=== PATIENT | female | born 1955 | race Caucasian/White ===

== ENCOUNTER 2020-09-16 15:43 | Emergency (ER) | payer BC, SELFPAY ==
--- NOTE | 2020-09-16 15:47 | ED.FEMALEGU ---
HPI - Female Genitourinary General Chief complaint: Urogenital-Female Stated complaint: UTI SYMPTOMS Time Seen by Provider: 09/16/20 15:47 Source: patient and RN notes reviewed History of Present Illness HPI Narrative: Patient is a 64-year-old female who presents the urgent care with complaints of a possible UTI. Patient states that on she started having symptoms of dysuria, urgency and frequency. Patient denies of any frequent history of UTIs. States that she has been increasing her cranberry juice over the last few days. Patient denies of any fever, chills, nausea, vomiting, abdominal pain or back pain. No other acute complaints. No acute distress noted. Patient aware of the plan of care. Some parts of this dictation were generated by voice recognition software and may contain typographical and/or grammatical inaccuracies. Related Data Home Medications Medication Instructions Recorded Confirmed levothyroxine 09/16/20 meloxicam 09/16/20 Allergies Allergy/AdvReac Type Severity Reaction Status Date / Time hydrocodone Allergy Hives Verified 09/16/20 15:52 Review of Systems Review of Systems: Narrative: CONSTITUTIONAL: Denies fever, chills, or sweats. EYES: Denies visual changes, redness, or discharge. ENT: Denies rhinorrhea, congestion, sore throat, or otalgia. CARDIOVASCULAR: Denies chest pain, palpitations, or edema. RESPIRATORY: Denies cough or dyspnea. GASTROINTESTINAL: Denies abdominal pain, nausea, vomiting, or diarrhea. GENITOURINARY: Reports of dysuria, frequency and urgency SKIN: Denies rash or itching. MUSCULOSKELETAL: Denies back pain, joint pain, or myalgia. NEUROLOGIC: Denies headache, numbness, or weakness. All other systems reviewed are negative, except as documented in HPI. PMFSH Comments At the time of my signature, I reviewed and agree with the nursing past medical, surgical, social, and family history. There is no relevant family history pertinent to the patient complaint. Exam Narrative: Exam Narrative: GENERAL: This is a well-nourished, well-developed patient, in no apparent distress. HEAD: normocephalic, atraumatic. EYES: PERRL. Sclera clear/white. Vision is grossly intact. EARS: External ears normal NOSE: External nose normal with no obvious nasal discharge, nares without redness, no rhinorrhea. THROAT: Mucous membranes moist NECK: Neck supple CARDIOVASCULAR: Regular rate and rhythm without murmurs, gallops, or rubs. RESPIRATORY: Clear to auscultation. Breath sounds equal bilaterally. No wheezes, rales, or rhonchi. GASTROINTESTINAL: Abdomen soft, non-tender, nondistended. Bowel sounds are active. SKIN: warm, intact with no suspicious lesions or rash, good texture and turgor. NEURO: awake, alert, and oriented to person, place and time. There were no obvious focal neurologic abnormalities. EXTREMITIES: No clubbing, cyanosis, or edema. BACK: Negative bilateral CVA tenderness Course Vital Signs Vital signs: Vital Signs Temperature 97.2 F L 09/16/20 15:48 Pulse Rate 70 09/16/20 15:48 Respiratory Rate 16 09/16/20 15:48 Blood Pressure 184/97 H 09/16/20 15:48 Pulse Oximetry 100 09/16/20 15:48 Temperature 97.2 F L 09/16/20 15:48 Pulse Rate 70 09/16/20 15:48 Respiratory Rate 16 09/16/20 15:48 Blood Pressure 184/97 H 09/16/20 15:48 Pulse Oximetry 100 09/16/20 15:48 Reviewed-patient is informed that they may have pre-hypertension or hypertension based on a blood pressure reading in the department. I recommend the patient call the primary care provider listed on their discharge instructions or a physician of their choice this week to arrange follow-up for further evaluation of possible pre-hypertension or hypertension. MDM - Female Genitourinary MDM Narrative Medical decision making narrative: Reviewed lab results with the patient. She is aware that urine analysis is indicative of urinary tract infection with blood and bacteria. Advised the mhosen
[2020-09-16 15:48] VITALS: BP 184/97; PULSE 70; RESP 16; TEMP 36.2; O2SAT 100
== END 2020-09-16 16:08 | disposition home or self-care (01) ==
PROVIDERS: Emergency Provider Nurse Practitioner Family
DX: N39.0 Urinary tract infection, site not specified (principal)
CPT/HCPCS: 81003; 87086; 87088; 99213; G0463

== ENCOUNTER 2021-04-20 11:08 | Emergency (ER) | payer BC, SELFPAY ==
[2021-04-20 11:28] VITALS: BP 152/83; PULSE 56; RESP 16; TEMP 36.1; O2SAT 98
--- NOTE | 2021-04-20 11:50 | ED.FEMALEGU ---
HPI - Female Genitourinary General Chief complaint: Urogenital-Female Stated complaint: Urinary pain Time Seen by Provider: 04/20/21 11:50 Source: patient, RN notes reviewed and old records reviewed Mode of arrival: ambulatory Limitations: no limitations History of Present Illness HPI Narrative: 65 year old female who presents to [facility] care with complaints of 2 day history of urgency and frequency with pressure sensation in urethra area. Patient reports that she has had past UTI's with similar symptoms. Patient reports also that she has had a bladder sling in the past for urinary incontinency. Patient states no vaginal discharge or itching or any concern for STD's. Patient denies any fevers, chills or sweats, no nausea or vomiting or any diarrhea. Patient denies any abdominal or suprapubic discomfort or any CVA tenderness. MD elicited complaint: dysuria and UTI Pertinent past history: overactive bladder and other (previous UTI) Onset (ago): day(s) (2) Related Data Home Medications Medication Instructions Recorded Confirmed levothyroxine 100 mcg PO DAILY 04/20/21 04/20/21 meloxicam 15 mg PO PRN PRN 04/20/21 04/20/21 Allergies Allergy/AdvReac Type Severity Reaction Status Date / Time hydrocodone Allergy Hives Verified 04/20/21 11:34 Review of Systems Review of Systems: CONSTITUTIONAL: Denies fever, chills, or sweats. EYES: Denies visual changes, redness, or discharge. ENT: Denies rhinorrhea, congestion, sore throat, or otalgia. CARDIOVASCULAR: Denies chest pain, palpitations, or edema. RESPIRATORY: Denies cough or dyspnea. GASTROINTESTINAL: Denies abdominal pain, nausea, vomiting, or diarrhea. GENITOURINARY: Positive dysuria or hematuria, urgency and frequency SKIN: Denies rash or itching. MUSCULOSKELETAL: Denies back pain, joint pain, or myalgia. NEUROLOGIC: Denies headache, numbness, or weakness. PSYCHIATRIC: Denies anxiety or depression. All systems reviewed & are unremarkable except as noted in HPI and below PMFSH Past Medical History Medical History (Updated 04/20/21 @ 12:19 by Gaye Conway NP) DDD (degenerative disc disease), lumbar Hypothyroid UTI (urinary tract infection) Surgical History Surgical History (Updated 04/20/21 @ 12:20 by Gaye Conway NP) History of bladder surgery sling History of total right knee replacement Social History Social History (Updated 04/20/21 @ 12:26 by Gaye Conway NP) Smoking status: Never smoker Alcohol intake: unknown Substance use: never Living arrangements: with family Gender identity (if verbalized by the patient): Female Comments At time of signature, agree with nursing past medical, surgical, social and family history. There is no relevant family history pertinent to the presenting complaint Exam Narrative: GENERAL: Well-appearing, well-nourished, and in no acute distress. HEAD: Normocephalic, atraumatic. EYES: PERRLA and EOMI. ENT: Nares clear, no rhinorrhea or epistaxis. Mucous membranes moist.TM's normal with good light reflex, throat pink with no lesions or exudates or tonsil enlargement. NECK: Supple.no lymphadenopathy CHEST: Clear to auscultation. No respiratory distress.SAO2 98% on room air HEART: Regular rate and rhythm. No murmur heard. Normal peripheral pulses. ABDOMEN: Soft, nontender on palpation, nondistended, normal active bowel sounds, No CVA tenderness on evaluation, urgency and frequency with urination and perineal urethra pressure. EXTREMITIES: Normal range of motion. No edema. SKIN: Warm, dry, no rash. NEURO: No focal deficits. Alert and oriented x3. Course Course Level of Care: Express Care Visit Vital Signs Vital signs: Vital Signs Temperature 36.1 C L 04/20/21 11:28 Pulse Rate 56 L 04/20/21 11:28 Respiratory Rate 16 04/20/21 11:28 Blood Pressure 152/83 H 04/20/21 11:28 Pulse Oximetry 98 04/20/21 11:28 Temperature 36.1 C L 04/20/21 11:28 Pulse Rate 56 L 04/20/21 11:28 Respirat
== END 2021-04-20 12:07 | disposition home or self-care (01) ==
PROVIDERS: Emergency Provider Registered Nurse
DX: N39.0 Urinary tract infection, site not specified (principal); M51.36 Other intervertebral disc degeneration, lumbar region; E03.9 Hypothyroidism, unspecified; Z96.651 Presence of right artificial knee joint
CPT/HCPCS: 81003; 87086; 87147; 87181; 87186; 99213; G0463

== ENCOUNTER 2021-10-26 00:54 | Day surgery (SDC) | payer BC, SELFPAY ==
[2021-10-15 15:57] VITALS: BMI 33.4
--- NOTE | 2021-10-25 13:15 | PM.HPGS ---
History of Present Illness History of Present Illness Consent: Risks, benefits, and alternatives have been discussed and questions answered. Patient agrees to proceed with procedure. Chief complaint: neoplasm screening Narrative: Monica Kearns is a 66 year old female referred for colon cancer screening. She has a family history of colon cancer. Review of Systems Review of Systems: All systems reviewed & are unremarkable except as noted in HPI and below PMFSH Past Medical History Medical History DDD (degenerative disc disease), lumbar Hx of acute renal failure Hypothyroid Idiopathic urticaria UTI (urinary tract infection) Surgical History Surgical History History of bladder surgery sling History of total right knee replacement Hx of colonoscopy 01.08.2017 repeat on 5 years due to fam hx Social History Social History Smoking status: Former smoker Tobacco type: cigarettes Alcohol intake: current Drinks per week: 1 Alcohol use details: twice a month Substance use: never Substance use type: does not use Living arrangements: alone Gender identity (if verbalized by the patient): Female Spiritual care concerns: No Meds Home Medications and Allergies Home Medications Medication Instructions Recorded Confirmed Type levothyroxine 100 mcg tablet 100 mcg PO DAILY 04/20/21 10/26/21 History calcium carbonate 600 mg calcium 600 mg PO DAILY 05/09/21 10/26/21 History (1,500 mg) tablet (Calcium) diclofenac sodium 1 % topical gel 2 g topical QID 05/09/21 10/26/21 History estradiol 0.01% (0.1 mg/gram) 1 g vaginal WEEKLY #42.5 grams 06/28/21 10/26/21 Rx vaginal cream cholecalciferol (vitamin D3) 1,250 1,250 mcg PO WEEKLY #14 caps 10/12/21 10/26/21 Rx mcg (50,000 unit) capsule solifenacin 10 mg tablet (Vesicare) 10 mg PO DAILY #90 tabs 10/12/21 10/26/21 Rx Allergies Allergy/AdvReac Type Severity Reaction Status Date / Time hydrocodone Allergy Hives Verified 10/26/21 07:57 Exam Resp: Auscultation: clear to auscultation bilaterally Cardio: Rate: regular rate Rhythm: regular rhythm GI: GI Palp: Yes Soft to palpation and No Tenderness to palpation present (GI) Assessment and Plan Assessment and plan (1) Colon cancer screening: Code(s): Z12.11 - Encounter for screening for malignant neoplasm of colon Status: Acute Assessment and Plan: Colonoscopy with possible biopsy or polypectomy or cautery or injection of substances.
[2021-10-26 07:58] VITALS: BP 169/87; PULSE 56; RESP 18; TEMP 36.2; O2SAT 100
[2021-10-26] MEDS: LACTATED RINGERS 1,000 ML 150 ML IV CONT (08:10)
--- NOTE | 2021-10-26 08:31 | WPDANESEPPF ---
Anes - Initial Pre Proc Eval Procedure: Operation Date: 10/26/21 09:00 Proposed Procedures p Screening Colonoscopy - Davin Brooks MD Date/Time: 10/26/21 08:31 Surgeon: Davin Brooks MD Pre Op Diagnosis: neoplasm screening Patient Data Age: 66 Gender: F Height: 1.68 m Weight: 93.3 kg Last Vital Signs Temp 97.1 F L 10/26/21 07:58 Pulse 56 L 10/26/21 07:58 Resp 18 10/26/21 07:58 BP 169/87 H 10/26/21 07:58 Pulse Ox 100 10/26/21 07:58 O2 Del Method Room Air 10/26/21 07:58 Allergies Allergy/AdvReac Type Severity Reaction Status Date / Time hydrocodone Allergy Hives Verified 10/26/21 07:57 Home Medications Medication Instructions Recorded Confirmed Type levothyroxine 100 mcg tablet 100 mcg PO DAILY 04/20/21 10/26/21 History calcium carbonate 600 mg calcium 600 mg PO DAILY 05/09/21 10/26/21 History (1,500 mg) tablet (Calcium) diclofenac sodium 1 % topical gel 2 g topical QID 05/09/21 10/26/21 History estradiol 0.01% (0.1 mg/gram) 1 g vaginal WEEKLY #42.5 grams 06/28/21 10/26/21 Rx vaginal cream cholecalciferol (vitamin D3) 1,250 1,250 mcg PO WEEKLY #14 caps 10/12/21 10/26/21 Rx mcg (50,000 unit) capsule solifenacin 10 mg tablet (Vesicare) 10 mg PO DAILY #90 tabs 10/12/21 10/26/21 Rx Patient hx anesthesia problems: none Family hx anesthesia problems: none Results Review: All pre-operative results and documents have been reviewed as part of the pre-operative evaluation. [facility] Past Medical History Medical History DDD (degenerative disc disease), lumbar Hx of acute renal failure Hypothyroid Idiopathic urticaria UTI (urinary tract infection) Surgical History Surgical History History of bladder surgery sling History of total right knee replacement Hx of colonoscopy .1.2017 repeat on 5 years due to fam hx Social History Social History Smoking status: Former smoker Tobacco type: cigarettes Alcohol intake: current Drinks per week: 1 Alcohol use details: twice a month Substance use: never Substance use type: does not use Living arrangements: alone Gender identity (if verbalized by the patient): Female Spiritual care concerns: No Anes - Eval Final PreProcedure Day of Procedure 10/26/21 08:31 Patient weight: obese Heart: regular rate and rhythm Lungs: clear to auscultation Airway: Mallampati scale class III Neurological: alert and oriented Last oral intake: >/= 8 hours ASA classification: III Emergent: no Anesthetic plan: proceed Anesthesia type and monitoring: general GIVS and standard monitoring Results Review: All pre-operative results and documents have been reviewed as part of the pre-operative evaluation. Informed Consent: The patient's anesthetic plan and its attendant risks and benefits were discussed with the patient/family/POA. Questions were solicited and answers provided to the satisfaction of the patient/family/POA.
[2021-10-26 09:11] VITALS: BP 123/76; PULSE 61; RESP 16; O2SAT 99
[2021-10-26 09:21] VITALS: BP 151/83; PULSE 55; RESP 18; O2SAT 100
[2021-10-26 09:31] VITALS: BP 147/79; PULSE 52; RESP 14; O2SAT 98
== END 2021-10-26 09:38 | disposition home or self-care (01) ==
PROVIDERS: PCP Family Medicine; Visit Provider Internal Medicine Gastroenterology
PROC: 0DJD8ZZ Inspection of Lower Intestinal Tract, Via Natural or Artificial Opening Endoscopic (ICD-10-PCS; CPT 45378; principal; 2021-10-26 09:00)
DX: Z12.11 Encounter for screening for malignant neoplasm of colon (principal); K57.30 Diverticulosis of large intestine without perforation or abscess without bleeding; K64.8 Other hemorrhoids; Z80.0 Family history of malignant neoplasm of digestive organs; E03.9 Hypothyroidism, unspecified; Z87.891 Personal history of nicotine dependence; E66.9 Obesity, unspecified; Z68.33 Body mass index [BMI] 33.0-33.9, adult
CPT/HCPCS: 45378; J2704; J7120

== ENCOUNTER 2021-11-17 08:19 | Emergency (ER) | payer BC, SELFPAY ==
--- NOTE | 2021-11-17 08:23 | ED.EYEPROB ---
HPI - Eye Problem General Chief complaint: Eye Problems Stated complaint: SWOLLEN/RED EYE Time Seen by Provider: 11/17/21 08:38 Source: patient and RN notes reviewed Mode of arrival: ambulatory Limitations: no limitations History of Present Illness HPI Narrative: 66-year-old female presents with concern for right eyelid swelling and redness for several days. She denies visual changes, pain, purulent drainage. Reports some slight watery drainage. Reports the lid is slightly tender when she touches it. She denies any injury or trauma. She denies any swelling around the eye or pressure behind the eye. chief complaint: other (Eyelid swelling) Related Data Home Medications Medication Instructions Recorded Confirmed calcium carbonate 600 mg calcium 600 mg PO DAILY 05/09/21 11/17/21 (1,500 mg) tablet (Calcium) diclofenac sodium 1 % topical gel 2 g topical QID 05/09/21 11/17/21 Allergies Allergy/AdvReac Type Severity Reaction Status Date / Time hydrocodone Allergy Hives Verified 11/17/21 08:29 Review of Systems Review of Systems: CONSTITUTIONAL: Denies malaise, chills, sweats, or fever. EYES: Denies visual changes. Reports redness, and swelling to the right upper eyelid. Denies irritation, purulent discharge. ENT: Denies rhinorrhea, congestion, sinus pain, otalgia or sore throat. SKIN: Denies rash or itching. NEUROLOGIC: Denies numbness, weakness, or headache. PSYCHIATRIC: Denies anxiety or depression. All systems reviewed & are unremarkable except as noted in HPI and below PMFSH Past Medical History Medical History DDD (degenerative disc disease), lumbar Hx of acute renal failure Hypothyroid Idiopathic urticaria UTI (urinary tract infection) Surgical History Surgical History History of bladder surgery sling History of total right knee replacement Hx of colonoscopy 01.08.2017 repeat on 5 years due to fam hx Social History Social History Smoking status: Former smoker Tobacco type: cigarettes Alcohol intake: current Drinks per week: 1 Alcohol use details: twice a month Substance use: never Substance use type: does not use Gender identity (if verbalized by the patient): Female Spiritual care concerns: No Comments At time of signature, agree with nursing past medical, surgical, social and family history. There is no relevant family history pertinent to the presenting complaint Exam Narrative: GENERAL: Well-appearing, well-nourished, and in no acute distress. HEAD: Normocephalic, atraumatic. EYES: PERRLA, sclera clear, and EOMI. No nystagmus. Bilateral conjunctivae clear. Left upper and lower eyelid unremarkable, no periorbital edema noted. Right upper eyelid erythematous with mild edema to the lower margin of the lid with hordeolum noted. ENT: Nares clear, turbinates pink, no rhinorrhea or epistaxis. Mucous membranes moist. NECK: Supple. CHEST: No respiratory distress. Speaks in full sentences. HEART: Regular rate and rhythm. SKIN: Warm, dry, no visible rash. NEURO: Alert and oriented x3. PSYCH: Normal mood and affect Course Course Emergency Course: Patient is aware of diagnosis, understands and agrees to treatment plan. Anticipatory guidance given. Patient agrees to follow-up as directed and is aware of reasons to seek care at the emergency department. Portions of this record may have been created with voice recognition software Level of Care: Express Care Visit Vital Signs Vital signs: Reviewed. MDM - Eye Problem MDM Narrative Medical decision making narrative: Consideration of the following conditions may be warranted for the presenting problem, they are not final diagnoses: Bacterial conjunctivitis, allergic conjunctivitis, viral conjunctivitis, foreign body, blepharitis, chalazion, hordeolum, corneal
[2021-11-17 08:29] VITALS: BP 154/95; PULSE 51; RESP 16; TEMP 36.6; O2SAT 100
== END 2021-11-17 08:50 | disposition home or self-care (01) ==
PROVIDERS: Emergency Provider Nurse Practitioner; PCP Family Medicine
DX: H00.021 Hordeolum internum right upper eyelid (principal); Z87.891 Personal history of nicotine dependence; M51.36 Other intervertebral disc degeneration, lumbar region; E03.9 Hypothyroidism, unspecified; Z96.651 Presence of right artificial knee joint
CPT/HCPCS: 99213; G0463

== ENCOUNTER 2021-11-23 12:34 | Emergency (ER) | payer BC, SELFPAY ==
[2021-11-23 12:38] VITALS: BP 153/76; PULSE 57; RESP 16; TEMP 36.1; O2SAT 100
--- NOTE | 2021-11-23 12:54 | ECG_ITS ---
Measurements Intervals [place] Rate: 54 P: 43 GA: 175 QRS: 9 QRSD: 92 T: 65 QT: 433 QTc: 411 Interpretive Statements SINUS BRADYCARDIA BORDERLINE ST ABNORMALITY- HIGH LATERAL LEADS BASELINE ARTIFACT- I, II, III, AVR, AVL, AVF BORDERLINE ECG NO PREVIOUS ECG AVAILABLE FOR COMPARISON Electronically Signed On 11-23-2021 21:22:13 CDT by Campos White D.O.
--- NOTE | 2021-11-23 13:15 | ED.DIZZY ---
HPI - Dizziness General Chief Complaint: Dizziness Stated Complaint: LIGHT HEADED History of Present Illness HPI Narrative: Patient is a 66-year-old female who presents to the the medical center via POV for evaluation of dizziness and near syncopal episode that occurred at approximately 10 AM this morning. 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 Denies taking OTC meds for symptoms. Resting improved symptoms. Nothing worsens symptoms. Denies a heart history. Patient is scheduled to have a total knee replacement in approximately 2 weeks and is scheduled for a Lexiscan on Friday, November 28, 2021. Of note, she recently started solifenacin for bladder problems Related Data Home Medications Medication Instructions Recorded Confirmed calcium carbonate 600 mg calcium 600 mg PO DAILY 05/09/21 11/17/21 (1,500 mg) tablet (Calcium) diclofenac sodium 1 % topical gel 2 g topical QID 05/09/21 11/17/21 Allergies Allergy/AdvReac Type Severity Reaction Status Date / Time hydrocodone Allergy Hives Verified 11/17/21 08:29 Review of Systems Review of Systems: Pertinent negatives: fever, chills, sweats, change in appetite, poor p.o. intake, headache, lymphadenopathy, vision changes, swelling, erythema, weakness, syncope, vertigo, LOC, seizure activity, memory loss, difficulty with coordination/gait/equilibrium, paresthesias, abdominal pain, nausea, vomiting, diarrhea, constipation, shortness of breath, cough, chest pain, and heart palpitations/murmurs. [facility] Past Medical History Medical History DDD (degenerative disc disease), lumbar Hx of acute renal failure Hypothyroid Idiopathic urticaria UTI (urinary tract infection) Surgical History Surgical History History of bladder surgery sling History of total right knee replacement Hx of colonoscopy 01.08.2017 repeat on 5 years due to fam hx Social History Social History Smoking status: Former smoker Tobacco type: cigarettes Alcohol intake: current Drinks per week: 1 Alcohol use details: twice a month Substance use: never Substance use type: does not use Gender identity (if verbalized by the patient): Female Spiritual care concerns: No Comments I have reviewed and agree with the patient's past medical, surgical, social, and family hx as documented by the RN. There is no relevant family history pertinent to the presenting complaint. Exam Narrative: GENERAL: Well-appearing, well-nourished, and in no acute distress. HEAD: Normocephalic, atraumatic. No sinus tenderness or facial swelling appreciated. EYES: PERRLA and EOMI. No evidence of erythema, swelling, or drainage. ENT: Bilateral external ears and ear canals normal. Bilateral TMs are normal.No TM perforation. Nares clear, no rhinorrhea or epistaxis. Bilateral turbinates without erythema/ swelling. Mucous membranes moist and pink. Uvula is midline without erythema and swelling. No evidence of petechial rash, cobblestoning, lesions, ulcers, erythema, swelling, exudates, peritonsillar abscess, tenting, or drooling. Breath odor and voice normal. NECK: Supple. No Lymphadenopathy or nuchal rigidity appreciated. CHEST: Bilateral lung lechuga are clear to auscultation. No respiratory distress. No evidence of cough or pleuritic cp upon examination. HEART: Sinus bradycardia with a rate of 55. Rate was measured by palpating radial artery. Regular rhythm. No murmur, gallop, or rub heard. EXTREMITIES: Normal range of motion. No edema. SKIN: Warm, dry, no rash. NEURO: No focal deficits. Alert and oriented x3. Course Course Emergency Course: The patient/guardian displays adequate decision making capability and despite a detailed discussion of alternatives, benefits,
--- NOTE | 2021-11-23 13:31 | PC.NURSE ---
States she does not feel bad at this time. No chest pain, dizziness or headache. Refuses to go to the ED for a work up.
== END 2021-11-23 13:35 | disposition home or self-care (01) ==
PROVIDERS: Emergency Provider Nurse Practitioner Family; PCP Family Medicine
DX: R00.1 Bradycardia, unspecified (principal); E03.9 Hypothyroidism, unspecified; Z87.891 Personal history of nicotine dependence
CPT/HCPCS: 93005; 99213; G0463

== ENCOUNTER 2021-11-28 09:06 | Outpatient (CLI) | payer BC, SELFPAY ==
--- NOTE | ~2021-11-28 | NM_ITS ---
EXAMINATION: NM ji stress w perfusion DATE: 11/28/2021 12:08 INDICATION: Abnormal electrocardiogram. TECHNIQUE: Rest images were obtained following intravenous administration of 10 mCi Tc99m tetrofosmin (Myoview). The patient was infused intravenously with Lexiscan (regadenoson). Then, 30.6 mCi Tc99m t etrofosmin (Myoview) was administered intravenously, and prone and supine stress images were obtained . Data was reconstructed into short axis and horizontal and vertical long axis SPECT images. Gated SP ECT images were also obtained. COMPARISON: None. FINDINGS: There is no definite reversible or fixed perfusion abnormality to suggest ischemia or infar ction. There is no segmental wall motion abnormality. Left ventricular ejection fraction measures 6 6%. IMPRESSION: 1. No definite ischemia or infarct. 2. Normal left ventricular ejection fraction measuring 66%. Reviewed, dictated and finalized at location A.
--- NOTE | 2021-11-28 10:48 | EST_ITS ---
Patient Info Name: Monica Kearns Age: 66 years : 1955 Gender: Female Ht: 66 in Wt: 205 lbs BSA: 2.12 m2 HR: 59 bpm BP: 156 / 101 mmHg Exam Date: 11/28/2021 10:56 AM Exam Location: [facility] Stress Patient Status: Outpatient Admit Date: 11/28/2021 Staff Ordering Physician: Donald Dahl PA-C Attending Provider: Sandra Santana MD Exercise Technologist: Broderick Velarde RDCS, RT Exercise Physician: Campos White DO Exam Type: CA stress ji w NM Study Info A regadenoson stress test was performed. Summary 1. 1. Abnormal lexiscan stress test for ischemic ST changes by ECG criteria. 2. 2. Baseline hypertension. 3. 3. Nuclear scan to follow and will be reported separately. Please correlate with it. 4. 4. Patient informed of the above results. Protocol: Lexiscan Stress ECG Details Stage: REST Duration (min): 2 min : 55 sec HR (bpm): 59 SBP (mmHg): 156 DBP (mmHg): 101 Stage: REST Duration (min): 8 min : 48 sec HR (bpm): 74 SBP (mmHg): 156 DBP (mmHg): 101 Stage: STAGE 1 Duration (min): 1 min : 0 sec HR (bpm): 116 SBP (mmHg): 195 DBP (mmHg): 109 Stage: RECOVERY Duration (min): 1 min : 0 sec HR (bpm): 106 SBP (mmHg): 195 DBP (mmHg): 109 Stage: RECOVERY Duration (min): 2 min : 0 sec HR (bpm): 92 SBP (mmHg): 195 DBP (mmHg): 109 Stage: RECOVERY Duration (min): 3 min : 0 sec HR (bpm): 89 SBP (mmHg): 175 DBP (mmHg): 95 Stage: RECOVERY Duration (min): 4 min : 0 sec HR (bpm): 84 SBP (mmHg): 175 DBP (mmHg): 95 Stage: RECOVERY Duration (min): 5 min : 0 sec HR (bpm): 80 SBP (mmHg): 175 DBP (mmHg): 95 Stage: RECOVERY Duration (min): 5 min : 5 sec HR (bpm): 79 SBP (mmHg): 175 DBP (mmHg): 95 Rest HR: 74 bpm Peak HR: 116 bpm Rest Sys BP: 156 mmHg Peak Sys BP: 195 mmHg Max Pred HR: 154 bpm % Max Pred HR: 75 % Target HR: 131 bpm Max RPP: 22,620 bpm*mmHg Termination Reason: Completed protocol Cardiac Symptoms: Shortness of breath Total Time: 1 min : 0 sec Rest Welch BP: 101 mmHg Peak Welch BP: 109 mmHg Total Dose: 0.4 mg Resting ECG Sinus rhythm. Stress ECG [address] depression in inferior leads and V3-V6. Arrhythmias None. Report Signatures
== END 2021-11-28 09:07 | disposition home or self-care (01) ==
PROVIDERS: PCP Family Medicine; Visit Provider Family Medicine
DX: R00.1 Bradycardia, unspecified (principal); Z01.810 Encounter for preprocedural cardiovascular examination
CPT/HCPCS: 78452; 93017; A9502; J2785

== ENCOUNTER 2021-12-12 11:32 | Emergency (ER) | payer BC, SELFPAY ==
--- NOTE | ~2021-12-12 | CT_ITS ---
EXAMINATION: CTA brain carotid DATE: 12/12/2021 13:43 INDICATION: Transient visual loss. TECHNIQUE: Computed tomographic angiography (CTA) of the head was performed without and with 100 mL O mnipaque-350 intravenous contrast. CTA of the neck was performed with intravenous contrast. Automated exposure control and iterative reconstruction technique were employed. The dose-length product was 1 635.38 mGy-cm. Maximum intensity projection and volume rendered 3D-reconstructions were created by e technologist on a separate workstation. COMPARISON: None. FINDINGS: HEAD CTA: There is no intracranial hemorrhage, acute infarction, or abnormal intracranial mass lesion . The ventricles are normal in size. The orbits are normal. There is minimal mucosal thickening in e paranasal sinuses. The mastoid air cells are normal. Left vertebral artery is dominant. There is no significant stenosis of basilar artery or the posterior cerebral arteries. The posterior communicati ng arteries are normal. There is no significant stenosis of the intracranial internal carotid arterie s or anterior or middle cerebral arteries. Anterior communicating artery is normal. There is no aneur ysm. NECK CTA: There is mild scarring at the lung apices. There are no pathologically enlarged lymph nodes . There is plaque in the proximal internal carotid arteries. There is 0% stenosis of the proximal rig ht internal carotid artery relative to normal distal artery lumen diameter (NASCET criteria). There i s 0% stenosis of the proximal left internal carotid artery relative to normal distal artery lumen gissel meter. There is severe cervical spondylosis. IMPRESSION: 1. Normal brain. 2. No aneurysm or significant intracranial internal stenosis. 3. 0% stenosis of the proximal internal carotid arteries relative to normal distal artery lumen diame ters (NASCET criteria). Reviewed, dictated and finalized at location A. IMPRESSION: 1. Normal brain. 2. No aneurysm or significant intracranial internal stenosis. 3. 0% stenosis of the proximal internal carotid arteries relative to normal dis chelsy artery lumen diameters (NASCET criteria).
[2021-12-12 11:48] VITALS: BP 184/78; PULSE 60; RESP 20; TEMP 36.6; O2SAT 100
--- NOTE | 2021-12-12 12:00 | PC.NURSE ---
Pt. has a bifocal lens for L eye and an distance lens for R eye. visual acuity is unable to be preformed.
--- NOTE | 2021-12-12 12:21 | ED.EYEPROB ---
HPI - Eye Problem General Chief complaint: Eye Problems Stated complaint: INT VISION CHANGES Time Seen by Provider: 12/12/21 12:11 Source: RN notes reviewed History of Present Illness HPI Narrative: Patient presents emergency department from home for vision changes. Patient states she had a cardiac cath done at [facility] yesterday she states at that time they found no blockage of the required stents states a Soni cath she had a brief 5-minute episode where she had a shiny near light sensation in her right eye and then had moved across to her left eye states that this lasted for approximately 5 minutes and resolved. She states she had no new numbness or tingling and no other symptoms states that she was fine until this morning when she again had that shiny mirror sensation in her right eye and then she states briefly lost the medial aspect of her vision in the right eye states this again lasted 5 minutes and resolved and she is had no issues since that time she denies any numbness or tingling she denies any headaches or any other symptoms patient denies any chest pain shortness of breath or any other deficits Related Data Home Medications Medication Instructions Recorded Confirmed calcium carbonate 600 mg calcium 600 mg PO DAILY 05/09/21 11/17/21 (1,500 mg) tablet (Calcium) diclofenac sodium 1 % topical gel 2 g topical QID 05/09/21 11/17/21 Allergies Allergy/AdvReac Type Severity Reaction Status Date / Time hydrocodone Allergy Hives Verified 12/04/21 15:21 Review of Systems Review of Systems: Gen.: Denies fevers or chills Eyes: See HPI ENT: Denies congestion Respiratory: Denies shortness of breath or cough CV: Denies chest pain or palpitations GI: Denies abdominal pain nausea, emesis or diarrhea Musculoskeletal: Denies back pain or muscle pain Neuro: Denies numbness, tingling, weakness or focal weakness Skin: Denies rash Except as documented, all other systems reviewed and negative [facility] Past Medical History Medical History DDD (degenerative disc disease), lumbar Hx of acute renal failure Hypothyroid Idiopathic urticaria UTI (urinary tract infection) Surgical History Surgical History History of bladder surgery sling History of total right knee replacement Hx of colonoscopy 01.08.2017 repeat on 5 years due to fam hx Social History Social History Smoking status: Former smoker Tobacco type: cigarettes Alcohol intake: current Drinks per week: 1 Alcohol use details: twice a month Substance use: never Substance use type: does not use Gender identity (if verbalized by the patient): Female Spiritual care concerns: No Exam Narrative: APPEARANCE: No acute distress, nontoxic, resting in bed HEENT: Normocephalic, atraumatic, OMM, EYES: PERRL, EOMI NECK: Supple, nontender, full range of motion without pain, no meningismus RESPIRATORY: No respiratory distress, clear to auscultation bilaterally with no rhonchi wheezing or rales CARDIOVASCULAR: RRR s murmur ABDOMINAL: Soft, nontender, nondistended MUSCULOSKELETAL: Moves all extremities. No clubbing, cyanosis or edema. NEURO: A and O ?3, following commands, speech normal, no facial droop,muscle strength 5 out of 5 bilateral upper and lower extremities SKIN:: Warm, dry. Normal Color PSYCHIATRIC: Normal affect/mood Course Course Emergency Course: Patient has had no vision symptoms in the ED All discussed with ophthalmology Dr. England at [facility] this time recommends patient follow-up in the office at 2 PM tomorrow Discussed with patient results of workup and diagnosis. Discussed need for follow-up with primary care, proper use of medication, and reasons to return to the emergency department. Patient understands and agrees to current treatment plan Vital Sign
[2021-12-12 13:03] LABS: Basophils Percent Auto 0.4 % (0.2-1.2); Eosinophils Absolute Auto 0.1 K/mm3 (0-0.3); Eosinophils Percent Auto 1.2 % (0-4.4); Hematocrit 41.8 % (37.0-47.0); Hemoglobin 13.8 g/dL (12.0-15.0); Immature Granulocyte Absolute 0.01 K/mm3 (0.00-0.031); Immature Granulocyte Percent A 0.2 % (0-0.5); Lymphocytes Absolute Auto 1.63 K/mm3 (0.9-3.2); Lymphocytes Percent Auto 33.1 % (18.3-44.2); Mean Corpuscular Hemoglobin 27.9 pg (26-34); Mean Corpuscular Volume 84.6 fl (80-100); Monocytes Absolute Auto 0.6 K/mm3 (0.1-0.6); Monocytes Percent Auto 11.4 % (2.6-8.5); Neutrophils Absolute Auto 2.6 K/mm3 (1.3-6.7); Neutrophils Percent Auto 53.7 % (45.5-73.1); Platelet Count Result 194 k/mm3 (150-375); Red Blood Count 4.94 M/mm3 (4.2-5.4); Red Cell Distribution Width 13.9 % (11.5-14.5); White Blood Count 4.9 K/mm3 (4.5-10.0)
[2021-12-12 13:12] LABS: Alanine Aminotransferase 16 U/L (6-35); Albumin Level 4.8 g/dL (3.5-5.1); Alkaline Phosphatase 58 U/L (38-126); Anion Gap 9 mmol/L (8-16); Aspartate Amino Transferase 23 U/L (14-36); Bilirubin,Total 0.6 mg/dL (0.2-1.3); Blood Urea Nitrogen 19 mg/dL (7-17); Calcium 9.3 mg/dL (8.4-10.2); Carbon Dioxide 28 mmol/L (22-30); Chloride 102 mmol/L (98-107); Estimated Glomerular Filt Rate > 60; Glucose 103 mg/dL (65-110); Potassium 4.2 mmol/L (3.4-5.0); Sodium 139 mmol/L (137-145)
[2021-12-12 13:13] LABS: INR 1.1; Prothrombin Time 13.3 Seconds (11.1-14.7)
[2021-12-12 13:14] LABS: Partial Thromboplastin Time 34.7 SECONDS (22.3-36.8)
[2021-12-12 13:18] VITALS: BP 179/77; PULSE 54; RESP 12; O2SAT 99
== END 2021-12-12 15:02 | disposition home or self-care (01) ==
PROVIDERS: Emergency Provider Emergency Medicine; PCP Family Medicine
DX: H53.9 Unspecified visual disturbance (principal); E03.9 Hypothyroidism, unspecified; Z87.440 Personal history of urinary (tract) infections; Z96.651 Presence of right artificial knee joint; Z87.891 Personal history of nicotine dependence
CPT/HCPCS: 36415; 70496; 70498; 80053; 85025; 85610; 85730; 99284; Q9967

== ENCOUNTER 2022-01-24 10:36 | Outpatient (CLI) | payer BC, SELFPAY ==
[2022-01-24 19:22] LABS: Kit Draw Collected
== END 2022-01-24 10:37 | disposition home or self-care (01) ==
LOC: ANHGOSHLAB 10:39
PROVIDERS: PCP Family Medicine; Visit Provider Physician Assistant
DX: E55.9 Vitamin D deficiency, unspecified (principal); E78.2 Mixed hyperlipidemia; G47.33 Obstructive sleep apnea (adult) (pediatric); N32.81 Overactive bladder; Z99.89 Dependence on other enabling machines and devices
CPT/HCPCS: 36415

== ENCOUNTER 2022-07-15 09:41 | Outpatient (CLI) | payer MEDICARE, SELFPAY ==
[2022-07-15 12:11] LABS: Kit Draw Collected
== END 2022-07-15 09:42 | disposition home or self-care (01) ==
LOC: ANHGOSHLAB 09:43
PROVIDERS: PCP Family Medicine; Visit Provider Physician Assistant
DX: Z79.899 Other long term (current) drug therapy (principal)
CPT/HCPCS: 36415

== ENCOUNTER → 2022-07-15 09:59 | Outpatient (CLI) | payer MEDICARE, SELFPAY ==
--- NOTE | ~2022-07-15 | XR_ITS ---
EXAMINATION: XR hip RT 2V w AP pelvis DATE: 07/15/2022 10:12 INDICATION: 6 months of nontraumatic right hip pain TECHNIQUE: Anteroposterior view of the pelvis and anteroposterior and frog-leg lateral views of the r ight hip were obtained. COMPARISON: None. FINDINGS: Bone alignment is normal. No fracture or suspected avascular necrosis. Mild bilateral sacral iliac os teoarthritis. Bilateral hip joint spaces appear relatively preserved. Mild osteitis pubis. IMPRESSION: 1. Unremarkable right hip. 2. Mild osteitis pubis and mild bilateral sacroiliac osteoarthritis. Reviewed, dictated and finalized at location A.
== END ==
PROVIDERS: PCP Family Medicine; Visit Provider Physician Assistant
DX: M25.559 Pain in unspecified hip (principal); M53.3 Sacrococcygeal disorders, not elsewhere classified
CPT/HCPCS: 73502

== ENCOUNTER 2022-07-30 13:35 | Outpatient (CLI) | payer MEDICARE, SELFPAY ==
--- NOTE | 2022-08-06 15:23 | WPDHOLTEREM ---
Holter/Event Monitor Holter/Event Monitor Date of procedure: 07/30/22 Holter/Event Procedure: 48 Hr Holter Monitor Indications: Palpitations Conclusion: 1. 48 hour holter monitor on 07/30/22. 2. Predominant rhythm is sinus rhythm. HR range 40-105 bpm; average HR 64 bpm. HR at 40 bpm was at 05:06. 3. There are 97 premature supraventricular complexes and 13 supraventricular couplets. There are 3 episodes of atrial tachycardia, fastest at 150 bpm and longest lasted 5 beats. 4. There are 237 premature ventricular complexes. No ventricular tachycardia. 5. No sinoatrial or atrioventricular blocks. No significant pauses greater than 2 seconds. 6. No symptoms available for correlation.
== END 2022-07-30 13:36 | disposition home or self-care (01) ==
PROVIDERS: PCP Family Medicine; Visit Provider Physician Assistant
DX: R00.2 Palpitations (principal)
CPT/HCPCS: 93225; 93226

== ENCOUNTER 2023-05-20 08:51 | Outpatient (CLI) | payer MEDICARE, SELFPAY ==
--- NOTE | ~2023-05-20 | XR_ITS ---
Left elbow Technique: AP, oblique, and lateral views were obtained. Clinical History: Pain Findings: No acute fracture or dislocation is seen. Osseous alignment is anatomic. Joint spaces are p reserved. There is no displacement of the fat pads, and soft tissues are unremarkable. Impression: Unremarkable radiographs. Reviewed, dictated and finalized at location . Impression: Unremarkable radiographs.
== END 2023-05-20 08:52 ==
PROVIDERS: PCP Family Medicine; Visit Provider Nurse Practitioner Family
DX: M25.522 Pain in left elbow (principal)
CPT/HCPCS: 73080

== ENCOUNTER 2023-10-27 09:50 | Outpatient (CLI) | payer MEDICARE, SELFPAY ==
[2023-10-27 14:29] LABS: Basophils Percent Auto 0.8 % (0.2-1.2); Eosinophils Absolute Auto 0.1 K/mm3 (0-0.3); Eosinophils Percent Auto 1.6 % (0-4.4); Hematocrit 41.9 % (37.0-47.0); Hemoglobin 13.7 g/dL (12.0-15.0); Immature Granulocyte Absolute 0.01 K/mm3 (0.00-0.031); Immature Granulocyte Percent A 0.2 % (0-0.5); Lymphocytes Absolute Auto 1.75 K/mm3 (0.9-3.2); Lymphocytes Percent Auto 35.6 % (18.3-44.2); Mean Corpuscular HGB Conc 32.7 g/dl (32-36); Mean Corpuscular Hemoglobin 28.6 pg (26-34); Mean Corpuscular Volume 87.5 fl (80-100); Mean Platelet Volume 9.7 fl (7.4-10.4); Monocytes Absolute Auto 0.7 K/mm3 (0.1-0.6); Monocytes Percent Auto 13.2 % (2.6-8.5); Neutrophils Absolute Auto 2.4 K/mm3 (1.3-6.7); Neutrophils Percent Auto 48.6 % (45.5-73.1); Platelet Count Result 225 k/mm3 (150-375); Red Blood Count 4.79 M/mm3 (4.2-5.4); Red Cell Distribution Width 13.4 % (11.5-14.5); White Blood Count 4.9 K/mm3 (4.5-10.0)
[2023-10-27 15:11] LABS: Alanine Aminotransferase 18 U/L (6-35); Albumin Level 4.4 g/dL (3.5-5.1); Alkaline Phosphatase 62 U/L (38-126); Anion Gap 7 mmol/L (4-12); Aspartate Amino Transferase 38 U/L (14-36); Bilirubin,Total 0.6 mg/dL (0.2-1.3); Blood Urea Nitrogen 17 mg/dL (7-17); Calcium 9.1 mg/dL (8.4-10.2); Carbon Dioxide 29 mmol/L (22-30); Chloride 102 mmol/L (98-107); Cholesterol 215 mg/dL (0-200); Estimated Glomerular Filt Rate > 60; Glucose 100 mg/dL (65-110); HDL Direct 51 mg/dL; Potassium 4.4 mmol/L (3.4-5.0); Sodium 138 mmol/L (137-145); Triglycerides 182 mg/dL (<150)
[2023-10-27 15:25] LABS: LDL Cholesterol Direct 110 mg/dL
== END 2023-10-27 09:51 | disposition home or self-care (01) ==
PROVIDERS: PCP Family Medicine; Visit Provider Student in an Organized Health Care Education/Training Program
DX: R00.2 Palpitations (principal); E78.2 Mixed hyperlipidemia; I10 Essential (primary) hypertension; E03.9 Hypothyroidism, unspecified
CPT/HCPCS: 36415; 80053; 80061; 84443; 85025

== ENCOUNTER 2023-11-04 08:16 | Outpatient (CLI) | payer MEDICARE, SELFPAY ==
--- NOTE | ~2023-11-04 | MR_ITS ---
MRI of the lumbar spine Clinical History: Degenerative disc disease Technique: Axial T2-weighted images, and sagittal T1-weighted, T2-weighted, and T2 fat-sat images wer e acquired. Findings: There is no fracture or subluxation of the lumbar spine. Vertebral bodies maintain normal h eight and alignment. No suspicious bone marrow signal abnormality seen. At L1-L2, there is no disc bulge or herniation. There is mild to moderate facet arthropathy. No centr al canal stenosis or neural foraminal narrowing. At L2-L3, there is moderate degenerative disc narrowing. There is minimal disc bulge, especially the left foraminal region, with mild facet arthropathy. No central canal stenosis. There is mild left maricruz ral foraminal narrowing. Right neural foramen preserved. At L3-L4, there is minimal disc bulge with moderate to advanced facet arthropathy, left worse than ri ght. No spinal canal stenosis or neural foraminal narrowing. At L4-L5, there is diffuse disc bulge with severe facet arthropathy. No central canal stenosis or maricruz ral foraminal narrowing. At L5-S1, there is minimal disc bulge with severe facet arthropathy. No central canal stenosis or maricruz ral foraminal narrowing. Paravertebral soft tissues are unremarkable. Impression: Mild degenerative spondylosis overall, as detailed above. Reviewed, dictated and finalized at location . Impression: Mild degenerative spondylosis overall, as detailed above.
== END 2023-11-04 08:17 ==
LOC: GOSHIMG 08:17
PROVIDERS: PCP Family Medicine; Visit Provider Student in an Organized Health Care Education/Training Program
DX: M51.36 Other intervertebral disc degeneration, lumbar region (principal)
CPT/HCPCS: 72148

== ENCOUNTER 2024-02-02 08:52 | Outpatient (CLI) | payer MEDICARE, SELFPAY ==
--- NOTE | ~2024-02-02 | MR_ITS ---
EXAMINATION: MR hip LT wo con, MR hip RT wo con DATE: 02/02/2024 10:25 INDICATION: Bilateral hip pain TECHNIQUE: 1. Magnetic resonance imaging (MRI) of the left hip was performed without intravenous contrast. Seque nces included full-field axial PD-weighted FS FSE and T1-weighted FSE, coronal of the pelvis with PD- weighted FS FSE, T2-weighted FSE and T1-weighted FSE, small field of view of the left hip with axial PD-weighted FS FSE, sagittal PD-weighted FS FSE, coronal PD-weighted FS FSE and coronal T2 weighted FSE. Additional radial T1-weighted FGR oriented orthogonal to the acetabular rim were obtained for e valuation of the labrum. 2. MRI of the right hip was performed without intravenous contrast. Sequences included small field of view of the right hip with axial PD-weighted FS FSE, sagittal PD-weighted FS FSE, coronal PD-weighte d FS FSE and coronal T2 weighted FSE. Additional radial T1-weighted FGR oriented orthogonal to the a cetabular rim were obtained for evaluation of the labrum. COMPARISON: None FINDINGS: Bones/labrum/cartilage: Mild lower lumbar levocurvature with mild spondylosis. Alignment is otherwise normal. No fracture, a vascular necrosis or pathologic marrow replacing process. Mild osteoarthritis at the bilateral hips. On the right there is mild partial-thickness cartilage loss with smooth chondral surface on the right extending from the anterosuperior to the posterior superomedial aspect of the joint space and degene rative tearing at the anterosuperior right acetabular labrum. On the left there is additional mild pa rtial-thickness cartilage loss with smooth chondral surface at the superior to posterior superomedial aspect of the joint space and small region of deep chondral ulceration without degenerative subchond ral changes along the 12:00 position of the lateral rim of the left acetabulum. There is additional d egenerative tearing of the superolateral anterosuperior to posterior superior left acetabular labrum. Fluid: Symmetric physiologic amount of fluid within both hip joints. Minimal amount fluid overlying the righ t greater trochanter consistent with mild trochanteric bursitis. Soft tissues: There is mild feathery muscular edema along the anterior margin of the distal right gluteus bang m uscle belly consistent with low-grade strain. Otherwise normal and symmetric muscle bulk and signal i n the pelvis and visualized proximal thighs. The bilateral gluteal and iliopsoas tendons are normal. There is mild tendinopathy at the ischial tuberosity origins of the bilateral hamstring tendons with no tear on the right and very small tear at the origin of the conjoined tendon of the semitendinosus and biceps femoris. Limited evaluation of visceral organs of the pelvis is unremarkable including a n ormal appendix. No pathologically enlarged pelvic/inguinal lymphadenopathy. IMPRESSION: 1. Bilateral mild hip osteoarthritis with degenerative tearing of both the left and right acetabular labrum. 2. Mild right greater trochanteric bursitis with low-grade strain of the distal myotendinous junction of the right gluteus bang. 3. Mild tendinopathy of the initial tuberosity origins of the bilateral hamstring tendons with very s mall partial-thickness tear of the conjoined tendon on the left. Reviewed, dictated and finalized at location A. ING RELOCATION IMPRESSION: 1. Bilateral mild hip osteoarthritis with degenerative tearing of both the left and right acetabular labrum. 2. Mild right greater trochanteric bursitis with low-grade strain of the distal myotendinous junction of the right gluteus bang. 3. Mild tendinopathy of the initial tuberosity origins of the bilateral hamstri ng tendons with very small partial-thickness tear of the conjoined tendon on th e left.
== END 2024-02-02 08:53 | disposition home or self-care (01) ==
LOC: GOSHIMG 08:52
PROVIDERS: PCP Family Medicine; Visit Provider Anesthesiology Pain Medicine
DX: M25.551 Pain in right hip (principal); M25.552 Pain in left hip
CPT/HCPCS: 73721

== ENCOUNTER 2024-03-23 12:39 | Outpatient (CLI) | payer MEDICARE, SELFPAY ==
--- NOTE | 2024-03-23 14:15 | NEURO_ITS ---
Impression: # Complains of numbness of left lower extremity. ? # Normal Nerve Conduction Study including motor and sensory nerves and also including saphenous nerves. ? # Normal needle/EMG exam including Quadriceps. ? # Clinical correlation recommended. Nerve Conduction Studies Anti Sensory Summary Table ?Stim Site NR Peak (ms) P-T Amp (?V) Site1 Site2 Delta-P (ms) Dist (cm) Bobby (m/s) Left Saphenous Anti Sensory (Ant Med Mall) 14cm ? 3.8 43.1 14cm Ant Med Mall 3.8 0.0 Right Saphenous Anti Sensory (Ant Med Mall) 14cm ? 3.1 14.6 14cm Ant Med Mall 3.1 0.0 Left Sup Fibular Anti Sensory (Ant Lat Mall) 14 cm ? 3.4 22.0 14 cm Ant Lat Mall 3.4 16.0 47 Right Sup Fibular Anti Sensory (Ant Lat Mall) 14 cm ? 3.4 8.3 14 cm Ant Lat Mall 3.4 16.0 47 Left Sural Anti Sensory (Lat Mall) Calf ? 4.1 6.0 Calf Lat Mall 4.1 16.0 39 Right Sural Anti Sensory (Lat Mall) Calf ? 3.6 15.3 Calf Lat Mall 3.6 16.0 44 Motor Summary Table ?Stim Site NR Onset (ms) O-P Amp (mV) Site1 Site2 Delta-0 (ms) Dist (cm) Bobby (m/s) Left Peroneal Motor (Vastus Med) Ankle ? 4.0 3.5 Popit Ankle 9.4 45.0 48 Popit ? 13.4 2.8 Right Peroneal Motor (Vastus Med) Ankle ? 5.0 2.0 Popit Ankle 9.1 41.0 45 Popit ? 14.1 1.8 Left Tibial Motor (Abd Wrad Brev) Ankle ? 4.8 2.1 Knee Ankle 9.3 45.0 48 Knee ? 14.1 1.5 Right Tibial Motor (Abd Ward Brev) Ankle ? 4.5 2.8 Knee Ankle 9.5 41.0 43 Knee ? 14.0 2.9 F Wave Studies ?NR F-Lat (ms) L-R F-Lat (ms) Left Peroneal (Mrkrs) (EDB) ? 58.89 1.60 Right Peroneal (Mrkrs) (EDB) ? 60.49 1.60 Left Tibial (Mrkrs) (Abd Hallucis) ? 58.68 0.18 Right Tibial (Mrkrs) (Abd Hallucis) ? 58.86 0.18 EMG ?Side Muscle Nerve Root Ins Act Fibs Amp Dur Recrt Comment Right AntTibialis Dp Br Fibular L4-5 Nml Nml Nml Nml Nml Right Gastroc Tibial S1-2 Nml Nml Nml Nml Nml Right Fibularis Long Sup Br Fibular L5-S1 Nml Nml Nml Nml Nml Right Flex Dig Long Tibial L5-S2 Nml Nml Nml Nml Nml Right Ext Dig Brev Dp Br Fibular L5, S1 Nml Nml Nml Nml Nml Right QuadratusFem QuadFemoris L4-5, S1 Nml Nml Nml Nml Nml Left AntTibialis Dp Br Fibular L4-5 Nml Nml Nml Nml Nml Left Gastroc Tibial S1-2 Nml Nml Nml Nml Nml Left Fibularis Long Sup Br Fibular L5-S1 Nml Nml Nml Nml Nml Left Flex Dig Long Tibial L5-S2 Nml Nml Nml Nml Nml Left Ext Dig Brev Dp Br Fibular L5, S1 Nml Nml Nml Nml Nml Left QuadratusFem QuadFemoris L4-5, S1 Nml Nml Nml Nml Nml MTDD
== END 2024-03-23 12:40 | disposition home or self-care (01) ==
PROVIDERS: PCP Family Medicine; Visit Provider Anesthesiology Pain Medicine
DX: M79.609 Pain in unspecified limb (principal); R20.2 Paresthesia of skin; M54.17 Radiculopathy, lumbosacral region
CPT/HCPCS: 95886; 95911

== ENCOUNTER 2024-04-15 12:53 | Outpatient (CLI) | payer MEDICARE, SELFPAY ==
[2024-04-15 14:56] LABS: CRP < 0.5 mg/dL (<1.0)
[2024-04-15 15:27] LABS: Erythrocyte Sedimentation Rate 14 mm/hr (0-20)
== END 2024-04-15 12:54 | disposition home or self-care (01) ==
LOC: ANHGOSHLAB 12:55
PROVIDERS: PCP Family Medicine; Visit Provider Orthopaedic Surgery
DX: Z96.652 Presence of left artificial knee joint (principal); Z47.1 Aftercare following joint replacement surgery
CPT/HCPCS: 36415; 85652; 86140

== ENCOUNTER 2024-04-27 10:41 | Outpatient (CLI) | payer MEDICARE, SELFPAY ==
--- OUTSIDE RECORDS SUMMARY | 2024-04-27 10:55 | XMS_ITS | Encounter Summary ---
Author Organization [facility] Address [address] [place] [address] Care Team Providers Care Ammonia Box Operator Name Role Phone Sandra Santana MD Primary Care Provider Encounter Details Date Type Department Care Team (Late st Contact Info) Description 01/29/2006 Outpatient Historical [facility] Internal Medicine - [place] [address] [place] [phone] Tee Locke MD [address] [facility] [address] [place] [address] Social History Tobacco Use Types Packs/Day Years Used Date Smoking Tobacco: Never Assessed Comments Unknown Sex and Gender Information Value Date Recorded Sex Assigned at Not on file Legal Sex Female 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 Gender Identity Not on file Sexual Orientation Not on file documented as of this encounter Plan of Treatment Upcoming Encounters Date Type Department Care Team (Late st Contact Info) Description 12/02/2024 10:15 AM CDT Office Visit [facility] Sleep Medicine [facility] [address] [address] Robyn Tracey, INTERNET MARKETING MANAGER- [address] [address] documented as of this encounter Visit Diagnoses Not on filedocumented in this encounter Care Teams Ammonia Box Operator Relationship Specialty Start Date End Date Sandra Santana MD PCP - General Family Practice 05/17/21 documented as of this encounter
--- OUTSIDE RECORDS SUMMARY | 2024-04-27 10:55 | XMS_ITS | Encounter Summary ---
Author Organization [facility] Address [address] [place] [address] Care Team Providers Care Log Pond Worker Name Role Phone Sandra Santana MD Primary Care Provider Encounter Details Date Type Department Care Team (Late Contact Info) Description 06/10/2007 Orders Only [facility] Internal Medicine [facility] [address] 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 Gender Identity Not on file Sexual Orientation Not on file documented as of this encounter Plan of Treatment Upcoming Encounters Date Type Department Care Team (Late Contact Info) Description 12/02/2024 10:15 AM CDT Office Visit [facility] Sleep Medicine [facility] [address] [address] Robyn Tracey, [facility] [address] [facility] [address] [place] [address] documented as of this encounter Visit Diagnoses Not on filedocumented in this encounter Care Teams Log Pond Worker Relationship Specialty Start Date End Date Sandra Santana MD PCP - General Family Practice 05/17/21 documented as of this encounter
--- OUTSIDE RECORDS SUMMARY | 2024-04-27 10:55 | XMS_ITS | Referral Summary ---
Author Organization [facility] Address [address] [facility] [place] [address] Care Team Providers Care Sitecore Developer Name Role Phone Daivn Chase MD Unavailable Monica Thacker MD Primary Care Provider [phone] Source Comments [facility],non-owned Affiliates and Associated Physician Practices is amultiple site organization consisting of ambulatory clinics and hospital sitesin [place], [place], [place] and [place]. This disclosure is being madepursuant to the Care Everywhere program and may not contain all information available regarding this patient. Last updated 17.[facility] Encounters Date Type Department Care Team Description 04/21/2024 Travel 04/13/2024 12:55 PM FLAT FINISHER Ancillary Procedure [facility] Orthopedics - Radiology [address] [place] [phone] Davin Chase MD Aftercare following left knee joint replacement surgery 04/13/2024 12:50 PM FLAT FINISHER Office Visit [facility] Orthopedics [address] [place] [address], [address] [place] [phone] Davin Chase MD Aftercare following left knee joint replacement surgery (Primary Dx) from Last 3 Months Allergies Active Allergy Reactions Criticality Noted Date Comments Hydrocodone-Acetaminophen Urticaria High 04/02/2018 Swelling in lips and hives Medications * Be aware that medications may not be up to date on this document. Alwaysverify current medications with the patient. Medication Sig Dispensed Refills Start Date End Date Status estradiol (ESTRACE) 0.1 MG/GM vaginal cream as needed 05/27/2019 Active levothyroxine (SYNTHROID) 100 MCG tablet Take 100 mcg by mouth once daily 03/15/2020 Active Cholecalciferol 1.25 MG (35124 UT) Take 50,000 Units by mouth every 7 days 10/12/2021 Active solifenacin (Vesicare) 10 MG tablet Take 10 mg by mouth every evening 10/12/2021 Active calcium carbonate - vitamin D (Calcium+D3) 600-800 MG-UNIT tablet Take 1 tablet by mouth daily with breakfast Active diclofenac sodium (Voltaren) 1 % gel Apply to affected area 4 times daily Active nabumetone (Relafen) 750 MG tablet Take 1 (one) tablet by mouth 2 times daily 60 tablet 3 05/06/2022 Active diphenhydrAMINE-APAP , sleep, (Acetaminophen PM) 25-500 MG tablet Take 1 (one) tablet by mouth nightly as needed for Insomnia Active vitamin D (Cholecaciferol) 125 MCG (5000 UT) capsule Take 1 (one) capsule by mouth every 7 days 05/07/2022 Active Active Problems Problem Noted Date Diagnosed Date Postoperative stiffness of total knee replacemen t 01/11/2022 Primary osteoarthritis of left knee 09/17/2021 THAO on CPAP 12/04/2018 History of total right knee replacement 03/16/19 19 Idiopathic urticaria 03/16/2018 Social History Tobacco Use Types Packs/Day Years Used Date Smoking Tobacco: Former Cigarettes Smokeless Tobacco: Never Alcohol Use Standard Drinks/Week Comments Yes 0 (1 standard drink = 0.6 oz pur e alcohol) social Hunger Vital Sign Answer Date Recorded Within the past 12 months, y ou worried that your food would run out before you got the money to buy more. Never true 12/21/19 22 Within the past 12 months, t he food you bought just didn't last and you didn't have money to get more. Never true 12/20/2021 Sex and Gender Information Value Date Recorded Sex Assigned at Not on file Gender Identity Not on file Sexual Orientation Not on file Last Filed Vital Signs Vital Sign Reading Time Taken Comments Blood Pressure 129/69 12/20/2021 11:10 AM CDT Pulse 57 12/20/2021 11:10 AM CDT Temperature 36.8 C (98.2 F) 12/20/2021 11:10 AM CDT Respiratory Rate 16 12/20/2021 11:10 AM CDT Oxygen Saturation 99% 12/20/2021 11:10 AM CDT Inhaled Oxygen Concentration - - Weight 93.9 kg (207 lb) 12/19/2021 8:35 AM CDT Height 167.6 cm (5' 6 ) 12/19/2021 8:35 AM CDT Body Mass Index 33.41 12/19/2021 8:35 AM CDT Plan of Treatment Upcoming Encounters Date Type Department Care Team (Late st Contact Info) Description 06/07/2024 1:00 PM CDT Appointment [facility] Imaging Services - [address] [address] Medical Devices Implanted Type Area Physical Medicine Specialist Device Identifier Shelf Expiration Date Model / Serial / Lot Cmnt Bone Djo Srg Cblt 40gm Hvisc Strl Implanted:Qty: 1 on 12/19/2021 by Davin Chase MD at [facility] Left: Knee [employer] 09/20/2022 600-15-000 / / [id number] Cmpnt Ptlr Std 28mm 3 Pg Kn Ser A Implanted:Qty: 1 on 12/19/2021 by Davin Chase MD at [facility] Left: Knee [employer] 01/09/2026 [id number] / / [id number] Tray Tib 75mm Kn Cocr I Beam Implanted:Qty: 1 on 12/19/2021 by Davin Chase MD at [facility] Left: Knee [employer] 08/15/2030 [id number] / / [id number] Cmpnt Fem Kn Lt Cr Cmnt Prm Vngrd Intlk Implanted:Qty: 1 on 12/19/2021 by Davin Chase MD at [facility] Left: Knee [employer] 11/13/2031 [id number] / / [id number] Brng [id number] Vngrd Arcm Kn Ant Stab Implanted:Qty: 1 on 12/19/2021 by Davin Chase MD at [facility] Left: Knee [employer] 10/04/2026 [id number] / / [id number] Procedures Procedure Name Priority Date/Time Associated Diagnosis Comments XR KNEE LEFT 3VW Routine 04/13/2024 12:5 7 PM FLAT FINISHER Aftercare following left knee joint replacement surgery from Last 3 Months Results * XR Knee Left 3Vw (04/13/2024 12:57 PM FLAT FINISHER) Narrative [facility] [address] - 04/13/2024 12:58 PM FLAT FINISHER Please see progress note in Epic for results. Davin Chase MD DIAGNOSTIC IMAGING O RDERABLES [facility] [address] from Last 3 Months Advance Directives Documents on File Type Date Recorded Patient Temperature Logging Operator Expl anation Adv Directive/Living Will/POA 12/19/2021 * Full Code (Latest Code Status on File) Date Activated Date Inactivated Comments 12/19/2021 2:30 PM 12/20/2021 4:05 PM Care Teams Sitecore Developer Relationship Specialty Start Date End Date Monica Thacker MD [address] [place] [address] PCP - General 02/10/22 [place] [address] [address] [place] [address] Surgeon Orthopedic Surgery 06/01/20
--- OUTSIDE RECORDS SUMMARY | 2024-04-27 10:55 | XMS_ITS | Clinical Summary ---
Author Organization [facility] Address [address] [place] [address] Care Team Providers Care Boat Canvas Maker Installer Name Role Phone Monica Thacker MD Primary Care Provider [phone] Allergies Active Allergy Reactions Criticality Noted Date Comments Hydrocodone-Acetaminophen Urticaria High 04/02/2018 Swelling in lips and hives Medications estradioL (ESTRACE) 0.01 % (0.1 mg/gram) vaginal cream Apply to external vagina twice a week. 05/27/2019 Active fexofenadine (BOB) 180 mg tablet Take 180 mg by mouth daily as needed Active levothyroxine (SYNTHROID) 100 mcg tablet Take 100 mcg by mouth daily 03/15/2020 Active naproxen (NAPROSYN) 500 mg tablet Take 500 mg by mouth 01/18/2020 Active Active Problems No known active problems Surgical History Surgery Date Site/Laterality Comments KNEE SURGERY JOINT REPLACEMENT KNEE ARTHROSCOPY Medical History Medical History Date Comments Arthritis Gastric reflux Obesity Osteoporosis Sleep apnea, obstructive Urinary tract infection Thyroid disease Family History Medical History Relation Name Comments Arthritis Father Cancer Father Gout Father Heart disease Father Hypertension Father Arthritis Mother Cancer Mother Diabetes Mother Heart disease Mother Hypertension Mother Relation Name Status Comments Father Mother Social History Tobacco Use Types Packs/Day Years Used Date Smoking Tobacco: Never Assessed Comments Unknown Sex and Gender Information Value Date Recorded Sex Assigned at Not on file Legal Sex Female 10:12 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 Gender Identity Not on file Sexual Orientation Not on file Obstetrics History Last Filed Vital Signs Vital Sign Reading Time Taken Comments Blood Pressure - - Pulse - - Temperature - - Respiratory Rate - - Oxygen Saturation - - Inhaled Oxygen Concentration - - Weight 101.2 kg (223 lb) 12/05/2020 8:58 AM CDT Height 167 cm (5' 5.75 ) 12/05/2020 8:58 AM CDT Body Mass Index 36.27 12/05/2020 8:58 AM CDT Plan of Treatment Not on file Insurance ANTHEM ACCESS ANTHEM ACCESS ANTHEM ACCESS Care Teams Boat Canvas Maker Installer Relationship Specialty Start Date End Date Monica Thacker MD [address] [place] [phone] PCP - General Family Medicine 10/27/20
--- OUTSIDE RECORDS SUMMARY | 2024-04-27 10:55 | XMS_ITS | Encounter Summary ---
Author Organization [facility] Address [address] [place] [address] Care Team Providers Care Trauma Director Name Role Phone Sandra Santana MD Primary Care Provider [phone] Encounter Details Date Type Department Care Team (Late st Contact Info) Description 04/28/2006 Orders Only [facility] Internal Medicine - [place] [address] [place] [address] Tee Locke MD [address] [facility] [address] [facility] [place] [address] Social History Tobacco Use Types Packs/Day Years Used Date Smoking Tobacco: Never Assessed Comments Unknown Sex and Gender Information Value Date Recorded Sex Assigned at Not on file 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 LAST VISIT: 01/29/06 PCP: tan WHO CALLED: Patient called. ALTERNATIVE PHONE NUMBER: CURRENT ALLERGY LIST: [facility] NUMBER: [phone] OTHER INFORMATION: SECTION 1: REQUESTED ACTION hermes 04/28/06 at 01:35 pm: MEDICATION REQUEST: MEDICATION REQUEST: Patient requests a refill. Pt said that she is having some problems with her lower back MEDICATIONS: ULTRACET ORAL TABLET 37.5-325 MG, 2 Three Times A Day, As Needed, 60 Dispensed, status: CONTINUED, 07/10/2005, Comment: vishnu magdi 10.34 [phone]. DOCTOR`S RESPONSE: jessica 04/28/06 at 01:50 pm Refill this time only. FINAL ACTION: hayden 04/28/06 at 02:13 pm Called pharmacy at 04/28/06 at 02:13 pm. Electronically Signed by: Lore Cui on Friday, April 28, 2006 documented in this encounter Plan of Treatment Upcoming Encounters Date Type Department Care Team (Late st Contact Info) Description 12/02/2024 10:15 AM CDT Office Visit [facility] Sleep Medicine [facility] [address] [place] [phone] Robyn Tracey, [facility] [address] [address] documented as of this encounter Visit Diagnoses Not on filedocumented in this encounter Care Teams Trauma Director Relationship Specialty Start Date End Date Sandra Santana MD PCP - General Family Practice 05/17/21 documented as of this encounter
--- OUTSIDE RECORDS SUMMARY | 2024-04-27 10:55 | XMS_ITS | Encounter Summary ---
Author Organization [facility] Address [address] [place] [address] Care Team Providers Care Stitcher Set Up Operator Automatic Name Role Phone Sandra Santana MD Primary Care Provider Encounter Details Date Type Department Care Team (Late st Contact Info) Description 03/25/2006 Orders Only [facility] Internal Medicine - [place] [address] [place] [address] Tee Locke MD [address] [facility] [address] [facility] [place] [address] Social History Tobacco Use Types Packs/Day Years Used Date Smoking Tobacco: Never Assessed Comments Unknown Sex and Gender Information Value Date Recorded Sex Assigned at Not on file 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 LAST VISIT: 01/29/06 PCP: atn. ALTERNATIVE PHONE NUMBER: [phone] WHO CALLED: Patient called. CURRENT ALLERGY LIST: [facility] NUMBER: [phone] SECTION 1: pt. had an endoscopy at end of and was given samples of protonix. she was told by pharm. that she could get a 7 day trial of nexium as long as writes a script for 7 days. she says that they said she could do 20 mg or 40 mg. she is on 40 mg of protonix and would like to get equivalent in the nexium. pt. adv. that out of office until 03/26/06- she says wed. ok for answer/sk DOCTOR`S RESPONSE: jessica 03/25/06 at 02:12 pm MEDICATIONS: Call in to Pharmacy NEXIUM ORAL CAPSULE DELAYED RELEASE 40 MG, 1 Every Morning, 30 Dispensed, 11 Fills, status: NEW PRESCRIPTION, 03/25/2006. FINAL ACTION: starek 03/25/06 at 03:04 pm Called pharmacy at 03/25/06 at 03:04 pm. de Electronically Signed by: Onelia Locke on Saturday, March 25, 2006 documented in this encounter Plan of Treatment Upcoming Encounters Date Type Department Care Team (Late st Contact Info) Description 12/02/2024 10:15 AM CDT Office Visit [facility] Sleep Medicine [facility] [address] [place] [phone] Robyn Tracey, [facility] [address] [phone] documented as of this encounter Visit Diagnoses Not on filedocumented in this encounter Care Teams Stitcher Set Up Operator Automatic Relationship Specialty Start Date End Date Sandra Santana MD PCP - General Family Practice 05/17/21 documented as of this encounter
--- OUTSIDE RECORDS SUMMARY | 2024-04-27 10:55 | XMS_ITS | Clinical Summary ---
Author Organization [facility] Address [address] [place] [address] Care Team Providers Care Chef Under Name Role Phone Davin Chase MD Unavailable [phone] Monica Thacker MD Primary Care Provider [phone] Source Comments [facility],non-owned Affiliates and Associated Physician Practices is amultiple site organization consisting of ambulatory clinics and hospital sitesin [place], [place], [place] and [place]. This disclosure is being madepursuant to the Care Everywhere program and may not contain all information available regarding this patient. Last updated 17.[facility] Allergies Active Allergy Reactions Criticality Noted Date [...] once daily 03/15/2020 Active Cholecalciferol 1.25 MG (04284 UT) Take 50,000 Units by mouth every [...] knee replacement 03/16/19 19 Idiopathic urticaria 03/16/2018 Encounters Date Type Department Care Team Description 04/21/2024 Travel 04/13/2024 12:55 PM JIG BUILDER HELPER Ancillary Procedure [facility] Orthopedics - Radiology [address] [place] [phone] Davin Chase MD Aftercare following left knee joint replacement surgery 04/13/2024 12:50 PM JIG BUILDER HELPER Office Visit [facility] [address] [place] [address], [address] [place] [address] Davin Chase MD Aftercare following left knee joint replacement surgery (Primary Dx) from Last 3 Months Social History Tobacco Use Types Packs/Day Years [...] Info) Description 06/07/2024 1:00 PM CDT Appointment [facility] - [address] [address] Health Maintenance Due Date Last Done Comments COLOGUARD (AGES 45-75) - COLON CA SCREENING [address] COLONOGRAPHY - COLON CA SCREENING 1955 FIT - COLON CA SCREENING 1955 FLEX SIG - COLON CA SCREENING 1955 LIPID TESTING 1955 HEPATITIS C SCREENING 10/08/1973 DTAP/TDAP/TD VACCINES (1 - Tdap) 10/12/1974 PNEUMOCOCCAL VACCINE 50+ (1 of 1 - PCV) 10/12/2005 ZOSTER VACCINE (1 of 2) 10/12/2005 COVID-19 VACCINE (4 - season) 2023 12/05/2020, 04/14/2020, 03/24/2020 INFLUENZA VACCINE (#1) 2023 , 12/05/2020, 12/10/2019, Additional history exists DEPRESSION SCREENING 03/10/2024 MEDICARE AWV CALENDAR YEAR 2024 MAMMOGRAM 12/29/2025 12/30/2023, 12/09, 12/27/2022, Additional history exists COLONOSCOPY - COLON CA SCREENING 01/08/2027 01/08/2017 Colorectal Cancer Screening 01/08/2027 Respiratory Syncytial Virus (RSV) Vaccine Pt: or over 60 yrs (1 - 1-dose 75+ series) 10/12/2030 BONE DENSITY TESTING Completed 2020 HEPATITIS B VACCINE Aged Out No longe r eligible based on patient's age to complete this topic HIB VACCINE Aged Out No longer eligi ble based on patient's age to complete this topic HPV VACCINE Aged Out No longer eligi ble based on patient's age to complete this topic MENINGOCOCCAL (Group B) VACCINE Aged Out No longer eligible based on patient's age to complete this topic MENINGOCOCCAL VACCINE Aged Out No tara leona eligible based on patient's age to complete this topic Medical Devices Implanted Type Area Sugar Refiner Device Identifier Shelf Expiration Date Model / Serial / Lot Cmnt Bone Djo Srg Cblt 40gm Hvisc Strl Implanted:Qty: 1 on 12/19/2021 by Davin Chase MD at [facility] Left: Knee [employer] 09/20/2022 600-15-000 / / [id number] Cmpnt Ptlr Std 28mm 3 Pg Kn Ser A Implanted:Qty: 1 on 12/19/2021 by Davin Chase MD at [facility] Left: Knee [employer] 01/09/2026 [id number] / / [id number] Tray Tib 75mm Kn Cocr I Beam Implanted:Qty: 1 on 12/19/2021 by Davin Chase MD at [facility] Left: Knee [employer] 08/15/2030 [id number] / / [id number] Cmpnt Fem Kn Lt Cr Cmnt Prm Vngrd Intlk Implanted:Qty: 1 on 12/19/2021 by Davin Chase MD at [facility] Left: Knee [employer] 11/13/2031 [id number] / / [id number] Brng 09wol85hr Vngrd Arcm Kn Ant Stab Implanted:Qty: 1 on 12/19/2021 by Davin Chase MD at [facility] Left: Knee [employer] 10/04/2026 [id number] / / [id number] Procedures Procedure Name Priority Date/Time Associated Diagnosis Comments XR KNEE LEFT 3VW Routine 04/13/2024 12:5 7 PM JIG BUILDER HELPER Aftercare following left knee joint replacement surgery from Last 3 Months Results * XR Knee Left 3Vw (04/13/2024 12:57 PM JIG BUILDER HELPER) Narrative [facility] [address] - 04/13/2024 12:58 PM JIG BUILDER HELPER Please see progress note in Epic for results. Davin Chase MD DIAGNOSTIC IMAGING O RDERABLES [facility] [address] from Last 3 Months Advance Directives Documents on File Type Date Recorded Patient Rn Lactation Expl anation Adv Directive/Living Will/POA 12/19/2021 * Full Code (Latest Code Status on File) Date Activated Date Inactivated Comments 12/19/2021 2:30 PM 12/20/2021 4:05 PM Care Teams Chef Under Relationship Specialty Start Date End Date Monica Thacker MD [address] [place] [phone] PCP - General 02/10/22 [place] [address] [address] [place] [address] Surgeon Orthopedic Surgery 06/01/20
--- OUTSIDE RECORDS SUMMARY | 2024-04-27 10:55 | XMS_ITS | Encounter Summary ---
Author Organization [facility] Address [address] [place] [address] Care Team Providers Care Death Surveys Coder Name Role Phone Sandra Santana MD Primary Care Provider Encounter Details Date Type Department Care Team (Late st Contact Info) Description 01/29/2006 Orders Only [facility] Internal Medicine - [place] [address] [place] [address] Tee Locke MD [address] [place] [address] Social History Tobacco Use Types Packs/Day Years Used Date Smoking Tobacco: Never Assessed Comments Unknown Sex and Gender Information Value Date Recorded Sex Assigned at Not on file 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 MEDICATIONS: Medication list current. CHIEF COMPLAINT Here for follow up evaluation. check up. Wants colonoscopy and egd and update on DT. cb HISTORY: HISTORY: 530.81-GASTROESOPHAGEAL REFLUX (GERD) The patient's dyspeptic symptoms have worsened. The patient denies any significant abdominal pain, denies any significant bloating, has indigestion, has water brash. No complications noted from the medication presently being used. 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 V70.0-ROUTINE GENERAL MEDICAL EXAMINATION The patient is here for a routine examination. No significant complaints noted. 625.4-PREMENSTRUAL SYNDROME (PMS) She had significant hot flashes CURRENT MEDICATION LIST: ULTRACET ORAL TABLET 37.5-325 MG, 2 Three Times A Day, As Needed METROCREAM EXTERNAL CREAME 0.75 %, Use Every Day At Bedtime DITROPAN XL ORAL TABLET 24 HR 5 MG, 1 Every Day At Bedtime ZANTAC 150 MAXIMUM STRENGTH ORAL TABLET 150 MG, 1 Every Day CURRENT ALLERGY LIST: NKA ROS: GENERAL: Normal activity and energy level, no change in appetite. No major weight gain or loss. No malaise, chills, fever, diaphoresis.. ENT: No hearing loss, epistaxis, hoarseness or dysphagia. No sinus congestion.. ENDOCRINE: No heat or cold intolerance, no excessive thirst.. CARDIAC: No chest pain, palpitations, orthopnea, dyspnea on exertion, or paroxysmal nocturnal dyspnea.. RESPIRATORY: No dyspnea, cough, hemoptysis or wheezing.. : No frequency, urgency, hematuria or dysuria.. GI: No abdominal pain, nausea, vomiting, diarrhea, constipation, melena, or hematochezia.. PHYSICAL EXAMINATION: CONSTITUTIONAL: GENERAL APPEARANCE: Healthy appearing patient in no distress. NECK/THYROID: Trachea midline. No thyroid enlargement, tenderness, or mass. No supraclavicular or cervical adenopathy. RESPIRATORY: Clear to auscultation and percussion. Normal respiratory effort. CARDIOVASCULAR: CARDIAC: Regular rhythm. No murmurs, rubs, or gallops. ARTERIAL: Aortic pulses of normal amplitude with no bruits. EDEMA/VARICOSITIES OF EXTREMITIES: No edema or varicosities. GASTROINTESTINAL: ABDOMEN: Soft, non-tender, without masses. Bowel sounds active. EXT: left 1st digit mild swelling and tenderness at base, no warmth, no erythema LIVER/SPLEEN/KIDNEY: No hepatosplenomegaly, tenderness or nodularity. Kidneys not palpable. MUSCULOSKELETAL EXAM: HEAD AND NECK: TRAPEZIUS TENDERNESS PRESENT, MODERATELY REDUCED EXTENSION, MILDLY REDUCED LEFTWARD ROTATION, normal rightward rotation, normal stability, normal strength and tone. SPINE/RIBS/PELVIS: BILATERAL LOWER PARASPINAL MUSCLE TENDERNESS, full range of motion, normal rotation, normal stability, normal strength and tone. OFFICE PROCEDURES: INJECTIONS & IMMUNIZATIONS: . TETANUS AND DIPTHERIA TOXOID, 0.5, MILLILITERS, INTRAMUSCULAR INJECTION, Upper Left Arm, given by jose manuel on 01/29/2006; consent form signed, literature given; ASSESSMENT/PLAN: 272.4-HYPERLIPIDEMIA 530.81-GASTROESOPHAGEAL REFLUX (GERD) LAB ORDERS: Order number: [id number] Test Ordered: ENDOSCOPY Order number: [id number] Test Ordered: COLONOSCOPY 724.5-BACK PAIN V70.0-ROUTINE GENERAL MEDICAL EXAMINATION LAB ORDERS: Order number: [id number] Test Ordered: COMPREHENSIVE METABOLIC PANEL W/ GLOMERULAR FILTRATION RATE, ESTIMATED (EGFR) 16424 Order number: [id number] Test Ordered: TSH 899 Order number: [id number] Test Ordered: CBC (INCLUDES DIFF/PLT) 6399 Order number: [id number] Test Ordered: INJ-TETANUS & DIPTHERIA TOXOID [id number] 625.4-PREMENSTRUAL SYNDROME (PMS) MEDICATIONS: NEURONTIN ORAL CAPSULE CONVENTIONAL 300 MG, 1-2 Every Day At Bedtime, 60 Dispensed, 11 Fills, status: NEW PRESCRIPTION, 01/29/2006. HEALTH MAINTENANCE: LAST BREAST EXAM DATE: 12/13. LAST PAP DATE: 12/13. PAP SMEAR PROVIDER: Brandi. LAST DATE PELVIC EXAM: 12/13. LAST MAMMOGRAM DATE: 10/12. DISCUSSED SMOKIN/06 (-). LAST TD: unknown SUBSTANCE ABUSE DISCUSSED: 01/13 (soc). INJURY PREVENTION DISCUSSED: 01/13 (+). DIET AND EXERCISE DISCUSSED: 01/13 (occ). ADVANCED DIRECTIVES DISCUSSED: 01/13 (-). LAST DATE COLONOSCOPY: none. LAST BONE DENSITY DATE: none. DIABETIC EYE EXAM: 12/13. LAST FLU VACCINE:12/13 LAST PNEUMOCOCCAL:none Electronically Signed by: Tee Locke MD on Sunday, January 29, 2006 documented in this encounter Plan of Treatment Upcoming Encounters Date Type Department Care Team (Late st Contact Info) Description 12/02/2024 10:15 AM CDT Office Visit [facility] Sleep Medicine [facility] [address] [address] Robyn Tracey, [facility] [address] [facility] [address] [place] [address] documented as of this encounter Visit Diagnoses Not on filedocumented in this encounter Care Teams Death Surveys Coder Relationship Specialty Start Date End Date Sandra Santana MD PCP - General Family Practice 05/17/21 documented as of this encounter
--- OUTSIDE RECORDS SUMMARY | 2024-04-27 10:55 | XMS_ITS | Encounter Summary ---
Author Organization [facility] Address [address] [place] [address] Care Team Providers Care [employer] Industrial Arts Teacher Name Role Phone Sandra Santana MD Primary Care Provider Encounter Details Date Type Department Care Team (Late Contact Info) Description 05/15/2007 Outpatient Historical [facility] Internal Medicine Medical [facility] 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 Gender Identity Not on file Sexual Orientation Not on file documented as of this encounter Plan of Treatment Upcoming Encounters Date Type Department Care Team (Late Contact Info) Description 12/02/2024 10:15 AM CDT Office Visit [facility] Sleep Medicine [facility] [address] [address] Robyn Tracey, [facility] [address] [facility] [address] [place] [address] documented as of this encounter Visit Diagnoses Not on filedocumented in this encounter Care Teams [employer] Industrial Arts Teacher Relationship Specialty Start Date End Date Sandra Santana MD PCP - General Family Practice 05/17/21 documented as of this encounter
--- OUTSIDE RECORDS SUMMARY | 2024-04-27 10:55 | XMS_ITS | Patient Health Summary ---
Author Organization [facility] Address [address] [place] [address] Care Team Providers Care Blender Laborer Name Role Phone Davin Chase MD Unavailable [phone] Monica Thacker MD Primary Care Provider [phone] Note from [facility],non-owned Affiliates and Associated Physician Practices is amultiple site organization consisting of ambulatory clinics and hospital sitesin [place], [place], [place] and [place]. This disclosure is being madepursuant to the Care Everywhere program and may not contain all information available regarding this patient. Last updated 17.[facility] Allergies * Hydrocodone-Acetaminophen(Urticaria) -High Criticality Medications * Be aware that medications may not be up to date on this document. Alwaysverify current medications with the patient. * estradiol (ESTRACE) 0.1 MG/GM vaginal cream(Started 05/27/2019) as needed * levothyroxine (SYNTHROID) 100 MCG tablet(Started 03/15/2020) Take 100 mcg by mouth once daily * Cholecalciferol 1.25 MG (74077 UT)(Started 10/12/2021) Take 50,000 Units by mouth every 7 days * solifenacin (Vesicare) 10 MG tablet(Started 10/12/2021) Take 10 mg by mouth every evening * calcium carbonate - vitamin D (Calcium+D3) 600-800 MG-UNIT tablet Take 1 tablet by mouth daily with breakfast * diclofenac sodium (Voltaren) 1 % gel Apply to affected area 4 times daily * nabumetone (Relafen) 750 MG tablet(Started 05/06/2022) Take 1 (one) tablet by mouth 2 times daily 3 refills by 05/06/2023 * diphenhydrAMINE-APAP, sleep, (Acetaminophen PM) 25-500 MG tablet Take 1 (one) tablet by mouth nightly as needed for Insomnia * vitamin D (Cholecaciferol) 125 MCG (5000 UT) capsule(Started 05/07/2022) Take 1 (one) capsule by mouth every 7 days Active Problems Problem Noted Date Diagnosed Date [...] Mass Index 33.41 12/19/2021 8:35 AM CDT Medical Devices Implanted Type Area Paddock Judge Device Identifier Shelf Expiration Date Model / Serial / Lot Cmnt Bone Djo Srg Cblt 40gm Hvisc Strl Implanted:Qty: 1 on 12/19/2021 by Davin Chase MD at [facility] Left: Knee [employer] 09/20/2022 600-15-000 / / [id number] Cmpnt Ptlr Std 28mm 3 Pg Kn Ser A Implanted:Qty: 1 on 12/19/2021 by Davin Chase MD at [facility] Left: Knee [employer] 01/09/2026 [id number] / / [id number] Tray Tib 75mm Kn Cocr I Beam Implanted:Qty: 1 on 12/19/2021 by Davin Chase MD at [facility] Left: Knee [employer] 08/15/2030 [id number] / / [id number] Cmpnt Fem Kn Lt Cr Cmnt Prm Vngrd Intlk Implanted:Qty: 1 on 12/19/2021 by Davin Chase MD at [facility] Left: Knee [employer] 11/13/2031 [id number] / / [id number] Brng [id number] Vngrd Arcm Kn Ant Stab Implanted:Qty: 1 on 12/19/2021 by Davin Chase MD at [facility] Left: Knee [employer] 10/04/2026 [id number] / / [id number] Procedures * XR KNEE LEFT 3VW(Performed 04/13/2024) Performed for Aftercare following left knee joint replacement surgery * ERYTHROCYTE SEDIMENTATION RATE(Performed 08/15/2022) Performed for Postoperative stiffness of total knee replacement, initial encounter ([facility]) * C-REACTIVE PROTEIN(Performed 08/15/2022) Performed for Postoperative stiffness of total knee replacement, initial encounter ([facility]) * XR KNEE LEFT 3VW(Performed 06/25/2022) Performed for Postoperative stiffness of total knee replacement, initial encounter ([facility]) * XR KNEE LEFT 3VW(Performed 01/29/2022) Performed for Aftercare following left knee joint replacement surgery * CARDIAC EKG ORDER(Performed 12/21/2021) * CREATININE BLOOD(Performed 12/20/2021) * NEURAXIAL BLOCK(Performed 12/19/2021) * MI TOTAL KNEE REPLACEMENT(Performed 12/19/2021) * EKG 12-LEAD(Performed 11/16/2021) Performed for Preoperative examination * XR KNEE BILAT 3VW(Performed 09/14/2021) Performed for History of total right knee replacement Results * XR Knee Left 3Vw (04/13/2024 12:57 PM ICT CUSTOMER SUPPORT OFFICER) Only the most recent of3 resultswithin the time period is included. Narrative [facility] [address] - 04/13/2024 12:58 PM ICT CUSTOMER SUPPORT OFFICER Please see progress note in Epic for results. Davin Chase MD DIAGNOSTIC IMAGING O RDERATEREZA Performing Organization Address City/[facility]/ZIP Co de Phone Number [facility] [place] [address] * C-REACTIVE PROTEIN (08/15/2022 10:54 AM CDT) C-Reactive Protein 1.8 <8.0 mg/L [facility] Comment: REPORT COMMENT: FASTING:YES Test Performed at: [employer] [facility] [address] [place] [address] TERRELL ORDOÑEZ MD Blood BLOOD SPECIMEN / Unknown 08/15/2022 10:54 AM CDT 08/15/2022 10:58 AM CDT Davin Chase MD LAB - CHEMISTRY JAME WALKER Performing Organization Address City/[facility]/ZIP Co de Phone Number [facility] [address] [place] [address] * ERYTHROCYTE SEDIMENTATION RATE (08/15/2022 10:54 AM CDT) Erythrocyte Sedimentation Rate Westergren 11 < OR = 30 mm/h [facility] Comment: Test Performed at: [employer] [address] TERRELL ORDOÑEZ MD Blood BLOOD SPECIMEN / Unknown 08/15/2022 10:54 AM CDT 08/15/2022 10:58 AM CDT Davin Chase MD LAB - HEMATOLOGY ORD ERATEREZA [facility] [address] [place] [address] * CARDIAC EKG ORDER (12/21/2021 10:18 PM CDT) Narrative 12/21/2021 10:18 PM CDT Ordered by an unspecified provider. Scanned Document CARDIAC SERVICES ORD ERABLES * (ABNORMAL) CREATININE BLOOD (12/20/2021 6:57 AM CDT) Creatinine 0.81 0.57 - 1.11 mg/dL 12/20/2021 7:30 AM CDT [facility] eGFR by CKD-EPI 80(L) >=90 mL/min/1.7 3 m2 12/20/2021 7:30 AM CDT [facility] Blood BLOOD SPECIMEN / Unknown Venipuncture / Unknown 12/20/2021 6:57 AM CDT 12/20/2021 7:12 AM CDT Davin Chase MD LAB - CHEMISTRY JAME WALKER Performing Organization Address [facility] de Phone Number [facility] [address] [place] [address] * Neuraxial Block (12/19/2021 10:58 AM CDT) Narrative Alirio Cisse, SHRUTI-SEISMIC PROSPECTING SUPERVISOR - 12/19/2021 10:58 AM CDT Alirio Cisse, SHRUTI-SEISMIC PROSPECTING SUPERVISOR 12/19/2021 11:12 AM Neuraxial Block Note Pre-Procedure: Procedure Name: Neuraxial Block Patient Location: OR Indications: surgical anesthesia Pre-Anesthetic Checklist: Patient identified, IV Checked, Risks and benefits discussed, Surgical consent verified, Monitors and equipment, Site examined, Pre-op evaluation done, Informed consent obtained, Questions answered/anesthesia questions answered and Allergies reviewed Anticoagulation/ Anti-thrombosis status confirmed? Yes Supplemental O2: room air Monitors: continuous pluse ox and BP Patient Condition: sedated, meaningful contact maintained throughout procedure Patient Sedated? Nursing sedation administration Sedation Agents (manual): versed 2 mL Procedure: Block Type: Spinal Prep: Betadine Sterile Field: mask, cap/hat, sterile established and sterile gloves Approach: midline Skin was localized? Nursing documentation on MAR Skin localized with: Lidocaine 1% and 1 mL Spinal Block: Needle Type: spinal needle Needle Gauge: 22 Needle Length: 90 mm Placement Site: L3-4 Number of Attempts: 2 CSF: free flow, aspiration before injection Local anesthetics used? Nursing documentation on the MAR Spinal Local Anesthetic: Bupivacaine: 0.75% in dextrose 2 mL Degree of difficulty: none Procedure Tolerance: tolerated well performed while the patient was sedated Sensory Level: lower level Motor Blockade: Yes Position post procedure: head of bed elevated 30 degrees, supine Vital Signs: Vital signs monitored and stable throughout. See anesthesia record for details. Start Time: 12/19/2021 10:17 AM End Time: 12/19/2021 10:30 AM Total Time: 13 Staff: Anesthesia Provider: Alirio Cisse APRN-SEISMIC PROSPECTING SUPERVISOR - performed the procedure Provider #1: Jason Mcnamara RN Andreina Matthews DO GENERAL ANESTHESIA O RDERABLES * EKG 12-LEAD (11/16/2021 8:35 AM CDT) Ventricular Rate 58 BPM [facility] Atrial Rate 58 BPM [facility] P-R Interval 110 ms [facility] QRS Duration ms 82 ms [facility] Q-T Interval ms 464 ms [facility] QTC Calculation (Bezet) 455 ms [facility] Calculated P Deville 14 degrees [facility] Calculated R [place] 4 degrees [facility] Calculated T [place] 78 degrees [facility] Interpretation EKG Sinus bradycardia with short MI with Premature atrial complexes Low voltage QRS Nonspecific ST and T wave abnormality Abnormal ECG No previous ECGs available Confirmed by DAILY LE, MARGE SHIN ([id number]) on 11/16/2021 11:25:01 AM [facility] 11/16/2021 8:35 AM CDT 11/16/2021 11:25 AM CDT Andreina Matthews DO ECG ORDERABLES [facility] * XR KNEE BILAT 3VW (09/14/2021 8:18 AM CDT) Anatomical Region Laterality Modality Lower Extremity Computed Radiogr aphy Narrative 09/14/2021 8:19 AM CDT Sheila Rosa, RT(R) 10/01/2021 12:45 PM See progress notes for results Davin Chase MD [facility]ST[facility] Care Teams Blender Laborer Relationship Specialty Start Date End Date Monica Thacker MD [address] [place] [address] PCP - General 02/10/22 [place] [address] [address] [place] [address] Surgeon Orthopedic Surgery 06/01/20
--- OUTSIDE RECORDS SUMMARY | 2024-04-27 10:55 | XMS_ITS | Encounter Summary ---
Author Organization [facility] Address [address] [place] [address] Care Team Providers Care Log Data Technician Name Role Phone Sandra Santana MD Primary Care Provider Encounter Details Date Type Department Care Team (Late st Contact Info) Description 07/11/1999 Outpatient Historical [facility] Internal Medicine - [facility] [address] [place] [address] Tee Locke MD [address] [place] [address] Social History Tobacco Use Types Packs/Day Years Used Date Smoking Tobacco: Never Assessed Comments Unknown Sex and Gender Information Value Date Recorded Sex Assigned at Not on file 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 Gender Identity Not on file Sexual Orientation Not on file documented as of this encounter Plan of Treatment Upcoming Encounters Date Type Department Care Team (Late st Contact Info) Description 12/02/2024 10:15 AM CDT Office Visit [facility] Sleep Medicine [facility] [address] [address] Robyn Tracey, [facility] [address] [address] documented as of this encounter Visit Diagnoses Not on filedocumented in this encounter Care Teams Log Data Technician Relationship Specialty Start Date End Date Sandra Santana MD PCP - General Family Practice 05/17/21 documented as of this encounter
--- OUTSIDE RECORDS SUMMARY | 2024-04-27 10:55 | XMS_ITS | Referral Summary ---
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
--- OUTSIDE RECORDS SUMMARY | 2024-04-27 10:55 | XMS_ITS | Encounter Summary ---
Author Organization [facility] Address [address] [place] [address] Care Team Providers Care Applied Exercise Physiologist Name Role Phone Sandra Santana MD Primary Care Provider Encounter Details Date Type Department Care Team (Late Contact Info) Description 05/15/2007 Outpatient Historical [facility] Internal Medicine Medical [facility] [address] [place] [address]. 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 Gender Identity Not on file Sexual Orientation Not on file documented as of this encounter Plan of Treatment Upcoming Encounters Date Type Department Care Team (Late Contact Info) Description 12/02/2024 10:15 AM CDT Office Visit [facility] Sleep Medicine [facility] [address] [address] Robyn Tracey, [facility] [address] [address] documented as of this encounter Visit Diagnoses Not on filedocumented in this encounter Care Teams Applied Exercise Physiologist Relationship Specialty Start Date End Date Sandra Santana MD PCP - General Family Practice 05/17/21 documented as of this encounter
--- OUTSIDE RECORDS SUMMARY | 2024-04-27 10:55 | XMS_ITS | Encounter Summary ---
Author Organization [facility] Address [address] [place] [address] Care Team Providers Care Pharmacy Stock Clerk Name Role Phone Sandra Santana MD Primary Care Provider Encounter Details Date Type Department Care Team (Late st Contact Info) Description 01/29/2006 Outpatient Historical [facility] Internal Medicine - [place] [address] [place] [id number] Tee Locke MD [address] [facility] [address] [place] [address] Social History Tobacco Use Types Packs/Day Years Used Date Smoking Tobacco: Never Assessed Comments Unknown Sex and Gender Information Value Date Recorded Sex Assigned at Not on file 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 [address] [address] Robyn Tracey, [employer] USE MEDICAL COORDINATOR- [address] [address] documented as of this encounter Visit Diagnoses Not on filedocumented in this encounter Care Teams Pharmacy Stock Clerk Relationship Specialty Start Date End Date Sandra Santana MD PCP - General Family Practice 05/17/21 documented as of this encounter
--- OUTSIDE RECORDS SUMMARY | 2024-04-27 10:55 | XMS_ITS | Encounter Summary ---
Author Organization [facility] Address [address] [place] [address] Care Team Providers Care Circular Distributor Name Role Phone Sandra Santana MD Primary Care Provider [phone]- [phone] Encounter Details Date Type Department Care Team (Late st Contact Info) Description 05/15/2007 Orders Only [facility] Internal Medicine Medical [place] [facility] 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 MEDICATIONS: Medication list current. CHIEF COMPLAINT general exam, refill meds HISTORY: Monica presents today for a comprehensive PE. She is up to date with dental, visual and colonoscopy and mammography exams. She will make an appt to see her PAUNCH TRIMMER this spring and have a mammogramordered at that time. She has never had a base line bone density. She has been having some intermittent CP, but has always considered it part my her GERD. She recently had a friend of a AL and would like some cardiac testing. Her mother has a pace maker. She denies any SOB, diaphoresis or pedal edema. HISTORY: 272.4-HYPERLIPIDEMIA The patient has gained weight. The patient is not compliant with the low saturated fat diet. The patient does not exercise. Currently the patient is off all medication. Labs willbe obtained for this patient. 530.81-GASTROESOPHAGEAL REFLUX (GERD) The patient's dyspeptic symptoms remain stable. The patient has indigestion. Mostly well controlled on the nexium. 596.59-OTHER DISORDERS OF BLADDER Some over active issues. She will F/U with her PAUNCH TRIMMER. Needs medication refilled. No incontinence. 695.3-ACNE ROSACEA The lesion is stable. The patient denies any pain or new lesions. Currently the patient is off all medication. ROS: GENERAL: See HISTORY OF PRESENT ILLNESS. ALLERGIC/IMMUNOLOGIC: No hay fever or history of environmental allergies. No chronic problems with immunity. EYES: No vision changes or diplopia. ENT: No hearing loss, epistaxis, hoarseness or dysphagia. No sinus congestion. ENDOCRINE: No heat or cold intolerance, no excessive thirst. CARDIAC: See HISTORY OF PRESENT ILLNESS. RESPIRATORY: No dyspnea, cough, hemoptysis or wheezing. SKIN/BREAST/CHEST: No rashes or non-healing lesions. No breast symptoms noted. HEMATOLOGIC/LYMPHATIC: No anemia, easy bruising, bleeding or swollen nodes. : See HISTORY OF PRESENT ILLNESS. GI: See HISTORY OF PRESENT ILLNESS. NEUROLOGIC: No weakness, dizziness, loss of consciousness, transient ischemic symptoms, or seizures. MUSCULOSKELETAL: . Chronic low back pain. PSYCHIATRIC: No increased nervousness, mood changes or depression. Coping well. PHYSICAL EXAMINATION: CONSTITUTIONAL: GENERAL APPEARANCE: In no acute distress. EYES: CONJUNCTIVAE/LIDS: Conjunctivae and lids appear normal. PUPILS: Pupils equal and normally reactive to light and accommodation. EARS, NOSE, MOUTH AND THROAT: EARS: Tympanic membranes shiny without retraction. Canals unremarkable. Hearing grossly normal. ORAL: Inspection of gums, lips, palate, and teeth normal. No scars, lesions, or masses. Oral mucosaunremarkable with non-inflamed posterior pharynx. NECK/THYROID: Trachea midline. No thyroid enlargement, tenderness, or mass. No supraclavicular or cervical adenopathy. RESPIRATORY: Clear to auscultation and percussion. Normal respiratory effort. CARDIOVASCULAR: CARDIAC: Regular rhythm. No murmurs, rubs, or gallops. ARTERIAL: No aortic bruits. EDEMA/VARICOSITIES OF EXTREMITIES: No edema or varicosities. GASTROINTESTINAL: ABDOMEN: Soft, non-tender, without masses. Bowel sounds active. LIVER/SPLEEN/KIDNEY: No hepatosplenomegaly, tenderness or nodularity. Kidneys not palpable. NEUROLOGIC: DEEP TENDON REFLEXES: Deep tendon reflexes 2+/4 and symmetrical. PSYCHIATRIC: Judgment appropriate. Oriented. Normal memory. Mood and affect appropriate. ASSESSMENT/PLAN: 272.4-HYPERLIPIDEMIA ASSESSMENT: No medication is currently being used. Will continue to follow for the need to intervene therapeutically. The patient is not attempting to follow a low cholesterol diet, a low cholesteroldiet was encouraged. Weight loss was encouraged. Regular aerobic exercise was encouraged. The patient's thyroid status is being followed. LAB ORDERS: Order number: [id number] Test Ordered: CBC (INCLUDES DIFF/PLT) 6399 Order number: [id number] Test Ordered: COMPREHENSIVE METABOLIC PANEL 37713 Order number: [id number] Test Ordered: LIPID PANEL 7600 Order number: [id number] Test Ordered: TSH 899 530.81-GASTROESOPHAGEAL REFLUX (GERD) ASSESSMENT: The patient's reflux esophagitis continues to remain stable. Will not change medication, continue to monitor for complications. MEDICATIONS: NEXIUM ORAL CAPSULE DELAYED RELEASE 40 MG, 1 Every Morning, 90 Dispensed, 3 Fills, status: CONTINUED, 05/15/2007. 596.59-OTHER DISORDERS OF BLADDER MEDICATIONS: DITROPAN XL ORAL TABLET 24 HR 5 MG, 1 Every Day At Bedtime, 90 Dispensed, 3 Fills, 90 Duration/DaysSupply, status: CONTINUED, 05/15/2007. 724.5-BACK PAIN MEDICATIONS: ULTRACET ORAL TABLET 37.5-325 MG, 2 Three Times A Day, As Needed, 90 Dispensed, 3 Fills, status: CONTINUED, 05/15/2007. V70.0-ROUTINE GENERAL MEDICAL EXAMINATION LAB ORDERS: Order number: [id number] Test Ordered: BONE DENSITY (HIP & SPINE) 786.50-SYMPTOM, PAIN, CHEST NOS LAB ORDERS: Order number: [id number] Test Ordered: STRESS ECHO HEALTH MAINTENANCE: LAST MAMMOGRAM DATE: 07-14 neg. DISCUSSED SMOKING: neg. LAST TD: unk SEXUAL ACTIVITY DISCUSSED: pos. SUBSTANCE ABUSE DISCUSSED: social. INJURY PREVENTION DISCUSSED: pos. DIET AND EXERCISE DISCUSSED: try to. LAST DATE COLONOSCOPY: 07-14neg. DIABETIC EYE EXAM: 07-14. LAST FLU VACCINE:2006 PREVENTIVE COUNSELING The patient was counseled regarding the appropriate use of alcohol, regular self-examination of the breasts on a monthly basis, colorectal cancer screening, prevention of dentaland periodontal disease, diet, regular sustained exercise for at least 30 minutes 3-4 times per week, adult immunizations, routine screening interval for mammogram as recommended by the [place] [employer] and ACOG, diagnosis, treatment, and prevention of osteoporosis, importance of regular PAPsmears, screening procedures and recommended schedules for mammography, GI hemoccult testing, colono scopy,cholesterol, thyroid and diabetes screening. RETURN VISIT : Patient instructed to return in 1 year. Electronically Signed by: Matilda Wilkes NP on Tuesday, May 15, 2007 Electronically Signed by: Tee Locke MD on May documented in this encounter Plan of Treatment Upcoming Encounters Date Type Department Care Team (Late st Contact Info) Description 12/02/2024 10:15 AM CDT Office Visit [facility] Sleep Medicine [facility] [address] [phone] Robyn Tracey, [facility] [address] [phone] documented as of this encounter Visit Diagnoses Not on filedocumented in this encounter Care Teams Circular Distributor Relationship Specialty Start Date End Date Sandra Santana MD PCP - General Family Practice 05/17/21 documented as of this encounter
--- OUTSIDE RECORDS SUMMARY | 2024-04-27 10:56 | XMS_ITS | Clinical Summary ---
Author Organization [facility] Address [address] [place] [address] Phone Care Team Providers Care Director Dietetics Department Name Role Phone Sandra Santana MD Primary Care Provider [phone] Allergies Active Allergy Reactions Criticality Noted Date Comments Hydrocodone-Acetaminophen Hives High 04/02/2018 Swelling in lips and hives Medications fexofenadine (BOB) 180 mg tabletIndicatio ns:hives Take 180 mg by mouth 1 time daily as needed for Other (See Comment) (for hives) . Active CPAP / BIPAP suppliesIndicat ions:THAO on CPAP CPAP Mask fit to comfort, Refit if needed, Pt given Dreamwear Full face small sample All associated CPAP Supplies as needed Length of need: 99 months DME Provider Plus 1 Each 0 Active diclofenac sodium (VOLTAREN) 1 % gel Apply to affected area 4 times daily. Active cholecalciferol 1,250 mcg (50,000 unit) Capsule Take 1 Capsule (50,000 Units) by mouth every 7 days. 14 Capsule 1 01/23/2022 11:40 AM DELIMER 2 Active solifenacin (VESICARE) 10 mg Tablet Take 1 Tablet (10 mg) by mouth daily. 90 Tablet 1 01/23/2022 11:40 AM DELIMER 2 Active acetaminophen (TYLENOL) 500 mg Capsule Take 500 mg by mouth every 4 hours as needed. 2 Active calcium carbonate-vitam in D3 (CALTRATE 600 + D) 600 mg-20 mcg (800 unit) Tablet Take 1 Tablet by mouth daily with breakfast. Active celecoxib (CeleBREX) 200 mg capsule Take 1 (one) capsule by mouth 2 times daily 60 Capsule 5 01/24/2022 2:16 PM DELIMER 2 Active nitrofurantoin (MACROBID) 100 mg capsule Take 1 Capsule (100 mg) by mouth every 12 hours for 5 days. Take with a meal or food. 10 Capsule 01/24/2022 2:16 PM DELIMER 2 Active traMADoL (ULTRAM) 50 mg tablet Take 1-2 tablets by mouth every 6 hours as needed for pain. 42 Tablet 02/15/2022 11:27 AM DELIMER 2 Active levothyroxine 100 mcg tablet Take 1 Tablet (100 mcg) by mouth daily. 90 Tablet 2 02/25/2022 12:18 PM DELIMER 2 Active nabumetone (RELAFEN) 750 mg tablet Take 1 Tablet (750 mg) by mouth 2 times daily. 60 Tablet 5 03/08/2022 12:38 PM DELIMER 2 Active CPAP / BIPAP suppliesIndicat ions:THAO on CPAP CPAP Mask fit to comfort, Refit if needed, All associated CPAP Supplies as needed Length of need: 99 months DME [employer] 1 Each 4 Active Active Problems Patient Care Coordination No te Formatting of this note migh t be different from the original. DME: Provider [facility] [place] [address] [facility] [address] [place] [address] / Problem Noted Date Diagnosed Date Abnormal cardiovascular stress test 12/10/2021 Overview (12/10/2021): Added automatically from request for surgery [id number] Pre-op evaluation 12/10/2021 Overview (12/10/2021): Added automatically from request for surgery [id number] Severe obesity (BMI 35.0-39.9) with comorbidity 10/18/2019 Obesity (BMI 35.0-39.9 without comorbidity) 09/08 THAO on CPAP 12/04/2018 Obesity (BMI 30.0-34.9) 12/04/2018 Idiopathic urticaria 03/16/2018 History of total right knee replacement 03/16/19 19 Primary osteoarthritis of both knees 02/08/2018 Acquired hypothyroidism 09/16/2007 Mixed hyperlipidemia 05/15/2007 Overactive bladder 10/05/2004 Slow transit constipation SALVADOR (acute kidney injury) Resolved Problems Problem Noted Date Diagnosed Date Resolved Date Acid indigestion 02/08/2018 02/20/2018 Routine general medical exam ination at a health care facility 05/15/2007 02/20/2018 Chest pain, unspecified 05/15/200702/07 Premenstrual tension syndromes 01/29/2006 03/16/2018 Need for prophylactic vaccin ation with tetanus-diphtheria (Td) 01/29/2006 02/20/2018 Cervicalgia 04/30/2005 03/16/2018 Pain in limb 02/19/2005 02/20/2018 Backache, unspecified 11/03/20032017 Rosacea 11/03/2003 03/16/2018 Esophageal reflux 11/03/2003 03/16/2018 Encounters Date Type Department Care Team Description 03/30/2024 External Device Data STL ABSTRACTION Provider, Abstract 03/23/2024 External Device Data STL ABSTRACTION Provider, Abstract 03/16/2024 External Device Data STL ABSTRACTION Provider, Abstract from Last 3 Months Immunizations Immunization Administration Dates Next Due (ADACEL/BOOSTRIX)(10 YR UP) TDAP VACCINE, 0.5ML, IM 10/04/2019,12/06/2008 (PFIZER)(12 YR UP) COVID-19 VACCINE - EMERGENCY USE AUTHORIZATION, MRNA, [id number](PF) 30 MCG/0.3 ML IM SUSP 12/05/2020,04/14/2020,03/24/2020 (SHINGRIX)(50 YRS UP) ZOSTER VACCINE RECOMBINANT, 0.5 ML, IM 05/04/2020,10/04/2019 (TDVAX)(7 YRS UP) TETANUS AN D DIPHTHERIA TOXOIDS, ADSORBED (2 LF OF TETANUS TOXOID AND 2 LF OF DIPHTHERIA TOXOID), 0.5ML (PF), IM 01/29/2006 (TWINRIX)(18 YRS UP) HEPATIT IS A AND HEPATITIS B VACCINE ADULT, 1 ML, IM 03/16/2012,10/01/2011,08/02/2011 Hepatitis A Vaccine 07/31/2011 Hepatitis B Vaccine 07/31/2011 Influenza Seasonal Unspecifi ed Formulation IM 12/07/2021,12/05/2020,12/10/2019,2018,12/09/2017,11/08/2017,12/21/2009 Influenza Vaccine Tri Split 4+ Im 12/20/2015,09/2013,12/08/2010 Zoster Vaccine Live SQ 07/05/2016 Family History Medical History Relation Name Comments Healthy Brother 1 Healthy Brother 2 Healthy Brother 3 Healthy Brother 4 Healthy Brother 5 Heart Disease Father CAD Other Father CABG Pacemaker Father Prostate Cancer Father with mets Unknown Maternal Grandfather Unknown Maternal Grandmother Cancer Mother liver-neuroendo crine tumor Heart Disease Mother CAD, CHF, A-fi b Hypertension Mother Colon Cancer Paternal Aunt Unknown Paternal Grandfather Unknown Paternal Grandmother Healthy Sister 1 Healthy Sister 2 Breast Cancer Neg Hx Relation Name Status Comments Brother 1 Alive Brother 2 Alive Brother 3 Alive Brother 4 Alive Brother 5 Alive Father (Age 91) Maternal Grandfather Maternal Grandmother Mother (Age 87) 09/2013 Paternal Aunt Paternal Grandfather Paternal Grandmother Sister 1 Alive Sister 2 Alive Social History Tobacco Use Types Packs/Day Years Used Date Smoking Tobacco: Former Cigarettes 0.3 10 1 5 - 1994 Smokeless Tobacco: Never Tobacco Cessation:Counseling Given: Not Answered Comments:social smoker only Alcohol Use Standard Drinks/Week Comments Yes 0 (1 standard drink = 0.6 oz pur e alcohol) Comments No Sex and Gender Information Value Date Recorded Sex Assigned at Not on file Legal Sex Female 2:43 AM DELIMER Gender Identity Not on file Sexual Orientation Not on file 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 on file Not on file Not on file Last Filed Vital Signs Vital Sign Reading Time Taken Comments Blood Pressure 120/78 12/04/2023 10:05 AM CDT Pulse 53 12/04/2023 10:05 AM CDT Temperature 36.4 C (97.5 F) 12/04/2023 10:05 AM CDT Respiratory Rate 18 12/11/2021 9:24 AM CDT Oxygen Saturation 97% 12/04/2023 10: 05 AM CDT Inhaled Oxygen Concentration - - Weight 104.2 kg (229 lb 12.8 oz) 2023 10:05 AM CDT Height 167.6 cm (5' 6 ) 12/04/2023 10:0 5 AM CDT Body Mass Index 37.09 12/04/2023 10:05 AM CDT Plan of Treatment Upcoming Encounters Date Type Department Care Team (Late st Contact Info) Description 12/02/2024 10:15 AM CDT Office Visit [facility] Sleep Medicine [facility] [address] [address] Robyn Tracey, OPTOMETRIST ASSISTANT- [address] [address] Health Maintenance Due Date Last Done Comments FIT-DNA Q 3 years 10/12/2000 FIT/FOBT Q 1 year 10/12/2000 Flex Sig/CT Colonography Q 5 years 10/12/2000 PNEUMOCOCCAL VACCINE 65+ YEA RS (1 of 1 - PCV) 10/12/2005 RSV VACCINE (60+ or ) (1 - Risk 60-74 years 1-dose series) 2015 INFLUENZA VACCINE (#1) 2023 , 12/05/2020, 12/10/2019, Additional history exists Pre-Diabetes and Diabetes Screening 10/21/2023 10/20/2020, 09/04/2018, 09/04/2018 COVID-19 Vaccine (2023-2 5 season) 2023 12/05/2020, 04/14/2020, 03/24/2020 Medicare Advantage ([place]) Preventative Visit/Annual Wellness Visit 03/10/2024 10/09/2020, 10/04/2019, 07/10/2018, Additional history exists BREAST CANCER SCREENING 12/29/2024 12/30/19, 12/27/2022, 12/07/2021, Additional history exists COLORECTAL SCREENING 01/08/2027 01/08/2017 Colorectal Cancer Screening 01/08/2027 DTAP/TDAP/TD VACCINES (3 - T d or Tdap) 10/03/2029 10/04/2019, 12/06/2008, 01/29/2006 ZOSTER VACCINE Completed 05/04/2020, 09/08, 07/05/2016 OSTEOPOROSIS SCREENING Completed 2020, 2007 Medical Devices Implanted Type Area Cigarette And Filter Chief Inspector Device Identifier Shelf Expiration Date Model / Serial / Lot Cement Depuy1 40grams 3312-040 - [id number] Implanted:Qty : 1 on 03/16/2018 by Chantel Ceja MD at [facility] Right: Knee [employer] 04/09/2020 [id number] / / [id number] Description:[id number] Comp Tib Attn Fb Cmnt Sz5 1506-70-005 - [id number] Implanted:Qty : 1 on 03/16/2018 by Chantel Ceja MD at [facility] Knee Right: Knee [employer] 12/08/2027 [id number] / / [id number] Patella Attune Dome 35mm 1518-20-035 - [id number] Implanted:Qty : 1 on 03/16/2018 by Chantel Ceja MD at [facility] Knee Right: Knee [employer] 11/07/2022 [id number] / / [id number] Comp Fem Attn Ps Cmnt Sz6 1504-00-226 - [id number] Implanted:Qty : 1 on 03/16/2018 by Chantel Ceja MD at [facility] Knee Right: Knee [employer] 10/08/2027 [id number] / / [id number] Ins Attn Fb Cr Sz6 5mm 1516-20-605 - [id number] Implanted:Qty : 1 on 03/16/2018 by Chantel Ceja MD at [facility] Knee Right: Knee [employer] 11/07/2022 [id number] / / [id number] Procedures Procedure Name Priority Date/Time Associated Diagnosis Comments MAMMO 3D CATRACHITO SCREEN BILAT W OR WO CAD Routine 12/30/2023 10:53 AM CDT Visit for screening mammogram HEMOGLOBIN A1C Routine 10/20/2020 9:40 AM CDT Routine medical exam XR DEXA BONE DENSITY AXIAL 1 OR MORE SITES Routine 2020 2:42 PM CDT Menopause Routine medical exam ENDOSCOPY, COLON, SCREENING Routine 01/08/2017 from Last 3 Months or Most Recently Relevant to Health Maintenance Results * MAMMO 3D CATRACHITO SCREEN BILAT W OR WO CAD (12/30/2023 10:53 AM CDT) Anatomical Region Laterality Modality Breast Bilateral Mammography 12/30/2023 10:5 3 AM CDT Impressions 12/30/2023 11:59 AM CDT IMPRESSION: No mammographic evidence of malignancy. OVERALL FINAL ASSESSMENT: BI-RADS CATEGORY 1 : Negative RECOMMENDATIONS: Annual screening. DICTATION LOCATION: [facility] Narrative 12/30/2023 11:59 AM CDT MAMMOGRAMS SCREENING DIGITAL BILATERAL WITH CAD AND 3D TOMOSYNTHESIS DATE: 12/30/2023 10:53 AM PRIOR: December 27, 2022 HISTORY: Screening. TECHNIQUE: Bilateral digital craniocaudad (CC) and mediolateral oblique (MLO) views. 3D Tomosynthesis. CAD. BREAST COMPOSITION: There are scattered areas of fibroglandular density. FINDINGS: No suspicious finding of either breast. Procedure Note Cornado Paez MD - 12/30/2023 MAMMOGRAMS SCREENING DIGITAL BILATERAL WITH CAD AND 3D TOMOSYNTHESIS DATE: 12/30/2023 10:53 AM PRIOR: December 27, 2022 HISTORY: Screening. TECHNIQUE: Bilateral digital craniocaudad (CC) and mediolateral oblique (MLO) views. 3D Tomosynthesis. CAD. BREAST COMPOSITION: There are scattered areas of fibroglandular density. FINDINGS: No suspicious finding of either breast. IMPRESSION: No mammographic evidence of malignancy. OVERALL FINAL ASSESSMENT: BI-RADS CATEGORY 1 : Negative RECOMMENDATIONS: Annual screening. DICTATION LOCATION: [facility] Result [facility] Sandra Santana MD MAMMO ORDERABLES Final Resu lt * HEMOGLOBIN A1C (10/20/2020 9:40 AM CDT) HEMOGLOBIN A1C 5.4 <5.7 % of total Hgb [facility] Comment: FASTING:YES FASTING: YES Test Performed at: [employer] [facility] [address] [place] [address] RadhaDon Mijares Vo Blood 10/20/2020 9:40 AM CDT 10/20/2020 9:41 AM CDT Monica Thacker MD CHEMISTRY ORDERABLES Final Result [facility] [address] [place] [address] * XR DEXA BONE DENSITY AXIAL 1 OR MORE SITES (2020 2:42 PM CDT) Anatomical Region Laterality Modality Computed Radiogr aphy 2020 2:42 PM CDT Narrative 2020 3:42 PM CDT SUMMARY DEXA REPORT DATE: 2020 2:42 PM INDICATION: Arthritis, postmenopausal, thyroid medication. FINDINGS: The patient is considered osteopenic with a lowest T score of -1.1. Fracture risk is moderate. Please refer to the full report available in [facility] under the PACS Images tab. If a faxed copy is needed, please call [phone]. DICTATION LOCATION: [facility] Procedure Note Javier Antonio MD - 2020 SUMMARY DEXA REPORT DATE: 2020 2:42 PM INDICATION: Arthritis, postmenopausal, thyroid medication. FINDINGS: The patient is considered osteopenic with a lowest T score of -1.1. Fracture risk is moderate. Please refer to the full report available in [facility] under the PACS Images tab. If a faxed copy is needed, please call [phone]. DICTATION LOCATION: [facility] Monica Thacker MD DIAGNOSTIC IMAGING ORDERAB LES Final Result * ENDOSCOPY, COLON, SCREENING (01/08/2017) Abstract Provider GI PROCEDURE ORDERABLES Final Result from Last 3 Months or Most Recently Relevant to Health Maintenance Insurance RX MEDIMPACT Member Subscriber Plan / Payer (Ef fective for All Dates) Name:Monica Falk Relation to Subscriber:Self Name:Monica Falk Payer ID:Not on file Group ID:[id number] Type:RX Commercial Address: [place] [employer] PL[employer] (INTERNAL) [facility] [id number] Advance Directives For more information, please contact: [phone] Documents on File Type Date Recorded 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
--- OUTSIDE RECORDS SUMMARY | 2024-04-27 10:56 | XMS_ITS | Encounter Summary ---
Author Organization [facility] Address [address] [place] [address] Care Team Providers Care Master Dyer Name Role Phone Sandra Santana MD Primary Care Provider Encounter Details Date Type Department Care Team (Late st Contact Info) Description 04/30/2005 Outpatient Historical [facility] Internal Medicine - [place] [address] [place] [address] Tee Locke MD [address] [facility] [address] [place] [address] Social History Tobacco Use Types Packs/Day Years Used Date Smoking Tobacco: Never Assessed Comments Unknown Sex and Gender Information Value Date Recorded Sex Assigned at Not on file Legal Sex Female 2:43 AM ACTUARIAL ASSISTANT Gender Identity Not on file Sexual Orientation Not on file documented as of this encounter Last Filed Vital Signs Vital Sign Reading Time Taken Comments Blood Pressure 120/60 04/30/2005 1:15 PM ACTUARIAL ASSISTANT Pulse 80 04/30/2005 1:15 PM ACTUARIAL ASSISTANT Temperature - - Respiratory Rate - - Oxygen Saturation - - Inhaled Oxygen Concentration - - Weight 89.8 kg (198 lb) 04/30/2005 1:15 PM ACTUARIAL ASSISTANT Height - - Body Mass Index - - documented in this encounter Plan of Treatment Upcoming Encounters Date Type Department Care Team (Late st Contact Info) Description 12/02/2024 10:15 AM CDT Office Visit [facility] Sleep Medicine [facility] [address] [address] Robyn Tracey, [facility] [address] [facility] [address] [place] [address] documented as of this encounter Visit Diagnoses Not on filedocumented in this encounter Care Teams Master Dyer Relationship Specialty Start Date End Date Sandra Santana MD PCP - General Family Practice 05/17/21 documented as of this encounter
--- OUTSIDE RECORDS SUMMARY | 2024-04-27 10:56 | XMS_ITS | Encounter Summary ---
Author Organization [facility] Address 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 LAST VISIT: 04-30-05 PCP: tan WHO CALLED: Patient called. CURRENT ALLERGY LIST: [facility] PHARMACY NUMBER: [phone] SECTION 1: REQUESTED ACTION [email or web address] 07/10/05 at 10:01 am: MEDICATION REQUEST: MEDICATION REQUEST: Patient requests a refill. MEDICATIONS: ULTRACET ORAL TABLET 37.5-325 MG, 2 Three Times A Day, As Needed, 60 Dispensed, status: CONTINUED, 04/25/2005, Comment: mat hr [phone]. ok to refill? TRIAGE/RN/HEALTH BENEFITS SPECIALIST RESPONSE: benjamin 07/10/05 at 10:24 am Refill this time only. FINAL ACTION: gene 07/10/05 at 10:34 am Called pharmacy at 07/10/05 at 10:34 am. Electronically Signed by: Sheila Montgomery on Sunday, July 10, 2005 documented in this encounter Plan of Treatment Upcoming Encounters Date Type Department Care Team (Late st Contact Info) Description 12/02/2024 10:15 AM CDT Office Visit [facility] Sleep Medicine [facility] [address] [address] Robyn Tracey, [facility] [address] [address] documented as of this encounter Visit Diagnoses Not on filedocumented in this encounter Care Teams Survey Analyst Relationship Specialty Start Date End Date Sandra Santana MD PCP - General Family Practice 05/17/21 documented as of this encounter
--- OUTSIDE RECORDS SUMMARY | 2024-04-27 10:56 | XMS_ITS | Encounter Summary ---
Author Organization [facility] Address [address] [place] [address] Care Team Providers Care Turn Down Man Name Role Phone Sandra Santana MD Primary Care Provider Encounter Details Date Type Department Care Team (Late st Contact Info) Description 04/25/2005 Orders Only [facility] Internal Medicine - [place] [address] [place] [address] Tee Locke MD [address] 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 LAST VISIT: 02/19/05 PCP: tan WHO CALLED: Pharmacy called. CURRENT ALLERGY LIST: PHARMACY NUMBER: [phone] SECTION 1: REQUESTED ACTION [email or web address] 04/25/05 at 12:29 pm: MEDICATION REQUEST: MEDICATION REQUEST: Patient requests a refill. MEDICATIONS: ULTRACET ORAL TABLET 37.5-325 MG, 2 Three Times A Day, As Needed, 60 Dispensed, status: CONTINUED, 02/19/2005. Ok to fill. Brandy Friend 1:37 FINAL ACTION: [email or web address] 04/25/05 at 01:52 pm Called pharmacy at 04/25/05 at 01:52 pm. hr Electronically Signed by: Jamila Stephens on April documented in this encounter Plan of Treatment Upcoming Encounters Date Type Department Care Team (Late st Contact Info) Description 12/02/2024 10:15 AM CDT Office Visit [facility] Sleep Medicine [facility] [address] [place] [phone] Robyn Tracey, [facility] [address] [place] [address] documented as of this encounter Visit Diagnoses Not on filedocumented in this encounter Care Teams Turn Down Man Relationship Specialty Start Date End Date Sandra Santana MD PCP - General Family Practice 05/17/21 documented as of this encounter
--- OUTSIDE RECORDS SUMMARY | 2024-04-27 10:56 | XMS_ITS | Encounter Summary ---
Author Organization [facility] Address [address] [place] [address] Care Team Providers Care Field Consultant Name Role Phone Sandra Santana MD Primary Care Provider Encounter Details Date Type Department Care Team (Late st Contact Info) Description 01/07/2006 Orders Only [facility] Internal Medicine - [place] [address] [place] [address] Tee Locke MD [address] [facility] [address] [place] [address] Social History Tobacco Use Types Packs/Day Years Used Date Smoking Tobacco: Never Assessed Comments Unknown Sex and Gender Information Value Date Recorded Sex Assigned at Not on file 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 Gender Identity Not on file Sexual Orientation Not on file documented as of this encounter Plan of Treatment Upcoming Encounters Date Type Department Care Team (Late st Contact Info) Description 12/02/2024 10:15 AM CDT Office Visit [facility] Sleep Medicine [facility] [address] [address] Robyn Tracey, TRIMMER HAND- [address] [address] documented as of this encounter Visit Diagnoses Not on filedocumented in this encounter Care Teams Field Consultant Relationship Specialty Start Date End Date Sandra Santana MD PCP - General Family Practice 05/17/21 documented as of this encounter
--- OUTSIDE RECORDS SUMMARY | 2024-04-27 10:56 | XMS_ITS | Encounter Summary ---
Author Organization [facility] Address [address] [place] [address] Care Team Providers Care Director Of Litigation Name Role Phone Sandra Santana MD Primary Care Provider Encounter Details Date Type Department Care Team (Late st Contact Info) Description 12/17/2001 Outpatient Historical [facility] Internal Medicine - [place] [address] [place] [address] Tee Locke MD [address] [facility] [address] [place] [address] Social History Tobacco Use Types Packs/Day Years Used Date Smoking Tobacco: Never Assessed Comments Unknown Sex and Gender Information Value Date Recorded Sex Assigned at Not on file 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 Gender Identity Not on file Sexual Orientation Not on file documented as of this encounter Plan of Treatment Upcoming Encounters Date Type Department Care Team (Late st Contact Info) Description 12/02/2024 10:15 AM CDT Office Visit [facility] Sleep Medicine [facility] [address] [address] Robyn Tracey, TALENT AGENT- [address] [address] documented as of this encounter Visit Diagnoses Not on filedocumented in this encounter Care Teams Director Of Litigation Relationship Specialty Start Date End Date Sandra Santana MD PCP - General Family Practice 05/17/21 documented as of this encounter
--- OUTSIDE RECORDS SUMMARY | 2024-04-27 10:56 | XMS_ITS | Encounter Summary ---
Author Organization [facility] Address [address] [place] [address] Care Team Providers Care Motors And Generators Inspector Name Role Phone Sandra Santana MD Primary Care Provider [phone] Encounter Details Date Type Department Care Team (Late st Contact Info) Description 09/02/2005 Orders Only [facility] Internal Medicine - [place] [address] [place] [address] Tee Locke MD [address] [facility] [address] [place] [address] Social History Tobacco Use Types Packs/Day Years Used Date Smoking Tobacco: Never Assessed Comments Unknown Sex and Gender Information Value Date Recorded Sex Assigned at Not on file 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 LAST VISIT: 04/30/05 PCP: tan. ALTERNATIVE PHONE NUMBER: [phone] WHO CALLED: Patient called. CURRENT ALLERGY LIST: [facility] NUMBER: [phone] PROBLEMS: SECTION 1: REQUESTED ACTION bettyarabella 09/02/05 at 02:04 pm: MEDICATION REQUEST: Patient wants medications and can not come in. pt says she is wanting to get a rx for her rosasia (not sure how to spell it ) the redness on the cheeks and face.. pt said it's some kind of metro cream ? please advise SECTION 2: DOCTOR`S RESPONSE: jessica 09/02/05 at 02:16 pm MEDICATIONS: METROCREAM EXTERNAL CREAME 0.75 % GRAMS, Use Every Day At Bedtime, 20 Dispensed, 1 Fills, status: NEW PRESCRIPTION, 09/02/2005. FINAL ACTION: shabana 09/02/05 at 02:56 pm Called pharmacy at 09/02/05 at 02:56 pm. df/vm Electronically Signed by: Binta Garcia on Friday, September 02, 2005 documented in this encounter Plan of Treatment Upcoming Encounters Date Type Department Care Team (Late st Contact Info) Description 12/02/2024 10:15 AM CDT Office Visit [facility] Sleep Medicine [facility] [address] [address] Robyn Traecy, [facility] [address] [address] documented as of this encounter Visit Diagnoses Not on filedocumented in this encounter Care Teams Motors And Generators Inspector Relationship Specialty Start Date End Date Sandra Santana MD PCP - General Family Practice 05/17/21 documented as of this encounter
--- OUTSIDE RECORDS SUMMARY | 2024-04-27 10:56 | XMS_ITS | Encounter Summary ---
Author Organization [facility] Address [address] [place] [address] Care Team Providers Care Wound Nurse Name Role Phone Sandra Santana MD Primary Care Provider Encounter Details Date Type Department Care Team (Late st Contact Info) Description 02/19/2005 Outpatient Historical [facility] Internal Medicine - [place] [address] [place] [address] Esteban Auguste MD [address] [facility] [place] [address] Social History Tobacco Use Types Packs/Day Years Used Date Smoking Tobacco: Never Assessed Comments Unknown Sex and Gender Information Value Date Recorded Sex Assigned at Not on file 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 Gender Identity Not on file Sexual Orientation Not on file documented as of this encounter Last Filed Vital Signs Vital Sign Reading Time Taken Comments Blood Pressure 118/74 02/19/2005 10:15 AM INSPECTOR TOYS Pulse - - Temperature - - Respiratory Rate - - Oxygen Saturation - - Inhaled Oxygen Concentration - - Weight 92.1 kg (203 lb) 02/19/2005 10:15 AM INSPECTOR TOYS Height - - Body Mass Index - - documented in this encounter Plan of Treatment Upcoming Encounters Date Type Department Care Team (Late st Contact Info) Description 12/02/2024 10:15 AM CDT Office Visit [facility] Sleep Medicine [place] [address] [address] Alexy Robyn Neeru, [facility] [address] [facility] [address] [place] [address] documented as of this encounter Visit Diagnoses Not on filedocumented in this encounter Care Teams Wound Nurse Relationship Specialty Start Date End Date Sandra Santana MD PCP - General Family Practice 05/17/21 documented as of this encounter
--- OUTSIDE RECORDS SUMMARY | 2024-04-27 10:56 | XMS_ITS | Encounter Summary ---
Author Organization [facility] Address [address] [place] [address] Care Team Providers Care Cottage Master Name Role Phone Sandra Santana MD Primary Care Provider [phone] Encounter Details Date Type Department Care Team (Late st Contact Info) Description 11/03/2003 Outpatient Historical [facility] Internal Medicine - [place] [address] [place] [address] Tee Locke MD [address] [facility] [address] [place] [address] Social History Tobacco Use Types Packs/Day Years Used Date Smoking Tobacco: Never Assessed Comments Unknown Sex and Gender Information Value Date Recorded Sex Assigned at Not on file 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 Gender Identity Not on file Sexual Orientation Not on file documented as of this encounter Last Filed Vital Signs Vital Sign Reading Time Taken Comments Blood Pressure 120/80 11/03/2003 1:15 PM CDT Pulse 80 11/03/2003 1:15 PM CDT Temperature - - Respiratory Rate - - Oxygen Saturation - - Inhaled Oxygen Concentration - - Weight 85.3 kg (188 lb) 11/03/2003 1:15 PM CDT Height - - Body Mass Index - - documented in this encounter Plan of Treatment Upcoming Encounters Date Type Department Care Team (Late st Contact Info) Description 12/02/2024 10:15 AM CDT Office Visit [facility] Sleep Medicine [facility] [address] [address] Robyn Tracey, [facility] [address] [facility] [address] [place] [address] documented as of this encounter Visit Diagnoses Not on filedocumented in this encounter Care Teams Cottage Master Relationship Specialty Start Date End Date Sandra Santana MD PCP - General Family Practice 05/17/21 documented as of this encounter
[2024-04-27 16:41] LABS: Cholesterol 228 mg/dL (0-200); HDL Direct 55 mg/dL; Triglycerides 157 mg/dL (<150)
[2024-04-27 16:52] LABS: LDL Cholesterol Direct 125 mg/dL
[2024-04-27 17:08] LABS: Vitamin D 25 Hydroxy 23.6 ng/mL
== END 2024-04-27 10:42 | disposition home or self-care (01) ==
LOC: ANHGOSHLAB 10:43
PROVIDERS: PCP Family Medicine; Visit Provider Family Medicine
DX: I25.10 Atherosclerotic heart disease of native coronary artery without angina pectoris (principal); E55.9 Vitamin D deficiency, unspecified
CPT/HCPCS: 36415; 80061; 82306

== ENCOUNTER 2024-07-23 11:52 | Outpatient (CLI) | payer MEDICARE, SELFPAY ==
--- OUTSIDE RECORDS SUMMARY | 2024-07-23 11:56 | XMS_ITS | Encounter Summary ---
Author Organization [facility] Address [address] [place] [address] Care Team Providers Care Evaluation Specialist Name Role Phone Sandra Santana MD Primary Care Provider Encounter Details Date Type Department Care Team (Late st Contact Info) Description 03/25/2006 Orders Only [facility] Internal Medicine - [place] [address] [place] [address] Tee Locke MD [address] [facility] [address] 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 LAST VISIT: 01/29/06 PCP: tan. ALTERNATIVE PHONE NUMBER: [phone] WHO CALLED: Patient called. CUR[facility] L[facility] NUMBER: [phone] SECTION 1: pt. had [...] Description 12/02/2024 10:15 AM CDT Office Visit [facility] Sleep Medicine [facility] [address] [place] [address] Robyn Tracey, [facility] [address] [phone] documented as of this encounter Visit Diagnoses Not on filedocumented in this encounter Care Teams Evaluation Specialist Relationship Specialty Start Date End Date Sandra Santana MD PCP - General Family Practice 05/17/21 documented as of this encounter
--- OUTSIDE RECORDS SUMMARY | 2024-07-23 11:56 | XMS_ITS | Encounter Summary ---
Author Organization [facility] Address [address] [place] [address] Care Team Providers Care Senior Regulatory Affairs Specialist Name Role Phone Sandra Santana MD Primary Care Provider Encounter Details Date Type Department Care Team (Late st Contact Info) Description 05/15/2007 Orders Only [facility] Internal Medicine Medical [place] [facility] [address] [address] Matilda Wilkes ANP NO ADDRESS ON FILE Social History Tobacco Use Types Packs/Day Years Used Date Smoking Tobacco: Never Assessed Comments Unknown Sex and Gender Information Value Date Recorded Sex Assigned at Not on file Legal Sex Female 2:43 AM TIE IN HAND Gender Identity Not on file Sexual Orientation [...] will make an appt to see her FINANCIAL ADMINISTRATIVE ASSISTANT this spring and have a mammogramordered at that time. She has never had a base line bone density. She has been having some intermittent CP, but has always considered it part my her GERD. She recently had a friend of a GA and would like some cardiac testing. Her [...] active issues. She will F/U with her FINANCIAL ADMINISTRATIVE ASSISTANT. Needs medication refilled. No incontinence. 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 LAB ORDERS: Order number: [id number] Test Ordered: CBC (INCLUDES DIFF/PLT) 6399 Order number: [id number] Test Ordered: COMPREHENSIVE METABOLIC PANEL 12050 Order number: [id number] Test Ordered: LIPID PANEL 7600 Order number: [id number] Test Ordered: TSH 899 530.81-GASTROESOPHAGEAL REFLUX (GERD) [...] GENERAL MEDICAL EXAMINATION LAB ORDERS: Order number: [id number] Test Ordered: BONE DENSITY (HIP & SPINE) 786.50-SYMPTOM, PAIN, CHEST NOS LAB ORDERS: Order number: [id number] Test Ordered: STRESS ECHO HEALTH MAINTENANCE: LAST [...] interval for mammogram as recommended by the [place] [employer] and ACOG, diagnosis, treatment, and [...] Description 12/02/2024 10:15 AM CDT Office Visit [facility] Sleep Medicine [facility] [address] [phone] Robyn rTacey, [facility]PERATION [facility] [address] [phone] documented as of this encounter Visit Diagnoses Not on filedocumented in this encounter Care Teams Senior Regulatory Affairs Specialist Relationship Specialty Start Date End Date Sandra Santana MD PCP - General Family Practice 05/17/21 documented as of this encounter
--- OUTSIDE RECORDS SUMMARY | 2024-07-23 11:56 | XMS_ITS ---
Author Organization [facility] [place] ([address]) Address [address] [place] [address] Care Team Providers Care Cylinder Dyer Name Role Phone Sandra Santana MD Primary Care Provider Unav ailable Matilda Coats Unavailable [phone] REASON FOR VISIT 07/19 SP Eunice GUY Approved Encounters Encounter Location Date Provider Diagnosis [facility] [place] [address] [place] [address] 07/13/2024 Matilda Coats Plan Of Treatment No Information Progress Notes * Monica FALKB:1955 ([age] yo F)Acc No.[id number]:07/13/2024 Patient: Monica PINEDA :1955 A ge:68 Y S ex:Female Address:[address] [place], [address] * * Date:
--- OUTSIDE RECORDS SUMMARY | 2024-07-23 11:56 | XMS_ITS | Encounter Summary ---
Author Organization [facility] Address [address] [place] [address] Care Team Providers Care Manager Study Name Role Phone Sandra Santana MD Primary Care Provider Encounter Details Date Type Department Care Team (Late Contact Info) Description 05/15/2007 Outpatient Historical [facility] Internal Medicine Medical [facility] [address] [place] [address]. 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 Gender Identity Not on file Sexual Orientation Not on file documented as of this encounter Plan of Treatment Upcoming Encounters Date Type Department Care Team (Late Contact Info) Description 12/02/2024 10:15 AM CDT Office Visit [facility] Sleep Medicine [facility] [address] [address] Robyn Tracey, [facility] [address] [facility] [address] [place] [address] documented as of this encounter Visit Diagnoses Not on filedocumented in this encounter Care Teams Manager Study Relationship Specialty Start Date End Date Sandra Santana MD PCP - General Family Practice 05/17/21 documented as of this encounter
--- OUTSIDE RECORDS SUMMARY | 2024-07-23 11:56 | XMS_ITS | Encounter Summary ---
Author Organization [facility] Address [address] [place] [address] Care Team Providers Care Figure Model Name Role Phone Sandra Santana MD Primary Care Provider Encounter Details Date Type Department Care Team (Late Contact Info) Description 06/10/2007 Orders Only [facility] Internal Medicine Medical [facility] [address] [facility] 2[facility]. 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 Gender Identity Not on file Sexual Orientation Not on file documented as of this encounter Plan of Treatment Upcoming Encounters Date Type Department Care Team (Late Contact Info) Description 12/02/2024 10:15 AM CDT Office Visit [facility] Sleep Medicine [facility] [address] [address] Robyn Tracey, HEAD OF DIGITAL ADVERTISING & [facility] [address] [facility] [address] [place] [address] documented as of this encounter Visit Diagnoses Not on filedocumented in this encounter Care Teams Figure Model Relationship Specialty Start Date End Date Sandra Santana MD PCP - General Family Practice 05/17/21 documented as of this encounter
--- OUTSIDE RECORDS SUMMARY | 2024-07-23 11:56 | XMS_ITS | Encounter Summary ---
Author Organization [facility] Address [address] [place] [address] Care Team Providers Care Society Editor Name Role Phone Sandra Santana MD Primary Care Provider Encounter Details Date Type Department Care Team (Late st Contact Info) Description 01/29/2006 Outpatient Historical [facility] Internal Medicine - [place] [address] [place] [address] Tee Locke MD [address] [facility] [address] [place] [address] Social History Tobacco Use Types Packs/Day Years Used Date Smoking Tobacco: Never Assessed Comments Unknown Sex and Gender Information Value Date Recorded Sex Assigned at Not on file 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 Gender Identity Not on file Sexual Orientation Not on file documented as of this encounter Plan of Treatment Upcoming Encounters Date Type Department Care Team (Late st Contact Info) Description 12/02/2024 10:15 AM CDT Office Visit [facility] Sleep Medicine [facility] [address] [address] Robyn Tracey, FOOD SAFETY SPECIALIST- [address] [address] documented as of this encounter Visit Diagnoses Not on filedocumented in this encounter Care Teams Society Editor Relationship Specialty Start Date End Date Sandra Santana MD PCP - General Family Practice 05/17/21 documented as of this encounter
--- OUTSIDE RECORDS SUMMARY | 2024-07-23 11:56 | XMS_ITS | Encounter Summary ---
Author Organization [facility] Address 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 Gender Identity Not on file Sexual Orientation [...] 530.81-GASTROESOPHAGEAL REFLUX (GERD) LAB ORDERS: Order number: [id number] Test Ordered: ENDOSCOPY Order number: [id number] Test Ordered: COLONOSCOPY 724.5-BACK PAIN V70.0-ROUTINE GENERAL MEDICAL EXAMINATION LAB ORDERS: Order number: [id number] Test Ordered: COMPREHENSIVE METABOLIC PANEL W/ GLOMERULAR FILTRATION RATE, ESTIMATED (EGFR) 00484 Order number: [id number] Test Ordered: TSH 899 Order number: [id number] Test Ordered: CBC (INCLUDES DIFF/PLT) 6399 Order number: [id number] Test Ordered: INJ-TETANUS & DIPTHERIA TOXOID 22918 625.4-PREMENSTRUAL SYNDROME (PMS) MEDICATIONS: NEURONTIN ORAL CAPSULE [...] Description 12/02/2024 10:15 AM CDT Office Visit [facility] [place] [facility] [address] [address] Robyn Tracey, [facility] [address] [facility] [address] [place] [address] documented as of this encounter Visit Diagnoses Not on filedocumented in this encounter Care Teams Archivist Relationship Specialty Start Date End Date Sandra Santana MD PCP - General Family Practice 05/17/21 documented as of this encounter
--- OUTSIDE RECORDS SUMMARY | 2024-07-23 11:56 | XMS_ITS | Encounter Summary ---
Author Organization [facility] Address [address] [place] [address] Care Team Providers Care Appointment Setter Name Role Phone Davin Chase MD Unavailable [phone] Monica Thacker MD Primary Care Provider [phone] Encounter Details Date Type Department Care Team (Late Contact Info) Description 07/09/2024 Results Follow-Up [facility] [address] [place] [address] [place] [address] [address] Social History Tobacco Use Types Packs/Day Years [...] money to get more. Never true 12/20/2021 Comments Unknown Sex and Gender Information Value Date Recorded Sex Assigned at Not on file Legal Sex Female 7:58 AM COSMETICS PRESSER Gender Identity Not on file Sexual Orientation Not on file documented as of this encounter Plan of Treatment Upcoming Encounters Date Type Department Care Team (Late Contact Info) Description 08/17/2024 2:00 PM CDT Office [facility] [address] [address] [place] [address] [address] documented as of this encounter Visit Diagnoses Not on filedocumented in this encounter Care Teams Appointment Setter Relationship Specialty Start Date End Date Monica Thacker MD [address] [address] PCP - General 02/10/22 [place] [address] [address] [address] Surgeon Orthopedic Surgery 06/01/20 documented as of this encounter
--- OUTSIDE RECORDS SUMMARY | 2024-07-23 11:56 | XMS_ITS | Encounter Summary ---
Author Organization [facility] Address [address] [place] [address] Care Team Providers Care Cop Winder Name Role Phone Sandra Santana MD Primary Care Provider Encounter Details Date Type Department Care Team (Late st Contact Info) Description 04/28/2006 Orders Only [facility] Internal Medicine - [place] [address] [place] [address] Tee Locke MD [address] [facility] [address] 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 DOCTOR`S RESPONSE: jessica 04/28/06 at 01:50 pm Refill this time only. FINAL ACTION: hayden 04/28/06 at 02:13 pm Called pharmacy at 04/28/06 at 02:13 pm. Electronically Signed by: Lore Cui on Friday, April 28, 2006 documented in this encounter Plan of Treatment Upcoming Encounters Date Type Department Care Team (Late st Contact Info) Description 12/02/2024 10:15 AM CDT Office Visit [facility] Sleep Medicine [facility] [address] [place] [phone] Robyn Tracey, [facility] [address] [address] documented as of this encounter Visit Diagnoses Not on filedocumented in this encounter Care Teams Cop Winder Relationship Specialty Start Date End Date Sandra Santana MD PCP - General Family Practice 05/17/21 documented as of this encounter
--- OUTSIDE RECORDS SUMMARY | 2024-07-23 11:56 | XMS_ITS | Clinical Summary ---
Author Organization [facility] Address [address] [place] [address] Care Team Providers Care Telegraph Printer Mechanic Name Role Phone Monica Thacker MD Primary Care Provider [phone] Allergies Active Allergy Reactions Criticality Noted Date [...] on file Legal Sex Female 10:12 AM BLOOD BANK ATTENDANT Gender Identity Not on file Sexual Orientation [...] ACCESS ANTHEM ACCESS ANTHEM ACCESS Care Teams Telegraph Printer Mechanic Relationship Specialty Start Date End Date Monica Thacker MD [address] [place] [phone] PCP - General Family Medicine 10/27/20
--- OUTSIDE RECORDS SUMMARY | 2024-07-23 11:56 | XMS_ITS | Encounter Summary ---
Author Organization [facility] Address [address] [place] [address] Care Team Providers Care Platform Inspector Name Role Phone Sandra Santana MD Primary Care Provider [phone] Encounter Details Date Type Department Care Team (Late Contact Info) Description 05/15/2007 Outpatient Historical [facility] Internal Medicine Medical [facility] [address] [facility] [address] Matilda Wilkes ANP NO ADDRESS ON FILE Social History Tobacco Use Types Packs/Day Years Used Date Smoking Tobacco: Never Assessed Comments Unknown Sex and Gender Information Value Date Recorded Sex Assigned at Not on file Legal Sex Female 2:43 AM POND SCALER Gender Identity Not on file Sexual Orientation Not on file documented as of this encounter Plan of Treatment Upcoming Encounters Date Type Department Care Team (Late Contact Info) Description 12/02/2024 10:15 AM CDT Office Visit [facility] Sleep Medicine [facility] [address] [address] Robyn Tracey, VENDING ENTERPRISES [facility] [address] [facility] [address] [place] [address] documented as of this encounter Visit Diagnoses Not on filedocumented in this encounter Care Teams Platform Inspector Relationship Specialty Start Date End Date Sandra Santana MD PCP - General Family Practice 05/17/21 documented as of this encounter
--- OUTSIDE RECORDS SUMMARY | 2024-07-23 11:56 | XMS_ITS ---
Author Organization [facility] [place] ([address]) Address [address] [place] [address] Care Team Providers Care Practice Billing Associate Name Role Phone Sandra Santana MD Primary Care Provider Unav ailable Matilda Coats Unavailable [phone] REASON FOR VISIT 3 Xolair SP new start - approved Encounters Encounter Location Date Provider Diagnosis [facility] - [address] [address] 04/27/2024 Matilda Coats Plan Of Treatment No Information Progress Notes * Monica FALKB:1955 ([age] yo F)Acc No.[id number]:04/27/2024 Patient: Monica PINEDA :1955 A ge:68 Y S ex:Female Address:[address] , [place], [address] * true * Date: Generated for Printi ng/Faxing/eTransmitting on: 0 07/23/2024 11:56 AM CDT
--- OUTSIDE RECORDS SUMMARY | 2024-07-23 11:56 | XMS_ITS | Encounter Summary ---
Author Organization [facility] Address 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 Gender Identity Not on file Sexual Orientation Not on file documented as of this encounter Plan of Treatment Upcoming Encounters Date Type Department Care Team (Late st Contact Info) Description 12/02/2024 10:15 AM CDT Office Visit [facility] Sleep Medicine [facility] [address] [address] Robyn Tracey, STORAGE MANAGEMENT ARCHITECT- [address] [address] documented as of this encounter Visit Diagnoses Not on filedocumented in this encounter Care Teams Editor Farm Journal Relationship Specialty Start Date End Date Sandra Santana MD PCP - General Family Practice 05/17/21 documented as of this encounter
--- OUTSIDE RECORDS SUMMARY | 2024-07-23 11:57 | XMS_ITS ---
Author Organization [facility] [place] ([address]) Address [address] [place] [address] Care Team Providers Care Ship Fastener Name Role Phone Etsher LE, Sandra Primary Care Provider Unav ailable Matilda Coats Unavailable [phone] REASON FOR VISIT XOLAIR SP Follow-up Encounters Encounter Location Date Provider Diagnosis [facility] - [place] [address] [place] [address] 05/26/2024 Matilda Coats Plan Of Treatment No Information Progress Notes * Swapna FALKB:1955 ([age] yo F)Acc No.[id number]:05/26/2024 XOLAIR 1-3 Patient: Monica PINEDA Provider: Bubba Coats MD :1955 A ge:68 Y S ex:Female Date:05/26/2024 Address:[facility] Pcp:Sandra Santana MD Subjective: * Chief Complaints: * 1 . XOLAIR SP Follow-up. * Medical History: Objective: * Vitals: Assessment: Plan: * Treatment: * Billing Information: * Visit Code: * Procedure Codes: * Electronic signature of Olivia Coats MD on 07/23/2024 at 11:56 AM CDT Sign off status: Pending * Provider: Bubba Coats MD Date: 0 05/26/2024 Generated for Maddy anderson/Martín/Vivek on: 0 07/23/2024 11:56 AM CDT
--- OUTSIDE RECORDS SUMMARY | 2024-07-23 11:57 | XMS_ITS | Encounter Summary ---
Author Organization [facility] Address [address] [place] [address] Care Team Providers Care Front Office Medical Assistant Name Role Phone Sandra Santana MD Primary Care Provider Encounter Details Date Type Department Care Team (Late st Contact Info) Description 01/07/2006 Orders Only [facility] [place] Internal Medicine - [place] [address] [place] [phone] Tee Locke MD [address] [facility] [address] [place] [address] Social History Tobacco Use Types Packs/Day Years Used Date Smoking Tobacco: Never Assessed Comments Unknown Sex and Gender Information Value Date Recorded Sex Assigned at Not on file 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 Gender Identity Not on file Sexual Orientation Not on file documented as of this encounter Plan of Treatment Upcoming Encounters Date Type Department Care Team (Late st Contact Info) Description 12/02/2024 10:15 AM CDT Office Visit [facility] [place] Sleep Medicine [facility] [address] [address] Robyn Tracey, FOAM DISPENSER- [address] [address] documented as of this encounter Visit Diagnoses Not on filedocumented in this encounter Care Teams Front Office Medical Assistant Relationship Specialty Start Date End Date Sandra Sanatna MD PCP - General Family Practice 05/17/21 documented as of this encounter
--- OUTSIDE RECORDS SUMMARY | 2024-07-23 11:57 | XMS_ITS | Encounter Summary ---
Author Organization [facility] Address [address] [place] [address] Care Team Providers Care Paint Grinder Name Role Phone Sandra Santana MD Primary Care Provider Encounter Details Date Type Department Care Team (Late st Contact Info) Description 11/03/2003 Outpatient Historical [facility] Internal Medicine - [place] [address] [place] [address] Tee Locke MD [address] [facility] [address] [place] [address] Social History Tobacco Use Types Packs/Day Years Used Date Smoking Tobacco: Never Assessed Comments Unknown Sex and Gender Information Value Date Recorded Sex Assigned at Not on file Legal Sex Female 2:43 AM 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 [address] [address] Robyn Tracey, SEAL DELIVERY VEHICLE TEAM TECHNIC[facility] [address] [facility] [address] [place] [address] documented as of this encounter Visit Diagnoses Not on filedocumented in this encounter Care Teams Paint Grinder Relationship Specialty Start Date End Date Sandra Santana MD PCP - General Family Practice 05/17/21 documented as of this encounter
--- OUTSIDE RECORDS SUMMARY | 2024-07-23 11:57 | XMS_ITS | Encounter Summary ---
Author Organization [facility] Address [address] [place] [address] Care Team Providers Care Back Tender Cylinder Name Role Phone Sandra Santana MD Primary Care Provider Encounter Details Date Type Department Care Team (Late st Contact Info) Description 12/17/2001 Outpatient Historical [facility] Internal Medicine - [place] [address] [place] [address] Tee Locke MD [address] [facility] [address] [place] [address] Social History Tobacco Use Types Packs/Day Years Used Date Smoking Tobacco: Never Assessed Comments Unknown Sex and Gender Information Value Date Recorded Sex Assigned at Not on file 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 [address] [address] Robyn Tracey, IP COUNSEL- [address] [address] documented as of this encounter Visit Diagnoses Not on filedocumented in this encounter Care Teams Back Tender Cylinder Relationship Specialty Start Date End Date Sandra Santana MD PCP - General Family Practice 05/17/21 documented as of this encounter
--- OUTSIDE RECORDS SUMMARY | 2024-07-23 11:57 | XMS_ITS | Encounter Summary ---
Author Organization [facility] Address [address] [place] [address] Care Team Providers Care Batch Room Technician Name Role Phone Sandra Santana MD Primary Care Provider Encounter Details Date Type Department Care Team (Late st Contact Info) Description 01/01/2000 Outpatient Historical [facility] Internal Medicine - [place] [address] [place] [address] Tee Locke MD [address] [facility] [address] [place] [address] Social History Tobacco Use Types Packs/Day Years Used Date Smoking Tobacco: Never Assessed Comments Unknown Sex and Gender Information Value Date Recorded Sex Assigned at Not on file Legal Sex Female 2:43 AM 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 INVESTMENT ADVISER Gender Identity Not on file Sexual Orientation Not on file documented as of this encounter Plan of Treatment Upcoming Encounters Date Type Department Care Team (Late st Contact Info) Description 12/02/2024 10:15 AM CDT Office Visit [facility] Sleep Medicine [facility] [address] [address] Robyn Tracey, HEAD WRESTLING COACH- [address] [address] documented as of this encounter Visit Diagnoses Not on filedocumented in this encounter Care Teams Batch Room Technician Relationship Specialty Start Date End Date Sandra Santana MD PCP - General Family Practice 05/17/21 documented as of this encounter
--- OUTSIDE RECORDS SUMMARY | 2024-07-23 11:57 | XMS_ITS | Encounter Summary ---
Author Organization [facility] Address [address] [place] [address] Care Team Providers Care Outboard Motorboat Operator Name Role Phone Sandra Santana MD Primary Care Provider Encounter Details Date Type Department Care Team (Late st Contact Info) Description 07/10/2005 Orders Only [facility] Internal Medicine - [place] [address] [place] [address] Tee Locke MD [address] [facility] [address] [place] [address] Social History Tobacco Use Types Packs/Day Years Used Date Smoking Tobacco: Never Assessed Comments Unknown Sex and Gender Information Value Date Recorded Sex Assigned at Not on file Legal Sex Female 2:43 AM DIRECTOR SELECTION AND ADMINISTRATION Gender Identity Not on file Sexual Orientation Not on file documented as of this encounter Progress Notes * Tee oLcke MD - 12/18/2007 3:34 AM CDT TIME:10:00 am PATIENT`S HOME PHONE: PATIENT`S WORK PHONE: PATIENT`S INSURANCE: [employer] PPO WHO TOOK THE CALL: Jamila Stephens A GENERAL INFORMATION PATIENT STATUS: Established Patient. LAST VISIT: 04-30-05 PCP: tan WHO CALLED: Patient called. CURRENT ALLERGY LIST: [facility] NUMBER: [phone] SECTION 1: REQUESTED ACTION ronny 07/10/05 at 10:01 am: MEDICATION REQUEST: MEDICATION REQUEST: Patient requests a refill. MEDICATIONS: ULTRACET ORAL TABLET 37.5-325 MG, 2 Three Times A Day, As Needed, 60 Dispensed, status: CONTINUED, 04/25/2005, Comment: mat hr [phone]. ok to refill? TRIAGE/RN/STEAM SETTER RESPONSE: benjamin 07/10/05 at 10:24 am Refill this time only. FINAL ACTION: gene 07/10/05 at 10:34 am Called pharmacy at 07/10/05 at 10:34 am. Electronically Signed by: Sheila Montgomery on Sunday, July 10, 2005 documented in this encounter Plan of Treatment Upcoming Encounters Date Type Department Care Team (Late st Contact Info) Description 12/02/2024 10:15 AM CDT Office Visit [facility] Sleep Medicine [facility] [address] [address] Robyn Tracey, [facility] [address] [address] documented as of this encounter Visit Diagnoses Not on filedocumented in this encounter Care Teams Outboard Motorboat Operator Relationship Specialty Start Date End Date Sandra Santana MD PCP - General Family Practice 05/17/21 documented as of this encounter
--- OUTSIDE RECORDS SUMMARY | 2024-07-23 11:57 | XMS_ITS | Clinical Summary ---
Author Organization [facility] Address [address] [place] [address] Care Team Providers Care Bell Cleaner Name Role Phone Davin Chase MD Unavailable [phone] Alee Thacker MD Primary Care Provider [phone] Source Comments [facility],non-owned Affiliates and Associated Physician Practices is amultiple site organization consisting of ambulatory clinics and hospital sitesin [place], [place], [place] and [place]. This disclosure is being madepursuant to the Care Everywhere program and may not contain all information available regarding this patient. Last updated 17.[facility] Allergies Active Allergy Reactions Criticality Noted Date Comments Hydrocodone-Acetaminophen Urticaria High 04/02/2018 Swelling in lips and hives Medications * Be aware that medications may not be up to date on this document. Alwaysverify current medications with the patient. estradiol (ESTRACE) 0.1 MG/GM vaginal cream as needed 0 Active levothyroxine (SYNTHROID) 100 MCG tablet Take 100 mcg by mouth once daily 1 Active Cholecalciferol 1.25 MG (81280 UT) Take 50,000 Units by mouth every 7 days 2 Active solifenacin (Vesicare) 10 MG tablet Take 10 mg by mouth every evening 2 Active calcium carbonate - vitamin D (Calcium+D3) 600-800 MG-UNIT tablet Take 1 tablet by mouth daily with breakfast Active diclofenac sodium (Voltaren) 1 % gel Apply to affected area 4 times daily Active nabumetone (Relafen) 750 MG tablet Take 1 (one) tablet by mouth 2 times daily 60 tablet 3 3 Active diphenhydrAMINE -APAP, sleep, (Acetaminophen PM) 25-500 MG tablet Take 1 (one) tablet by mouth nightly as needed for Insomnia Active vitamin D (Cholecaciferol ) 125 MCG (5000 UT) capsule Take 1 (one) capsule by mouth every 7 days 3 Active Active Problems Problem Noted Date Diagnosed Date Presence of left artificial knee joint 5 Postoperative stiffness of total knee replacemen t 01/11/2022 Primary osteoarthritis of left knee 09/17/2021 THAO on CPAP 12/04/2018 History of total right knee replacement 03/16/19 19 Idiopathic urticaria 03/16/2018 Encounters Date Type Department Care Team Description 07/09/2024 Results Follow-Up [facility] [address] [address] Davin Chase MD 06/22/2024 2:30 PM CDT Office Visit [facility] [address] [phone] Davin Chase MD Pes anserinus bursitis of left knee (Primary Dx); Presence of left artificial knee joint 06/22/2024 Travel 06/21/2024 1:40 PM CDT - 06/21/2024 11:59 PM CDT Hospital Encounter [facility] - MRI [address] [place] [address] Davin Chase MD Discharge Disposition: Home or Self Care 06/03/2024 Telephone [facility] [address] 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[employer] Gender Identity Not on file Sexual Orientation [...] Care Team (Late st Contact Info) Description 08/17/2024 2:00 PM CDT Office Visit [facility] [id number] [place] [phone] [place] [id number] [address] Health Maintenance Due Date Last Done [...] (4 - season) 2023 12/05/2020, 04/14/2020, 03/24/2020 DEPRESSION SCREENING 03/10/2024 MEDICARE AWV CALENDAR YEAR 2024 INFLUENZA VACCINE (Season Ended) 2024 12/07/2021, 12/05/2020, 12/10/2019, Additional history exists MAMMOGRAM 12/29/2025 12/30/2023, 12/09, 12/27/2022, Additional history [...] complete this topic MENINGOCOCCAL (Group B) VACCINE SHARED DECISION-MAKING Aged Out No longer eligible based on patient's age to complete this topic MENINGOCOCCAL GROUPS A/C/Y/W VACCINE Aged Out No longer eligible based on patient's age to complete this topic Medical Devices Implanted Type Area Manager Pacu Device Identifier Shelf Expiration Date Model / Serial / Lot Cmnt Bone Djo Srg Cblt 40gm Hvisc Strl Implanted:Qty: 1 on 12/19/2021 by Davin Chase MD at [facility] Left: Knee [employer] 09/20/2022 600-15-000 / / [id number] Cmpnt Ptlr Std 28mm 3 Pg Kn Ser A Implanted:Qty: 1 on 12/19/2021 by Davin Chase MD at [facility] Left: Knee [employer] 01/09/2026 [id number] / / [id number] Tray Tib 75mm Kn Cocr I Beam Implanted:Qty: 1 on 12/19/2021 by Davin Chase MD at [facility] Left: Knee [employer] 08/15/2030 [id number] / / [id number] Cmpnt Fem Kn Lt Cr Cmnt Prm Vngrd Intlk Implanted:Qty: 1 on 12/19/2021 by Davin Chase MD at [facility] Left: Knee [employer] 11/13/2031 [id number] / / [id number] Brng 72pec41ve Vngrd Arcm Kn Ant Stab Implanted:Qty: 1 on 12/19/2021 by Davin Chase MD at [facility] Left: Knee [employer] 10/04/2026 [id number] / / [id number] Procedures Procedure Name Priority Date/Time Associated Diagnosis Comments MRI KNEE LEFT WO CONTRAST Routine 06/21/2024 2:33 PM CDT Chronic pain of left knee Presence of left artificial knee joint from Last 3 Months Results * MRI Knee Left Wo Contrast (06/21/2024 2:33 PM CDT) Anatomical Region Laterality Modality Lower Extremity Magnetic Resonan ce 06/21/2024 3:38 PM CDT Impressions 06/21/2024 4:09 PM CDT IMPRESSION: NO EVIDENCE OF HARDWARE COMPLICATION OR AN ACTIVE INFLAMMATORY PROCESS. Edited by Alee Del Toro on 06/21/2024 3:51 PM > Interpreting Provider: Malcolm Campos MD on 06/21/2024 4:09 PM Narrative 06/21/2024 4:09 PM CDT PROCEDURE: MRI KNEE LEFT WO CONTRAST DATE/TIME OF EXAM: 06/21/2024 2:33 PM CLINICAL INFORMATION: None relevant/not provided if blank. Indication: M25.562: Pain in left knee. G89.29: Other chronic pain. Z96.652: Presence of left artificial knee joint. Previous left knee arthroplasty complaining of progressive worsening left knee pain with decreased range of motion. COMPARISON: Left knee x-ray series 04/13/2024. TECHNIQUE: MRI of the left knee was performed without contrast. Metal artifact reduction sequences were employed. FINDINGS: Anatomic alignment. No bone marrow edema. No osteolysis. No acute or subacute fracture. Small joint effusion. Normal thickness of the synovium. Normal signal and morphology of the patellar tendon and distal quadriceps tendon. Note that only the distal 1.5 cm of the quadriceps tendon was included in the cymfn-ic-ebuw. Normal signal and morphology of the tendons of the pes anserine and posterior compartment tendons. No sites of tenosynovitis or bursitis. Medial collateral ligamentous complex and lateral collateral ligamentous complex intact. Signal of the musculature and fascial planes are within normal limits. Signal of the neurovascular structures are within normal limits. Procedure Note Malcolm Campos MD - 06/21/2024 PROCEDURE: MRI KNEE LEFT WO CONTRAST DATE/TIME OF EXAM: 06/21/2024 2:33 PM CLINICAL INFORMATION: None relevant/not provided if blank. Indication: M25.562: Pain in left knee. G89.29: Other chronic pain. Z96.652: Presence of left artificial knee joint. Previous left knee arthroplasty complaining of progressive worseningleft knee pain with decreased range of motion. COMPARISON: Left knee x-ray series 04/13/2024. TECHNIQUE: MRI of the left knee was performed without contrast. Metal artifact reduction sequences were employed. FINDINGS: Anatomic alignment. No bone marrow edema. No osteolysis. No acute or subacute fracture. Small joint effusion. Normal thickness of the synovium. Normal signal and morphology of the patellar tendon and distalquadriceps tendon. Note that only the distal 1.5 cm of the quadriceps tendon was included in the igvct-id-qexx. Normal signal and morphology of the tendons of the pes anserine and posterior compartment tendons. No sites of tenosynovitis or bursitis. Medial collateral ligamentous complex and lateral collateral ligamentous complex intact. Signal of the musculature and fascial planes are within normal limits. Signal of the neurovascular structures are within normal limits. IMPRESSION: NO EVIDENCE OF HARDWARE COMPLICATION OR AN ACTIVE INFLAMMATORY PROCESS. 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
--- OUTSIDE RECORDS SUMMARY | 2024-07-23 11:57 | XMS_ITS | Clinical Summary ---
Author Organization [facility] Address [address] [place] [address] Phone Care Team Providers Care Folder And Notcher Name Role Phone Sandra Santana MD Primary Care Provider Allergies Active Allergy Reactions Criticality Noted Date [...] days. 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 90 Tablet 1 01/23/2022 11:40 AM LAUNDRY MARKER SUPERVISOR 2 Active acetaminophen (TYLENOL) 500 mg Capsule Take 500 mg by mouth every 4 hours as needed. 2 Active calcium carbonate-vitam in D3 (CALTRATE 600 + D) 600 mg-20 mcg (800 unit) Tablet Take 1 Tablet by mouth daily with breakfast. Active celecoxib (CeleBREX) 200 mg capsule Take 1 (one) capsule by mouth 2 times daily 60 Capsule 5 01/24/2022 2:16 PM LAUNDRY MARKER SUPERVISOR 2 Active nitrofurantoin (MACROBID) 100 mg capsule Take 1 Capsule (100 mg) by mouth every 12 hours for 5 days. Take with a meal or food. 10 Capsule 01/24/2022 2:16 PM LAUNDRY MARKER SUPERVISOR 2 Active traMADoL (ULTRAM) 50 mg tablet Take 1-2 tablets by mouth every 6 hours as needed for pain. 42 Tablet 02/15/2022 11:27 AM LAUNDRY MARKER SUPERVISOR 2 Active levothyroxine 100 mcg tablet Take 1 Tablet (100 mcg) by mouth daily. 90 Tablet 2 02/25/2022 12:18 PM LAUNDRY MARKER SUPERVISOR 2 Active nabumetone (RELAFEN) 750 mg tablet Take 1 Tablet (750 mg) by mouth 2 times daily. 60 Tablet 5 03/08/2022 12:38 PM LAUNDRY MARKER SUPERVISOR 2 Active CPAP / BIPAP suppliesIndicat ions:THAO on CPAP CPAP Mask fit to comfort, Refit if needed, All associated CPAP Supplies as needed Length of need: 99 months DME [employer] 1 Each 4 Active Active Problems Patient Care Coordination No te Formatting of this note migh t be different from the original. DME: [facility] [place] [address] [address] [place] [address] / Problem Noted Date Diagnosed Date Abnormal cardiovascular stress test 12/10/2021 Overview (12/10/2021): Added automatically from request for surgery [id number] Pre-op evaluation 12/10/2021 Overview (12/10/2021): Added automatically from request for surgery [id number] Severe obesity (BMI 35.0-39.9) with comorbidity 10/18/2019 Obesity (BMI 35.0-39.9 without comorbidity) 09/08 THAO on CPAP 12/04/2018 Obesity (BMI 30.0-34.9) 12/04/2018 Idiopathic urticaria 03/16/2018 History of total right knee replacement 03/16/19 Primary osteoarthritis of both knees 02/08/2018 Acquired [...] Encounters Date Type Department Care Team Description 05/26/2024 External Device Data STL ABSTRACTION Provider, Abstract 05/18/2024 External Device Data STL ABSTRACTION Provider, Abstract 05/18/2024 External Device Data STL ABSTRACTION Provider, Abstract 05/15/2024 External Device Data STL ABSTRACTION Provider, Abstract 05/14/2024 External Device Data STL ABSTRACTION Provider, Abstract 05/12/2024 External Device Data STL ABSTRACTION Provider, Abstract 05/11/2024 External Device Data STL ABSTRACTION Provider, Abstract 04/27/2024 External Device Data STL ABSTRACTION Provider, Abstract from Last 3 Months Immunizations Immunization Administration Dates Next Due (ADACEL/BOOSTRIX)(10 YR UP) TDAP VACCINE, 0.5ML, IM 10/04/2019,12/06/2008 (PFIZER)(12 YR UP) COVID-19 VACCINE - EMERGENCY USE AUTHORIZATION, MRNA, [id number]) 30 MCG/0.3 ML IM SUSP 12/05/2020,04/14/2020,03/24/2020 (SHINGRIX)(50 [...] on file 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 [address] [address] Health Maintenance Due Date Last Done Comments FIT-DNA Q 3 years 10/12/2000 FIT/FOBT Q 1 year 10/12/2000 Flex Sig/CT Colonography Q 5 years 10/12/2000 PNEUMOCOCCAL VACCINE 50+ YEA RS (1 of 1 - PCV) 10/12/2005 RSV VACCINE (60+ or ) (1 - Risk 60-74 years 1-dose series) 2015 INFLUENZA VACCINE (#1) 2023 2, 12/05/2020, 12/10/2019, Additional history exists Pre-Diabetes and Diabetes Screening 10/21/2023 10/20/2020, 09/04/2018, 09/04/2018 COVID-19 Vaccine ( - 2023-2 5 season) 2023 12/05/2020, 04/14/2020, 03/24/2020 BREAST CANCER SCREENING 12/29/2024 12/30/19 24, 12/27/2022, 12/07/2021, Additional history exists OSTEOPOROSIS SCREENING 2025 2020, 2007 COLORECTAL SCREENING 01/08/2027 01/08/2017 Colorectal Cancer Screening 01/08/2027 DTAP/TDAP/TD VACCINES (3 - T d or Tdap) 10/03/2029 10/04/2019, 12/06/2008, 01/29/2006 ZOSTER VACCINE Completed 05/04/2020, 09/08, 07/05/2016 Medical Devices Implanted Type Area Proofer Prepress Device Identifier Shelf Expiration Date Model / Serial / Lot Cement Depuy1 40grams 3312-040 - [id number] Implanted:Qty : 1 on 03/16/2018 by Chantel Ceja MD at [facility] Right: Knee [employer] 04/09/2020 [id number] / / [id number] Description:[id number] Comp Tib Attn Fb Cmnt Sz5 1506-70-005 - [id number] Implanted:Qty : 1 on 03/16/2018 by Chantel Ceja MD at [facility] Right: Knee [employer] 12/08/2027 [id number] / / [id number] Patella Attune Dome 35mm 1518-20-035 - [id number] Implanted:Qty : 1 on 03/16/2018 by Chantel Ceja MD at [facility] Right: Knee [employer] 11/07/2022 [id number] / / [id number] Comp Fem Attn Ps Cmnt Sz6 1504-00-226 - [id number] Implanted:Qty : 1 on 03/16/2018 by Chatnel Ceja MD at [facility] Right: Knee [employer] 10/08/2027 [id number] / / [id number] Ins Attn Fb Cr Sz6 5mm 1516-20-605 - [id number] Implanted:Qty : 1 on 03/16/2018 by Chantel Ceja MD at [facility] [place] Right: Knee [employer] 11/07/2022 [id number] / / [id number] Procedures Procedure Name Priority Date/Time Associated Diagnosis [...] : Negative RECOMMENDATIONS: Annual screening. DICTATION LOCATION: [facility] Narrative 12/30/2023 11:59 AM CDT MAMMOGRAMS SCREENING DIGITAL BILATERAL WITH CAD AND 3D TOMOSYNTHESIS DATE: 12/30/2023 10:53 AM PRIOR: December 27, 2022 HISTORY: Screening. TECHNIQUE: Bilateral digital craniocaudad (CC) and mediolateral oblique (MLO) views. 3D Tomosynthesis. CAD. BREAST COMPOSITION: There are scattered areas of fibroglandular density. FINDINGS: No suspicious finding of either breast. Procedure Note Conrado Paez MD - 12/30/2023 MAMMOGRAMS SCREENING DIGITAL [...] : Negative RECOMMENDATIONS: Annual screening. DICTATION LOCATION: [facility] us Sandra Santana MD MAMMO ORDERABLES Final Resu lt * HEMOGLOBIN A1C (10/20/2020 9:40 AM CDT) HEMOGLOBIN A1C 5.4 <5.7 % of total Hgb [facility] Comment: FASTING:YES FASTING: YES Test Performed at: [facility] [place] [address] [place] [address] Radha-Gualbertou Thi Vo Blood 10/20/2020 9:40 AM CDT 10/20/2020 9:41 AM CDT us Monica Thacker MD CHEMISTRY ORDERABLES Final Result [facility] [address] [place] [address] * XR DEXA BONE DENSITY AXIAL 1 [...] refer to the full report available in [facility] under the PACS Images tab. If a faxed copy is needed, please call [phone]. DICTATION LOCATION: [facility] Procedure Note Javier Antonio MD - 2020 SUMMARY DEXA REPORT DATE: 2020 2:42 PM INDICATION: Arthritis, postmenopausal, thyroid medication. FINDINGS: The patient is considered osteopenic with a lowest T score of -1.1. Fracture risk is moderate. Please refer to the full report available in [facility] under the PACS Images tab. If a faxed copy is needed, please call [phone]. DICTATION LOCATION: [facility] Monica Thacker MD DIAGNOSTIC IMAGING ORDERAB LES [...] (INTERNAL) [facility] [id number] Advance Directives For more information, please contact: [phone] Documents on File Type Date Recorded Patient Log Feeder Expl anation Advance Directive POA 12/07/2021 7:07 AM A dvance Directive POA Advance Directive Living Will 12/07/2021 7:07 AM Advance Directive Living Will * Full Code (Latest Code Status on File) Date Activated Date Inactivated Comments 03/16/2018 12:05 PM 03/18/2018 8:46 PM Care Teams Folder And Notcher Relationship Specialty Start Date End Date Sandra Santana MD PCP - General Family Practice 05/17/21
--- OUTSIDE RECORDS SUMMARY | 2024-07-23 11:57 | XMS_ITS | Patient Health Record ---
Author Organization [facility] ([address]) Address [address] [place] [address] Care Team Providers Care Library Assistant Name Role Phone Sandra Santana MD Primary Care Provider Unav ailable Syed Coatsn Unavailable [phone] [facility], Provider Unavailable Unavailab le Allergies Allergen (clinical drug ingredient) Drug/Non Drug Allergy documented on EMR Reaction Allergy Type Onset Date Status hydrocodone HYDROcodone Unknown Drug Allergy Act davon Results Component Value Reference Range Notes -CBC With Differential/Plate let Reviewed date:04/11/2024 04:18:30 PM Interpretation:Normal Performing Lab:[facility], [address] [place] [id number], Phone - [phone], Director - Rickervin Notes/Report: WBC 5.0 3.4-10.8 x10E3/uL RBC 4.74 3.77-5.28 x10E6/uL Hemoglobin 13.2 11.1-15.9 g/dL Hematocrit 41.1 34.0-46.6 % MCV 87 79-97 fL MCH 27.8 26.6-33.0 pg MCHC 32.1 31.5-35.7 g/dL RDW 13.4 11.7-15.4 % Platelets 222 150-450 x10E3/uL Neutrophils 64 Not Estab. % Lymphs 24 Not Estab. % Monocytes 10 Not Estab. % Eos 2 Not Estab. % Basos 0 Not Estab. % Neutrophils (Absolute) 3.2 1.4-7.0 x10E3/uL Lymphs (Absolute) 1.2 0.7-3.1 x10E3/uL Monocytes(Absolute) 0.5 0.1-0.9 x10E3/uL Eos (Absolute) 0.1 0.0-0.4 x10E3/uL Baso (Absolute) 0.0 0.0-0.2 x10E3/uL Immature Granulocytes 0 Not Estab. % Immature Grans (Abs) 0.0 0.0-0.1 x10E3/uL -Sedimentation Rate-Westergr en Reviewed date:04/11/2024 04:18:08 PM Interpretation:Normal Performing Lab:[address] [id number], Phone - [phone], Director - [facility] Notes/Report: Sedimentation Rate-Westergren 14 0-40 mm/hr -Thyroid Peroxidase (TPO) Ab Reviewed date:04/11/2024 04:17:44 PM Interpretation:Abnormal Performing Lab:[address] [id number], Phone - [phone], Director - [facility] Notes/Report: Thyroid Peroxidase (TPO) Ab 393 0-34 IU/mL -CMP (14) Reviewed date:04/11/2024 04:17:59 PM Interpretation:Normal Performing Lab:[address] [id number], Phone - [phone], Director - [facility] Notes/Report: Glucose 93 70-99 mg/dL BUN 15 8-27 mg/dL Creatinine 0.91 0.57-1.00 mg/dL eGFR 69 >59 mL/min/1.73 BUN/Creatinine Ratio 16 12-28 Sodium 141 134-144 mmol/L Potassium 4.5 3.5-5.2 mmol/L Chloride 103 96-106 mmol/L Carbon Dioxide, Total 25 20-29 mmol/L Calcium 9.2 8.7-10.3 mg/dL Protein, Total 7.0 6.0-8.5 g/dL Albumin 4.2 3.9-4.9 g/dL Globulin, Total 2.8 1.5-4.5 g/dL Bilirubin, Total 0.5 0.0-1.2 mg/dL Alkaline Phosphatase 68 44-121 IU/L AST (SGOT) 14 0-40 IU/L ALT (SGPT) 8 0-32 IU/L -TSH Rfx on Abnormal to Free T4 Reviewed date:04/11/2024 04:20:20 PM Interpretation:Normal Performing Lab:[facility], [address], [place] [id number], Phone - [phone], Director - Jaime Notes/Report: TSH 2.380 0.450-4.500 uIU/mL -Tryptase ([id number]) Reviewed date:04/11/2024 04:18:15 PM Interpretation:Normal Performing Lab:[facility] [address] [id number], Phone - [phone], Director - Nate Notes/Report: Tryptase 5.2 2.2-13.2 ug/L Reason For Referral No Information Medications Medication SIG (Take, Route, Frequency, Duration) Notes Start Date End Date Status Levothyroxine Sodium 88 MCG 1 tab(s) ora lly once a day for 30 day(s) Active Famotidine 20 MG 1 tablet Orally Twic e a day for 30 days Active Solifenacin Succinate 10 MG 1 tablet Ora lly Once a day Active Cetirizine HCl 10 MG 1 tablet Orally Twi ce a day for 30 days Active Famotidine 20 MG 1 tablet at bedtime as needed Orally Once a day Active Acetaminophen 500 MG 1 capsule as needed Orally every 6 hrs Active Montelukast Sodium 10 MG 1 tablet Orally Once a day for 30 days Active Immunizations Vaccine Route Administration Date Status Comme nts Hepatitis B (20 and more) Unknown 03/16/2012 Administer ed Portal Information Influenza Unknown 12/09/2017 Administered Portal Infor mation NOC Fluzone Quadrivalent Unknown 05/27/2018 Refused NOC Influenza-Fluzone Unknown 12/30/2018 Refused NOC Tdap Unknown 12/06/2008 Administered Portal Infor mation Hepatitis A Unknown 03/16/2012 Administered Portal Info rmation Social History Tobacco Use: Social History Observation Description Date Details (start date - stop date) Former Smoker NA - NA Tobacco Control (Standard) Question Answer Notes Tobacco use: Former smoker How long has it been since you last smoked? Grea ter than 10 years Problems Problem Type SNOMED Code ICD Code Onset Dates Problem Status W/U Status Risk Notes Problem Idiopathic urticaria (09548920) Idiopathic urticaria (L50.1) Active confirmed Problem Angioneurotic edema (64871247) Angioneurotic edema, initial encounter (T78.3XXA) Active confirmed Problem Chronic allergic conjunctivitis (28974545) Other chronic allergic conjunctivitis (H10.45) Active confirmed Problem Allergic rhinitis caused by pollen (disorder) (39461203) Allergic rhinitis due to pollen (J30.1) Active confirmed Problem Allergic rhinitis (84410477) Other allergic rhinitis (J30.89) Active confirmed Problem Chronic rhinitis (05457425) Chronic rhinitis (J31.0) Active confirmed Problem Uncomplicated mild persistent asthma (776860793) Mild persistent asthma, uncomplicated (J45.30) Active confirmed Problem Uncomplicated moderate persistent asthma (524923984) Moderate persistent asthma, uncomplicated (J45.40) Active confirmed Problem Uncomplicated severe persistent asthma (377433840) Severe persistent asthma, uncomplicated (J45.50) Active confirmed Problem Rosacea (306253985) Rosacea, unspecified (L71.9) Active confirmed Problem Localized edema (1752721) Localized edema (R60.0) Active confirmed Problem Angioneurotic edema (30969914) Angioneurotic edema, subsequent encounter (T78.3XXD) Active confirmed Problem Allergic rhinitis caused by animal hair and dander (104486396275636) Allergic rhinitis due to animal (cat) (dog) hair and dander (J30.81) Active confirmed Problem Allergy status t o narcotic agent (Z88.5) Active confirmed Vital Signs Oximetry 98 % 04/27/2024 Blood pressure diastolic 80 mm Hg 04/27/2024 Height 66 in 04/27/2024 Blood pressure systolic 150 mm Hg 04/27/2024 Weight 230.6 lbs 04/27/2024 BMI 37.22 kg/m2 04/27/2024 Encounters Encounter Location Date Provider Diagnosis [address] [address] 08/23/2023 Provider ZZ-Migration [facility] [address] [facility] [address] [place] [address] 04/06/2024 Matilda Coats Idiopathic urticaria L50.1 ; Rosacea, unspecified L71.9 and Allergy status to narcotic agent Z88.5 [facility] [address] [place], [place] [address] [address] [place] [address] 04/27/2024 Matildaphi Coats Idiopathic urticaria L50.1 ; Rosacea, unspecified L71.9 and Allergy status to narcotic agent Z88.5 [facility] [address] [place] [address] [address] [place] [address] 07/13/2024 Matilda Jorge L [facility] [address] [place] [address] 04/11/2024 Matilda Jorge L [facility] [address] [place] [address] 04/27/2024 Matilda Sturm Assessments Encounter Date Diagnosis (ICD Code) Assessment Notes Treatment Notes Treatment Clinical Notes Section Notes 04/06/2024 Idiopathic urticaria (ICD-10 - L50.1) Previous history of autoimmune urticaria and received Xolair until 2019. Labs ordered as above for further evaluation. In the past, elevated CU index, thyroid peroxidase, thyroid antibody and tTG-IgG 6. Start Zyrtec, Famotidine and Singulair. If no improvement, then start Xolair. Handout given 04/06/2024 Rosacea, unspecified (ICD-10 - L71.9) appears to have 2 separate skin conditions, current flare on her face 04/27/2024 Idiopathic urticaria (ICD-10 - L50.1) Previous history of autoimmune urticaria and received Xolair until 2019. Labs -2024 showed normal CBC with differential, CMP, and tryptase. Elevated thyroid peroxidase but known thyroid disease. We discussed starting Xolair because hives are currently uncontrolled with Zyrtec, Famotidine and Singulair. 04/27/2024 Rosacea, unspecified (ICD-10 - L71.9) appears to have 2 separate skin conditions, recommend dermatology evaluation if needed. 04/27/2024 Allergy status to narcotic agent (ICD-10 - Z88.5) Monica developed hives with oxycodone and lip swelling with hydrocodone. For now, continue avoidance. Hives occurred with hydrocodone on 2 separate occasions. 04/06/2024 Allergy status to narcotic agent (ICD-10 - Z88.5) Monica developed hives with oxycodone and lip swelling with hydrocodone. For now, continue avoidance. Hives occurred with hydrocodone on 2 separate occasions. 04/06/2024 Other 04/27/2024 Other Plan Of Treatment No Information Insurance Providers Payer Name Payer Address Payer Phone Subscriber Number Group Number Insured Name Patient Relationship to Insured Coverage Start Date Coverage End Date [employer] Medicare [address] [address] [place] [address] [id number] Monica Kearns Self - patient is the insured Medical (General) History Medical History History ICD Code Rash and other nonspecific skin eruption Idiopathic urticaria Angioneurotic edema, initial encounter Allergy status to narcotic agent status Angioneurotic edema, subsequent encounte r Surgical History Surgery Date(Month/Year) right knee surgery 03/15/2018 orthoscopy on both knees left knee surgery 2021 Hospitalization History Reason Date(Month/Year) right knee surgery 03/15/2018
--- OUTSIDE RECORDS SUMMARY | 2024-07-23 11:57 | XMS_ITS | Referral Summary ---
Author Organization [facility] Address [address] [place] [address] Care Team Providers Care Crystallography Teacher Name Role Phone Monica Thacker MD Primary Care Provider [phone] Allergies Active Allergy Reactions Criticality Noted Date [...] on file Legal Sex Female 10:12 AM CASEWORK SPECIALIST Gender Identity Not on file Sexual [...] ACCESS ANTHEM ACCESS ANTHEM ACCESS Care Teams Crystallography Teacher Relationship Specialty Start Date End Date Monica Thacker MD [address] [place] [address] PCP - General Family Medicine 10/27/20
--- OUTSIDE RECORDS SUMMARY | 2024-07-23 11:57 | XMS_ITS | Encounter Summary ---
Author Organization [facility] Address [address] [place] [address] Care Team Providers Care Horticulture Instructor Name Role Phone Sandra Santana MD Primary Care Provider Encounter Details Date Type Department Care Team (Late st Contact Info) Description 10/05/2004 Outpatient Historical [facility] Internal Medicine - [place] [address] [place] [address] Tee Locke MD [address] [facility] [address] [facility] [place] [address] Social History Tobacco Use Types Packs/Day Years Used Date Smoking Tobacco: Never Assessed Comments Unknown Sex and Gender Information Value Date Recorded Sex Assigned at Not on file 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 Gender Identity Not on file Sexual Orientation Not on file documented as of this encounter Last Filed Vital Signs Vital Sign Reading Time Taken Comments Blood Pressure 122/78 10/05/2004 9:15 AM CDT Pulse 80 10/05/2004 9:15 AM CDT Temperature - - Respiratory Rate - - Oxygen Saturation - - Inhaled Oxygen Concentration - - Weight 89.8 kg (198 lb) 10/05/2004 9:15 AM CDT Height - - Body Mass Index - - documented in this encounter Plan of Treatment Upcoming Encounters Date Type Department Care Team (Late st Contact Info) Description 12/02/2024 10:15 AM CDT Office Visit [facility] Sleep Medicine [facility] [address] [address] Robyn Tracey, [facility] [address] [facility] [address] [place] [address] documented as of this encounter Visit Diagnoses Not on filedocumented in this encounter Care Teams Horticulture Instructor Relationship Specialty Start Date End Date Sandra Santana MD PCP - General Family Practice 05/17/21 documented as of this encounter
--- OUTSIDE RECORDS SUMMARY | 2024-07-23 11:57 | XMS_ITS | Encounter Summary ---
Author Organization [facility] Address [address] [place] [address] Care Team Providers Care Paper Machine Supervisor Name Role Phone Sandra Santana MD Primary Care Provider Encounter Details Date Type Department Care Team (Late st Contact Info) Description 07/11/1999 Outpatient Historical [facility] Internal Medicine - [facility] [place] [facility] [address] [place] [address] Tee Locke MD [address] [place] [address] Social History Tobacco Use Types Packs/Day Years Used Date Smoking Tobacco: Never Assessed Comments Unknown Sex and Gender Information Value Date Recorded Sex Assigned at Not on file 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 Gender Identity Not on file Sexual Orientation Not on file documented as of this encounter Plan of Treatment Upcoming Encounters Date Type Department Care Team (Late st Contact Info) Description 12/02/2024 10:15 AM CDT Office Visit [facility] Sleep Medicine [facility] [address] [address] Robyn Tracey, [facility] [address] [address] documented as of this encounter Visit Diagnoses Not on filedocumented in this encounter Care Teams Paper Machine Supervisor Relationship Specialty Start Date End Date Sandra Santana MD PCP - General Family Practice 05/17/21 documented as of this encounter
--- OUTSIDE RECORDS SUMMARY | 2024-07-23 11:57 | XMS_ITS | Encounter Summary ---
Author Organization [facility] Address [address] [place] [address] Care Team Providers Care Asbestos Cloth Inspector Name Role Phone Sandra Santana MD Primary Care Provider Encounter Details Date Type Department Care Team (Late st Contact Info) Description 04/25/2005 Orders Only [facility] Internal Medicine - [place] [address] [place] [address] Tee Locke MD [address] [facility] [address] [facility] [place] [address] Social History Tobacco Use Types Packs/Day Years Used Date Smoking Tobacco: Never Assessed Comments Unknown Sex and Gender Information Value Date Recorded Sex Assigned at Not on file Legal Sex Female 2:43 AM KENNEL HAND Gender Identity Not on file Sexual [...] 12/02/2024 10:15 AM CDT Office Visit [facility] Sleep Medicine [facility] [address] [place] [phone] Robyn Tracey, [facility] [address] [place] [address] documented as of this encounter Visit Diagnoses Not on filedocumented in this encounter Care Teams Asbestos Cloth Inspector Relationship Specialty Start Date End Date Sandra Santana MD PCP - General Family Practice 05/17/21 documented as of this encounter
--- OUTSIDE RECORDS SUMMARY | 2024-07-23 11:57 | XMS_ITS | Encounter Summary ---
Author Organization [facility] Address [address] [place] [address] Care Team Providers Care Nursing Tech Name Role Phone Sandra Santana MD Primary Care Provider Encounter Details Date Type Department Care Team (Late st Contact Info) Description 04/30/[address] 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 SCIENTIST Gender Identity Not on file Sexual Orientation Not on file documented as of this encounter Last Filed Vital Signs Vital Sign Reading Time Taken Comments Blood Pressure 120/60 04/30/2005 1:15 PM ENVIRONMENTAL SCIENTIST Pulse 80 04/30/2005 1:15 PM ENVIRONMENTAL SCIENTIST Temperature - - Respiratory Rate - - Oxygen Saturation - - Inhaled Oxygen Concentration - - Weight 89.8 kg (198 lb) 04/30/2005 1:15 PM ENVIRONMENTAL SCIENTIST Height - - Body Mass Index - - documented in this encounter Plan of Treatment Upcoming Encounters Date Type Department Care Team (Late st Contact Info) Description 12/02/2024 10:15 AM CDT Office Visit [facility] Sleep Medicine [facility] [address] [address] Robyn Tracey, [facility] [address] [facility] [address] [place] [address] documented as of this encounter Visit Diagnoses Not on filedocumented in this encounter Care Teams Nursing Tech Relationship Specialty Start Date End Date Sandra Santana MD PCP - General Family Practice 05/17/21 documented as of this encounter
--- OUTSIDE RECORDS SUMMARY | 2024-07-23 11:57 | XMS_ITS | Encounter Summary ---
Author Organization [facility] Address [address] [place] [address] Care Team Providers Care Grades 1 Thru 6 Home Teacher Name Role Phone Sandra Santana MD Primary Care Provider Encounter Details Date Type Department Care Team (Late st Contact Info) Description 09/02/2005 Orders Only [facility] Internal Medicine - [place] [address] [place] [address] Tee Locke MD [address] [facility] [address] [place] [address] Social History Tobacco Use Types Packs/Day Years Used Date Smoking Tobacco: Never Assessed Comments Unknown Sex and Gender Information Value Date Recorded Sex Assigned at Not on file 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 LAST VISIT: 04/30/05 PCP: tan. ALTERNATIVE PHONE NUMBER: [phone] WHO CALLED: Patient called. CURRENT ALLERGY LIST: [facility] NUMBER: [phone] PROBLEMS: SECTION 1: REQUESTED [...] Description 12/02/2024 10:15 AM CDT Office Visit [facility] Sleep Medicine [facility] [address] [address] Robyn Tracey, [facility] [address] [address] documented as of this encounter Visit Diagnoses Not on filedocumented in this encounter Care Teams Grades 1 Thru 6 Home Teacher Relationship Specialty Start Date End Date Sandra Santana MD PCP - General Family Practice 05/17/21 documented as of this encounter
--- OUTSIDE RECORDS SUMMARY | 2024-07-23 11:57 | XMS_ITS | Encounter Summary ---
Author Organization [facility] Address [address] [place] [address] Care Team Providers Care Administrative Processor Name Role Phone Sandra Santana MD Primary Care Provider Encounter Details Date Type Department Care Team (Late st Contact Info) Description 02/19/2005 Outpatient Historical [facility] Internal Medicine - [place] [address] [place] [address] Esteban Auguste MD [address] [facility] [place] [address] Social History Tobacco Use Types Packs/Day Years Used Date Smoking Tobacco: Never Assessed Comments Unknown Sex and Gender Information Value Date Recorded Sex Assigned at Not on file Legal Sex Female 2:43 AM TRAVEL INFORMATION CENTER SUPERVISOR Gender Identity Not on file Sexual Orientation Not on file documented as of this encounter Last Filed Vital Signs Vital Sign Reading Time Taken Comments Blood Pressure 118/74 02/19/2005 10:15 AM TRAVEL INFORMATION CENTER SUPERVISOR Pulse - - Temperature - - Respiratory Rate - - Oxygen Saturation - - Inhaled Oxygen Concentration - - Weight 92.1 kg (203 lb) 02/19/2005 10:15 AM TRAVEL INFORMATION CENTER SUPERVISOR Height - - Body Mass Index - - documented in this encounter Plan of Treatment Upcoming Encounters Date Type Department Care Team (Late st Contact Info) Description 12/02/2024 10:15 AM CDT Office Visit [facility] Sleep Medicine [place] [address] [address] Alexy Robyn Neeru, CRIME INVESTIGATOR SPECIAL [facility] [address] [facility] [address] [place] [address] documented as of this encounter Visit Diagnoses Not on filedocumented in this encounter Care Teams Administrative Processor Relationship Specialty Start Date End Date Sandra Santana MD PCP - General Family Practice 05/17/21 documented as of this encounter
[2024-07-23 18:57] LABS: Hematocrit 40.5 % (37.0-47.0); Hemoglobin 12.8 g/dL (12.0-15.0); Mean Corpuscular HGB Conc 31.6 g/dl (32-36); Mean Corpuscular Hemoglobin 27.8 pg (26-34); Mean Corpuscular Volume 87.9 fl (80-100); Mean Platelet Volume 9.7 fl (7.4-10.4); Platelet Count Result 226 k/mm3 (150-375); Red Blood Count 4.61 M/mm3 (4.2-5.4)
[2024-07-23 19:10] LABS: Prothrombin Time 13.7 Seconds (11.1-14.7)
[2024-07-23 19:11] LABS: Partial Thromboplastin Time 31.1 Seconds (22.3-36.8)
[2024-07-23 19:20] LABS: Alanine Aminotransferase 19 U/L (6-35); Albumin Level 4.5 g/dL (3.5-5.1); Alkaline Phosphatase 56 U/L (38-126); Anion Gap 9 mmol/L (4-12); Aspartate Amino Transferase 33 U/L (14-36); Bilirubin,Total 0.8 mg/dL (0.2-1.3); Blood Urea Nitrogen 14 mg/dL (7-17); Carbon Dioxide 26 mmol/L (22-30); Chloride 104 mmol/L (98-107); Cholesterol 163 mg/dL (0-200); Estimated Glomerular Filt Rate > 60; Glucose 78 mg/dL (65-110); HDL Direct 56 mg/dL; Potassium 4.3 mmol/L (3.4-5.0); Sodium 139 mmol/L (137-145); Triglycerides 141 mg/dL (<150)
[2024-07-23 19:30] LABS: LDL Cholesterol Direct 64 mg/dL
== END 2024-07-23 11:53 | disposition home or self-care (01) ==
LOC: ANHGOSHLAB 11:53
PROVIDERS: Internal Medicine Cardiovascular Disease; Visit Provider Anesthesiology Pain Medicine
DX: M54.51 Vertebrogenic low back pain (principal); E78.2 Mixed hyperlipidemia
CPT/HCPCS: 36415; 80053; 80061; 85027; 85610; 85730

== ENCOUNTER 2024-07-23 12:03 | Outpatient (CLI) | payer MEDICARE, SELFPAY ==
--- NOTE | ~2024-07-23 | XR_ITS ---
EXAMINATION: XR chest 2V 07/23/2024 12:16 INDICATION: Vertebral genic back pain PROCEDURE: 2 view chest COMPARISON: No prior studies for comparison. FINDINGS: The lungs are clear. The cardiomediastinal silhouette is within normal limits. There are no pleural effusions. There is no pneumothorax suspected. IMPRESSION: 1: NO ACUTE CARDIOPULMONARY DISEASE. Reviewed, dictated and finalized at location A.
== END 2024-07-23 12:04 | disposition home or self-care (01) ==
LOC: GOSHIMG 12:04
PROVIDERS: PCP Anesthesiology Pain Medicine; Visit Provider Anesthesiology Pain Medicine
DX: M54.51 Vertebrogenic low back pain (principal)
CPT/HCPCS: 71046

== ENCOUNTER 2024-08-10 02:06 | Day surgery (SDC) | payer MEDICARE, SELFPAY ==
--- NOTE | 2024-07-23 10:43 | PC.NURSE ---
Report to the Outpatient Waiting Room, entrance under the green pavilion located off [facility], at time _6 AM on date __08/10/24 . Planned Procedure Time: __7:30 AM .? Time changes happen often and if your time is changed the preop area will call you the afternoon before. - You and your visitor will be asked to self-screen and do not enter if you have any COVID symptoms. Please call surgeon if you need to reschedule. - A mask is optional within the hospital at this time. NOTHING TO EAT OR DRINK AFTER MIDNIGHT PER DR RUEDA Take only the following medications with a SIP of water on the morning of surgery: ___LEVOTHYROXINE DO NOT STOP ANY OF YOUR OTHER PRESCRIPTION MEDICATIONS PRIOR TO SURGERY EXCEPT THE FOLLOWING Hold all vitamins and supplements for 3 days per anesthesiologist. LAST DOSE 08/06/24 Medications to discontinue per physician NONE Please no make-up, nail guinean, hairspray, perfume, deodorant, or body powder the day of surgery.? No jewelry (including any body piercings) or valuables the day of surgery, leave them at home.? Please take a shower or bath the night before, AND the morning of, surgery with an antibacterial soap.? Wear comfortable, loose fitting clothing.? Children are encouraged to wear pajamas. - Jewelry must be removed prior to entering the operating room.? Rings and piercings that are not removed may be cut off. - The hospital will not accept responsibility for valuables.? - Please leave all valuables, including medications, at home the day of surgery. If you are going home after surgery, a licensed sprinkling truck driver must drive you home.? - NO public transportation without another adult if you receive anesthesia. - We recommend that an adult stay with you for 24 hours following discharge. - We also recommend that you do not drive, make important decision, drink alcoholic beverages, or take any drugs that were not prescribed by your health care provider for at least 24 hours after your discharge time. For Pediatric surgeries, we recommend two adults accompany the child home. Follow any additional instructions given to you from your surgeon. Telephone instructions given to ___PATIENT and asked if any additional questions and then verbalized understanding. Patient advised to call surgeon office or pre surgery nurse liaison [phone] if any additional questions.
[2024-07-23 10:58] VITALS: BMI 35.9
[2024-08-10] VITALS (10 sets, daily range): BP systolic 157–197; BP diastolic 73–104; PULSE 63–86; RESP 14–18; TEMP 36.3–36.7; O2SAT 96–100
--- NOTE | ~2024-08-10 | XR_ITS ---
EXAMINATION: XR fluoroscopy no charge DATE: 08/10/2024 09:57 INDICATION: Intracept procedure at L2, L3, L4 and L5. TECHNIQUE: 60 fluoroscopic images of the lumbar spine were obtained during procedure performed by Dr. Cruz. Radiologist was not present for the imaging or procedure. The amount of fluoroscopy time used during this procedure was 6.8 minutes. Total DAP was 79.62 Gycm^2. COMPARISON: None. FINDINGS: Images demonstrate spinal needles advanced to the posterior margin of the the left L5 pedicle presuma kiana for local anesthesia. A larger gauge trochar needle was then advanced through the pedicle to slig htly beyond the midline near the epicenter of the vertebral body. The trochars subsequently removed a nd a likely ablation wire advanced to the same location slightly beyond the midline near the epicente r of the vertebral body. This procedure is subsequently repeated on alternating sides on the right at L4, left at L3 and on the right at L2. IMPRESSION: 1. Fluoroscopy utilized during pain management procedures at the L2-L5 vertebral bodies as detailed a ayana. See procedure note for further detail. Reviewed, dictated and finalized at location A. IMPRESSION: 1. Fluoroscopy utilized during pain management procedures at the L2-L5 vertebra l bodies as detailed above. See procedure note for further detail.
--- OUTSIDE RECORDS SUMMARY | 2024-08-10 02:09 | XMS_ITS | Encounter Summary ---
Author Organization [facility] Address [address] [place] [address] Care Team Providers Care Finance Broker Name Role Phone Sandra Santana MD Primary Care Provider [phone] Encounter Details Date Type Department Care Team (Late st Contact Info) Description 01/29/2006 Outpatient Historical [facility] Internal Medicine - [place] [address] [place] [address] Tee Locke MD [address] [facility] [address] [place] [address] Social History Tobacco Use Types Packs/Day Years Used Date Smoking Tobacco: Never Assessed Comments Unknown Sex and Gender Information Value Date Recorded Sex Assigned at Not on file 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 Gender Identity Not on file Sexual Orientation Not on file documented as of this encounter Plan of Treatment Upcoming Encounters Date Type Department Care Team (Late st Contact Info) Description 12/02/2024 10:15 AM CDT Office Visit [facility] Sleep Medicine [facility] [address] [address] Robyn Tracey, CLOTH WINDER- [address] [address] documented as of this encounter Visit Diagnoses Not on filedocumented in this encounter Care Teams Finance Broker Relationship Specialty Start Date End Date Sandra Santana MD PCP - General Family Practice 05/17/21 documented as of this encounter
--- OUTSIDE RECORDS SUMMARY | 2024-08-10 02:09 | XMS_ITS | Encounter Summary ---
Author Organization [facility] Address [address] [place] [address] Care Team Providers Care Chief Controller Name Role Phone Sandra Santana MD Primary Care Provider Encounter Details Date Type Department Care Team (Late st Contact Info) Description 05/15/2007 Orders Only [facility] Internal Medicine Medical [place] [facility] 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 She has never had a base line bone density. She has been having some intermittent CP, but has always considered it part my her GERD. She recently had a friend of a [place] and would like some cardiac testing. Her [...] active issues. She will F/U with her CORE FITTER. Needs medication refilled. No incontinence. 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 LAB ORDERS: Order number: [id number] Test Ordered: CBC (INCLUDES DIFF/PLT) 6399 Order number: [id number] Test Ordered: COMPREHENSIVE METABOLIC PANEL 32552 Order number: [id number] Test Ordered: LIPID PANEL 7600 Order number: [id number] Test Ordered: TSH 899 530.81-GASTROESOPHAGEAL REFLUX (GERD) [...] GENERAL MEDICAL EXAMINATION LAB ORDERS: Order number: [id number] Test Ordered: BONE DENSITY (HIP & SPINE) 786.50-SYMPTOM, PAIN, CHEST NOS LAB ORDERS: Order number: [id number] Test Ordered: STRESS ECHO HEALTH MAINTENANCE: LAST [...] interval for mammogram as recommended by the [place] [employer] and ACOG, diagnosis, treatment, and [...] Description 12/02/2024 10:15 AM CDT Office Visit [facility] Sleep Medicine [facility] [address] [phone] Robyn Tracey, [facility] [address] [phone] documented as of this encounter Visit Diagnoses Not on filedocumented in this encounter Care Teams Chief Controller Relationship Specialty Start Date End Date Sandra Santana MD PCP - General Family Practice 05/17/21 documented as of this encounter
--- OUTSIDE RECORDS SUMMARY | 2024-08-10 02:09 | XMS_ITS | Continuity of Care Document ---
Author Organization [facility] Address [address] [place] [address] Phone Care Team Providers Care Supervisor Shuttle Preparation Name Role Phone Oracio Savage MD Unavailable Unavailable Advance Directives Directive Yes / No Effective Date File Name No Information Encounters Encounter Description Practice Location Reason(s) For Visit Diagnoses Date Provider Providers Copied on Encounter [facility], [address], [place], [place], [address], tel:[phone] [facility] No Information Hussein Narayanan. [address] [facility], [address], [id number], [place]. tel:[phone] Referring Provider: Monica Thacker, [address] [facility] [address], [place], [address]. tel:[phone] Family History Family Member Type Diagnosis Age At Onset No Information Payers Payer name Insurance type Covered republican ID Authoriza tion(s) [facility] [id number] Social History Type Description Quantity Date Captured Comments Sex Female Smoking Status No Information Chief Complaint And Reason For Visit No Information Reason For Referral Reason For Referral No Information History Of Present Illness Encounter Date Complaint History Of Prese nt Illness No Information Functional Status Date Functional Assessmen t No Information Instructions Date Instruction Additional Infor mation No Information Assessments Type Assessment Date No Information Patient Care Teams Name Effective Dates (start - stop) Status Members No Information
--- OUTSIDE RECORDS SUMMARY | 2024-08-10 02:09 | XMS_ITS | Continuity of Care Document ---
Author Organization [employer] [facility] Address [address] [place] [address] [address] [place] [address] Phone Care Team Providers Care Process Control Manager Name Role Phone March PT,MPT,ATC, Raymond Unavailable Unavai lable Procedures Procedure Date Remote therapeutic monitor initial setup Remote therapeutic monitor MSK each 30d Therapeutic Activities Therapeutic Exercise Therapeutic Activities Neuromuscular Re-Ed Therapeutic Exercise Therapeutic Activities Neuromuscular Re-Ed Therapeutic Exercise Therapeutic Activities Therapeutic Exercise Neuromuscular Re-Ed Remote therapeutic monitor monthly mgmt 20m Remote therapeutic monitor monthly mgmt add 20m Therapeutic Activities Therapeutic Activities Therapeutic Activities Neuromuscular Re-Ed Therapeutic Activities Neuromuscular Re-Ed Therapeutic Activities Neuromuscular Re-Ed Therapeutic Activities Neuromuscular Re-Ed Therapeutic Activities Neuromuscular Re-Ed Doc neg elder mal no plan PRES/ABSN URINE INCON ASSESS PT Evaluation Moderate Complexity Therapeutic Activities Neuromuscular Re-Ed Therapeutic Activities Neuromuscular Re-Ed Therapeutic Exercise Therapeutic Activities Neuromuscular Re-Ed Therapeutic Exercise Neuromuscular Re-Ed Neuromuscular Re-Ed Neuromuscular Re-Ed Doc neg elder mal no plan PRES/ABSN URINE INCON ASSESS PT Evaluation Moderate Complexity Therapeutic Activities Neuromuscular Re-Ed Progress Note Therapeutic Activities Manual Therapy Therapeutic Activities Neuromuscular Re-Ed Therapeutic Exercise Manual Therapy Therapeutic Activities Neuromuscular Re-Ed Therapeutic Exercise Manual Therapy Therapeutic Activities Neuromuscular Re-Ed Therapeutic Exercise Manual Therapy Therapeutic Activities Neuromuscular Re-Ed Therapeutic Exercise Manual Therapy Therapeutic Activities Neuromuscular Re-Ed Therapeutic Exercise Manual Therapy Therapeutic Activities Neuromuscular Re-Ed Manual Therapy Therapeutic Exercise Therapeutic Activities Neuromuscular Re-Ed Therapeutic Exercise Manual Therapy Therapeutic Activities Neuromuscular Re-Ed Therapeutic Exercise Manual Therapy Therapeutic Activities Neuromuscular Re-Ed Therapeutic Exercise Manual Therapy Therapeutic Activities Neuromuscular Re-Ed Therapeutic Exercise Manual Therapy Therapeutic Activities Neuromuscular Re-Ed Therapeutic Exercise Manual Therapy Therapeutic Activities Neuromuscular Re-Ed Therapeutic Exercise Manual Therapy Doc neg elder mal no plan PT Evaluation Moderate Complexity Therapeutic Activities Neuromuscular Re-Ed Therapeutic Exercise PT Re-evaluation Therapeutic Activities Therapeutic Exercise Neuromuscular Re-Ed Therapeutic Activities Neuromuscular Re-Ed Therapeutic Exercise Therapeutic Activities Neuromuscular Re-Ed Therapeutic Exercise Therapeutic Activities Neuromuscular Re-Ed Therapeutic Exercise Therapeutic Activities Therapeutic Exercise Neuromuscular Re-Ed Therapeutic Activities Neuromuscular Re-Ed Therapeutic Exercise Therapeutic Activities Neuromuscular Re-Ed Therapeutic Exercise Therapeutic Activities Neuromuscular Re-Ed Therapeutic Exercise PT Evaluation High Complexity Therapeutic Activities Neuromuscular Re-Ed Therapeutic Exercise Advance Directives Directive Yes / No Effective Date File Name No Information Encounters Encounter Description Practice Location Reason(s) For Visit Diagnoses Date Provider Providers Copied on Encounter [facility], [place], [place], [address], [place] tel:[phone] [place] Pain in left hipLow back pain, unspecifiedMus samuel weakness (generalized) 4 [facility] [place], [place]. Referring Provider: Yaron Lui [address], [place], [address]. tel:[phone] [facility], [place], [place], [address], [place] tel:[phone] [place] No Information Oct-1 0-202 4 Joaquim Andrade. , [place], [place]. Referring Provider: Yaron Lui [facility] [address], [place], [address]. tel:[phone] [facility], [address], [place], [place], [address], [place] tel:[phone] [place] No Information Oct-0 8-202 4 [place]. . Referring Provider: Yaron Lui [facility] [address], [place], [address]. tel:[phone] [facility], [address], [place], [place], [address], [place] tel:[phone] [place] No Information Oct-0 2-202 4 [place]. . Referring Provider: Yaron Lui [facility] [address], [place], [address]. tel:[phone] [facility], [address], [place], [address], [place] tel:[phone] [place] No Information Sep-3 0-202 4 [place]. . Referring Provider: Yaron Lui [facility] [address], [place], [address]. tel:[phone] [facility] [address], [place], [place], [address], [place] tel:[phone] [place] Pain in left hipLow back pain, unspecifiedMus samuel weakness (generalized) Sep-3 0-202 4 Joaquim Andrade. , [place], [place]. Referring Provider: Yaron Lui [facility] [address], [place], [address]. tel:[phone] [facility], [address], [place], [place], [address], [place] tel:[phone] [place] No Information Sep-2 5-202 4 Joaquim Anderson , [place], [place]. Referring Provider: Luis Enrique Vega [address] [facility] [address], [place], [address]. tel:[phone] [facility], [address], [place], [place], [address], [place] tel:[phone] [place] No Information Sep-2 3-202 4 [place], [place], [place]. Referring Provider: Luis Enrique Vega [address], [place], [address]. tel:[phone] [facility], [address], [place], [place], [address], [place] tel:[phone] [place] No Information Sep-2 0-202 4 [place]. . Referring Provider: Luis Enrique Vega [address] [facility] [address], [place], [address]. tel:[phone] [facility], [address], [place], [place], [address], [place] tel:[phone] [place] No Information Sep-1 7- 4 [place]. . Referring Provider: Luis Enrique Vega [address] [facility] [address], [place], [address]. tel:[phone] [facility], [address], [place], [address], [place] tel:[phone] [place] No Information Sep-1 3202 4 [place]. . Referring Provider: Marry Lui[address], [place], [address]. tel:[phone] [facility], [address], [place], [address], [place] tel:[phone] [place] No Information Sep-1 - 4 [place]. . Referring Provider: Luis Enrique Vega [address], [place], [address]. tel:[phone] [facility], [address], [place], [address], [place] tel:[phone] [place] No Information Sep-0 6-202 4 [place]. . Referring Provider: Luis Enrique Vega [address], [place], [address]. tel:[phone] [facility], [address], [place], [place], [address], [place] tel:[phone] [place] No Information Sep-0 4-202 4 [place], [place], [place]. Referring Provider: Luis Enrique Vega [address], [place], [address]. tel:[phone] [facility], [address], [place], [place], [address], [place] tel:[phone] [place] No Information Eugenio-0 8 3 Klcynthian Ash. . Referring Provider: Donald Benítez, [address] [place], [address]. tel:[phone] [facility] [address], [place], [place], [address], [place] tel:[phone] [place] No Information Eugenio-0 3 [place]. . Referring Provider: Donald Benítez, [address] [place], [address]. tel:[phone] [facility] [address], [place], [place], [address], tel:[phone] [place] No Information Eugenio-0 3 Dejahn Ash. . Referring Provider: Donald Benítez, [address] [place], [address]. tel:[phone] [facility] [address], [place], [address], [place] tel:[phone] [place] No Information May-3 0- 3 Duc Aleman. . Referring Provider: Donald Benítez, [address] [place], [address]. tel:[phone] [facility], [place], [place], [address], [place] tel:[phone] [place] No Information 3 Klahn Ash. . Referring Provider: Donald Benítez, [address] [place], [address]. tel:[phone] [facility], [place], [place], [address], [place] tel:[phone] [place] No Information 3 Klahn Ash. . Referring Provider: Donald Benítez, [address] [place], [address]. tel:[phone] [facility], [place], [place], [address], [place] tel:[phone] [place] No Information Dec-2 2 Klahn Ash. . [facility], [place], [address], [place] tel:[phone] [place] No Information Dec-2 2 Klahn Ash. . [facility], [place], [address], [place] tel:[phone] [place] No Information Dec-1 2 Klahn Ash. . [facility], [place], [place], [address], [place] tel:[phone] [place] No Information Dec-1 2 Klahn Ash. . [facility], [place], [address], [place] tel:[phone] [place] No Information Dec-1 2 Klahn Ash. . [facility], [place], [place], [address], [place] tel:[phone] [place] No Information Dec-0 - 2 Klahn Ash. . [facility], [place], [place], [address], [place] tel:[phone] [place] No Information Dec-0 2 Dejahn Ash. . [facility], [address], [place], [address], [place] tel:[phone] [place] No Information Dec-0 2 Klcynthian Ash. . [facility], [place], [place], [address], [place] tel:[phone] [place] No Information Nov-2 2 Dejahn Ash. . [facility], [place], [place], [address], [place] tel:[phone] [place] No Information Jan-2 2 Dejahn Ash. . [facility], [place], [address], [place] tel:[phone] [place] No Information Nov-1 2 Dejahn Ash. . [facility], [place], [place], [address], [place] tel:[phone] [place] No Information Jan-1 2 Dejahn Ash. . [facility], [address], [place], [address], [place] tel:[phone] [place] No Information Jan-1 2 Dejahn Ash. . [facility], [place], [address], [place] tel:[phone] [place] No Information Nov-0 2 Dejahn Ash. . [facility], [place], [place], [address], [place] tel:[phone] [place] No Information Apr-0 2 Dejahn Ash. . Referring Provider: Sanrda Santana, [address] [place] [address] [address], [place], [address]. tel:[phone] [facility], [address], [place], [place], [address], [place] tel:[phone] [place] No Information Apr-0 2 Klahn Ash. . Referring Provider: Sandra Santana, [address] [place] [address] Drive [address], [place], [address]. tel:[phone] [facility], [address], [place], [place], [address], [place] tel:[phone] [place] No Information Apr-0 - 2 Klahn Ash. . Referring Provider: Sandra Santana, [address] [place] [address] [address], [place], [address]. tel:[phone] [place] [address], [address], [place], [address], [place] tel:[phone] [place] No Information Mar-3 0 2 Dejahn Ash. . Referring Provider: Sandra Santana, [address] [place] [address] [address], [place], [address]. tel:[phone] [place] [address], [address], [place], [address], [place] tel:[phone] [place] No Information Mar-2 2 Duc Aleman. . Referring Provider: Sandra Santana, [address] [place] [address] [address], [place], [address]. tel:[phone] [place] [address], [address], [place], [address], [place] tel:[phone] [place] No Information Mar-2 3 2 Dejahn Ash. . Referring Provider: Sandra Santana, [address] [place] [address] [address], [place], [address]. tel:[phone] [facility], [address], [place], [place], [address], [place] tel:[phone] [place] No Information Mar-1 8 2 Klahn Ash. . Referring Provider: Sandra Santana, [facility] [facility] [address], [place], [address]. tel:[phone] [facility], [address], [place], [place], [address], tel:[phone] [place] No Information 2 Duc Aleman. . Referring Provider: Sandra Santana, [facility] [facility] [address], [place], [address]. tel:[phone] [facility], [address], [place], [address], [place] tel:[phone] [place] No Information 2 Duc Aleman. . Referring Provider: Sandra Santana, [facility] [facility] [address], [place], [address]. tel:[phone] Family History Family Member Type Diagnosis Age At Onset No Information Payers Payer name Insurance type Covered alliance party ID Mahad joe(s) AARP Medicare Complete [id number] Social History Type Description Quantity Date Captured [...] mation Giving encouragement to exercise Related to Overweight Giving encouragement to exercise Related to Overweight Giving encouragement to exercise Related to Overweight Giving encouragement to exercise Related to Overweight Giving encouragement to exercise Related to Overweight Giving encouragement to exercise Related to Overweight Giving encouragement to exercise Related to Overweight Giving encouragement to exercise Related to Overweight Giving encouragement to exercise Related to Overweight Giving encouragement to exercise Related to Overweight Assessments Type Assessment Date No Information Patient Care Teams Name Effective Dates (start - stop) Status Members No Information
--- OUTSIDE RECORDS SUMMARY | 2024-08-10 02:09 | XMS_ITS | Encounter Summary ---
Author Organization [facility] Address [address] [place] [address] Care Team Providers Care Rewind Operator Name Role Phone Sandra Santana MD Primary Care Provider Encounter Details Date Type Department Care Team (Late Contact Info) Description 05/15/2007 Outpatient Historical [facility] Internal Medicine Medical [facility] [address] [place] [address]. 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 Gender Identity Not on file Sexual Orientation Not on file documented as of this encounter Plan of Treatment Upcoming Encounters Date Type Department Care Team (Late Contact Info) Description 12/02/2024 10:15 AM CDT Office Visit [facility] Sleep Medicine [facility] [address] [address] Robyn Tracey, [facility] [address] [address] documented as of this encounter Visit Diagnoses Not on filedocumented in this encounter Care Teams Rewind Operator Relationship Specialty Start Date End Date Sandra Santana MD PCP - General Family Practice 05/17/21 documented as of this encounter
--- OUTSIDE RECORDS SUMMARY | 2024-08-10 02:09 | XMS_ITS | Encounter Summary ---
Author Organization [facility] Address [address] [place] [address] Care Team Providers Care Auto Brake Mechanic Name Role Phone Sandra Santana MD Primary Care Provider Encounter Details Date Type Department Care Team (Late st Contact Info) Description 01/29/2006 Outpatient Historical [facility] Internal Medicine - [place] [address] [place] [address] Tee Locke MD [address] [facility] [address] [place] [address] Social History Tobacco Use Types Packs/Day Years Used Date Smoking Tobacco: Never Assessed Comments Unknown Sex and Gender Information Value Date Recorded Sex Assigned at Not on file 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 Gender Identity Not on file Sexual Orientation Not on file documented as of this encounter Plan of Treatment Upcoming Encounters Date Type Department Care Team (Late st Contact Info) Description 12/02/2024 10:15 AM CDT Office Visit [facility] Sleep Medicine [facility] [address] [address] Robyn Tracey, SENIOR STORAGE ADMINISTRATOR- [address] [address] documented as of this encounter Visit Diagnoses Not on filedocumented in this encounter Care Teams Auto Brake Mechanic Relationship Specialty Start Date End Date Sandra Santana MD PCP - General Family Practice 05/17/21 documented as of this encounter
--- OUTSIDE RECORDS SUMMARY | 2024-08-10 02:09 | XMS_ITS | Encounter Summary ---
Author Organization [facility] Address [address] [place] [address] Care Team Providers Care I&C Tech Name Role Phone Sandra Santana MD Primary Care Provider Encounter Details Date Type Department Care Team (Late Contact Info) Description 06/10/2007 Orders Only [facility] Internal Medicine Medical [facility] [address] [facility]. 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 Gender Identity Not on file Sexual Orientation Not on file documented as of this encounter Plan of Treatment Upcoming Encounters Date Type Department Care Team (Late Contact Info) Description 12/02/2024 10:15 AM CDT Office Visit [facility] Sleep Medicine [facility] [address] [address] Robyn Tracey, [facility] [address] [facility] [address] [place] [address] documented as of this encounter Visit Diagnoses Not on filedocumented in this encounter Care Teams I&C Tech Relationship Specialty Start Date End Date Sandra Santana MD PCP - General Family Practice 05/17/21 documented as of this encounter
--- OUTSIDE RECORDS SUMMARY | 2024-08-10 02:09 | XMS_ITS | Encounter Summary ---
Author Organization [facility] Address [address] [place] [address] Care Team Providers Care Tie In Hand Name Role Phone Sandra Santana MD Primary Care Provider [phone] Encounter Details Date Type Department Care Team (Late st Contact Info) Description 03/25/2006 Orders Only [facility] Internal Medicine - [place] [address] [place] [address] Tee Locke MD [address] [facility] [address] 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 LAST VISIT: 01/29/06 PCP: tan. ALTERNATIVE PHONE NUMBER: [phone] WHO CALLED: Patient called. CURRENT ALLERGY LIST: [facility] NUMBER: [phone] SECTION 1: pt. [...] Visit [facility] Sleep Medicine [facility] [address] [place] [phone] Robyn Tracey, [facility] [address] [phone] documented as of this encounter Visit Diagnoses Not on filedocumented in this encounter Care Teams Tie In Hand Relationship Specialty Start Date End Date Sandra Santana MD PCP - General Family Practice 05/17/21 documented as of this encounter
--- OUTSIDE RECORDS SUMMARY | 2024-08-10 02:09 | XMS_ITS | Encounter Summary ---
Author Organization [facility] Address [address] [place] [address] Care Team Providers Care Home Health Manager Name Role Phone Sandra Santana MD Primary Care Provider Encounter Details Date Type Department Care Team (Late st Contact Info) Description 01/29/2006 Orders Only [facility] Internal Medicine - [place] [address] [place] [address] Tee Locke MD [address] [facility] [address] [place] [address] Social History Tobacco Use Types Packs/Day Years Used Date Smoking Tobacco: Never Assessed Comments Unknown Sex and Gender Information Value Date Recorded Sex Assigned at Not on file Legal Sex Female 2:43 AM PACKAGE DYER Gender Identity Not on file Sexual Orientation [...] 530.81-GASTROESOPHAGEAL REFLUX (GERD) LAB ORDERS: Order number: [id number] Test Ordered: ENDOSCOPY Order number: [id number] Test Ordered: COLONOSCOPY 724.5-BACK PAIN V70.0-ROUTINE GENERAL MEDICAL EXAMINATION LAB ORDERS: Order number: [id number] Test Ordered: COMPREHENSIVE METABOLIC PANEL W/ GLOMERULAR FILTRATION RATE, ESTIMATED (EGFR) 99950 Order number: [id number] Test Ordered: TSH 899 Order number: [id number] Test Ordered: CBC (INCLUDES DIFF/PLT) 6399 Order number: [id number] Test Ordered: INJ-TETANUS & DIPTHERIA TOXOID [id number] 625.4-PREMENSTRUAL SYNDROME (PMS) MEDICATIONS: NEURONTIN ORAL CAPSULE [...] 12/02/2024 10:15 AM CDT Office Visit [facility] Sleep Medicine [facility] [address] [address] Robyn Tracey, [facility] [address] [facility] [address] [place] [address] documented as of this encounter Visit Diagnoses Not on filedocumented in this encounter Care Teams Home Health Manager Relationship Specialty Start Date End Date Sandra Santana MD PCP - General Family Practice 05/17/21 documented as of this encounter
--- OUTSIDE RECORDS SUMMARY | 2024-08-10 02:09 | XMS_ITS | Encounter Summary ---
Author Organization [facility] Address [address] [place] [address] Care Team Providers Care Soft Work Cigar Machine Operator Name Role Phone Sandra Santana MD Primary Care Provider Encounter Details Date Type Department Care Team (Late st Contact Info) Description 04/28/2006 Orders Only [facility] Internal Medicine - [place] [address] [place] [address] Tee Locke MD [address] [facility] [address] [facility] [place] [address] Social History Tobacco Use Types Packs/Day Years Used Date Smoking Tobacco: Never Assessed Comments Unknown Sex and Gender Information Value Date Recorded Sex Assigned at Not on file Legal Sex Female 2:43 AM METAL LEAF LAYER Gender Identity Not on file Sexual Orientation [...] status: CONTINUED, 07/10/2005, Comment: vishnu magdi 10.34 [phone]. DOCTOR`S RESPONSE: jessica 04/28/06 at 01:50 pm Refill this time only. FINAL ACTION: hayden 04/28/06 at 02:13 pm Called pharmacy at 04/28/06 at 02:13 pm. Electronically Signed by: Lore Cui on Friday, April 28, 2006 documented in this encounter Plan of Treatment Upcoming Encounters Date Type Department Care Team (Late st Contact Info) Description 12/02/2024 10:15 AM CDT Office Visit [facility] Sleep Medicine [facility] [address] [place] [phone] Robyn Tracey, [facility] [address] [address] documented as of this encounter Visit Diagnoses Not on filedocumented in this encounter Care Teams Soft Work Cigar Machine Operator Relationship Specialty Start Date End Date Sandra Santana MD PCP - General Family Practice 05/17/21 documented as of this encounter
--- OUTSIDE RECORDS SUMMARY | 2024-08-10 02:09 | XMS_ITS | Continuity of Care Document ---
Author Organization [facility] Address [address] [address] [place] [address] Phone Care Team Providers Care Advanced Manager Name Role Phone Chantel Hernandez MD [...] Providers Copied on Encounter [facility], [address], [place], [address], [place] tel:[phone] [facility] No Information [address], [place], [place], [address] . tel: [phone] OFFICE/OUTPA TIENT VISIT EST [facility], [address], [place], [address], [place] tel:[phone] [facility] Body mass index [BMI] 35.0-35.9, adultPain due to total right knee replacement, subsequent encounterPresenc e of right artificial knee joint [address], [place], [place], [id number] . tel: [phone] OFFICE/OUTPA TIENT VISIT EST [facility], [address], [place], [address], [place] tel:[phone] [facility] Status post total right knee replacementPain due to total right knee replacement, initial encounterBody mass index [BMI] 35.0-35.9, adult [address], [place], [address]. tel: [phone] [facility], [address], [place], [address], [place] tel:[phone] [facility] No Information [address], [place], [place], [address] . tel: [phone] OFFICE/OUTPA TIENT VISIT EST [facility], [address] [facility] [address], [place], [address], [place] tel:[phone] [facility] Status post total right knee replacementPrima ry osteoarthritis of right kneeBody mass index (BMI) 34.0-34.9, adult Mar- 0-202 [address], [place], [address]. tel: [phone] OFFICE/OUTPA TIENT VISIT EST [facility], [address] [facility] [address], [place], [address], [place] tel:[phone] [facility] Status post total right knee replacementBody mass index (BMI) 34.0-34.9, adult 8-201 [address] , [place], [place], [address] . tel: [phone] [facility], [address] [address], [place], [address], [place] tel:[phone] [facility] Arthrofibrosis of total knee replacement, subsequent encounterS/P surgical manipulation of knee jointStatus post total right knee replacementPrima ry osteoarthritis of right knee July-0 3-201 [address], [place], [address]. tel: [phone] [facility], [address] [address], [place], [address], [place] tel:[phone] [facility] S/P surgical manipulation of knee jointArthrofibro sis of total knee replacement, subsequent encounter Jun-0 1-201 [address] , [place], [place], [address] . tel: [phone] [facility], [address] [facility] [address] [address], [place], [address], [place] tel:[phone] [facility] Body mass index (BMI) 33.0-33.9, adultStatus post total right knee replacement May-2 6-201 9 [address] , [place], [place], [address] . tel: [phone] [facility], [address] [facility] [address] [address], [place], [address], [place] tel:[phone] [facility] Arthrofibrosis of total knee replacement, initial encounter [address] , [place], [place], [address] . tel: [phone] [facility], [address], [address], [place] tel:[phone] [facility] Status post total right knee replacementPrima ry osteoarthritis of right knee [address] [address] [facility] [address] , [place], [place], [address] . tel: [phone] [facility], [address], [address], [place] tel:[phone] [facility] Status post total right knee replacementPrima ry osteoarthritis of right knee 0 [address] [address] [facility] [address] , [place], [place], [address] . tel: [phone] [facility], [address] [facility] [address], [address], [place] tel:[phone] [facility] Status post total right knee replacementBody mass index (BMI) 33.0-33.9, adult Mar- 9 [address] [address] [facility] [address] , [place], [place], [address] . tel: [phone] [facility], [address], [address], [place] tel:[phone] [facility] Primary osteoarthritis of right kneeStatus post total right knee replacement Feb-0 3- 8 [address] [address] [facility] [address] [place], [place], [address] . tel: [phone] OFFICE/OUTPA TIENT VISIT EST [facility], [address] [address], [place], [address], [place] tel:[phone] [facility] Primary osteoarthritis of right knee [address] , [place], [place], [address] . tel: [phone] [facility], [address] [address], [place], [address], [place] tel:[phone] [facility] Pain in right kneePrimary osteoarthritis of right knee [address] , [place], [place], [address] . tel: [phone] OFFICE/OUTPA TIENT VISIT EST [facility], [address] [address], [place], [address], [place] tel:[phone] [facility] Primary osteoarthritis of left kneePrimary osteoarthritis of right kneeBody mass index (BMI) 33.0-33.9, adult [address] [facility] [address], [place], [address]. tel: [phone] OFFICE/OUTPA TIENT VISIT EST [facility], [address] [address] [facility] [address], [place], [address], [place] tel:[phone] [facility] Pain in left kneePain in right kneePrimary osteoarthritis of right kneePrimary osteoarthritis of left knee 8-201 6 [address] , [place], [place], [address] . tel: [phone] OFFICE/OUTPA TIENT VISIT NEW [facility], [address] [facility] [address], [place], [address], [place] tel:[phone] [facility] Right knee pain (chief complaint) Osteoarthrosis, unspecifiedLater al meniscal tear 0-201 [address] , [place], [place], [address] . tel: [phone] Referring Provider: Monica Reed, [address] [facility] [address], [place], [address]. tel:[phone] Family History Family Member Type Diagnosis Age At Onset Father Problem (finding) prostate cancer (Cause Of ) Mother Problem hypertension Mother Problem (finding) Neuroendocrine tumor (C ause Of ) Father Problem Cardiovascular disease Payers Payer name Insurance type Covered republican ID Authoriza keeshadorian(s) Blue Access Choice PPO [email or web address] Employee OT [id number] Social History Type Description Quantity Date Captured [...] Future Order: Lab Order CBC w/di ff ([id number]), Ordered on: Ordered Future Order: Lab Order Comprehe nsive Metabolic Panel ([id number]), Ordered on: Ordered Future Order: Lab Order PT AND P TT ([id number]), Ordered on: Ordered History Of Present Illness [...] to Body mass index (BMI) 34.0-34.9, adult Inform physician of any changes in symptoms [...] ed to Primary osteoarthritis of right knee Take medication/NSAID as directe d. Related to Primary osteoarthritis of right knee Giving encouragement to exercise Related to Body mass index (BMI) 33.0-33.9, adult Home exercise program. Related t o Primary osteoarthritis of left knee Assessments Type Assessment Date No Information Patient Care Teams Name Effective Dates (start - stop) Status Members No Information
--- OUTSIDE RECORDS SUMMARY | 2024-08-10 02:09 | XMS_ITS | Encounter Summary ---
Author Organization [facility] Address [address] [place] [address] Care Team Providers Care Bulk Pigment Reducer Name Role Phone Sandra Santana MD Primary Care Provider [phone] Encounter Details Date Type Department Care Team (Late Contact Info) Description 05/15/2007 Outpatient Historical [facility] Internal Medicine Medical [facility] [address] [facility] [address] Matilda Wilkes ANP NO ADDRESS ON FILE Social History Tobacco Use Types Packs/Day Years Used Date Smoking Tobacco: Never Assessed Comments Unknown Sex and Gender Information Value Date Recorded Sex Assigned at Not on file Legal Sex Female 2:43 AM NURSE PRACTITIONER PHYSICIAN ASSISTANT Gender Identity Not on file Sexual Orientation Not on file documented as of this encounter Plan of Treatment Upcoming Encounters Date Type Department Care Team (Late Contact Info) Description 12/02/2024 10:15 AM CDT Office Visit [facility] Sleep Medicine [facility] [address] [address] Robyn Tracey, SENIOR BIOINFORMATICS SCIENTISTDEKALB [facility] [address] [facility] [address] [place] [address] documented as of this encounter Visit Diagnoses Not on filedocumented in this encounter Care Teams Bulk Pigment Reducer Relationship Specialty Start Date End Date Sandra Santana MD PCP - General Family Practice 05/17/21 documented as of this encounter
--- OUTSIDE RECORDS SUMMARY | 2024-08-10 02:10 | XMS_ITS | Encounter Summary ---
Author Organization [facility] Address [address] [place] [address] Care Team Providers Care Corporate Director Of Pharmacy Name Role Phone Sandra Santana MD Primary Care Provider Encounter Details Date Type Department Care Team (Late st Contact Info) Description 04/30/2005 Outpatient Historical [facility] Internal Medicine - [place] [address] [place] [address] Tee Locke MD [address] [facility] [address] [place] [address] Social History Tobacco Use Types Packs/Day Years Used Date Smoking Tobacco: Never Assessed Comments Unknown Sex and Gender Information Value Date Recorded Sex Assigned at Not on file Legal Sex Female 2:43 AM MANAGER ENGAGEMENT Gender Identity Not on file Sexual Orientation Not on file documented as of this encounter Last Filed Vital Signs Vital Sign Reading Time Taken Comments Blood Pressure 120/60 04/30/2005 1:15 PM MANAGER ENGAGEMENT Pulse 80 04/30/2005 1:15 PM MANAGER ENGAGEMENT Temperature - - Respiratory Rate - - Oxygen Saturation - - Inhaled Oxygen Concentration - - Weight 89.8 kg (198 lb) 04/30/2005 1:15 PM MANAGER ENGAGEMENT Height - - Body Mass Index - - documented in this encounter Plan of Treatment Upcoming Encounters Date Type Department Care Team (Late st Contact Info) Description 12/02/2024 10:15 AM CDT Office Visit [facility] Sleep Medicine [facility] [address] [address] Robyn Tracey, [facility] [address] [facility] [address] [place] [address] documented as of this encounter Visit Diagnoses Not on filedocumented in this encounter Care Teams Corporate Director Of Pharmacy Relationship Specialty Start Date End Date Sandra Santana MD PCP - General Family Practice 05/17/21 documented as of this encounter
--- OUTSIDE RECORDS SUMMARY | 2024-08-10 02:10 | XMS_ITS | Clinical Summary ---
Author Organization [facility] Address [address] [place] [address] Phone Care Team Providers Care Clinical Advisor Name Role Phone Sandra Santana MD [...] days. 14 Capsule 1 01/23/2022 11:40 AM COSTING ANALYST 2 Active solifenacin (VESICARE) 10 mg Tablet Take 1 Tablet (10 mg) by mouth daily. 90 Tablet 1 01/23/2022 11:40 AM COSTING ANALYST 2 Active acetaminophen (TYLENOL) 500 mg Capsule Take 500 mg by mouth every 4 hours as needed. 2 Active calcium carbonate-vitam in D3 (CALTRATE 600 + D) 600 mg-20 mcg (800 unit) Tablet Take 1 Tablet by mouth daily with breakfast. Active celecoxib (CeleBREX) 200 mg capsule Take 1 (one) capsule by mouth 2 times daily 60 Capsule 5 01/24/2022 2:16 PM COSTING ANALYST 2 Active nitrofurantoin (MACROBID) 100 mg capsule Take 1 Capsule (100 mg) by mouth every 12 hours for 5 days. Take with a meal or food. 10 Capsule 01/24/2022 2:16 PM COSTING ANALYST 2 Active traMADoL (ULTRAM) 50 mg tablet Take 1-2 tablets by mouth every 6 hours as needed for pain. 42 Tablet 02/15/2022 11:27 AM COSTING ANALYST 2 Active levothyroxine 100 mcg tablet Take 1 Tablet (100 mcg) by mouth daily. 90 Tablet 2 02/25/2022 12:18 PM COSTING ANALYST 2 Active nabumetone (RELAFEN) 750 mg tablet Take 1 Tablet (750 mg) by mouth 2 times daily. 60 Tablet 5 03/08/2022 12:38 PM COSTING ANALYST 2 Active CPAP / BIPAP suppliesIndicat ions:THAO on CPAP CPAP Mask fit to comfort, Refit if needed, All associated CPAP Supplies as needed Length of need: 99 months DME [employer] 1 Each 4 Active Active Problems Patient Care Coordination No te Formatting of this note migh t be different from the original. DME: Provider Plus Composition Stone [place] [address] [facility] [address] [place] [address] / Problem Noted Date Diagnosed Date Abnormal cardiovascular stress test 12/10/2021 Overview (12/10/2021): Added automatically from request for surgery [id number] Pre-op evaluation 12/10/2021 Overview (12/10/2021): Added automatically from request for surgery [id number] Severe obesity (BMI 35.0-39.9) with comorbidity 10/18/2019 [...] Encounters Date Type Department Care Team Description 07/27/2024 External Device Data STL ABSTRACTION Provider, Abstract 05/26/2024 External Device Data STL ABSTRACTION Provider, [...] COVID-19 VACCINE - EMERGENCY USE AUTHORIZATION, MRNA, [id number](PF) 30 MCG/0.3 ML IM SUSP 12/05/2020,04/14/2020,03/24/2020 (SHINGRIX)(50 [...] on file Legal Sex Female 2:43 AM COSTING ANALYST Gender Identity Not on file Sexual [...] 10:05 AM CDT Height 167.6 cm (5' 6) 12/04/2023 10:0 5 AM CDT Body Mass Index 37.09 12/04/2023 10:05 AM CDT Plan of Treatment Upcoming Encounters Date Type Department Care Team (Late st Contact Info) Description 12/02/2024 10:15 AM CDT Office Visit [facility] Sleep Medicine [facility] [address] [place] [address] Robyn Tracey, SIDE SEAM MACHINE OPERATORDECATUR MORGAN [facility] [address] [address] Health Maintenance Due Date Last [...] 09/08, 07/05/2016 Medical Devices Implanted Type Area Oven Heater Helper Device Identifier Shelf Expiration Date Model / Serial / Lot Cement Depuy1 40grams 3312-040 - [id number] Implanted:Qty : 1 on 03/16/2018 by Chantel Ceja MD at [facility] Right: Knee [employer] 04/09/2020 3312-040 / / [id number] Description:[id number] Comp Tib Attn Fb Cmnt Sz5 1506-70-005 - [id number] Implanted:Qty : 1 on 03/16/2018 by Chantel Ceja MD at [facility] Right: Knee [employer] 12/08/2027 [id number] / / [id number] Patella Attune Dome 35mm 1518-20-035 - [id number] Implanted:Qty : 1 on 03/16/2018 by Chantel Ceja MD at [facility] Right: Knee [employer] 11/07/2022 [id number] / / [id number] Comp Fem Attn Ps Cmnt Sz6 1504-00-226 - [id number] Implanted:Qty : 1 on 03/16/2018 by Chantel Ceja MD at [facility] Right: Knee [employer] 10/08/2027 [id number] / / [id number] Ins Attn Fb Cr Sz6 5mm 1516-20-605 - [id number] Implanted:Qty : 1 on 03/16/2018 by Chantel Ceja MD at [facility] K[place] Right: Knee [employer] 11/07/2022 [id number] / / [id number] Procedures Procedure Name Priority Date/Time Associated Diagnosis [...] : Negative RECOMMENDATIONS: Annual screening. DICTATION LOCATION: [facility] Narrative 12/30/2023 11:59 AM CDT MAMMOGRAMS SCREENING [...] : Negative RECOMMENDATIONS: Annual screening. DICTATION LOCATION: [facility] us Sandra Santana MD MAMMO ORDERABLES Final Resu lt * HEMOGLOBIN A1C (10/20/2020 9:40 AM CDT) HEMOGLOBIN A1C 5.4 <5.7 % of total Hgb [facility] Comment: FASTING:YES FASTING: YES Test Performed at: [email or web address] [address] [place] [address] Radha-Gualbertou Thi Vo Blood 10/20/2020 9:40 AM CDT 10/20/2020 9:41 AM CDT us Monica Thacker MD CHEMISTRY ORDERABLES Final Result [facility] [address] [place] [address] * XR DEXA BONE DENSITY [...] refer to the full report available in [facility] under the PACS Images tab. If a faxed copy is needed, please call [phone]. DICTATION LOCATION: [facility] Procedure Note Javier Antonio MD - 2020 SUMMARY DEXA REPORT DATE: 2020 2:42 PM INDICATION: Arthritis, postmenopausal, thyroid medication. FINDINGS: The patient is considered osteopenic with a lowest T score of -1.1. Fracture risk is moderate. Please refer to the full report available in [facility] under the PACS Images tab. If a faxed copy is needed, please call [phone]. DICTATION LOCATION: [facility] Monica Thacker MD DIAGNOSTIC IMAGING ORDERAB LES [...] (INTERNAL) [facility] [address] Advance Directives For more information, please contact: [phone] Documents on File Type Date Recorded Patient Combined Rail Operator Expl anation Advance Directive POA 12/07/2021 7:07 AM A dvance Directive POA Advance Directive Living Will 12/07/2021 7:07 AM Advance Directive Living Will * Full Code (Latest Code Status on File) Date Activated Date Inactivated Comments 03/16/2018 12:05 PM 03/18/2018 8:46 PM Care Teams Clinical Advisor Relationship Specialty Start Date End Date Sandra Santana MD PCP - General Family Practice 05/17/21
--- OUTSIDE RECORDS SUMMARY | 2024-08-10 02:10 | XMS_ITS | Encounter Summary ---
Author Organization [facility] Address [address] [place] [address] Care Team Providers Care Flea Market Seller Name Role Phone Sandra Santana MD Primary Care Provider Encounter Details Date Type Department Care Team (Late st Contact Info) Description 07/10/2005 Orders Only [facility] Internal Medicine - [place] [address] [place] [address] Tee Locke MD [address] [facility] [address] [place] [address] Social History Tobacco Use Types Packs/Day Years Used Date Smoking Tobacco: Never Assessed Comments Unknown Sex and Gender Information Value Date Recorded Sex Assigned at Not on file Legal Sex Female 2:43 AM ASSOCIATE EDITOR Gender Identity Not on file Sexual Orientation Not on file documented as of this encounter Progress Notes * Tee Locke MD - 12/18/2007 3:34 AM CDT TIME:10:00 am PATIENT`S HOME PHONE: PATIENT`S WORK PHONE: PATIENT`S INSURANCE: [employer] PPO WHO TOOK THE CALL: Jamila Stephens A GENERAL INFORMATION PATIENT STATUS: Established Patient. LAST VISIT: 04-30-05 PCP: tan WHO CALLED: Patient called. CURRENT ALLERGY LIST: [facility] NUMBER: [phone] SECTION 1: REQUESTED ACTION ronny 07/10/05 at 10:01 am: MEDICATION REQUEST: MEDICATION REQUEST: Patient requests a refill. MEDICATIONS: ULTRACET ORAL TABLET 37.5-325 MG, 2 Three Times A Day, As Needed, 60 Dispensed, status: CONTINUED, 04/25/2005, Comment: mat hr [id number]. ok to refill? TRIAGE/RN/GUN BARREL FINISHER RESPONSE: benjamin 07/10/05 at 10:24 am Refill this time only. FINAL ACTION: gene 07/10/05 at 10:34 am Called pharmacy at 07/10/05 at 10:34 am. Electronically Signed by: Sheila Montgomery on Sunday, July 10, 2005 documented in this encounter Plan of Treatment Upcoming Encounters Date Type Department Care Team (Late st Contact Info) Description 12/02/2024 10:15 AM CDT Office Visit [facility] Sleep Medicine [facility] [address] [address] Robyn Tracey, [facility] [address] [address] documented as of this encounter Visit Diagnoses Not on filedocumented in this encounter Care Teams Flea Market Seller Relationship Specialty Start Date End Date Sandra Santana MD PCP - General Family Practice 05/17/21 documented as of this encounter
--- OUTSIDE RECORDS SUMMARY | 2024-08-10 02:10 | XMS_ITS | Encounter Summary ---
Author Organization [facility] Address [address] [facility] [place] [address] Care Team Providers Care Cuff Maker Name Role Phone Davin Chase MD Unavailable [phone] Monica Thacker MD Primary Care Provider [phone] Encounter Details Date Type Department Care Team (Late Contact Info) Description 07/09/2024 Results Follow-Up [facility] Orthopedics [address] [place] [address] [place] [address] [address] Social History Tobacco Use Types [...] on file Legal Sex Female 7:58 AM CITY DISPATCHER Gender Identity Not on file Sexual Orientation Not on file documented as of this encounter Plan of Treatment Upcoming Encounters Date Type Department Care Team (Late Contact Info) Description 08/17/2024 2:00 PM CDT Office Visit [facility] Health Orthopedics [address] [address] [place] [address] [address] [address] documented as of this encounter Visit Diagnoses Not on filedocumented in this encounter Care Teams Cuff Maker Relationship Specialty Start Date End Date Monica Thacker MD [address] [address] PCP - General 02/10/22 [place] [address] [address] [address] Surgeon Orthopedic Surgery 06/01/20 documented as of this encounter
--- OUTSIDE RECORDS SUMMARY | 2024-08-10 02:10 | XMS_ITS ---
Author Organization [facility] [place] ([address]) Address [address] [place] [address] Care Team Providers Care Nurse Anesthetist Name Role Phone Esther LE, Sandra Primary Care Provider Unav ailable Matilda Coats Unavailable [phone] REASON FOR VISIT XOLAIR SP Follow-up Encounters Encounter Location Date Provider Diagnosis [facility] [place] [address] [place] [address] 05/26/2024 Matilda Coats Plan Of Treatment No Information Progress Notes * Swapna FALKB:1955 ([age] yo F)Acc No.[id number]:05/26/2024 XOLAIR 1-3 Patient: Monica PINEDA Provider: Bubba Coats MD :1955 A ge:68 Y S ex:Female Date:05/26/2024 Address:[facility] Pcp:Sandra Santana MD Subjective: * Chief Complaints: * 1 . XOLAIR SP Follow-up. * Medical History: Objective: * Vitals: Assessment: Plan: * Treatment: * Billing Information: * Visit Code: * Procedure Codes: * Electronic signature of Olivia Coats MD on 08/10/2024 at 02:10 AM CDT Sign off status: Pending * Provider: Bubba Coats MD Date: 0 05/26/2024 Generated for Maddy anderson/Martín/Vivek on: 0 08/10/2024 02:10 AM CDT
--- OUTSIDE RECORDS SUMMARY | 2024-08-10 02:10 | XMS_ITS | Encounter Summary ---
Author Organization [facility] Address [address] [place] [address] Care Team Providers Care Simulation Engineer Name Role Phone Sandra Santana MD Primary Care Provider [phone] Encounter Details Date Type Department Care Team (Late st Contact Info) Description 09/02/2005 Orders Only [facility] Internal Medicine - [place] [address] [place] [address] Tee Locke MD [address] [facility] [address] [place] [address] Social History Tobacco Use Types Packs/Day Years Used Date Smoking Tobacco: Never Assessed Comments Unknown Sex and Gender Information Value Date Recorded Sex Assigned at Not on file Legal Sex Female 2:43 AM MATERNAL CHILD NURSE Gender Identity Not on file Sexual Orientation Not on file documented as of this encounter Progress Notes * Tee Locke MD - 12/18/2007 8:50 AM CDT TIME:02:04 pm PATIENT`S HOME PHONE: PATIENT`S WORK PHONE: PATIENT`S INSURANCE: [employer] PPO WHO TOOK THE CALL: Ari Enamorado A GENERAL INFORMATION PATIENT STATUS: Established Patient. LAST VISIT: 04/30/05 PCP: tan. ALTERNATIVE PHONE NUMBER: [phone] WHO CALLED: Patient called. CURRENT ALLERGY LIST: [facility] NUMBER: [phone] PROBLEMS: SECTION 1: [...] [facility] [address] [address] Robyn Tracey, [facility] [address] [address] documented as of this encounter Visit Diagnoses Not on filedocumented in this encounter Care Teams Simulation Engineer Relationship Specialty Start Date End Date Sandra Santana MD PCP - General Family Practice 05/17/21 documented as of this encounter
--- OUTSIDE RECORDS SUMMARY | 2024-08-10 02:10 | XMS_ITS | Encounter Summary ---
Author Organization [facility] Address [address] [place] [address] Care Team Providers Care Lead Massage Therapist Name Role Phone Sandra Santana MD Primary Care Provider [phone] Encounter Details Date Type Department Care Team (Late st Contact Info) Description 12/17/2001 Outpatient Historical [facility] Internal Medicine - [place] [address] [place] [address] Tee Locke MD [address] [facility] [address] [place] [address] Social History Tobacco Use Types Packs/Day Years Used Date Smoking Tobacco: Never Assessed Comments Unknown Sex and Gender Information Value Date Recorded Sex Assigned at Not on file Legal Sex Female 2:43 AM BUILDING WRECKER Gender Identity Not on file Sexual Orientation Not on file documented as of this encounter Plan of Treatment Upcoming Encounters Date Type Department Care Team (Late st Contact Info) Description 12/02/2024 10:15 AM CDT Office Visit [facility] Sleep Medicine [facility] [address] [address] Robyn Tracey, SCALING MACHINE OPERATOR- [address] [address] documented as of this encounter Visit Diagnoses Not on filedocumented in this encounter Care Teams Lead Massage Therapist Relationship Specialty Start Date End Date Sandra Santana MD PCP - General Family Practice 05/17/21 documented as of this encounter
--- OUTSIDE RECORDS SUMMARY | 2024-08-10 02:10 | XMS_ITS | Encounter Summary ---
Author Organization [facility] Address [address] [place] [address] Care Team Providers Care Facility Sales And Admin Name Role Phone Sandra Santana MD Primary Care Provider Encounter Details Date Type Department Care Team (Late st Contact Info) Description 07/11/1999 Outpatient Historical [facility] Internal Medicine - [facility] [address] [place] [address] Tee Locke MD [address] [place] [address] Social History Tobacco Use Types Packs/Day Years Used Date Smoking Tobacco: Never Assessed Comments Unknown Sex and Gender Information Value Date Recorded Sex Assigned at Not on file 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 Gender Identity Not on file Sexual Orientation Not on file documented as of this encounter Plan of Treatment Upcoming Encounters Date Type Department Care Team (Late st Contact Info) Description 12/02/2024 10:15 AM CDT Office Visit [facility] Sleep Medicine [facility] [address] [address] Robyn Tracey, [facility] [address] [address] documented as of this encounter Visit Diagnoses Not on filedocumented in this encounter Care Teams Facility Sales And Admin Relationship Specialty Start Date End Date Sandra Santana MD PCP - General Family Practice 05/17/21 documented as of this encounter
--- OUTSIDE RECORDS SUMMARY | 2024-08-10 02:10 | XMS_ITS | Referral Summary ---
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 Gender Identity Not on file Sexual Orientation Not on file Last Filed Vital Signs Vital Sign Reading Time Taken Comments Blood Pressure - - Pulse - - Temperature - - Respiratory Rate - - Oxygen Saturation - - Inhaled Oxygen Concentration - - Weight 101.2 kg (223 lb) 12/05/2020 8:58 AM CDT Height 167 cm (5' 5.75) 12/05/2020 8:58 AM CDT Body Mass Index 36.27 12/05/2020 8:58 AM CDT Plan of Treatment Not on file Insurance ANTHEM ACCESS ANTHEM ACCESS ANTHEM ACCESS Care Teams Evp General Counsel Relationship Specialty Start Date End Date Monica Thacker MD [address] [place] [address] PCP - General Family Medicine 10/27/20
--- OUTSIDE RECORDS SUMMARY | 2024-08-10 02:10 | XMS_ITS | Encounter Summary ---
Author Organization [facility] Address [address] [place] [address] Care Team Providers Care Card Feeder Name Role Phone Sandra Santana MD Primary Care Provider Encounter Details Date Type Department Care Team (Late st Contact Info) Description 02/19/2005 Outpatient Historical [facility] Internal Medicine - [place] [address] [place] [address] Esteban Auguste MD [address] [facility] [place] [address] Social History Tobacco Use Types Packs/Day Years Used Date Smoking Tobacco: Never Assessed Comments Unknown Sex and Gender Information Value Date Recorded Sex Assigned at Not on file 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 Sex Female 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 Gender Identity Not on file Sexual Orientation Not on file documented as of this encounter Last Filed Vital Signs Vital Sign Reading Time Taken Comments Blood Pressure 118/74 02/19/2005 10:15 AM SUPERINTENDENT TESTS Pulse - - Temperature - - Respiratory Rate - - Oxygen Saturation - - Inhaled Oxygen Concentration - - Weight 92.1 kg (203 lb) 02/19/2005 10:15 AM SUPERINTENDENT TESTS Height - - Body Mass Index - - documented in this encounter Plan of Treatment Upcoming Encounters Date Type Department Care Team (Late st Contact Info) Description 12/02/2024 10:15 AM CDT Office Visit [facility] Sleep Medicine [place] [address] [address] Alexy Robyn Neeru, [facility] [address] [facility] [address] [place] [address] documented as of this encounter Visit Diagnoses Not on filedocumented in this encounter Care Teams Card Feeder Relationship Specialty Start Date End Date Sandra Santana MD PCP - General Family Practice 05/17/21 documented as of this encounter
--- OUTSIDE RECORDS SUMMARY | 2024-08-10 02:10 | XMS_ITS | Encounter Summary ---
Author Organization [facility] Address 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 Gender Identity Not on file Sexual Orientation Not on file documented as of this encounter Plan of Treatment Upcoming Encounters Date Type Department Care Team (Late st Contact Info) Description 12/02/2024 10:15 AM CDT Office Visit [facility] Sleep Medicine [facility] [address] [address] Robyn Tracey, LICENSING OFFICER- [address] [address] documented as of this encounter Visit Diagnoses Not on filedocumented in this encounter Care Teams Butcher Helper Relationship Specialty Start Date End Date Sandra Santana MD PCP - General Family Practice 05/17/21 documented as of this encounter
--- OUTSIDE RECORDS SUMMARY | 2024-08-10 02:10 | XMS_ITS | Clinical Summary ---
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 Gender Identity Not on file Sexual [...] Treatment Not on file Insurance ANTHEM ACCESS Member Subscriber Plan / Payer (Ef fective 2019-Present) Name:Monica Kearns Relation to Subscriber:Self Name:Monica Kearns Payer ID:[id number] (NA) Type:[facility] [employer] Address: [place] [address] ANTHEM ACCESS Member Subscriber Plan / Payer (Ef fective 2020-Present) Name:Monica Kearns Relation to Subscriber:Self Name:Monica Kearns Payer ID:[id number] (NAIC) Type:[facility] Address: [address] [place] [address] ANTHEM ACCESS Care Teams Track Repairer Helper Relationship Specialty Start Date End Date Monica Thacker MD [address] [place] [phone] PCP - General Family Medicine 10/27/20
--- OUTSIDE RECORDS SUMMARY | 2024-08-10 02:10 | XMS_ITS | Clinical Summary ---
Author Organization [facility] Address [address] [place] [address] Care Team Providers Care Political Research Scientist Name Role Phone Davin Chase MD Unavailable [phone] Alee Thacker MD Primary Care Provider [phone] Source Comments [facility],non-owned Affiliates and Associated Physician Practices is amultiple site organization consisting of ambulatory clinics and hospital sitesin [place], [place], [place] and [place]. This disclosure is being madepursuant to the Care Everywhere program and may not contain all information available regarding this patient. Last updated 17.[facility] Allergies Active Allergy Reactions Criticality Noted Date [...] once daily 1 Active Cholecalciferol 1.25 MG (70016 UT) Take 50,000 Units by mouth every [...] Department Care Team Description 07/09/2024 Results Follow-Up [facility] [address] [address] Davin Chase MD 06/22/2024 2:30 PM CDT Office Visit [facility]oped[facility] [address] [address] Davin Chase MD Pes anserinus bursitis of left knee (Primary Dx); Presence of left artificial knee joint 06/22/2024 Travel 06/21/2024 1:40 PM CDT - 06/21/2024 11:59 PM CDT Hospital Encounter [facility] Imaging Services - MRI [address] [place] [address] Davin Chase MD Discharge Disposition: Home or Self Care 06/03/2024 Telephone [facility] Service Center [address] [facility], [address] [place] [address] Davin Chase MD Patient Requested [...] on file 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 Gender Identity Not on file Sexual [...] 8:35 AM CDT Height 167.6 cm (5' 6) 12/19/2021 8:35 AM CDT Body Mass Index 33.41 12/19/2021 8:35 AM CDT Plan of Treatment Upcoming Encounters Date Type Department Care Team (Late st Contact Info) Description 08/17/2024 2:00 PM CDT Office Visit [facility] Health Orthopedics [address] [place] [address] [place] [address] [address] Health Maintenance Due Date Last Done Comments COLOGUARD (AGES 45-75) - COLON CA SCREENING [address] CT COLONOGRAPHY - COLON CA SCREENING [...] 12/29/2025 12/30/2023, 12/09, 12/27/2022, Additional history exists COLON MONITORING 01/08/2027 01/08/2017 COLONOSCOPY - COLON CA SCREENING 01/08/2027 01/08/2017 [...] this topic Medical Devices Implanted Type Area Fire Department Battalion Chief Device Identifier Shelf Expiration Date Model / Serial / Lot Cmnt Bone Djo Srg Cblt 40gm Hvisc Strl Implanted:Qty: 1 on 12/19/2021 by Davin Chase MD at [facility] Left: Knee [employer] 09/20/2022 600-15-000 / / [id number] Cmpnt Ptlr Std 28mm 3 Pg Kn Ser A Implanted:Qty: 1 on 12/19/2021 by Davin Chase MD at [facility] Left: Knee [employer] 01/09/2026 [id number] / / [id number] Tray Tib 75mm Kn Cocr I Beam Implanted:Qty: 1 on 12/19/2021 by Davin Chase MD at [facility] Left: Knee [employer] 08/15/2030 [id number] / / [id number] Cmpnt Fem Kn Lt Cr Cmnt Prm Vngrd Intlk Implanted:Qty: 1 on 12/19/2021 by Davin Chase MD at [facility] Left: Knee [employer] 11/13/2031 [id number] / / [id number] Brng [id number] Vngrd Arcm Kn Ant Stab Implanted:Qty: 1 on 12/19/2021 by Davin Chase MD at [facility] Left: Knee [employer] 10/04/2026 [id number] / / [id number] Procedures Procedure Name Priority Date/Time Associated Diagnosis [...] the quadriceps tendon was included in the [id number]. Normal signal and morphology of the tendons [...] the quadriceps tendon was included in the [id number]. Normal signal and morphology of the tendons [...] Final Result from Last 3 Months Insurance ANTHEM MEDICARE [facility] MANAGED MEDICARE ADV Advance Directives Documents on File Type Date Recorded Patient Manager Truck Expl anation Adv Directive/Living Will/POA 12/19/2021 * Full Code (Latest Code Status on File) Date Activated Date Inactivated Comments 12/19/2021 2:30 PM 12/20/2021 4:05 PM Care Teams Political Research Scientist Relationship Specialty Start Date End Date Alee Thacker MD [address] [place] [address] PCP - General 02/10/22 [place] [address] [address] [address] Surgeon Orthopedic Surgery 06/01/20
--- OUTSIDE RECORDS SUMMARY | 2024-08-10 02:10 | XMS_ITS | Encounter Summary ---
Author Organization [facility] Address [address] [place] [address] Care Team Providers Care Senior Manufacturing Engineer Name Role Phone Sandra Santana MD Primary Care Provider Encounter Details Date Type Department Care Team (Late st Contact Info) Description 11/03/2003 Outpatient Historical [facility] Internal Medicine - [place] [address] [place] [address] Tee Locke MD [address] [facility] [address] [place] [address] Social History Tobacco Use Types Packs/Day Years Used Date Smoking Tobacco: Never Assessed Comments Unknown Sex and Gender Information Value Date Recorded Sex Assigned at Not on file 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 VINCENT'S ST. [facility] [address] [facility] [address] [place] [address] documented as of this encounter Visit Diagnoses Not on filedocumented in this encounter Care Teams Senior Manufacturing Engineer Relationship Specialty Start Date End Date Sandra Santana MD PCP - General Family Practice 05/17/21 documented as of this encounter
--- OUTSIDE RECORDS SUMMARY | 2024-08-10 02:10 | XMS_ITS | Encounter Summary ---
Author Organization [facility] Address [address] [place] [address] Care Team Providers Care Sap Bpc Developer Name Role Phone Sandra Santana MD Primary Care Provider Encounter Details Date Type Department Care Team (Late st Contact Info) Description 04/25/2005 Orders Only [facility] Internal Medicine - [place] [address] [place] [address] Tee Locke MD [address] [facility] [address] [facility] [place] [address] Social History Tobacco Use Types Packs/Day Years Used Date Smoking Tobacco: Never Assessed Comments Unknown Sex and Gender Information Value Date Recorded Sex Assigned at Not on file 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
--- OUTSIDE RECORDS SUMMARY | 2024-08-10 02:10 | XMS_ITS | Encounter Summary ---
Author Organization [facility] Address [address] [place] [address] Care Team Providers Care Retail Warehouse Associate Name Role Phone Sandra Santana MD Primary Care Provider Encounter Details Date Type Department Care Team (Late st Contact Info) Description 01/01/2000 Outpatient Historical [facility] Internal Medicine - [place] [address] [place] [phone] Tee Locke MD [address] [facility] [address] [place] [address] Social History Tobacco Use Types Packs/Day Years Used Date Smoking Tobacco: Never Assessed Comments Unknown Sex and Gender Information Value Date Recorded Sex Assigned at Not on file 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 Sex Female 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 Gender Identity Not on file Sexual Orientation Not on file documented as of this encounter Plan of Treatment Upcoming Encounters Date Type Department Care Team (Late st Contact Info) Description 12/02/2024 10:15 AM CDT Office Visit [facility] Sleep Medicine [facility] [address] [address] Robyn Tracey, INFORMATION RESOURCES DIRECTOR- [address] [address] documented as of this encounter Visit Diagnoses Not on filedocumented in this encounter Care Teams Retail Warehouse Associate Relationship Specialty Start Date End Date Sandra Santana MD PCP - General Family Practice 05/17/21 documented as of this encounter
--- OUTSIDE RECORDS SUMMARY | 2024-08-10 02:10 | XMS_ITS | Continuity of Care Document ---
Author Organization [facility] Address [address] [place] [address] Phone Care Team Providers Care Secy Name Role Phone Qamar Alegria MD Unavailable [...] [facility], [address], [place], [place], [id number], [place] tel:[phone] [facility] No Information 8 Raji Foote. [address] [place] [address], [address] [place] [address], [id number] , [place]. tel: [phone] Est (Level 3) OFFICE/OUTPATI ENT VISIT [facility], [address] [place] [address], [id number], tel:[phone] [facility] hives (chief complaint) Idiopathic urticaria 7 Gomez Denise. [address] [place] [address], [address] [place] [address], [id number] , [place]. tel: [phone] Referring Provider: Monica Thacker, [address], [place], [address]. tel:[phone] Est (Level 3) OFFICE/OUTPATI ENT VISIT [facility], [address] [place] [address], [id number], tel:[phone] [facility] hives (chief complaint) Idiopathic urticaria 7 Gomez Denise. [address] [place] [address], [address] [place] [address], [id number] , [place]. tel: [phone] Referring Provider: [address], [place], [address]. tel:[phone] Est (Level 3) OFFICE/OUTPATI ENT VISIT [facility], [address] [place] [address], [id number], tel:[phone] [facility] hives (chief complaint) Idiopathic urticaria 7 Gomez Denise. [address] [place] [address], [address] [place] [address], [id number] , [place]. tel: [phone] Referring Provider: [address], [place], [address]. tel:[phone] Consult (Level 4) OFFICE CONSULTATION [facility], [address] [place] [address], [id number], [place] tel:[phone] [facility] hives (chief complaint) Idiopathic urticaria 7 Gomez Walker. [address] [facility], [address], [place], [place], [id number] , [place]. tel: [phone] Referring Provider: Monica Thacker, [address], [place], [address]. tel:[phone] Family History Family Member Type Diagnosis Age At Onset Problem (finding) No family history of Hi ves Mother Problem (finding) Food allergy Problem (finding) No family hist ory of Systemic lupus erythematosus Payers Payer name Insurance type Covered constitution party ID Authoriza tidorian(s) R CI [id number] Social History Type Description Quantity Date Captured [...] RA or thyroid problems.Social: She works in [employer]. She has a bichon. She does smoke. 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
--- OUTSIDE RECORDS SUMMARY | 2024-08-10 02:10 | XMS_ITS | Encounter Summary ---
Author Organization [facility] Address [address] [place] [address] Care Team Providers Care Central Services Tech Name Role Phone Sandra Santana MD Primary Care Provider Encounter Details Date Type Department Care Team (Late st Contact Info) Description 10/05/[address] 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 Sleep Medicine [facility] [address] [address] Robyn Tracey, [facility] [address] [facility] [address] [place] [address] documented as of this encounter Visit Diagnoses Not on filedocumented in this encounter Care Teams Central Services Tech Relationship Specialty Start Date End Date Sandra Santana MD PCP - General Family Practice 05/17/21 documented as of this encounter
--- OUTSIDE RECORDS SUMMARY | 2024-08-10 02:10 | XMS_ITS | Patient Health Record ---
Author Organization [facility] [place] ([address]) Address [address] [place] [address] Care Team Providers Care Grooving Machine Operator Name Role Phone Sandra Santana MD Primary Care Provider Unav ailSyed Rizon Unavailable [phone] [facility], Provider Unavailable Unavailab le Allergies Allergen (clinical drug ingredient) Drug/Non Drug Allergy documented on EMR Reaction Allergy Type Onset Date Status hydrocodone HYDROcodone Unknown Drug Allergy Act davon Results Component Value Reference Range Notes -Tryptase (122356) Reviewed date:04/11/2024 04:18:15 PM Interpretation:Normal Performing Lab:[facility] [address] [id number], Phone - [phone], Director - Nate Notes/Report: Tryptase 5.2 2.2-13.2 ug/L -TSH Rfx on Abnormal to Free T4 Reviewed date:04/11/2024 04:20:20 PM Interpretation:Normal Performing Lab:[facility] [place], [address] [place], [place] [id number], Phone - [phone], Director - Jaime Notes/Report: TSH 2.380 0.450-4.500 uIU/mL -CMP (14) Reviewed date:04/11/2024 04:17:59 PM Interpretation:Normal Performing Lab:[facility] [place], [address] [place], [place] [id number], Phone - [phone], Director - Jaime Notes/Report: Glucose 93 70-99 mg/dL BUN 15 [...] 0-40 IU/L ALT (SGPT) 8 0-32 IU/L -Thyroid Peroxidase (TPO) Ab Reviewed date:04/11/2024 04:17:44 PM Interpretation:Abnormal Performing Lab:[facility] [id number], Phone - [phone], [facility] Notes/Report: Thyroid Peroxidase (TPO) Ab 393 0-34 IU/mL -Sedimentation Rate-Westergr en Reviewed date:04/11/2024 04:18:08 PM Interpretation:Normal Performing Lab:[facility] [id number], Phone - [phone], Director - [facility] Notes/Report: Sedimentation Rate-Westergren 14 0-40 mm/hr -CBC With Differential/Plate let Reviewed date:04/11/2024 04:18:30 PM Interpretation:Normal Performing Lab:[facility] [id number], Phone - [phone], [facility] Notes/Report: WBC 5.0 3.4-10.8 x10E3/uL RBC 4.74 [...] % Immature Grans (Abs) 0.0 0.0-0.1 x10E3/uL Reason For Referral No Information Medications Medication [...] Route Administration Date Status Comme nts Hepatitis A Unknown 03/16/2012 Administered Portal Info rmation NOC Tdap Unknown 12/06/2008 Administered Portal Infor mation NOC Influenza-Fluzone Unknown 12/30/2018 Refused NOC Fluzone Quadrivalent Unknown 05/27/2018 Refused Influenza Unknown 12/09/2017 Administered Portal Infor mation Hepatitis B (20 and more) Unknown 03/16/2012 Administer ed Portal Information Social History Tobacco Use: Social History Observation Description Date Details (start date - stop date) Former Smoker NA - NA Tobacco Control (Standard) Question Answer Notes Tobacco use: Former smoker How long has it been since you last smoked? Grea ter than 10 years Problems Problem Type SNOMED Code ICD Code Onset Dates Problem Status W/U Status Risk Notes Problem Idiopathic urticaria (25683466) Idiopathic urticaria (L50.1) Active confirmed Problem Angioneurotic edema (08222906) Angioneurotic edema, initial encounter (T78.3XXA) Active confirmed Problem Chronic allergic conjunctivitis (84073905) Other chronic allergic conjunctivitis (H10.45) Active confirmed Problem Allergic rhinitis caused by pollen (disorder) (32607017) Allergic rhinitis due to pollen (J30.1) Active confirmed Problem Allergic rhinitis (16964499) Other allergic rhinitis (J30.89) Active confirmed Problem Chronic rhinitis (54400990) Chronic rhinitis (J31.0) Active confirmed Problem Uncomplicated mild persistent asthma (513445574) Mild persistent asthma, uncomplicated (J45.30) Active confirmed Problem Uncomplicated moderate persistent asthma (483620275) Moderate persistent asthma, uncomplicated (J45.40) Active confirmed Problem Uncomplicated severe persistent asthma (481455963) Severe persistent asthma, uncomplicated (J45.50) Active confirmed Problem Rosacea (012041613) Rosacea, unspecified (L71.9) Active confirmed Problem Localized edema (4047140) Localized edema (R60.0) Active confirmed Problem Angioneurotic edema (50697666) Angioneurotic edema, subsequent encounter (T78.3XXD) Active confirmed Problem Allergic rhinitis caused by animal hair and dander (984958635455242) Allergic rhinitis due to animal (cat) (dog) hair and dander (J30.81) Active confirmed Problem Allergy status t o narcotic agent (Z88.5) Active confirmed Vital Signs Blood pressure diastolic 80 mm Hg 04/27/2024 Oximetry 98 % 04/27/2024 Height 66 in 04/27/2024 Blood pressure systolic 150 mm Hg 04/27/2024 Weight 230.6 lbs 04/27/2024 BMI 37.22 kg/m2 04/27/2024 Encounters Encounter Location Date Provider Diagnosis [address] [address] 08/23/2023 Provider [facility] [address] [facility] [address] [place] [address] 04/06/2024 Matilda Coats Idiopathic urticaria L50.1 ; Rosacea, unspecified L71.9 and Allergy status to narcotic agent Z88.5 [facility] [address] [facility] [address] [place] [address] 04/27/2024 Matildaphi Coats Idiopathic urticaria L50.1 ; Rosacea, unspecified L71.9 and Allergy status to narcotic agent Z88.5 [facility] [address] [place] [address] 04/11/2024 Matildaphi Coats [facility] [address] [place] [address] 04/27/2024 Matildaphi Coats [facility] [address] [place] [address] 07/13/2024 Matildaphi Coats Assessments Encounter Date Diagnosis (ICD Code) Assessment [...] Coverage End Date [employer] Medicare [address] [address] [place] [address] [id number] Monica Kearns Self - patient is the [...]
--- NOTE | 2024-08-10 06:34 | P.PNAN_ITS ---
Anes - Initial Pre Proc Eval Procedure: Operation Date: 08/10/24 07:30 Proposed Procedures p Intracept Procedure at L2, L3, L4, L5 Under Fluoroscopic Guidance - Davin Cruz MD Date/Time: 08/10/24 06:34 Surgeon: Davin Cruz MD Pre Op Diagnosis: vertebrogenic low back pain Patient Data Age: 68 Gender: F Height: 1.68 m Weight: 101.15 kg Allergies Allergy/AdvReac Type Severity Reaction Status Date / Time atorvastatin Allergy Mild Hives Verified 07/26/24 13:55 hydrocodone Allergy Hives Verified 07/23/24 10:37 Home Medications ?Medication ?Instructions ?Recorded ?Confirmed ?Type cholecalciferol (vitamin D3) 1,250 1,250 mcg PO WEEKLY #14 caps 05/07/2207/08 Rx mcg (50,000 unit) capsule solifenacin 10 mg tablet (Vesicare) 10 mg PO DAILY #90 tabs 05/20/23 07/23/24 Rx cetirizine 10 mg capsule (Zyrtec) 10 mg PO DAILY PRN allergy symptoms 04/20/24 07/23/24 History montelukast 10 mg tablet 10 mg PO DAILY PRN allergy symptoms 04/20/24 07/23/24 History levothyroxine 100 mcg tablet 100 mcg PO DAILY #90 tabs 06/02/24 07/23/24 Rx acetaminophen 500 mg tablet 1,000 mg PO TID 06/16/24 07/23/24 History (Acetaminophen Extra Strength) tramadol 50 mg tablet 50 mg PO Q6-8H PRN severe pain 06/16/24 07/23/24 History (scale score 7-10) atorvastatin 10 mg tablet (Lipitor) 10 mg PO DAILY #90 tabs 07/15/24 07/23/24 Rx diclofenac sodium 1 % topical gel 2 g topical QID 07/15/24 07/23/24 History (Arthritis Pain (diclofenac)) rosuvastatin 5 mg tablet 5 mg PO DAILY #30 tabs 07/27/24 Rx Patient hx anesthesia problems: none Family hx anesthesia problems: none Results Review: All pre-operative results and documents have been reviewed as part of the pre- operative evaluation. [facility] Past Medical History Medical History (Updated 08/09/24 @ 15:48 by Sai J. Luchtefeld, DO) Hypertension PAT (paroxysmal atrial tachycardia) CAD (coronary artery disease) THAO (obstructive sleep apnea) Urinary tract infection Dyslipidemia Scalp lesion Hearing loss in left ear Unilateral hearing loss Abnormal stress test Patellofemoral syndrome, left Tendinitis of right rotator cuff Idiopathic urticaria Former smoker quit 1994 Hx of acute renal failure DDD (degenerative disc disease), lumbar UTI (urinary tract infection) Hypothyroid Surgical History Surgical History History of left knee replacement 12/2021 [facility] History of right knee joint replacement Hx of colonoscopy . repeat on 5 years due to fam hx History of total right knee replacement History of bladder surgery sling Social History Social History Smoking packs per day: 0.5 Smoking cigarettes per day: 10.0 Years smoked: 15 Smoking pack-years: 7.50 Smoking status: Former smoker Tobacco type: cigarettes Second hand tobacco smoke exposure: Yes Smoking end date: 03/10/94 Alcohol intake: current Drinks per week: 1 Alcohol use details: 2 DRINKS PER MONTH Substance use: never Substance use type: does not use Lack of Transportation: No Lack of Food: Never True Current Housing: I Have Housing Concerned About Future Housing: No Difficulty Paying Gas/Electric Bills: No Difficulty Paying for Meds: No Currently Unemployed: No Education: Bachelor's Degree Difficulty w/ Childcare or Family Care: No Living arrangements: alone Occupation/Education: occupation Gender identity (if verbalized by the patient): Female Spiritual care concerns: No Anes - Eval Final PreProcedure Day of Procedure 08/10/24 06:34 Patient weight: obese Heart: regular rate and rhythm Lungs: clear to auscultation Airway: Mallampati scale class III Neurological: alert and oriented Last oral intake: >/= 8 hours ASA classification: III Emergent: no Anesthetic plan: proceed Anesthesia type and monitoring: general ETT and standard monitoring Results Review: All pre-operative results and documents have been reviewed as part of the pre- operative evaluation. Informed Consent: The patient's anesthetic plan and its attendant risks and benefits were discussed with the patient/family/POA. Questions were solicited and answers provided to the satisfaction of the patient/family/POA.
[2024-08-10] MEDS: LACTATED RINGERS 1,000 ML 30 ML IV CONT (06:35)
[2024-08-10] MEDS: diphenhydrAMINE HCl INJ 50 MG/ML VIAL 12.5 MG IV PUSH (07:00)
--- NOTE | 2024-08-10 07:30 | WPDHPUPDATE1 ---
History and Physical Update Update Date/Time: 08/10/24 07:30 History and Physical has been reviewed, including an updated exam of the patient. There are NO changes in the patient's condition. Risks, benefits, and alternatives have been discussed and questions answered. Patient agrees to proceed with procedure.
--- NOTE | 2024-08-10 07:43 | P.HP_ITS ---
History of Present Illness History of Present Illness Consent: Risks, benefits, and alternatives have been discussed and questions answered. Patient agrees to proceed with procedure. Chief complaint: vertebrogenic low back pain Narrative: Monica Kearns is a 68 year old female presents for Intracept procedure at L2, L3, L4, L5 for chronic low back pain related to Modic endplate change as confirmed on MRI. No new symptoms, concerns or neurologic change. Patient provides informed consent and is ready to proceed with the procedure. No contraindications noted. Review of Systems Review of Systems: All systems reviewed & are unremarkable except as noted in HPI and below PMFSH Past Medical History Medical History (Updated 08/10/24 @ 07:45 by Davin Cruz MD) Hypertension PAT (paroxysmal atrial tachycardia) CAD (coronary artery disease) THAO (obstructive sleep apnea) Urinary tract infection Dyslipidemia Scalp lesion Hearing loss in left ear Unilateral hearing loss Abnormal stress test Patellofemoral syndrome, left Tendinitis of right rotator cuff Idiopathic urticaria Former smoker quit 1994 Hx of acute renal failure DDD (degenerative disc disease), lumbar UTI (urinary tract infection) Hypothyroid Surgical History Surgical History History of left knee replacement 12/2021 [facility] History of right knee joint replacement Hx of colonoscopy . repeat on 5 years due to fam hx History of total right knee replacement History of bladder surgery sling Social History Social History Smoking packs per day: 0.5 Smoking cigarettes per day: 10.0 Years smoked: 15 Smoking pack-years: 7.50 Smoking status: Former smoker Tobacco type: cigarettes Second hand tobacco smoke exposure: Yes Smoking end date: 03/10/94 Alcohol intake: current Drinks per week: 1 Alcohol use details: 2 DRINKS PER MONTH Substance use: never Substance use type: does not use Lack of Transportation: No Lack of Food: Never True Current Housing: I Have Housing Concerned About Future Housing: No Difficulty Paying Gas/Electric Bills: No Difficulty Paying for Meds: No Currently Unemployed: No Education: Bachelor's Degree Difficulty w/ Childcare or Family Care: No Living arrangements: alone Occupation/Education: occupation Gender identity (if verbalized by the patient): Female Spiritual care concerns: No Meds Home Medications and Allergies Home Medications ?Medication ?Instructions ?Recorded ?Confirmed ?Type cholecalciferol (vitamin D3) 1,250 1,250 mcg PO WEEKLY #14 caps 05/07/22 07/23/24 Rx mcg (50,000 unit) capsule solifenacin 10 mg tablet (Vesicare) 10 mg PO DAILY #90 tabs 05/20/23 07/23/24 Rx cetirizine 10 mg capsule (Zyrtec) 10 mg PO DAILY PRN allergy symptoms 04/20/24 08/10/24 History montelukast 10 mg tablet 10 mg PO DAILY PRN allergy symptoms 04/20/24 07/23/24 History levothyroxine 100 mcg tablet 100 mcg PO DAILY #90 tabs 06/02/24 07/23/24 Rx acetaminophen 500 mg tablet 1,000 mg PO TID 06/16/24 07/23/24 History (Acetaminophen Extra Strength) tramadol 50 mg tablet 50 mg PO Q6-8H PRN severe pain 06/16/24 07/23/24 History (scale score 7-10) atorvastatin 10 mg tablet (Lipitor) 10 mg PO DAILY #90 tabs 07/15/24 07/23/24 Rx diclofenac sodium 1 % topical gel 2 g topical QID 07/15/24 07/23/24 History (Arthritis Pain (diclofenac)) rosuvastatin 5 mg tablet 5 mg PO DAILY #30 tabs 07/27/24 Rx Allergies Allergy/AdvReac Type Severity Reaction Status Date / Time atorvastatin Allergy Mild Hives Verified 08/10/24 07:42 hydrocodone Allergy Hives Verified 08/10/24 07:42 Exam Narrative: The patient's physical exam is essentially unchanged from prior examination on 05/11/2024. Specifically, patient demonstrates normal lung capacity, tidal volume and respiratory rate without wheezes, crackles, rales or rubs. Heart rate and rhythm are regular without murmurs, gallops or rubs. No JVD. Pulses 2+ globally without increasing peripheral edema. AAOx3 with no evidence of confusi on, intoxication or altered mental state, NC/AT without acute distress or altered consciousness. Speech, cognition, mood, insight and judgment at baseline and within normal limits. Assessment and Plan Assessment and plan (1) Vertebrogenic low back pain: Code(s): M54.51 - Vertebrogenic low back pain Status: Acute Assessment and Plan: Proceed as planned with Intracept procedure at L2, L3, L4, L5 under fluoroscopic guidance. (2) Dorsalgia of lumbar region: Code(s): M54.50 - Low back pain, unspecified Status: Acute (3) Chronic pain: Code(s): G89.29 - Other chronic pain Status: Acute
--- NOTE | 2024-08-10 07:45 | P.OP_ITS ---
Procedure Note - Detailed Date of Procedure 08/10/24 Pre-op Diagnosis vertebrogenic low back pain Post-op Diagnosis Same Procedure Performed Percutaneous transpedicular intraosseous basivertebral nerve thermal radiofrequency ablation (Intracept procedure) at L2, L3, L4, L5 under fluoroscopic guidance. Surgeon Davin Cruz MD [employer] None. Anesthesia General (GETA] in the [prone] position with infiltration of local anesthetic. ) Description of Procedure INDICATION FOR PROCEDURE: Patient has Modic-type I/II inflammatory degenerative changes of the endplates supplied by the basivertebral nerve at each level listed (as documented on recent MRI) resulting in [id number] chronic axial low back pain that is aggravated by activity. They are significantly limited in their daily and/or work-related activities as a result, including sitting, standing, lifting/carrying and sleeping, with failure to respond to and/or tolerate extensive efforts at more conservative management (i.e. oral and topical analgesics including NSAIDs, acetaminophen and opioids, Physical Therapy and modalities, time/rest, interventional procedures/corticosteroid injections) for greater than 6 months prior to today's procedure establishing medical necessity for this well-studied and FDA-approved pain-relieving procedure. INFORMED CONSENT: Procedure was discussed in detail with the patient at a previous visit and at the time of surgery. During this discussion, the risks, benefits, and alternatives to the procedure, including doing nothing, were thoroughly described to the patient, who expressed explicit understanding and consent to proceed. Specific risks discussed with the patient included, but were not limited to the risk of serious local or systemic infection, skin burn/scarring, major or minor bleeding/bruising, allergic reaction to medica tions or materials, inadvertent lung or other organ injury, new or worsening spinal fracture, inadvertent thermal or mechanical nerve or spinal cord injury resulting in increased pain, weakness, numbness or loss of bowel or bladder control, the need for repeat or additional surgery, inadvertent dural puncture resulting in acute or chronic CSF leak and post-dural puncture headache, failure to treat pain, and risks associated with general anesthesia in the prone position including eye, dental, joint, nerve, spine or soft tissue injury/pain related to positioning, heart attack, respiratory failure, aspiration, pneumonia, DVT/PE or thrombosis, hemorrhagic or ischemic stroke, hypoxia, hypo- or hypertension, seizure, coma and . Patient understands these risks and agrees that the opportunity for benefit outweighs the potential risk of harm. Procedure specific informed consent form was read, reviewed, signed by the patient and surgeon and witnessed in the pre-operative area. All pertinent questions were asked and answered to the patient's satisfaction. Surgical site was pre-treated with chlorhexidine wipes. All materials required for the procedure were available and site and side of procedure was marked prior to procedure start. Appropriate timeout was conducted by all participants in the OR (patient's ID, procedure to be performed, procedure site and side, allergies and appropriate medications including pre-operative antibiotics were verified) prior to incision. PROCEDURE IN DETAIL: After full informed consent and adequate IV access was obtained without difficulty; the patient was escorted to the procedural suite. ASA standard monitors were applied and utilized throughout the case. Prophylactic antibiotics were administered prior to procedure start. GETA was initiated without difficulty or event. Eyes were protected. Patient was converted to the prone position in optimal flexion using pillows under the abdomen, hips and ankles. Pressure points were padded, cervical spine and joints were placed in neutral position. Eyes, breasts and genitals were evaluated and protected as appropriate. The thoracolumbar spine to the sacrum was prepared in the usual manner using alcohol scrub followed by broad application of ChloraPrep, and allowed to dry completely for over 3 minutes. Surgical site and C-arm was sterilely draped in the typical fashion. Aseptic technique and strict fluoroscopic guidance was utilized throughout. Fluoroscope was moved into position to visualize the vertebral bodies of interest in the AP and lateral plane, obtaining true linear projections of the endplates at each level, and was rotated in the ipsilateral oblique view approximately 35 degrees from true AP to visualize the vertebrae with respective ipsilateral facet joints visualized bisecting the superior disk space at the midpoint of the vertebral body. The superolateral border of the pedicle of each level treated was identified. After adequate general anesthesia was confirmed, the skin entry point was located and infiltrated with an adequate amount of a 1:1 admixture of 0.5% preservative free bupivacaine and 2.0% preservative-free lidocaine using a 27 gauge 1.5-inch hypodermic needle after negative aspiration for blood or bodily fluid. Appropriate introducer cannula trajectory was identified in the AP, oblique and lateral views, and local anesthesia was extended to periosteum in a similar fashion at each level treated using a 3.5 inch, 22-gauge Quincke spinal needle. A stab skin decision was made with a #11 scalpel blade and an 8-gauge introducer cannula with beveled tip was then introduced through the skin, subcutaneous tissue and paraspinal muscle until contact was made with the bony surface of the pedicle at the target level. A ppropriate position was confirmed in both the AP and lateral views. Using a 24- ounce surgical mallet, the trocar was advanced through the left pedicle to the posterior aspect of the vertebral body using a combination of AP and lateral views to ensure appropriate travel through the pedicle without breach of its medial wall or entry into the epidural/neuroforaminal space. Once the trocar had entered the posterior aspect of the L5 vertebral body, the trocar was removed from the cannula and the curved cannula assembly was inserted followed by replacement of the original straight stylette with the Nitinol J ? stylette without difficulty. The wingnut on the device was rotated counterclockwise to its endpoint permitting excursion of the J ? stylette. The curved cannula assembly was then advanced under intermittent fluoroscopic guidance, using the surgical mallet, in 1 to 2 mm increments with observed travel anteriorly and medially through the vertebral body in both the AP and lateral views. When necessary, the J-stylette was intermittently removed and replaced with the straight stylette during advancement to reach the basivertebral nerve target near the center point of the vertebral body. Target was reached when the tip of the stylette was noted to be a minimum of 1 cm anterior to the posterior wall and approximately 30 to 50% of the posterior to anterior diameter of the targeted vertebral body and at the midpoint of the distance between the superior and inferior endplates, with tip of the stylette crossing midline as represented by the spinous process in the carefully aligned AP projection. J- stylette was then removed and the bipolar radiofrequency probe was connected to the generator and inserted into the introducer cannula until the proximal and distal electrodes straddled the midpoint of the vertebral body. The wingnut was then rotated clockwise to retract the PEEK sleeve and expose the proximal electrode on the radiofrequency probe. The basivertebral nerve was then ablated through activation of the probe and generator. At each level treated, ablation was performed at 85 degrees centigrade for 7 minutes using [facility]'s RFG standard intraosseous ablation algorithm while simultaneously monitoring for any sign of motor or sensory nerve stimulation. While ablative lesioning was progressing to completion at the initial level, the fluoroscope was adjusted to successively visualize the target of entry at the superolateral aspect of the pedicle at each additional level treated, (L2, L3, L4), with each vertebral body subsequently and sequentially accessed and target nerve ablated in a similar manner modified only to accommodate for specific level, location and anatomical variation, alternating the site and side of entry to facilitate cannula placement. This was achieved in all cases without difficulty. Location of each entry point, final cannula and probe position was documented by fluoroscopy in the AP and lateral views with respective images recorded in the patient's chart. In all cases, once intraosseous access was obtained, needle tip remained intraosseous without violation of the pedicular wall, vertebral wall, neuroforamen and/or spinal canal. Once all ablations were complete, instruments were removed from the vertebral bodies without difficulty under direct visualization and fluoroscopic guidance. Pressure was held at each entry site until hemostasis was confirmed. Skin was cleaned with alcohol -soaked gauze and dried with a sterile towel. Surgical wounds were then closed with mastisol and Steri-Strips placed in a crisscrossing fashion and covered with a sterile Telfa and Tegaderm dressing. The patient was returned to the supine position and anesthesia was reversed without difficulty or event. The patient tolerated the procedure well with no evidence of complication. Patient was transported to the recovery room where they were monitored for an appropriate period of time prior to discharge. During this time, the patient demonstrated no evidence of new neurologic symptom or injury, uncontrolled pain, postsurgical or post anesthetic complication. The patient was eventually discharged with both written and verbal instructions for appropriate wound care and activity restriction and with instructions to contact the office or report directly to the emergency department if no immediate response or if after hours with any signs of urgent or emergent complication including but not limited to excessive discharge or bleeding, new focal or diffuse neurologic weakness, numbness or other sensory change in the upper or lower extremities, severe headaches, intractable nausea/vomiting, fevers, chills, night sweats, increasing pain or loss of bowel or bladder control. Patient will otherwise follow-up in person at the clinic in 7 to 10 days for wound check and reevaluation. COMPLICATIONS: None. COMMENTS: None. IV FLUIDS: On Chart. EBL: 10 ml. DRAINS: None. PACKING: None. SPECIMEN: None. Pathology None sent Complications No immediate complications Condition Stable Disposition PACU [facility] Billing Surgery - Charge Forward: Surgery Billing
[2024-08-10] MEDS: ceFAZolin 2 GM/D5W 50 ML 2 GM/50 ML BAG IVPB (07:47)
--- NOTE | 2024-08-10 09:12 | SUR.OPER ---
During procedure pt was trailing down in oxygen saturation. Dressings were placed on the two incisions present at the time to protect wounds, Patient was then flipped back onto stretcher to allow anesthesia to manage endotracheal tube and vitals. Patient stabilized by AIRSET CASTER and proceeded w/ remainder of surgery. See anesthesia note.
[2024-08-10] MEDS: LIDOCAINE 1% LOCAL INJ 10 ML VIAL INFILTRATE (09:53)
[2024-08-10] MEDS: BUPIVACAINE/EPINEPHRINE 0.5% 50 ML VIAL 30 ML INFILTRATE (09:53)
[2024-08-10] MEDS: fentaNYL CITRATE INJ (*CRX) 100 MCG/2 ML VIAL 25 MCG IV PUSH ×4 (10:32→10:45)
[2024-08-10] MEDS: hydrALAZINE HCL 20 MG/ML VIAL 5 MG IV PUSH ×2 (11:05→11:15)
--- NOTE | 2024-08-10 12:48 | SUR.PHASEII ---
1230 PT MEETS ANESTHESIA DISCHARGE CRITERIA. DISCHARGE INSTRUCTIONS GIVEN TO PT- ALL QUESTIONS ANSWERED. DRESSED & WAITING ON RIDE HOME.
== END 2024-08-10 12:46 | disposition home or self-care (01) ==
PROVIDERS: PCP Family Medicine; Visit Provider Anesthesiology Pain Medicine
PROC: (CPT 64628; principal; 2024-08-10 07:30)
DX: M54.51 Vertebrogenic low back pain (principal); M54.50 Low back pain, unspecified; G89.29 Other chronic pain; I10 Essential (primary) hypertension; E78.5 Hyperlipidemia, unspecified; E03.9 Hypothyroidism, unspecified; G47.33 Obstructive sleep apnea (adult) (pediatric); N19 Unspecified kidney failure; I47.19 Other supraventricular tachycardia; I25.10 Atherosclerotic heart disease of native coronary artery without angina pectoris; M51.369 Other intervertebral disc degeneration, lumbar region without mention of lumbar back pain or lower extremity pain; E66.9 Obesity, unspecified; Z68.36 Body mass index [BMI] 36.0-36.9, adult; Z79.891 Long term (current) use of opiate analgesic; Z98.890 Other specified postprocedural states; Z87.891 Personal history of nicotine dependence
CPT/HCPCS: 64628; 64629 ×2; 99199; A9270; C1889; J0360; J0690; J1100; J1200; J1596; J2003; J2250; J2371; J2405; J2704; J3010; J7120

== ENCOUNTER 2024-08-25 08:12 | Emergency (ER) | payer MEDICARE, SELFPAY ==
--- NOTE | ~2024-08-25 | XR_ITS ---
XR hip RT min 2V Ordering provider: Radha Gómez APRN History: . right hip pain . Comparison: None. FINDINGS: BONES: No acute fracture or dislocation. HIP JOINT SPACES: Moderately narrowed right hip. SACROILIAC JOINT SPACES/LUMBAR SPINE: The sacroiliac joint spaces are normal. Mild degenerative rogers es of the visualized lower lumbar spine. PUBIC SYMPHYSIS: Pubic symphysitis. SOFT TISSUES: Normal. IMPRESSION: No acute osseous abnormality pelvis and right hip. Moderate osteoarthritic changes of the right hip. Reviewed, dictated and finalized at location A.
--- NOTE | 2024-08-25 08:15 | ED_ITS ---
HPI - Extremity Injury (Lower) General Chief Complaint: Extremity Problem,Nontraumatic Stated Complaint: R Hip Pain Source: patient and RN notes reviewed Mode of arrival: ambulatory Limitations: no limitations History of Present Illness HPI Narrative: Patient is a 68-year-old female who presents to the [facility] with complaints of right hip pain. Patient states that she experienced chronic right hip pain further several months. She states that she had an MRI last fall that showed arthritis. She states that over the past week, she has had increasing pain in the right hip. She denies low back pain at this time. States that the pain worsens with movement and ambulation. She denies known injury but reports increased movements of getting on and off step stools. She is neurovascularly intact distally. Sensation is intact. Related Data Home Medications ?Medication ?Instructions ?Recorded ?Confirmed ?Last Taken ?Type cetirizine 10 mg capsule (Zyrtec) 10 mg PO DAILY PRN allergy symptoms 04/20/24 08/10/24 08/10/24 History montelukast 10 mg tablet 10 mg PO DAILY PRN allergy symptoms 04/20/24 07/23/24 Unknown History acetaminophen 500 mg tablet 1,000 mg PO TID 06/16/24 07/23/24 Unknown History (Acetaminophen Extra Strength) diclofenac sodium 1 % topical gel 2 g topical QID 07/15/24 07/23/24 Unknown History (Arthritis Pain (diclofenac)) Allergies Allergy/AdvReac Type Severity Reaction Status Date / Time atorvastatin Allergy Mild Hives Verified 08/25/24 08:26 hydrocodone Allergy Hives Verified 08/25/24 08:26 Review of Systems Review of Systems: CONSTITUTIONAL: Denies fever, chills, or sweats. EYES: Denies visual changes, redness, or discharge. ENT: Denies otalgia and sore throat CARDIOVASCULAR: Denies chest pain, palpitations, or edema. RESPIRATORY: Denies cough or dyspnea. GASTROINTESTINAL: Denies abdominal pain, nausea, vomiting, or diarrhea. GENITOURINARY: Denies dysuria or hematuria. SKIN: Denies rash or itching. MUSCULOSKELETAL: Reports right hip pain. NEUROLOGIC: Denies headache, numbness, or weakness. Pertinent positives per HPI. FORMERLY [facility], 1928–1983 Past Medical History Medical History Hypertension PAT (paroxysmal atrial tachycardia) CAD (coronary artery disease) THAO (obstructive sleep apnea) Urinary tract infection Dyslipidemia Scalp lesion Hearing loss in left ear Unilateral hearing loss Abnormal stress test Patellofemoral syndrome, left Tendinitis of right rotator cuff Idiopathic urticaria Former smoker quit 1994 Hx of acute renal failure DDD (degenerative disc disease), lumbar UTI (urinary tract infection) Hypothyroid Surgical History Surgical History History of left knee replacement 12/2021 [facility] History of right knee joint replacement Hx of colonoscopy . repeat on 5 years due to fam hx History of total right knee replacement History of bladder surgery sling Social History Social History Smoking packs per day: 0.5 Smoking cigarettes per day: 10.0 Years smoked: 15 Smoking pack-years: 7.50 Smoking status: Former smoker Tobacco type: cigarettes Second hand tobacco smoke exposure: Yes Smoking end date: 03/10/94 Alcohol intake: current Drinks per week: 1 Alcohol use details: 2 DRINKS PER MONTH Substance use: never Substance use type: does not use Lack of Transportation: No Lack of Food: Never True Current Housing: I Have Housing Concerned About Future Housing: No Difficulty Paying Gas/Electric Bills: No Difficulty Paying for Meds: No Currently Unemployed: No Education: Bachelor's Degree Difficulty w/ Childcare or Family Care: No Living arrangements: alone Occupation/Education: occupation Gender identity (if verbalized by the patient): Female Spiritual care concerns: No Comments At the time of my signature, I reviewed and agree with the nursing past medical, surgical, social, and family history. There is no relevant family history pertinent to the patient complaint. Exam Narrative: GENERAL: This is a well-nourished, well-developed patient, in no apparent di stress. HEAD: normocephalic, atraumatic. EYES: PERRL. Sclera clear/white. Vision is grossly intact. EARS: External ears normal, auditory canals clear and without drainage, TMs normal without perforation. Hearing grossly intact. NOSE: External nose normal with no obvious nasal discharge, nares without redness, no rhinorrhea. THROAT: Mucous membranes moist, posterior pharynx clear. NECK: Neck supple, non-tender without lymphadenopathy, masses or thyromegaly. CARDIOVASCULAR: Regular rate and rhythm without murmurs, gallops, or rubs. RESPIRATORY: Clear to auscultation. Breath sounds equal bilaterally. No wheezes, rales, or rhonchi. GASTROINTESTINAL: Abdomen soft, non-tender, nondistended. Bowel sounds are active. No hepato-splenomegaly, or palpable masses. No guarding. SKIN: warm, intact with no suspicious lesions or rash, good texture and turgor. NEURO: awake, alert, and oriented to person, place and time. There were no obvious focal neurologic abnormalities. EXTREMITIES: pt is able to ambulate to treatment area with/without difficulty with mild discomfort. No surface trauma, ecchymosis. No erythema, warmth. No deformity, crepitus or obvious asymmetry of the affected leg compared to other. No tender over symphysis pubis, ischial bone, iliac crest, trochanter, ST notch. ROM unlimited.Distal motor and neurovascular status are intact. BACK: Nontender without deformity or crepitance. No flank tenderness. Course Course Level of Care: Express Care Visit Vital Signs Vital signs: Vital Signs Temperature 97.7 F 08/25/24 08:20 Pulse Rate 55 L 08/25/24 08:20 Respiratory Rate 20 08/25/24 08:20 Blood Pressure 176/83 H 08/25/24 08:20 Pulse Oximetry 99 08/25/24 08:20 Oxygen Delivery Room Air 08/25/24 08:20 Temperature 97.7 F 08/25/24 08:20 Pulse Rate 55 L 08/25/24 08:20 Respiratory Rate 20 08/25/24 08:20 Blood Pressure 176/83 H 08/25/24 08:20 Pulse Oximetry 99 08/25/24 08:20 Oxygen Delivery Room Air 08/25/24 08:20 Reviewed MDM - Extremity Injury (Lower) MDM Narrative Medical decision making narrative: Use the RICE method at home. Arthritis is inflammation of one or more of your joints. Pain, swelling, and stiffness are the primary symptoms of arthritis. Minimize activities that aggravate the condition, such as climbing stairs. Switching from high impact activities (like jogging or tennis) to lower impact activities (like swimming or cycling) will put less stress on your hip. Please schedule a follow up visit with your personal physician for further evaluation and treatment within 1-2week OR if your symptoms persist, change or worsen significantly before you can contact your personal physician then please, without delay, go to the emergency department for further evaluation. Differential Diagnosis Differential diagnosis: Likely fracture of hip and other (hip contusion, hip sprain) Imaging Data Attestation: I personally reviewed and interpreted this imaging study as follows: Radiologist's impression: Close Hip X-Ray (Signed) Matthew Morales - 08/25/24 Launch?[facility] [address] [place] [address] XRay Report Signed Patient: Monica Kearns : 1955 MR#: [id number] Age: 68 Acct:[id number] Loc: [id number] ADM Date: 08/25/24Attending Dr: Ordering Physician: Radha Gómez APRN Date of Service: 08/25/24 Procedure(s): XR hip RT min 2V Accession Number(s): [id number] cc: Radha Gómez APRN; Sandra Santana MD~ XR hip RT min 2V Ordering provider: Radha Gómez APRN History: . right hip pain . Comparison: None. FINDINGS: BONES: No acute fracture or dislocation. HIP JOINT SPACES: Moderately narrowed right hip. SACROILIAC JOINT SPACES/LUMBAR SPINE: The sacroiliac joint spaces are normal. Mild degenerative changes of the visualized lower lumbar spine. PUBIC SYMPHYSIS: Pubic symphysitis. SOFT TISSUES: Normal. IMPRESSION: No acute osseous abnormality pelvis and right hip. Moderate osteoarthritic changes of the right hip. Reviewed, dictated and finalized at location A. Please be advised this is a medical document. It is intended for ogbj-hu-ipud communication. It is written in medical language and may contain unfamiliar abbreviations or verbiage. Medical documents are intended to carry relevant information, facts as evident, and the clinical opinion of the practitioner at the time of the encounter. This report may have been done utilizing a voice recognition system. Attempts have been made to correct errors. However, there may be uncorrected grammatical, spelling, and recognition errors present. The file time of this note does not necessarily represent the time of service. Dictated By: Matthew Morales MD 08/25/24 0841 Signed By: <Electronically signed by Matthew Morales MD in OV> 08/25/24 0844 Critical Care Time Critical Care Time Critical Care Time: No Discharge Plan Discharge Clinical Impression: Osteoarthritis of right hip Qualifiers: Osteoarthritis type: unspecified Qualified Code(s): M16.11 - Unilateral primary osteoarthritis, right hip Patient Disposition: Home Condition: Stable Instructions: Osteoarthritis (ED), P.R.I.C.E. Treatment (ED) Additional Instructions: Use the RICE method at home. Arthritis is inflammation of one or more of your joints. Pain, swelling, and stiffness are the primary symptoms of arthritis. Minimize activities that aggravate the condition, such as climbing stairs. Switching from high impact activities (like jogging or tennis) to lower impact activities (like swimming or cycling) will put less stress on your hip. Please schedule a follow up visit with your personal physician for further evaluation and treatment within 1-2week OR if your symptoms persist, change or worsen significantly before you can contact your personal physician then please, without delay, go to the emergency department for further evaluation. Patient Language: Icelandic Prescriptions: No Action diclofenac sodium [Arthritis Pain (diclofenac)] 1 % gel 2 g topical QID Rx Instructions: apply to single elbow, wrist or hand; for hand includes palm/fingers/back of hand atorvastatin [Lipitor] 10 mg tablet 10 mg PO DAILY Qty: 90 2RF solifenacin [Vesicare] 10 mg tablet 10 mg PO DAILY Qty: 90 3RF montelukast 10 mg tablet 10 mg PO DAILY PRN (Reason: allergy symptoms) Zyrtec 10 mg capsule 10 mg PO DAILY PRN (Reason: allergy symptoms) cholecalciferol (vitamin D3) 1,250 mcg (50,000 unit) capsule 1,250 mcg PO WEEKLY Qty: 14 1RF Patient Comments: TAKES ON MONDAYS levothyroxine 100 mcg tablet 100 mcg PO DAILY Qty: 90 1RF rosuvastatin 5 mg tablet 5 mg PO DAILY Qty: 30 5RF tramadol 50 mg tablet 50 mg PO Q8H PRN (Reason: severe pain (scale score 7-10)) Qty: 21 0RF Rx Instructions: Last refill To refill on acetaminophen [Acetaminophen Extra Strength] 500 mg tablet 1,000 mg PO TID Follow-up/Referrals: Sandra Santana MD [Primary Care Provider] - Time of Disposition: 08:52
[2024-08-25 08:20] VITALS: BP 176/83; PULSE 55; RESP 20; TEMP 36.5; O2SAT 99
[2024-08-25] MEDS: dexAMETHasone SOD PHOS INJ 10 MG/ML 1 ML VIAL 8 MG IM (09:01)
[2024-08-25] MEDS: KETOROLAC 30 MG/ML VIAL (*BKC) IM (09:02)
--- NOTE | 2024-08-25 09:03 | PC.NURSE ---
0900- pt requested to have both injections in the right hip, even after explaining to pt that it may cause more pain and injury to the muscle, and it will not work any better or faster giving it in seperate muscle areas. - pt verbalized understanding, still requesting both in the same area together.
== END 2024-08-25 09:10 | disposition home or self-care (01) ==
PROVIDERS: Emergency Provider Nurse Practitioner; PCP Family Medicine
DX: M16.11 Unilateral primary osteoarthritis, right hip (principal); Z87.891 Personal history of nicotine dependence; I10 Essential (primary) hypertension; I48.0 Paroxysmal atrial fibrillation; I25.10 Atherosclerotic heart disease of native coronary artery without angina pectoris; E78.5 Hyperlipidemia, unspecified; E03.9 Hypothyroidism, unspecified; M51.369 Other intervertebral disc degeneration, lumbar region without mention of lumbar back pain or lower extremity pain; Z96.653 Presence of artificial knee joint, bilateral
CPT/HCPCS: 73502; 96372; 99214; G0463; J1100; J1885

== ENCOUNTER 2024-10-26 11:32 | Outpatient (CLI) | payer MEDICARE, SELFPAY ==
--- OUTSIDE RECORDS SUMMARY | 2024-10-26 12:02 | XMS_ITS | Encounter Summary ---
Author Organization [facility] Address [address] [place] [address] Care Team Providers Care Lump Room Supervisor Name Role Phone Sandra Santana MD Primary Care Provider Encounter Details Date Type Department Care Team (Late st Contact Info) Description 04/28/2006 Orders Only [facility] Internal Medicine - [place] [address] [place] [address] Tee Locke MD [address] [facility] [address] [facility] [place] [address] Social History Tobacco Use Types Packs/Day Years Used Date Smoking Tobacco: Never Assessed Comments Unknown Sex and Gender Information Value Date Recorded Sex Assigned at Not on file Legal Sex Female 2:43 AM COUNTER WAITRESS/WAITER Gender Identity Not on file Sexual Orientation [...] 60 Dispensed, status: CONTINUED, 07/10/2005, Comment: vishnu fairbanks 10.34 [phone]. DOCTOR`S RESPONSE: jessica 04/28/06 at 01:50 pm Refill this time only. FINAL ACTION: hayden 04/28/06 at 02:13 pm Called pharmacy at 04/28/06 at 02:13 pm. Electronically Signed by: Lore Cui on Friday, April 28, 2006 documented in this encounter Plan of Treatment Upcoming Encounters Date Type Department Care Team (Late st Contact Info) Description 12/02/2024 10:15 AM CDT Office Visit [facility] Sleep Medicine [facility] [address] [facility] [address] [place] [address] Robyn Tracey, [facility] [address] [facility] 280 [place] [address] 12/31/2024 10:00 AM CDT Appointment [facility] [address] [facility] 1400 [place] [address] Sandra Santana MD [facility] 200 [place] [address] documented as of this encounter Visit Diagnoses Not on filedocumented in this encounter Care Teams Lump Room Supervisor Relationship Specialty Start Date End Date Sandra Santana MD PCP - General Family Practice 05/17/21 documented as of this encounter
--- OUTSIDE RECORDS SUMMARY | 2024-10-26 12:02 | XMS_ITS | Encounter Summary ---
Author Organization [facility] Address [address] [place] [address] Care Team Providers Care Bss Solution Architect Name Role Phone Sandra Santana MD Primary Care Provider Encounter Details Date Type Department Care Team (Late st Contact Info) Description 01/29/2006 Outpatient Historical [facility] Internal Medicine - [place] [address] [place] [address] Tee Locke MD [address] [facility] [address] [place] [address] Social History Tobacco Use Types Packs/Day Years Used Date Smoking Tobacco: Never Assessed Comments Unknown Sex and Gender Information Value Date Recorded Sex Assigned at Not on file Legal Sex Female 2:43 AM PROCESS LABORATORY SPECIALIST Gender Identity Not on file Sexual Orientation Not on file documented as of this encounter Plan of Treatment Upcoming Encounters Date Type Department Care Team (Late st Contact Info) Description 12/02/2024 10:15 AM CDT Office Visit [facility] Sleep Medicine [facility] [address] [address] Robyn Tracey, STONE SPLITTER- [address] [address] 12/31/2024 10:00 AM CDT Appointment [facility] Center at [address] [place] [address] Sandra Santana MD [facility] [address] [place] [address] documented as of this encounter Visit Diagnoses Not on filedocumented in this encounter Care Teams Bss Solution Architect Relationship Specialty Start Date End Date Sandra Santana MD PCP - General Family Practice 05/17/21 documented as of this encounter
--- OUTSIDE RECORDS SUMMARY | 2024-10-26 12:02 | XMS_ITS | Encounter Summary ---
Author Organization [facility] Address [address] [place] [address] Care Team Providers Care Assisted Living Coordinator Name Role Phone Sandra Santana MD Primary Care Provider Encounter Details Date Type Department Care Team (Late st Contact Info) Description 01/29/2006 Orders Only [facility] Internal Medicine - [place] [address] [place] [address] Tee Locke MD [address] [facility] [address] [place] [address] Social History Tobacco Use Types Packs/Day Years Used Date Smoking Tobacco: Never Assessed Comments Unknown Sex and Gender Information Value Date Recorded Sex Assigned at Not on file Legal Sex Female 2:43 AM DIESEL LOCOMOTIVE ENGINEER Gender Identity Not on file Sexual [...] 530.81-GASTROESOPHAGEAL REFLUX (GERD) LAB ORDERS: Order number: [id number] Test Ordered: ENDOSCOPY Order number: [id number] Test Ordered: COLONOSCOPY 724.5-BACK PAIN V70.0-ROUTINE GENERAL MEDICAL EXAMINATION LAB ORDERS: Order number: [id number] Test Ordered: COMPREHENSIVE METABOLIC PANEL W/ GLOMERULAR FILTRATION RATE, ESTIMATED (EGFR) 27869 Order number: [id number] Test Ordered: TSH 899 Order number: [id number] Test Ordered: CBC (INCLUDES DIFF/PLT) 6399 Order number: [id number] Test Ordered: INJ-TETANUS & DIPTHERIA TOXOID [id number] 625.4-PREMENSTRUAL SYNDROME (PMS) MEDICATIONS: NEURONTIN ORAL CAPSULE [...] Electronically Signed by: Tee Locke MD on Friday, January 29, 2006 documented in this encounter Plan of Treatment Upcoming Encounters Date Type Department Care Team (Late st Contact Info) Description 12/02/2024 10:15 AM CDT Office Visit [facility] Sleep Medicine [facility] [address] [facility] [place] [address] [place] [address] Robyn Tracey, GARMENT PARTS CUTTER MACHINE- [address] [facility] 280 [place] [address] 12/31/2024 10:00 AM CDT Appointment [facility] at [facility] [address] [facility] [address] [place] [address] Sandra Santana MD [address] [place] [address] 200 [place] [address] documented as of this encounter Visit Diagnoses Not on filedocumented in this encounter Care Teams Assisted Living Coordinator Relationship Specialty Start Date End Date Sandra Santana MD PCP - General Family Practice 05/17/21 documented as of this encounter
--- OUTSIDE RECORDS SUMMARY | 2024-10-26 12:02 | XMS_ITS | Encounter Summary ---
Author Organization [facility] Address [address] [place] [address] Care Team Providers Care Steam Crane Operator Name Role Phone Sandra Santana MD Primary Care Provider Encounter Details Date Type Department Care Team (Late st Contact Info) Description 01/29/2006 Outpatient Historical [facility] Internal Medicine - [place] [address] [place] [address] Tee Locke MD [address] [facility] [address] [place] [address] Social History Tobacco Use Types Packs/Day Years Used Date Smoking Tobacco: Never Assessed Comments Unknown Sex and Gender Information Value Date Recorded Sex Assigned at Not on file Legal Sex Female 2:43 AM ART SPECIALIST Gender Identity Not on file Sexual Orientation Not on file documented as of this encounter Plan of Treatment Upcoming Encounters Date Type Department Care Team (Late st Contact Info) Description 12/02/2024 10:15 AM CDT Office Visit [facility] Sleep Medicine [facility] [address] [address] Robyn Tracey, CONSERVATION BIOLOGY PROFESSOR- [address] [address] 12/31/2024 10:00 AM CDT Appointment [facility] Cancer Center at [address] [place] [address] Sandra Santana MD [facility] [address] [place] [address] documented as of this encounter Visit Diagnoses Not on filedocumented in this encounter Care Teams Steam Crane Operator Relationship Specialty Start Date End Date Sandra Santana MD PCP - General Family Practice 05/17/21 documented as of this encounter
--- OUTSIDE RECORDS SUMMARY | 2024-10-26 12:02 | XMS_ITS | Encounter Summary ---
Author Organization [facility] Address [address] [place] [address] Care Team Providers Care Game Producer Name Role Phone Sandra Santana MD Primary Care Provider [phone] Encounter Details Date Type Department Care Team (Late st Contact Info) Description 03/25/2006 Orders Only [facility] Internal Medicine - [place] [address] [place] [address] Tee Locke MD [address] [facility] [address] [facility] [place] [address] Social History Tobacco Use Types Packs/Day Years Used Date Smoking Tobacco: Never Assessed Comments Unknown Sex and Gender Information Value Date Recorded Sex Assigned at Not on file Legal Sex Female 2:43 AM SPICE 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 LAST VISIT: 01/29/06 PCP: tan. ALTERNATIVE PHONE NUMBER: [phone] WHO CALLED: Patient called. CURRENT ALLERGY LIST: [facility] NUMBER: [phone] SECTION 1: pt. [...] Visit [facility] [address] [facility] 280 [place] [address] Robyn Tracey, [facility] [address] [facility] 280 [place] [address] 12/31/2024 10:00 AM CDT Appointment [facility] Cancer Center at [facility] [address] Josiane [email or web address] [address] [place] [address] Sandra Santana MD [address] [place] [address] Dr [address] [place] [address] documented as of this encounter Visit Diagnoses Not on filedocumented in this encounter Care Teams Game Producer Relationship Specialty Start Date End Date Sandra Santana MD PCP - General Family Practice 05/17/21 documented as of this encounter
--- OUTSIDE RECORDS SUMMARY | 2024-10-26 12:03 | XMS_ITS | Encounter Summary ---
Author Organization [facility] Address [address] [place] [address] Care Team Providers Care Ore Crusher Name Role Phone Sandra Santana MD Primary Care Provider Encounter Details Date Type Department Care Team (Late st Contact Info) Description 02/19/2005 Outpatient Historical [facility] Internal Medicine - [place] [address] [place] [address] Esteban Auguste MD [address] [facility] [place] [address] Social History Tobacco Use Types Packs/Day Years Used Date Smoking Tobacco: Never Assessed Comments Unknown Sex and Gender Information Value Date Recorded Sex Assigned at Not on file Legal Sex Female 2:43 AM RN PAIN MANAGEMENT Gender Identity Not on file Sexual Orientation Not on file documented as of this encounter Last Filed Vital Signs Vital Sign Reading Time Taken Comments Blood Pressure 118/74 02/19/2005 10:15 AM RN PAIN MANAGEMENT Pulse - - Temperature - - Respiratory Rate - - Oxygen Saturation - - Inhaled Oxygen Concentration - - Weight 92.1 kg (203 lb) 02/19/2005 10:15 AM RN PAIN MANAGEMENT Height - - Body Mass Index - - documented in this encounter Plan of Treatment Upcoming Encounters Date Type Department Care Team (Late st Contact Info) Description 12/02/2024 10:15 AM CDT Office Visit [facility] Sleep Medicine [address] [place] [address] [place] [address] Robyn Tracey, PLYCOR OPERATOR- [address] [facility] 280 [place] [address] 12/31/2024 10:00 AM CDT Appointment [facility] Cancer Center at [facility] [address] [facility] 1400 [place] [address] Sandra Santana MD [address] [place] [address] [facility] 200 [place] [address] documented as of this encounter Visit Diagnoses Not on filedocumented in this encounter Care Teams Ore Crusher Relationship Specialty Start Date End Date Sandra Santana MD PCP - General Family Practice 05/17/21 documented as of this encounter
--- OUTSIDE RECORDS SUMMARY | 2024-10-26 12:03 | XMS_ITS | Encounter Summary ---
Author Organization [facility] Address [address] [place] [address] Care Team Providers Care Photolettering Machine Operator Name Role Phone Sandra Santana MD Primary Care Provider Encounter Details Date Type Department Care Team (Late st Contact Info) Description 05/15/[address] [facility] Internal Medicine [facility] [address] [place] [address]. [address] [address] Chung Esteves MD NO ADDRESS ON FILE Social History Tobacco Use Types Packs/Day Years Used Date Smoking Tobacco: Never Assessed Comments Unknown Sex and Gender Information Value Date Recorded Sex Assigned at Not on file Legal Sex Female 2:43 AM BRIM SETTER Gender Identity Not on file Sexual Orientation Not on file documented as of this encounter Plan of Treatment Upcoming Encounters Date Type Department Care Team (Late Contact Info) Description 12/02/2024 10:15 AM CDT Office Visit [facility] Sleep Medicine [facility] [address] [address] Robyn Tracey, SEARCH ADVERTISING STRATEGISTNORTH [facility] [address] [address] 12/31/2024 10:00 AM CDT Appointment [facility] Cancer Center at [facility] [address] Josiane Kemp [address] [place] [address] Sandra Santana MD [address] [facility] [address] [place] [address] documented as of this encounter Visit Diagnoses Not on filedocumented in this encounter Care Teams Photolettering Machine Operator Relationship Specialty Start Date End Date Sandra Santana MD PCP - General Family Practice 05/17/21 documented as of this encounter
--- OUTSIDE RECORDS SUMMARY | 2024-10-26 12:03 | XMS_ITS | Encounter Summary ---
Author Organization [facility] Address [address] [place] [address] Care Team Providers Care Wood Fence Installer Name Role Phone Sandra Santana MD Primary Care Provider Encounter Details Date Type Department Care Team (Late st Contact Info) Description 01/01/2000 Outpatient Historical [facility] Internal Medicine - [place] [address] [place] [address] Tee Locke MD [address] [facility] [address] [place] [address] Social History Tobacco Use Types Packs/Day Years Used Date Smoking Tobacco: Never Assessed Comments Unknown Sex and Gender Information Value Date Recorded Sex Assigned at Not on file 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 [address] [address] Robyn Tracey, INTERMODAL CUSTOMER SERVICE- [address] [address] 12/31/2024 10:00 AM CDT Appointment [facility] Cancer Center at [address] [place] [address] Sandra Santana MD [facility] [address] [place] [address] documented as of this encounter Visit Diagnoses Not on filedocumented in this encounter Care Teams Wood Fence Installer Relationship Specialty Start Date End Date Sandra Santana MD PCP - General Family Practice 05/17/21 documented as of this encounter
--- OUTSIDE RECORDS SUMMARY | 2024-10-26 12:03 | XMS_ITS | Encounter Summary ---
Author Organization [facility] Address [address] [place] [address] Care Team Providers Care Hardwood Floor Refinisher Name Role Phone Sandra Santana MD Primary Care Provider Encounter Details Date Type Department Care Team (Late st Contact Info) Description 12/17/2001 Outpatient Historical [facility] Internal Medicine - [place] [address] [place] [address] Tee Locke MD [address] [facility] [address] [place] [address] Social History Tobacco Use Types Packs/Day Years Used Date Smoking Tobacco: Never Assessed Comments Unknown Sex and Gender Information Value Date Recorded Sex Assigned at Not on file Legal Sex Female 2:43 AM SOLUTION ADVISOR Gender Identity Not on file Sexual Orientation Not on file documented as of this encounter Plan of Treatment Upcoming Encounters Date Type Department Care Team (Late st Contact Info) Description 12/02/2024 10:15 AM CDT Office Visit [facility] Sleep Medicine [facility] [address] [address] Robyn Tracey, BAIT PAINTER- [address] [address] 12/31/2024 10:00 AM CDT Appointment [facility] Cancer Center at [address] [place] [address] Sandra Santana MD [facility]4 [facility] [address] [place] [address] documented as of this encounter Visit Diagnoses Not on filedocumented in this encounter Care Teams Hardwood Floor Refinisher Relationship Specialty Start Date End Date Sandra Santana MD PCP - General Family Practice 05/17/21 documented as of this encounter
--- OUTSIDE RECORDS SUMMARY | 2024-10-26 12:03 | XMS_ITS | Encounter Summary ---
Author Organization [facility] Address [address] [place] [address] Care Team Providers Care Deckhand Clam Dredge Name Role Phone Sandra Santana MD Primary Care Provider [phone] Encounter Details Date Type Department Care Team (Late st Contact Info) Description 06/10/2007 Orders Only [facility] Internal Medicine Medical [facility] 3017 [facility] [place]. 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 Gender Identity Not on file Sexual Orientation Not on file documented as of this encounter Plan of Treatment Upcoming Encounters Date Type Department Care Team (Late Contact Info) Description 12/02/2024 10:15 AM CDT Office Visit [facility] Sleep Medicine [facility] [address] [address] Robyn Tracey, DECKHAND CL[facility] [address] [address] 12/31/2024 10:00 AM CDT Appointment [facility] Cancer Center at [facility] [address] Josiane Kemp [address] [place] [address] Sandra Santana MD [address] [facility] [address] [place] [address] documented as of this encounter Visit Diagnoses Not on filedocumented in this encounter Care Teams Deckhand Clam Dredge Relationship Specialty Start Date End Date Sandra Santana MD PCP - General Family Practice 05/17/21 documented as of this encounter
--- OUTSIDE RECORDS SUMMARY | 2024-10-26 12:03 | XMS_ITS | Encounter Summary ---
Author Organization [facility] Address [address] [place] [address] Care Team Providers Care Lawyer Criminal Name Role Phone Sandra Santana MD Primary Care Provider Encounter Details Date Type Department Care Team (Late st Contact Info) Description 05/15/2007 Outpatient Historical [facility] Internal Medicine Medical [facility] 3017 [facility] 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 Cancer Center at [facility] [address] Josiane Kemp [address] [place] [address] Sandra Santana MD [address] [facility] [address] [place] [address] documented as of this encounter Visit Diagnoses Not on filedocumented in this encounter Care Teams Lawyer Criminal Relationship Specialty Start Date End Date Sandra Santana MD PCP - General Family Practice 05/17/21 documented as of this encounter
--- OUTSIDE RECORDS SUMMARY | 2024-10-26 12:03 | XMS_ITS | Encounter Summary ---
Author Organization [facility] Address [address] [place] [address] Care Team Providers Care Tool And Die Manager Name Role Phone Sandra Santana MD Primary Care Provider Encounter Details Date Type Department Care Team (Late st Contact Info) Description 04/25/2005 Orders Only [facility] Internal Medicine - [place] [address] [place] [address] Tee Locke MD [address] [facility] [address] [facility] [place] [address] Social History Tobacco Use Types Packs/Day Years Used Date Smoking Tobacco: Never Assessed Comments Unknown Sex and Gender Information Value Date Recorded Sex Assigned at Not on file Legal Sex Female 2:43 AM CERTIFIED NURSE OPERATING ROOM Gender Identity Not on file Sexual Orientation [...] Description 12/02/2024 10:15 AM CDT Office Visit [facility] Sleep Medicine [facility] [address] [facility] 280 [place] [address] Robyn Tracey, CATALYST PLANT SUPERVISOR[facility]AB [facility] [address] [facility] 280 [place] [address] 12/31/2024 10:00 AM CDT Appointment [facility] Cancer Center at [facility] [address] [facility] 1400 [place] [address] Sandra Santana MD 3417 [facility] 200 [place] [address] documented as of this encounter Visit Diagnoses Not on filedocumented in this encounter Care Teams Tool And Die Manager Relationship Specialty Start Date End Date Sandra Santana MD PCP - General Family Practice 05/17/21 documented as of this encounter
--- OUTSIDE RECORDS SUMMARY | 2024-10-26 12:03 | XMS_ITS | Encounter Summary ---
Author Organization [facility] Address [address] [place] [address] Care Team Providers Care Superintendent Of Schools Name Role Phone Sandra Santana MD Primary Care Provider Encounter Details Date Type Department Care Team (Late st Contact Info) Description 07/11/1999 Outpatient Historical [facility] Internal Medicine - [facility] [address] [place] [address] Tee Locke MD [address] [place] [address] Social History Tobacco Use Types Packs/Day Years Used Date Smoking Tobacco: Never Assessed Comments Unknown Sex and Gender Information Value Date Recorded Sex Assigned at Not on file Legal Sex Female 2:43 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 MOVEMENT ASSEMBLY Gender Identity Not on file Sexual Orientation Not on file documented as of this encounter Plan of Treatment Upcoming Encounters Date Type Department Care Team (Late st Contact Info) Description 12/02/2024 10:15 AM CDT Office Visit [facility] Sleep Medicine [facility] [address] [address] Robyn Tracey, [place] [facility] [address] [address] 12/31/2024 10:00 AM CDT Appointment [facility] at [address] [place] [address] Sandra Santana MD [address] [place] [address] documented as of this encounter Visit Diagnoses Not on filedocumented in this encounter Care Teams Superintendent Of Schools Relationship Specialty Start Date End Date Sandra Santana MD PCP - General Family Practice 05/17/21 documented as of this encounter
--- OUTSIDE RECORDS SUMMARY | 2024-10-26 12:03 | XMS_ITS | Clinical Summary ---
Author Organization [facility] Address [address] [place] [address] Care Team Providers Care Medical Chemist Name Role Phone Davin Chase MD Unavailable [phone] Alee Thacker MD Primary Care Provider [phone] Source Comments [facility],non-owned Affiliates and Associated Physician Practices is amultiple site organization consisting of ambulatory clinics and hospital sitesin [place], [place], [place] and [place]. This disclosure is being madepursuant to the Care Everywhere program and may not contain all information available regarding this patient. Last updated 17.[facility] Allergies Active Allergy Reactions Criticality Noted Date Comments Atorvastatin Unknown 08/17/2024 Hydrocodone-Acetaminophen Urticaria High 04/02/2018 Swelling in lips and hives Medications * Be aware that medications may not be up to date on this document. Alwaysverify current medications with the patient. levothyroxine (SYNTHROID) 100 MCG tablet Take 100 mcg by mouth once daily 1 Active solifenacin (Vesicare) 10 MG tablet Take 10 mg by mouth every evening 2 Active diclofenac sodium (Voltaren) 1 % gel Apply to affected area 4 times daily Active diphenhydrAMIN E-APAP, sleep, (Acetaminophen PM) 25-500 MG tablet Take 1 (one) tablet by mouth nightly as needed for Insomnia Active vitamin D (Cholecacifero l) 125 MCG (5000 UT) capsule Take 1 (one) capsule by mouth every 7 days 3 Active Cetirizine HCl (ZYRTEC ALLERGY PO) 5 Active famotidine (Pepcid) 20 MG tablet 5 Active montelukast (Singulair) 10 MG tablet 5 Active rosuvastatin (Crestor) 5 MG tablet Take 1 (one) tablet by mouth once daily 5 Active traMADol (Ultram) 50 MG tablet TAKE 1 TABLET BY MOUTH EVERY 6 TO 8 HOURS NEEDED FOR SEVERE PAIN. DO NOT EXCEED 3 PER 24 HOURS. 5 Active acetaminophen (Tylenol) 500 MG tablet Take 1 (one) tablet by mouth 2 times daily Maximum allowable Acetaminophen amount = 4 Grams (4000 mg) / 24 hours. Active methylPREDNISo lone (Medrol Dosepak) 4 MG tabletIndicati ons:Inflammati on Take According to Package Instructions Reasons: Inflammation 21 tablet 5 Active Active Problems Problem Noted Date Diagnosed Date Presence of left artificial knee joint 5 Postoperative stiffness of total knee replacemen t 01/11/2022 Primary osteoarthritis of left knee 09/17/2021 THAO on CPAP 12/04/2018 History of total right knee replacement 03/16/19 19 Idiopathic urticaria 03/16/2018 Encounters Date Type Department Care Team Description 08/17/2024 2:00 PM CDT Office Visit [facility] [address] [place] [address], [address] [address] Davin Chase MD Postoperative stiffness of total knee replacement, subsequent encounter (Primary Dx) from Last 3 Months Social History Tobacco Use Types Packs/Day Years Used Date Smoking Tobacco: Former Cigarettes Smokeless Tobacco: Never Alcohol Use Standard Drinks/Week Comments Yes 0 (1 standard drink = 0.6 oz pur e alcohol) social PHQ-2 Answer Date Recorded Patient Health Questionnaire-2 Score 0 08/15/2024 Hunger Vital Sign Answer Date Recorded Within [...] on file Legal Sex Female 7:58 AM DIRECTOR MICROBIOLOGY Gender Identity Not on file Sexual Orientation [...] 12/19/2021 8:35 AM CDT Plan of Treatment Health Maintenance Due Date Last Done Comments COLOGUARD (AGES 45-75) - COLON CA SCREENING 1955 CT COLONOGRAPHY - COLON CA SCREENING 1955 FIT - COLON CA SCREENING 1955 FLEX SIG - COLON CA SCREENING 1955 HEPATITIS C SCREENING 10/08/1973 DTAP/TDAP/TD VACCINES (1 - Tdap) 10/12/1974 PNEUMOCOCCAL VACCINE 50+ (1 of 1 - PCV) 10/12/2005 ZOSTER VACCINE (1 of 2) 10/12/2005 COVID-19 VACCINE (4 - season) 2023 12/05/2020, 04/14/2020, 03/24/2020 MEDICARE AWV CALENDAR YEAR 2024 INFLUENZA VACCINE (#1) 2024 , 12/05/2020, 12/10/2019, Additional history exists MAMMOGRAM 12/29/2025 12/30/2023, 12/09, 12/27/2022, Additional history exists COLON MONITORING 01/08/2027 01/08/2017 COLONOSCOPY - COLON CA SCREENING 01/08/2027 01/08/2017 Colorectal Cancer Screening 01/08/2027 Respiratory Syncytial Virus (RSV) Vaccine Pt: or over 60 yrs (1 - 1-dose 75+ series) 10/12/2030 BONE DENSITY TESTING Completed 2020 DEPRESSION SCREENING Completed 08/17/2024 HEPATITIS B VACCINE Aged Out No longe [...] this topic Medical Devices Implanted Type Area Feller Seam Operator Device Identifier Shelf Expiration Date Model / Serial / Lot Cmnt Bone Djo Srg Cblt 40gm Hvisc Strl Implanted:Qty: 1 on 12/19/2021 by Davin Chase MD at [facility] Left: Knee [employer] 09/20/2022 [id number] / / [id number] Cmpnt Ptlr Std 28mm 3 Pg Kn Ser A Implanted:Qty: 1 on 12/19/2021 by Davin Chase MD at [facility] Left: Knee [employer] 01/09/2026 [id number] / / [id number] Tray Tib 75mm Kn Cocr I Beam Implanted:Qty: 1 on 12/19/2021 by Davin Chase MD at [facility] Left: Knee [employer] 08/15/2030 [id number] / / [id number] Cmpnt Fem Kn Lt Cr Cmnt Prm Vngrd Intlk Implanted:Qty: 1 on 12/19/2021 by Davin Chase MD at [facility] Left: Knee [employer] 11/13/2031 [id number] / / [id number] Brng [id number] Vngrd Arcm Kn Ant Stab Implanted:Qty: 1 on 12/19/2021 by Davin Chase MD at [facility] Left: Knee [employer] 10/04/2026 [id number] / / [id number] Insurance [facility] MEDICARE UHC MANAGED MEDICARE ADV Advance Directives Documents on File Type Date Recorded Patient Oracle Ebs Developer Expl anation Adv Directive/Living Will/POA 12/19/2021 * Full Code (Latest Code Status on File) Date Activated Date Inactivated Comments 12/19/2021 2:30 PM 12/20/2021 4:05 PM Care Teams Medical Chemist Relationship Specialty Start Date End Date Alee Thacker MD [address] [facility] [address] [place] [address] PCP - General 02/10/22 [place] [address] [place] [address] Surgeon Orthopedic Surgery 06/01/20
--- OUTSIDE RECORDS SUMMARY | 2024-10-26 12:03 | XMS_ITS | Encounter Summary ---
Author Organization [facility] Address [address] [place] [address] Care Team Providers Care Digital Technician Name Role Phone Sandra Santana MD Primary Care Provider Encounter Details Date Type Department Care Team (Late st Contact Info) Description 10/05/2004 Outpatient Historical [facility] Internal Medicine - [place] [address] [place] [address] Tee Locke MD [address] [facility] [address] [place] [address] Social History Tobacco Use Types Packs/Day Years Used Date Smoking Tobacco: Never Assessed Comments Unknown Sex and Gender Information Value Date Recorded Sex Assigned at Not on file Legal Sex Female 2:43 AM FISHING VESSEL DECKHAND Gender Identity Not on file Sexual Orientation [...] 10:15 AM CDT Office Visit [facility] Sleep Medicine [place] [address] [facility] [address] [place] [address] Robyn Tracey, [facility] [address] [facility] [address] [place] [address] 12/31/2024 10:00 AM CDT Appointment [facility] [place] at [facility] [address] [facility] [address] [place] [address] Sandra Santana MD [facility] [address] [place] [address] documented as of this encounter Visit Diagnoses Not on filedocumented in this encounter Care Teams Digital Technician Relationship Specialty Start Date End Date Sandra Santana MD PCP - General Family Practice 05/17/21 documented as of this encounter
--- OUTSIDE RECORDS SUMMARY | 2024-10-26 12:03 | XMS_ITS | Encounter Summary ---
Author Organization [facility] Address [address] [place] [address] Care Team Providers Care Car Seat Coverer Name Role Phone Sandra Santana MD Primary Care Provider Encounter Details Date Type Department Care Team (Late st Contact Info) Description 09/02/2005 Orders Only [facility] Internal Medicine - [place] [address] [place] [address] Tee Locke MD [address] [facility] [address] [place] [address] Social History Tobacco Use Types Packs/Day Years Used Date Smoking Tobacco: Never Assessed Comments Unknown Sex and Gender Information Value Date Recorded Sex Assigned at Not on file Legal Sex Female 2:43 AM CHARGE COORDINATOR Gender Identity Not on file Sexual Orientation Not on file documented as of this encounter Progress Notes * Tee Locke MD - 12/18/2007 8:50 AM CDT TIME:02:04 pm PATIENT`S HOME PHONE: PATIENT`S WORK PHONE: PATIENT`S INSURANCE: [employer] PPO WHO TOOK THE CALL: Ari Enamorado A GENERAL INFORMATION PATIENT STATUS: Established Patient. LAST VISIT: 04/30/05 PCP: tan. ALTERNATIVE PHONE NUMBER: [phone] WHO CALLED: Patient called. CURRENT ALLERGY LIST: [facility] NUMBER: [phone] PROBLEMS: SECTION 1: REQUESTED ACTION [facility] 09/02/05 at 02:04 pm: MEDICATION REQUEST: Patient [...] Fills, status: NEW PRESCRIPTION, 09/02/2005. FINAL ACTION: forndl 09/02/05 at 02:56 pm Called pharmacy at 09/02/05 at 02:56 pm. df/vm Electronically Signed by: Binta Garcia on Friday, September 02, 2005 documented in this encounter Plan of Treatment Upcoming Encounters Date Type Department Care Team (Late st Contact Info) Description 12/02/2024 10:15 AM CDT Office Visit [facility] Sleep Medicine [facility] [address] [facility] [address] [place] [address] Robyn Tracey, [facility] [address] [facility] [address] [place] [address] 12/31/2024 10:00 AM CDT Appointment [facility] at [facility] [address] [facility] [address] [place] [address] Sandra Santana MD [address] [place] [address] [address] [place] [address] documented as of this encounter Visit Diagnoses Not on filedocumented in this encounter Care Teams Car Seat Coverer Relationship Specialty Start Date End Date Sandra Santana MD PCP - General Family Practice 05/17/21 documented as of this encounter
--- OUTSIDE RECORDS SUMMARY | 2024-10-26 12:03 | XMS_ITS | Clinical Summary ---
Author Organization [facility] Address [address] [place] [address] Phone Care Team Providers Care Correctional Treatment Specialist Name Role Phone Sandra Santana MD Primary Care Provider [phone] Allergies Active Allergy Reactions Criticality Noted Date [...] days. 14 Capsule 1 01/23/2022 11:40 AM ROOF BOLTER HELPER 2 Active solifenacin (VESICARE) 10 mg Tablet Take 1 Tablet (10 mg) by mouth daily. 90 Tablet 1 01/23/2022 11:40 AM ROOF BOLTER HELPER 2 Active acetaminophen (TYLENOL) 500 mg Capsule Take 500 mg by mouth every 4 hours as needed. 2 Active calcium carbonate-vitam in D3 (CALTRATE 600 + D) 600 mg-20 mcg (800 unit) Tablet Take 1 Tablet by mouth daily with breakfast. Active celecoxib (CeleBREX) 200 mg capsule Take 1 (one) capsule by mouth 2 times daily 60 Capsule 5 01/24/2022 2:16 PM ROOF BOLTER HELPER 2 Active nitrofurantoin (MACROBID) 100 mg capsule Take 1 Capsule (100 mg) by mouth every 12 hours for 5 days. Take with a meal or food. 10 Capsule 01/24/2022 2:16 PM ROOF BOLTER HELPER 2 Active traMADoL (ULTRAM) 50 mg tablet Take 1-2 tablets by mouth every 6 hours as needed for pain. 42 Tablet 02/15/2022 11:27 AM ROOF BOLTER HELPER 2 Active levothyroxine 100 mcg tablet Take 1 Tablet (100 mcg) by mouth daily. 90 Tablet 2 02/25/2022 12:18 PM ROOF BOLTER HELPER 2 Active nabumetone (RELAFEN) 750 mg tablet Take 1 Tablet (750 mg) by mouth 2 times daily. 60 Tablet 5 03/08/2022 12:38 PM ROOF BOLTER HELPER 2 Active CPAP / BIPAP suppliesIndicat ions:THAO on CPAP CPAP Mask fit to comfort, Refit if needed, All associated CPAP Supplies as needed Length of need: 99 months DME [employer] 1 Each 4 Active Active Problems Patient Care Coordination No te Formatting of this note migh t be different from the original. DME: Provider [facility] Clinical Resear[place] [address] [facility] [address] [place] [address] / Problem Noted Date Diagnosed Date Abnormal cardiovascular stress test 12/10/2021 Overview (12/10/2021): Added automatically from request for surgery [id number] Pre-op evaluation 12/10/2021 Overview (12/10/2021): Added automatically from request for surgery [id number] Severe obesity (BMI 35.0-39.9) with comorbidity 10/18/2019 Obesity (BMI 35.0-39.9 without comorbidity) 09/08 TAHO on CPAP 12/04/2018 Obesity (BMI 30.0-34.9) 12/04/2018 Idiopathic urticaria 03/16/2018 History of total right knee replacement 03/16/19 Primary osteoarthritis of both knees 02/08/2018 Acquired hypothyroidism 09/16/2007 Mixed hyperlipidemia 05/15/2007 Overactive bladder 10/05/2004 Slow transit constipation SALVADRO (acute kidney injury) Resolved Problems Problem Noted [...] Encounters Date Type Department Care Team Description 10/12/2024 External Device Data STL ABSTRACTION Provider, Abstract 09/22/2024 External Device Data STL ABSTRACTION Provider, Abstract 09/21/2024 External Device Data STL ABSTRACTION Provider, Abstract 08/31/2024 External Device Data STL ABSTRACTION Provider, Abstract 07/27/2024 External Device Data STL ABSTRACTION Provider, Abstract from Last 3 Months Immunizations Immunization Administration Dates Next Due (ADACEL/BOOSTRIX)(10 YR UP) TDAP VACCINE, 0.5ML, IM 10/04/2019,12/06/2008 (PFIZER)(12 YR UP) COVID-19 VACCINE - EMERGENCY USE AUTHORIZATION, MRNA, [id number]) 30 MCG/0.3 ML IM SUSP 12/05/2020,04/14/2020,03/24/2020 (SHINGRIX)(50 [...] Date Smoking Tobacco: Former Cigarettes 0.3 10 5 - 1994 Smokeless Tobacco: Never Tobacco Cessation:Counseling Given: Not Answered Comments:social smoker only Alcohol Use Standard Drinks/Week Comments Yes 0 (1 standard drink = 0.6 oz pur e alcohol) Comments No Sex and Gender Information Value Date Recorded Sex Assigned at Not on file Legal Sex Female 2:43 AM ROOF BOLTER HELPER Gender Identity Not on file Sexual Orientation [...] 12/02/2024 10:15 AM CDT Office Visit [facility] [address] [facility] [address] [place] [address] Robyn Tracey, AUTOMOTIVE MACHINIST APPRENTICECITIZENS [facility] [address] [facility] [address] [place] [address] 12/31/2024 10:00 AM CDT Appointment [facility] at [facility] [address] [facility] [address] [place] [address] Sandra Santana MD [address] [facility] [address] [place] [address] Health Maintenance Due Date Last Done Comments FIT-DNA Q 3 years 10/12/2000 FIT/FOBT Q 1 year 10/12/2000 Flex Sig/CT Colonography Q 5 years 10/12/2000 PNEUMOCOCCAL VACCINE 50+ YEA RS (1 of 1 - PCV) 10/12/2005 RSV VACCINE (60+ or ) (1 - Risk 60-74 years 1-dose series) 2015 Pre-Diabetes and Diabetes Screening 10/21/2023 10/20/2020, 09/04/2018, 09/04/2018 COVID-19 Vaccine (2023-2 5 season) 2023 12/05/2020, 04/14/2020, 03/24/2020 INFLUENZA VACCINE (#1) 2024 , 12/05/2020, 12/10/2019, Additional history exists BREAST CANCER SCREENING 12/29/2024 12/30/19 24, 12/27/2022, 12/07/2021, Additional history exists OSTEOPOROSIS SCREENING 2025 2020, 2007 COLORECTAL SCREENING 01/08/2027 01/08/2017 Colorectal Cancer Screening 01/08/2027 DTAP/TDAP/TD VACCINES (3 - T d or Tdap) 10/03/2029 10/04/2019, 12/06/2008, 01/29/2006 ZOSTER VACCINE Completed 05/04/2020, 09/08, 07/05/2016 Medical Devices Implanted Type Area Pst Manager Device Identifier Shelf Expiration Date Model / Serial / Lot Cement Depuy1 40grams [id number] - [id number] Implanted:Qty : 1 on 03/16/2018 by Chantel Ceja MD at [facility] Cement Right: Knee [employer] 04/09/2020 [id number] / / [id number] Description:[id number] Comp Tib Attn Fb Cmnt Sz5 1506-70-005 - [id number] Implanted:Qty : 1 on 03/16/2018 by Chantel Ceja MD at [facility] Knee Right: Knee [employer] 12/08/2027 [id number] / / [id number] Patella Attune Dome 35mm 1518-20-035 - [id number] Implanted:Qty : 1 on 03/16/2018 by Chantel Ceja MD at [facility] Knee Right: Knee [employer] 11/07/2022 [id number] / / [id number] Comp Fem Attn Ps Cmnt Sz6 1504-00-226 - [id number] Implanted:Qty : 1 on 03/16/2018 by Chantel Ceja MD at [facility] Knee Right: Knee [employer] 10/08/2027 [id number] / / [id number] Ins Attn Fb Cr Sz6 5mm 1516-20-605 - [id number] Implanted:Qty : 1 on 03/16/2018 by Chantel Ceja MD at [facility] Knee Right: Knee [employer] 11/07/2022 [id number] / / [id number] Procedures Procedure Name Priority Date/Time Associated Diagnosis [...] : Negative RECOMMENDATIONS: Annual screening. DICTATION LOCATION: [facility] Narrative 12/30/2023 11:59 AM CDT MAMMOGRAMS SCREENING [...] : Negative RECOMMENDATIONS: Annual screening. DICTATION LOCATION: [facility] Sandra Santana MD MAMMO ORDERABLES Final Resu lt * HEMOGLOBIN A1C (10/20/2020 9:40 AM CDT) HEMOGLOBIN A1C 5.4 <5.7 % of total Hgb [facility] Comment: FASTING:YES FASTING: YES Test Performed at: [facility] [address] [place] [address] Андрей Mijares Vo Blood 10/20/2020 9:40 AM CDT 10/20/2020 9:41 AM CDT Monica Thacker MD CHEMISTRY ORDERABLES Final Result [facility] [address] [place] [address] * XR DEXA BONE DENSITY AXIAL 1 [...] refer to the full report available in [facility] under the PACS Images tab. If a faxed copy is needed, please call [phone]. DICTATION LOCATION: [facility] Procedure Note Javier Antonio MD - 2020 SUMMARY DEXA REPORT DATE: 2020 2:42 PM INDICATION: Arthritis, postmenopausal, thyroid medication. FINDINGS: The patient is considered osteopenic with a lowest T score of -1.1. Fracture risk is moderate. Please refer to the full report available in [facility] under the PACS Images tab. If a faxed copy is needed, please call [phone]. DICTATION LOCATION: [facility] Monica Thacker MD DIAGNOSTIC IMAGING ORDERAB LES Final Result * ENDOSCOPY, COLON, SCREENING (01/08/2017) us Abstract Provider GI PROCEDURE ORDERABLES Final Result from Last 3 Months or Most Recently Relevant to Health Maintenance Insurance RX MEDIMPACT Member Subscriber Plan / Payer (Ef fective for All Dates) Name:Monica Kearns Brianna Relation to Subscriber:Self Name:Monica Kearns Payer ID:Not on file Group ID:[id number] Type:RX Commercial Address: [place], [place] RX COHN PLANS (INTERNAL) [facility] RX [facility] [id number] Member Subscriber Plan / Payer (Ef fective 2022-Present) Name:Monica Kearns Relation to Subscriber:Self Name:Monica Kearns Payer ID:[id number] (NAIC) Type:PPO Address: [place] [phone] Advance Directives For more information, please contact: [phone] Documents on File Type Date Recorded Patient In Flight Refueling Operator Expl anation Advance Directive POA 12/07/2021 7:07 AM A dvance Directive POA Advance Directive Living Will 12/07/2021 7:07 AM Advance Directive Living Will * Full Code (Latest Code Status on File) Date Activated Date Inactivated Comments 03/16/2018 12:05 PM 03/18/2018 8:46 PM Care Teams Correctional Treatment Specialist Relationship Specialty Start Date End Date Sandra Santana MD PCP - General Family Practice 05/17/21
--- OUTSIDE RECORDS SUMMARY | 2024-10-26 12:03 | XMS_ITS | Encounter Summary ---
Author Organization [facility] Address [address] [place] [address] Care Team Providers Care Monogram Technician Name Role Phone Sandra Santana MD Primary Care Provider [phone] Encounter Details Date Type Department Care Team (Late st Contact Info) Description 05/15/2007 Orders Only [facility] Internal Medicine [place] [facility] [address] [facility] [address] Matilda Wilkes ANP NO ADDRESS ON FILE Social History Tobacco Use Types Packs/Day Years Used Date Smoking Tobacco: Never Assessed Comments Unknown Sex and Gender Information Value Date Recorded Sex Assigned at Not on file Legal Sex Female 2:43 AM ICE GRINDER Gender Identity Not on file Sexual Orientation [...] will make an appt to see her TECHNICAL SALES REPRESENTATIVES this spring and have a mammogramordered at that time. She has never had a base line bone density. She has been having some intermittent CP, but has always considered it part my her GERD. She recently had a friend of a [place] and would like some cardiac testing. Her [...] active issues. She will F/U with her TECHNICAL SALES REPRESENTATIVES. Needs medication refilled. No incontinence. 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 LAB ORDERS: Order number: [id number] Test Ordered: CBC (INCLUDES DIFF/PLT) 6399 Order number: [id number] Test Ordered: COMPREHENSIVE METABOLIC PANEL 03130 Order number: [id number] Test Ordered: LIPID PANEL 7600 Order number: [id number] Test Ordered: TSH 899 530.81-GASTROESOPHAGEAL REFLUX (GERD) [...] GENERAL MEDICAL EXAMINATION LAB ORDERS: Order number: [id number] Test Ordered: BONE DENSITY (HIP & SPINE) 786.50-SYMPTOM, PAIN, CHEST NOS LAB ORDERS: Order number: [id number] Test Ordered: STRESS ECHO HEALTH MAINTENANCE: LAST [...] interval for mammogram as recommended by the [place] [employer] and ACOG, diagnosis, treatment, and [...] 12/02/2024 10:15 AM CDT Office Visit [facility] Sleep Medicine [facility] [address] [facility] [address] [place] [address] Robyn Tracey, [facility] [address] [facility] [address] [place] [address] 12/31/2024 10:00 AM CDT Appointment [facility] Breast Center [facility] at [facility] [address] [facility] [address] [place] [address] [place] [address] [place] [address] [address] [place] [address] documented as of this encounter Visit Diagnoses Not on filedocumented in this encounter Care Teams Monogram Technician Relationship Specialty Start Date End Date Sandra Santana MD PCP - General Family Practice 05/17/21 documented as of this encounter
--- OUTSIDE RECORDS SUMMARY | 2024-10-26 12:03 | XMS_ITS | Encounter Summary ---
Author Organization [facility] Address [address] [place] [address] Care Team Providers Care Dog Races Manager Name Role Phone Sandra Santana MD Primary Care Provider [phone] Encounter Details Date Type Department Care Team (Late st Contact Info) Description 11/03/2003 Outpatient Historical [facility] Internal Medicine - [place] [address] [place] [address] Tee Locke MD [address] [facility] [address] [place] [address] Social History Tobacco Use Types Packs/Day Years Used Date Smoking Tobacco: Never Assessed Comments Unknown Sex and Gender Information Value Date Recorded Sex Assigned at Not on file Legal Sex Female 2:43 AM DURABLE MEDICAL EQUIPMENT TECHNICIAN Gender Identity Not on file Sexual [...] Office Visit [facility] Sleep Medicine [place] [address] [facility] [address] [place] [address] Robyn Tracey, [facility] [address] [facility] [place] [address] [place] [address] 12/31/2024 10:00 AM CDT Appointment [facility] Cancer [place] at [facility] [address] [facility] [address] [place] [address] Sandra Santana MD [facility] [address] [place] [address] documented as of this encounter Visit Diagnoses Not on filedocumented in this encounter Care Teams Dog Races Manager Relationship Specialty Start Date End Date Sandra Santana MD PCP - General Family Practice 05/17/21 documented as of this encounter
--- OUTSIDE RECORDS SUMMARY | 2024-10-26 12:03 | XMS_ITS | Encounter Summary ---
Author Organization [facility] Address [address] [place] [address] Care Team Providers Care Oil Field Caser Name Role Phone Sandra Santana MD Primary Care Provider Encounter Details Date Type Department Care Team (Late st Contact Info) Description 01/07/2006 Orders Only [facility] Internal Medicine - [place] [address] [place] [address] Tee Locke MD [address] [facility] [address] [place] [address] Social History Tobacco Use Types Packs/Day Years Used Date Smoking Tobacco: Never Assessed Comments Unknown Sex and Gender Information Value Date Recorded Sex Assigned at Not on file Legal Sex Female 2:43 AM 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 [address] [address] Robyn Tracey, ELECTRONEURODIAGNOSTIC TECHNOLOGIST- [address] [address] 12/31/2024 10:00 AM CDT Appointment [facility] Cancer Center at [address] [place] [place] [address] Sandra Santana MD [facility] [facility] [address] [place] [address] documented as of this encounter Visit Diagnoses Not on filedocumented in this encounter Care Teams Oil Field Caser Relationship Specialty Start Date End Date Sandra Santana MD PCP - General Family Practice 05/17/21 documented as of this encounter
--- OUTSIDE RECORDS SUMMARY | 2024-10-26 12:03 | XMS_ITS | Encounter Summary ---
Author Organization [facility] Address [address] [place] [address] Care Team Providers Care Paint Roller Covermaker Name Role Phone Sandra Santana MD Primary Care Provider Encounter Details Date Type Department Care Team (Late st Contact Info) Description 07/10/2005 Orders Only [facility] Internal Medicine - [place] [address] [place] [address] Tee Locke MD [address] [facility] [address] [place] [address] Social History Tobacco Use Types Packs/Day Years Used Date Smoking Tobacco: Never Assessed Comments Unknown Sex and Gender Information Value Date Recorded Sex Assigned at Not on file Legal Sex Female 2:43 AM SWIMMING POOL SERVICE TECHNICIAN Gender Identity Not on file Sexual Orientation Not on file documented as of this encounter Progress Notes * Tee Locke MD - 12/18/2007 3:34 AM CDT TIME:10:00 am PATIENT`S HOME PHONE: PATIENT`S WORK PHONE: PATIENT`S INSURANCE: [employer] WHO TOOK THE CALL: Jamila Stephens A GENERAL INFORMATION PATIENT STATUS: Established Patient. LAST VISIT: 04-30-05 PCP: tan WHO CALLED: Patient called. CURRENT ALLERGY LIST: [facility] NUMBER: [phone] SECTION 1: REQUESTED ACTION ronny 07/10/05 at 10:01 am: MEDICATION REQUEST: MEDICATION REQUEST: Patient requests a refill. MEDICATIONS: ULTRACET ORAL TABLET 37.5-325 MG, 2 Three Times A Day, As Needed, 60 Dispensed, status: CONTINUED, 04/25/2005, Comment: mat hr [phone]. ok to refill? TRIAGE/RN/PRODUCT DEVELOPMENT SCIENTIST RESPONSE: alexander 07/10/05 at 10:24 am Refill this time only. FINAL ACTION: gene 07/10/05 at 10:34 am Called pharmacy at 07/10/05 at 10:34 am. Electronically Signed by: Sheila Montgomery on Sunday, July 10, 2005 documented in this encounter Plan of Treatment Upcoming Encounters Date Type Department Care Team (Late st Contact Info) Description 12/02/2024 10:15 AM CDT Office Visit [facility] Sleep Medicine [facility] [address] [facility] [address] [place] [address] Robyn Tracey, DIRECTOR [facility] [address] [facility] [address] [place] [address] 12/31/2024 10:00 AM CDT Appointment [facility] at [facility] [address] [facility] [address] [place] [address] Sandra Santana MD [address] [place] [address] [address] [place] [address] documented as of this encounter Visit Diagnoses Not on filedocumented in this encounter Care Teams Paint Roller Covermaker Relationship Specialty Start Date End Date Sandra Santana MD PCP - General Family Practice 05/17/21 documented as of this encounter
--- OUTSIDE RECORDS SUMMARY | 2024-10-26 12:03 | XMS_ITS | Encounter Summary ---
Author Organization [facility] Address [address] [place] [address] Care Team Providers Care Bending Machine Set Up Operator Name Role Phone Sandra Santana MD Primary Care Provider Encounter Details Date Type Department Care Team (Late st Contact Info) Description 04/30/2005 Outpatient Historical [facility] Internal Medicine - [place] [address] [place] [address] Tee Locke MD [address] [facility] [address] [place] [address] Social History Tobacco Use Types Packs/Day Years Used Date Smoking Tobacco: Never Assessed Comments Unknown Sex and Gender Information Value Date Recorded Sex Assigned at Not on file Legal Sex Female 2:43 AM TRANSFUSION NURSE Gender Identity Not on file Sexual Orientation Not on file documented as of this encounter Last Filed Vital Signs Vital Sign Reading Time Taken Comments Blood Pressure 120/60 04/30/2005 1:15 PM TRANSFUSION NURSE Pulse 80 04/30/2005 1:15 PM TRANSFUSION NURSE Temperature - - Respiratory Rate - - Oxygen Saturation - - Inhaled Oxygen Concentration - - Weight 89.8 kg (198 lb) 04/30/2005 1:15 PM TRANSFUSION NURSE Height - - Body Mass Index - - documented in this encounter Plan of Treatment Upcoming Encounters Date Type Department Care Team (Late st Contact Info) Description 12/02/2024 10:15 AM CDT Office Visit [facility] Sleep Medicine [place] [address] [facility] [address] [place] [address] Alexy Robyn Neeru, [facility]AB [facility] [address] [facility] [address] [place] [address] 12/31/2024 10:00 AM CDT Appointment [facility] Cancer Center at [facility] [address] [facility] [address] [place] [address] Sandra Santana MD [address] [facility] [address] [place] [address] documented as of this encounter Visit Diagnoses Not on filedocumented in this encounter Care Teams Bending Machine Set Up Operator Relationship Specialty Start Date End Date Sandra Santana MD PCP - General Family Practice 05/17/21 documented as of this encounter
--- OUTSIDE RECORDS SUMMARY | 2024-10-26 12:03 | XMS_ITS | Clinical Summary ---
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
[2024-10-26 18:05] LABS: Thyroid Stimulating Hormone 5.070 uIU/mL (0.465-4.680)
== END 2024-10-26 11:33 | disposition home or self-care (01) ==
LOC: ANHGOSHLAB 11:32
PROVIDERS: PCP Student in an Organized Health Care Education/Training Program; Visit Provider Student in an Organized Health Care Education/Training Program
DX: E03.9 Hypothyroidism, unspecified (principal)
CPT/HCPCS: 36415; 84443

== ENCOUNTER 2024-11-10 09:21 | Emergency (ER) | payer MEDICARE, SELFPAY ==
[2024-11-10 09:37] VITALS: BP 163/75; PULSE 50; RESP 16; TEMP 36; O2SAT 99
--- NOTE | 2024-11-10 09:49 | ED_ITS ---
HPI - Back Pain/Injury General Chief Complaint: Back Pain/Injury Stated Complaint: BACK PAIN Time Seen by Provider: 11/10/24 09:40 Source: patient and RN notes reviewed Mode of arrival: ambulatory Limitations: no limitations History of Present Illness HPI Narrative: A 69-year-old female presents Express Care complaining of left upper back pain for approximately 1 week. Patient says she has been doing water aerobic exercises in the pool said she tried some different 1 week ago and believes she might have pulled something her back from the exercises. Patient has been taking Tylenol without relief. Patient reports the pain is worse with certain movements of her left arm or when she is turning or twisting her trunk. Patient denies any saddle anesthesia, numbness or tingling to her growing, loss of bowel or bladder function, or any other injuries. Related Data Home Medications ?Medication ?Instructions ?Recorded ?Confirmed ?Last Taken ?Type cetirizine 10 mg capsule (Zyrtec) 10 mg PO DAILY PRN a llergy symptoms 04/20/24 10/26/24 08/10/24 History diclofenac sodium 1 % topical gel 2 g topical QID 05/0 11/0110/26/24 Unknown History (Arthritis Pain (diclofenac)) acetaminophen 650 mg 650 mg PO Q8H 10/07/2410/26 Unknown History tablet,extended release (Arthritis Pain Relief (acetaminophen) ER) famotidine 20 mg tablet mg PO 10/26/24 10/26/24 Unkn own History Allergies Allergy/AdvReac Type Severity Reaction Status Date / Time atorvastatin Allergy Mild Hives Verified 11/10/24 09:32 hydrocodone Allergy Hives Verified 11/10/24 09:32 Review of Systems Review of Systems: CONSTITUTIONAL: Denies fever, chills, or sweats. EYES: Denies visual changes, redness, or discharge. ENT: Denies rhinorrhea, congestion, sore throat, or otalgia. CARDIOVASCULAR: Denies chest pain, palpitations, or edema. RESPIRATORY: Denies cough or dyspnea. GASTROINTESTINAL: Denies abdominal pain, nausea, vomiting, or diarrhea. GENITOURINARY: Denies dysuria or hematuria. SKIN: Denies rash or itching. MUSCULOSKELETAL: Denies joint pain, or myalgia. Positive for upper back pain. NEUROLOGIC: Denies headache, numbness, or weakness. PSYCHIATRIC: Denies anxiety or depression. All other systems reviewed are negative, except as documented in HPI. [facility] Past Medical History Medical History Hypertension PAT (paroxysmal atrial tachycardia) CAD (coronary artery disease) THAO (obstructive sleep apnea) Urinary tract infection Dyslipidemia Scalp lesion Hearing loss in left ear Unilateral hearing loss Abnormal stress test Patellofemoral syndrome, left Tendinitis of right rotator cuff Idiopathic urticaria Former smoker quit 1994 Hx of acute renal failure DDD (degenerative disc disease), lumbar UTI (urinary tract infection) Hypothyroid Surgical History Surgical History H/O radiofrequency ablation (RFA) of nerve of lumbar spine History of left knee replacement 12/2021 [facility] History of right knee joint replacement Hx of colonoscopy . repeat on 5 years due to fam hx History of total right knee replacement History of bladder surgery sling Social History Social History Smoking packs per day: 0.5 Smoking cigarettes per day: 10.0 Years smoked: 15 Smoking pack-years: 7.50 Smoking status: Former smoker Tobacco type: cigarettes Second hand tobacco smoke exposure: Yes Smoking end date: 03/10/94 Alcohol intake: current Drinks per week: 1 Alcohol use details: 2 DRINKS PER MONTH Substance use: never Substance use type: does not use Do You Feel Safe in your Home?: Yes Lack of Transportation: No Lack of Food: Never True Current Housing: I Have Housing Concerned About Future Housing: No Difficulty Paying Gas/Electric Bills: No Difficulty Paying for Meds: No Currently Unemployed: No Education: Bachelor's Degree Difficulty w/ Childcare or Family Care: No Living arrangements: alone Occupation/Education: occupation Gender identity (if verbalized by the patient): Female Spiritual care concerns: No Comments At the time of my signature, I reviewed and agree with the nursing past medical, surgical, social, and family history. There is no relevant family history pertinent to the patient complaint. Exam Narrative: GENERAL: This is a well-nourished, well-developed adult, in no apparent distress. They are non ill-appearing, nontoxic appearing. HEAD: normocephalic, atraumatic. EYES: Sclera clear/white. Conjunctiva normal. Vision is grossly intact. Extraocular movements intact EARS: External ears normal, Hearing grossly intact. NOSE: External nose normal THROAT: Mucous membranes moist, NECK: Neck supple, CARDIOVASCULAR: Regular rate and rhythm RESPIRATORY: Respiratory rate normal, respiratory effort nonlabored, no respiratory distress SKIN: warm, Dry, intact with no suspicious lesions or rash, good texture and turgor. NEURO: awake, alert, and oriented to person, place and time. There were no obvious focal neurologic abnormalities. EXTREMITIES: No joint tenderness, effusion, or edema noted. BACK: Nontender without deformity. No CVA tenderness. No cervical, thoracic, lumbar point tenderness, crepitus, or step-offs. Pain elicited to left upper back with twisting of her trunk. Course Course Emergency Course: Portions of this record may have been created with voice recognition software Level of Care: Express Care Visit Vital Signs Vital signs: Vital Signs Temperature 96.8 F L 11/10/24 09:37 Pulse Rate 50 L 11/10/24 09:37 Respiratory Rate 16 11/10/24 09:37 Blood Pressure 163/75 H 11/10/24 09:37 Pulse Oximetry 99 11/10/24 09:37 Temperature 96.8 F L 11/10/24 09:37 Pulse Rate 50 L 11/10/24 09:37 Respiratory Rate 16 11/10/24 09:37 Blood Pressure 163/75 H 11/10/24 09:37 Pulse Oximetry 99 11/10/24 09:37 Reviewed MDM - Back Pain/Injury MDM Narrative Medical decision making narrative: Likely patient has a muscle strain to her left upper back. Will prescribe a muscle relaxer and recommend Tylenol and ibuprofen for pain. Discussed stretching and light back exercises to help with the pain is well. Discussed physical exam findings. Advised supportive measures and signs/symptoms to go to the ER. Pt is appropriate for outpt treatment and f/u. Differential Diagnosis Differential diagnosis: Likely thoracic back pain and other (Upper back strain, radiculopathy) Critical Care Time Critical Care Time Critical Care Time: No Discharge Plan Discharge Clinical Impression: Muscle strain of left upper back Qualifiers: Encounter type: initial encounter Qualified Code(s): S29.012A - Strain of muscle and tendon of back wall of thorax, initial encounter Patient Disposition: Home Condition: Stable Instructions: Back Pain (ED) Additional Instructions: Take the muscle relaxer as directed. Do not drive or operate heavy machine, or work while taking the medication as it can make you drowsy. You may use [id number] lidocaine patches, apply of to the affected area. All instructions on the labeling. You may take ibuprofen 600 mg to 800 mg every 6-8 hours. Do not exceed more than 800 mg of ibuprofen per dose. Do not exceed more than 3200 mg ibuprofen in a day. You may take up to 1000 mg Tylenol every 6-8 hours. Do not exceed 1000 mg per dose, do exceed more than 4000 mg of Tylenol in a day. Please follow-up with your primary care provider if pain persist Rest. Avoid excessive pushing, pulling, lifting --running or excessive walking-- or anything that worsens the symptoms May try stretching and light back exercise help with pain. Go to the emergency department if you develop any numbness or tingling to your groin, weakness in your legs, or any loss of bowel or bladder function. Patient Language: Danish Prescriptions: New methocarbamol 750 mg tablet 750 mg PO TID Qty: 12 0RF No Action diclofenac sodium [Arthritis Pain (diclofenac)] 1 % gel 2 g topical QID Rx Instructions: apply to single elbow, wrist or hand; for hand includes palm/fingers/back of hand solifenacin [Vesicare] 10 mg tablet 10 mg PO DAILY Qty: 90 3RF Zyrtec 10 mg capsule 10 mg PO DAILY PRN (Reason: allergy symptoms) famotidine 20 mg tablet PO acetaminophen [Arthritis Pain Relief (acetam)] 650 mg tablet extended release 650 mg PO Q8H cholecalciferol (vitamin D3) 1,250 mcg (50,000 unit) capsule 1,250 mcg PO WEEKLY Qty: 14 1RF Patient Comments: TAKES ON MONDAYS levothyroxine 100 mcg tablet 100 mcg PO DAILY Qty: 90 1RF Follow-up/Referrals: Sandra Santana MD [Primary Care Provider, [facility]] Time of Disposition: 09:48
== END 2024-11-10 09:52 | disposition home or self-care (01) ==
PROVIDERS: PCP Family Medicine
DX: S29.012A Strain of muscle and tendon of back wall of thorax, initial encounter (principal); X58.XXXA Exposure to other specified factors, initial encounter; Y93.A3 Activity, aerobic and step exercise; I25.10 Atherosclerotic heart disease of native coronary artery without angina pectoris; I10 Essential (primary) hypertension; E78.5 Hyperlipidemia, unspecified; Z87.891 Personal history of nicotine dependence; M51.369 Other intervertebral disc degeneration, lumbar region without mention of lumbar back pain or lower extremity pain; E03.9 Hypothyroidism, unspecified; Z96.653 Presence of artificial knee joint, bilateral
CPT/HCPCS: 99213; G0463

== ENCOUNTER 2025-01-07 14:32 | Outpatient (CLI) | payer MEDICARE, SELFPAY ==
--- NOTE | ~2025-01-07 | XR_ITS ---
EXAMINATION: XR ankle LT min 3V, 01/07/2025 14:49 CDT HISTORY: Pain in left foot, hurt in october, hurting x 5 days COMPARISON: No comparisons available. Findings: No acute fracture or malalignment. No significant degenerative changes. Soft tissues unremarkable. Impression: No acute fracture or malalignment. Reviewed, dictated and finalized at location P. Impression: No acute fracture or malalignment.
== END 2025-01-07 14:33 | disposition home or self-care (01) ==
PROVIDERS: PCP Family Medicine; Visit Provider Student in an Organized Health Care Education/Training Program
DX: M79.672 Pain in left foot (principal)
CPT/HCPCS: 73610

== ENCOUNTER 2025-01-27 11:24 | Outpatient (CLI) | payer MEDICARE, SELFPAY ==
--- NOTE | ~2025-01-27 | XR_ITS ---
EXAMINATION: XR knee LT min 4V, 01/27/2025 11:47 KETTLE CHIPPER HISTORY: Pain in left knee x 2 years COMPARISON: No comparisons available. Findings: No acute fracture or malalignment. Arthroplasty intact Soft tissues unremarkable. Impression: No acute fracture or malalignment. Reviewed, dictated and finalized at location P. LE CHIPPER Impression: No acute fracture or malalignment.
--- NOTE | ~2025-01-27 | XR_ITS ---
EXAMINATION: XR knee RT min 4V, 01/27/2025 11:47 DANCE COACH HISTORY: Pain in right knee x 2 years COMPARISON: No comparisons available. Findings: No acute fracture or malalignment. Arthroplasty intact Soft tissues unremarkable. Impression: No acute fracture or malalignment. Reviewed, dictated and finalized at location P. E COACH Impression: No acute fracture or malalignment.
== END 2025-01-27 11:25 | disposition home or self-care (01) ==
PROVIDERS: PCP Orthopaedic Surgery; Visit Provider Nurse Practitioner Adult Health
DX: M25.562 Pain in left knee (principal); M25.561 Pain in right knee
CPT/HCPCS: 73564

== ENCOUNTER 2025-02-14 06:27 | Day surgery (SDC) | payer MEDICARE, SELFPAY ==
--- OUTSIDE RECORDS SUMMARY | 2017-01-07 18:00 | XMS_ITS | Continuity of Care Document ---
Author Organization [facility] Address [address] [place] [address] Phone Care Team Providers Care District Operations Manager Name Role Phone Hussein LE, Oracio Unavailable Unavailable Advance Directives Directive Yes / No Effective Date File Name No Information Encounters Encounter Description Practice Location Reason(s) For Visit Diagnoses Date Provider Encounter Disposition [facility], [address], [place], [place], [id number], tel:[phone] [facility] No Information Hussein Narayanan. [facility], [id number] , . tel: [phone] Family History Family Member Type Diagnosis Age At Onset No Information Payers Payer name Insurance type Identifiers Authorization(s) Com mentsari [facility] CI ID: [id number] Name: Coverage Status Eligibility Check on: [id number] ship to Subscriber: selfPayer Address: [address] [address], [place], [address], [facility] Phone: [phone] Social History Type Description Quantity Date Captured Comments Sex Female Smoking Status No Information Current Gender Female (finding) Chief Complaint And Reason For Visit No Information History Of Present Illness Encounter Date Complaint History Of Prese nt Illness No Information Functional Status Date Description Comments No Information Instructions Date Instruction Additional Infor mation No Information Assessments Type Assessment Date No Information
--- OUTSIDE RECORDS SUMMARY | 2017-11-12 04:29 | XMS_ITS | Continuity of Care Document ---
Author Organization [facility] Address [address] [facility] [address] [place] [address] Phone Care Team Providers Care Insurance Account Executive Name Role Phone Qamar Alegria MD Unavailable Unavailable Allergies, Adverse Reactions, Alerts Substance Reaction Status Criticality No Known Allergies Active No Inform ation Medications Medication Instructions Dosage Effective Dates (start - stop) Status Comments Singulair 10 mg tablet take 1 tablet by oral route every day in the evening 10 MG - Active methylprednisolone 4 mg tablet take 1 tablet by oral route 4 times every day with food 4 MG - Active hydroxyzine HCl 50 mg tablet take 1 tablet by oral route 4 times every day 50 MG - Active levothyroxine 88 mcg tablet take 1 tablet by oral route every day 88 MCG - Active ranitidine 150 mg tablet take 1 tablet b y oral route 2 times every day - Active Banophen 25 mg tablet take 2 tablet by oral route every 4 - 6 hours as needed 50 MG - Active fexofenadine 180 mg tablet take 1 tablet by oral route every day 180 MG - Active Procedures Procedure Date Est (Level 3) OFFICE/OUTPATIENT VISIT No Est (Level 3) OFFICE/OUTPATIENT VISIT Se Est (Level 3) OFFICE/OUTPATIENT VISIT Au Consult (Level 4) OFFICE CONSULTATION Au Advance Directives Directive Yes / No Effective Date File Name No Information Encounters Encounter Description Practice Location Reason(s) For Visit Diagnoses Date Provider Providers Copied on Encounter [facility], [address] [facility] [address], [place], [place], [id number], [place] tel:[phone] [facility] No Information 8 Raji Foote. [address] [place] [address], [address] [place] [address], [id number] , [place]. tel: [phone] Est (Level 3) OFFICE/OUTPATI ENT VISIT [facility], [address] [place] [address], [id number], tel:[phone] [facility] hives (chief complaint) Idiopathic urticaria 7 Gomez Denise. [address] [place] [address], [address] [place] [address], [id number] , [place]. tel: [phone] Referring Provider: Monica Thacker, [address], [place], [address]. tel:[phone] Est (Level 3) OFFICE/OUTPATI ENT VISIT [facility], [address] [place] [address], [id number], tel:[phone] [facility] hives (chief complaint) Idiopathic urticaria 7 Gomez Denise. [address] [place] [address], [address] [place] [address], [id number] , [place]. tel: [phone] Referring Provider: [address], [place], [address]. tel:[phone] Est (Level 3) OFFICE/OUTPATI ENT VISIT [facility], [address] [place] [address], [id number], tel:[phone] [facility] hives (chief complaint) Idiopathic urticaria 7 Gomez Denise. [address] [place] [address], [address] [place] [address], [id number] , [place]. tel: [phone] Referring Provider: [address], [place], [address]. tel:[phone] Consult (Level 4) OFFICE CONSULTATION [facility], [address] [place] [address], [id number], [place] tel:[phone] [facility] hives (chief complaint) Idiopathic urticaria 7 Gomez Walker. [address] [facility], [address], [place], [place], [id number] , [place]. tel: [phone] Referring Provider: Monica Thacker, [address], [place], [address]. tel:[phone] Family History Family Member Type Diagnosis Age At Onset Problem (finding) No family history of Hi ves Mother Problem (finding) Food allergy Problem (finding) No family hist ory of Systemic lupus erythematosus Payers Payer name Insurance type Covered alliance party ID Authoriza tidorian(s) R CI [id number] Social History Type Description Quantity Date Captured Comments Sex Female Smoking Status No Information Chief Complaint And Reason For Visit No Information Reason For Referral Reason For Referral No Information History Of Present Illness Encounter Date Complaint History Of Prese nt Illness hives Her last visit w as 11/18/2016. She returns today for follow-up. She is doing very well. Her hives have been well-controlled since her last visit. She is very pleased. She is taking Eula BID and Singulair qhs. She is not taking Zantac. She is about to move, which she notes will likely be a stressful time for her. hives Her last visit w as 10/23/2016. She returns today for follow-up. Her hives flared just after her last visit. She is taking Eula qAM, montelukast qPM and ranitidine qday. She frequently has hives when waking up in the AM, she thinks from being warm at night under her covers. Lesions are red, rasied and mildly pruritic. No angioedema. She has thyroid disease. Thyroid studies normal in June per patient report. No hot/cold intolerance. hives Her last visit w as 10/09/2016. She presents today for follow-up of urticaria. Her hives are improved except for 1 flare last . She noticed a clear improvement a few days after starting Singulair. She takes Eula qAM, ranitidine BID and Singulair qhs. No facial swelling. With breakthrough hives that occured last week, she woke up with itchy lesions behind her ears and improved with Eula. hives This is her init ial visit. She is referred for evaluation of hives. She sprained her back on August 24. She was seen in Urgent Care, given tramadol injection and presscribed ibuprofen and flexeril tablets. She had 1 hive on August 28 and over the next few days worsened and became more diffuse. Hives persisted over the last month. On September 26, she was prescribed a a steroid taper. Lesions became itchy after the steroid. Lesions resolved only for 1 day on the highest steroid dose. She is now taking fexofenadine qAM, hydroxyzine qhs, ranitidine qday to BID and diphenhyramine q6h prn. Lesions are red, raised and itchy. Flat erythematous lesions are fixed and not moving. Lesions tend to fade during the day and are worse in AM when waking up. She has pictures on her phone of clear hives on her legs. She has had angioedema of her lips and eyes. Lesions are not painful. She has rosecea. She joint pain aside from chronic back pain. No fevers. She is having increased diarrhea. She has GERD but not typically diarrhea or constipation. She last had hives in 1990. Symptoms improved on Tagmet but cause not idenitified. She hives in 1990. She takes ibuprofen 2 days a week. She is is not taking flexeril. No problems with tramadol in the past. No new medications other than rash treatment above. No known tic bites. No association with red meat. PMH: hypothyroid, osteoarthritis, GERDSurgeries: vaginal surgeryNKDAFH: Mother - shellfish allergy. No urticaria. No SLE, RA or thyroid problems.Social: She works in [employer] at [employer]. She has a bichon. She does smoke. Functional Status Date Functional Assessmen t No Information Instructions Date Instruction Additional Infor jim 1. INCREASE Eula to twice daily2. Continue Singulair/montelukst at night3. Continue randitidine/Zantac once daily BUT INCREASE to twice daily if hives are not improved in 1 week. 4. Follow-up: 1 month Related to Idiopathic urticaria To wean medications: - First decrease ranitidine to once daily- One week later, may try stopping Singulair- One week later, may try stopping ranitidne- One week later, may try stopping AllegraIf any symptoms flare, go back to previous step. You can increase Eula to twice daily if needed Related to Idiopathic urticaria You likely have lunchroom monitor haydee (more than 6 weeks) idiopathic (unknown reason) urticaria (hives). About 20% of the population gets hives at some point. There is unlikely to be any specific cause for the hives and swelling. This is not an uncommon medical condition. The hives/swelling occur from release of histamine from certain cells. While in some cases hives can be due to allergies; when it is chronic (lasts more than 6 weeks), there is usually no specific cause. Rarely, certain medical conditions can be associated with hives. 1. Zyrtec (cetirizine) 10mg daily to twice per day. If Zyrtec causes fatigue, recommend changing to Eula (fexofenadine). May be increased to three times daily or every 8 hours.2. Zantac (generic ranitidine) 150 mg twice/day ($4 at [facility])3. ADD Singulair 10mg each night (prescribed)4. Benadryl 1-2 tabs every 4-6 hours as needed.5. Return in 2 weeks Related to Idiopathic urticaria Assessments Type Assessment Date No Information Patient Care Teams Name Effective Dates (start - stop) Status Members No Information
--- OUTSIDE RECORDS SUMMARY | 2021-09-14 07:03 | XMS_ITS | Continuity of Care Document ---
Author Organization [facility] Address [address] [address] [place] [address] Phone Care Team Providers Care Is Project Manager Name Role Phone Chantel Hernandez MD Unavailable Unavailabl e Allergies, Adverse Reactions, Alerts Substance Reaction Status Criticality HYDROCODONE BITARTRATE Active No In formation acetaminophen Active No Information HYDROMORPHONE HCL Active No Informa tion Medications Medication Instructions Dosage Effective Dates (start - stop) Status Comments cephalexin 500 mg capsule take 2 capsules by oral route 1 hour prior to procedure - Active cephalexin 500 mg capsule take 2 capsules by oral route 1 hour prior to procedure - Active naproxen 500 mg tablet - Active fexofenadine 180 mg tablet take 1 tablet by oral route 2 times every day 180 MG - Active LEVOTHYROXINE SODIUM (unknown strength) Not Available - Active Procedures Procedure Date DRAIN/INJECT JOINT/BURSA OFFICE/OUTPATIENT VISIT EST OFFICE/OUTPATIENT VISIT EST RADEX KNE 3 VIEWS OFFICE/OUTPATIENT VISIT EST RADEX KNE 3 VIEWS OFFICE/OUTPATIENT VISIT EST POSTOP FOLLOW-UP VISIT POSTOP FOLLOW-UP VISIT FIXATION OF KNEE JOINT POSTOP FOLLOW-UP VISIT POSTOP FOLLOW-UP VISIT RADEX KNE 3 VIEWS POSTOP FOLLOW-UP VISIT OFFICE/OUTPATIENT VISIT EST ELIZEX KNE COMPL 4/MORE VIEWS OFFICE/OUTPATIENT VISIT EST RADEX KNE COMPL 4/MORE VIEWS RADEX KNE COMPL 4/MORE VIEWS OFFICE/OUTPATIENT VISIT EST OFFICE/OUTPATIENT VISIT NEW Advance Directives Directive Yes / No Effective Date File Name No Information Encounters Encounter Description Practice Location Reason(s) For Visit Diagnoses Date Provider Providers Copied on Encounter [facility], [address], [place], [address], [place] tel:[phone] [facility] No Information [address] [facility] [place]. [address], [place], [place], [id number] . tel: [phone] OFFICE/OUTPA TIENT VISIT EST [facility], [address], [place], [address], [place] tel:[phone] [facility] Body mass index [BMI] 35.0-35.9, adultPain due to total right knee replacement, subsequent encounterPresenc e of right artificial knee joint 1 [facility] [place]. [address], [place], [place], [address] . tel: [phone] OFFICE/OUTPA TIENT VISIT EST [facility], [address] [facility] [address], [place], [address], [place] tel:[phone] [facility] Status post total right knee replacementPain due to total right knee replacement, initial encounterBody mass index [BMI] 35.0-35.9, adult [address] [place], [place], [address]. tel: [phone] [facility], [address], [place], [address], [place] tel:[phone] [facility] No Information 0 [facility] [place]. [address], [place], [place], [address] . tel: [phone] OFFICE/OUTPA TIENT VISIT EST [facility], [address] [facility] [address], [place], [address], [place] tel:[phone] [facility] Status post total right knee replacementPrima ry osteoarthritis of right kneeBody mass index (BMI) 34.0-34.9, adult Mar- 0-202 0 [place]. [address], [place], [address]. tel: [phone] OFFICE/OUTPA TIENT VISIT EST [facility], [address] [facility] [address], [place], [address], [place] tel:[phone] [facility] Status post total right knee replacementBody mass index (BMI) 34.0-34.9, adult 8-201 9 [facility] [place]. [address] , [place], [place], [address] . tel: [phone] [facility], [address] [address], [place], [address], [place] tel:[phone] [facility] Arthrofibrosis of total knee replacement, subsequent encounterS/P surgical manipulation of knee jointStatus post total right knee replacementPrima ry osteoarthritis of right knee July-0 3-201 9 [place], [place], [address]. tel: [phone] [facility], [address] [address], [place], [address], [place] tel:[phone] [facility] S/P surgical manipulation of knee jointArthrofibro sis of total knee replacement, subsequent encounter Jun-0 1-201 9 [facility] [place]. [address] , [place], [place], [address] . tel: [phone] [facility], [address] [facility] [address] [address], [place], [address], [place] tel:[phone] [facility] Body mass index (BMI) 33.0-33.9, adultStatus post total right knee replacement May-2 6-201 9 [facility] [place]. [address] , [place], [place], [address] . tel: [phone] [facility], [address] [facility] [address] [address], [place], [address], [place] tel:[phone] [facility] Arthrofibrosis of total knee replacement, initial encounter 9 [facility] [place]. [address] , [place], [place], [address] . tel: [phone] [facility], [address], [address], [place] tel:[phone] [facility] Status post total right knee replacementPrima ry osteoarthritis of right knee 9 [facility] [place]. [address] [facility] [address] , [place], [place], [address] . tel: [phone] [facility], [address], [address], [place] tel:[phone] [facility] Status post total right knee replacementPrima ry osteoarthritis of right knee 0 9 [facility] [place]. [address] [facility] [address] , [place], [place], [address] . tel: [phone] [facility], [address] [facility] [address], [address], [place] tel:[phone] [facility] Status post total right knee replacementBody mass index (BMI) 33.0-33.9, adult Mar- 9 [facility] [place]. [address] [facility] [address] , [place], [place], [address] . tel: [phone] [facility], [address], [address], [place] tel:[phone] [facility] Primary osteoarthritis of right kneeStatus post total right knee replacement Feb-0 3- 8 [facility] [place]. [address] [facility] [address] [place], [place], [address] . tel: [phone] OFFICE/OUTPA TIENT VISIT EST [facility], [address] [address], [place], [address], [place] tel:[phone] [facility] Primary osteoarthritis of right knee 8 [facility] [place]. [address] , [place], [place], [address] . tel: [phone] [facility], [address] [address], [place], [address], [place] tel:[phone] [facility] Pain in right kneePrimary osteoarthritis of right knee 8 [facility] [place]. [address] , [place], [place], [address] . tel: [phone] OFFICE/OUTPA TIENT VISIT EST [facility], [address] [address], [place], [address], [place] tel:[phone] [facility] Primary osteoarthritis of left kneePrimary osteoarthritis of right kneeBody mass index (BMI) 33.0-33.9, adult [address] [place] [facility] [address], [place], [address]. tel: [phone] OFFICE/OUTPA TIENT VISIT EST [facility], [address] [facility] [address], [place], [address], [place] tel:[phone] [facility] Pain in left kneePain in right kneePrimary osteoarthritis of right kneePrimary osteoarthritis of left knee 8-201 6 [facility] [place]. [address] , [place], [place], [address] . tel: [phone] OFFICE/OUTPA TIENT VISIT NEW [facility], [address] [facility] [address], [place], [address], [place] tel:[phone] [facility] Right knee pain (chief complaint) Osteoarthrosis, unspecifiedLater al meniscal tear 0-201 4 [address] [place]. [address] , [place], [place], [address] . tel: [phone] Referring Provider: Monica Reed, [address] [facility] [address], [place], [address]. tel:[phone] Family History Family Member Type Diagnosis Age At Onset Father Problem (finding) prostate cancer (Cause Of ) Mother Problem hypertension Mother Problem (finding) Neuroendocrine tumor (C ause Of ) Father Problem Cardiovascular disease Payers Payer name Insurance type Covered democrat ID Authoriza keeshadorian(s) Blue Access Choice PPO [employer] OT [id number] Social History Type Description Quantity Date Captured Comments Alcohol Use Details Unknown Caffeine Use Details Unknown Tobacco Use Status No Information Smoking Status No Information Sex Female Chief Complaint And Reason For Visit No Information Reason For Referral Reason For Referral No Information Plan Of Treatment Date Type Action Status Referral Ordered: RADEX KNE 3 VIEWS RT knee ordered Referral Ordered: RADEX KNE 3 VIEWS RT ordered Referral Ordered: RADEX KNE COMPL 4/MORE VIEWS LT ordered Referral Ordered: RADEX KNE COMPL 4/MORE VIEWS RT ordered Referral Ordered: MRI ANY JT LXTR C-MATRL RT knee Appointment date/timeframe: 11/24/2013 ordered Referral Ordered: RADEX KNE COMPL 4/MORE VIEWS RT knee ordered Patient Education Knee Arthritis: Exercis es completed Future Order: Lab Order CBC w/di ff ([id number]), Ordered on: Ordered Future Order: Lab Order Comprehe nsive Metabolic Panel ([id number]), Ordered on: Ordered Future Order: Lab Order PT AND P TT ([id number]), Ordered on: Ordered History Of Present Illness Encounter Date Complaint History Of Prese nt Illness Right knee pain Functional Status Date Functional Assessmen t No Information Instructions Date Instruction Additional Infor mation Giving encouragement to exercise Related to Body mass index [BMI] 35.0-35.9, adult Discussed treatment options Rela erica to Pain due to total right knee replacement, subsequent encounter Discussed treatment options Rela erica to Pain due to total right knee replacement, initial encounter Giving encouragement to exercise Related to Body mass index [BMI] 35.0-35.9, adult Giving encouragement to exercise Related to Body mass index (BMI) 34.0-34.9, adult Giving encouragement to exercise Related to Body mass index (BMI) 34.0-34.9, adult Call for increase in pain Relate d to Status post total right knee replacement Inform physician of any changes in symptoms or pain. Related to S/P surgical manipulation of knee joint Giving encouragement to exercise Related to Body mass index (BMI) 33.0-33.9, adult Take medication as directed. Rel ated to Status post total right knee replacement Discussed treatment options Rela erica to Status post total right knee replacement Giving encouragement to exercise Related to Body mass index (BMI) 33.0-33.9, adult Home exercise program. Related t o Status post total right knee replacement Discussed surgical options Relat ed to Primary osteoarthritis of right knee Giving encouragement to exercise Related to Body mass index (BMI) 33.0-33.9, adult Take medication/NSAID as directe d. Related to Primary osteoarthritis of right knee Home exercise program. Related t o Primary osteoarthritis of left knee Assessments Type Assessment Date No Information Patient Care Teams Name Effective Dates (start - stop) Status Members No Information
--- OUTSIDE RECORDS SUMMARY | 2023-08-23 15:30 | XMS_ITS ---
Author Organization [facility] ([address]) Address [address] [place] [address] Care Team Providers Care Child Support Officer Name Role Phone Sandra Santana MD Primary Care Provider Unav ailable Matilda Coats Unavailable [phone] [facility], Provider Unavailable Unavailab le [facility] Encounter Medications Medication SIG (Take, Route, Frequency, Duration) Notes Start Date End Date Status Auvi-Q 0.3 MG/0.3ML as directed intramuscularly once; Duration: 1 dose(s) Active traMADol HCl 50 MG 1 tab(s) orally every 4 hours Not-Taking RANITIDINE 150 MG 1 CAP(S) ORALLY QDAY, PRN *Please review for potential replacement for e-prescription and drug interaction check* Not-Taking Levothyroxine Sodium 88 MCG 1 tab(s) orally once a day; Duration: 30 day(s) Active Fexofenadine HCl 180 MG 2 tab(s) orally bid Active Doxepin HCl 25 MG 1 cap(s) orally once a day (at bedtime) Active Xolair 300 MG DIRECTED SUBCUTANEOUSLY EVERY 4 WEEKS *Please review and pick correct strength-formula tion from [facility] options. If intended option is not shown, discontinue and re-order from Quick Search* Active Singulair 10 MG 1 tab(s) orally once a day; Duration: 30 day(s) Active Social History Sex Assigned At : Social History Observation Description Sex Assigned At Female Encounters Encounter Location Date Provider Diagnosis [address] [id number] 08/23/2023 Provider [facility] Plan Of Treatment Medication Medication Name Sig Start Date Stop Date Notes Auvi-Q 0.3 MG/0.3ML as directed intramus cularly once; Duration: 1 dose(s) Fexofenadine HCl 180 MG 2 tab(s) orally bid Next Appt Details Provider Name:Matilda ty, 02/16/2025 09:30:00 AM, [email or web address], [place], [address], Provider Name:Keeley bustillo, 03/22/2025 12:45:00 PM, [email or web address], [place], [address], Progress Notes * Monica FALKDOB:1955 ([age] yo F)Acc No.[id number]:08/23/2023 Patient: Monica PINEDA Provider: Ishan jaime Migration :1955 A ge:67 Y S ex:Female Date:08/23/2023 Address:[address] [place], [place] [id number] Pcp:Sandra Santana MD Subjective: * Chief Complaints: * 1 . [facility] Conversion Encounter. * Medical History: * Medications: T aking Levothyroxine Sodium 88 MCG Tablet 1 tab(s) orally once a day , Taking Xolair 300 MG SOLUTION DIRECTED SUBCUTANEOUSLY EVERY 4 WEEKS , Notes to Pharmacist: *Please review and pick [facility]. If intended option is not shown, discontinue and re-order from Quick Search*, Taking Doxepin HCl 25 MG Capsule 1 cap(s) orally once a day (at bedtime) , Taking Singulair 10 MG Tablet 1 tab(s) orally once a day , Not-Taking/PRN RANITIDINE 150 MG CAPSULE 1 CAP(S) ORALLY QDAY, PRN , Notes to Pharmacist: *Please review for potential replacement for e-prescription and drug interaction check*, Not-Taking/PRN traMADol HCl 50 MG Tablet 1 tab(s) orally every 4 hours Objective: * Vitals: Assessment: Plan: * Treatment: * Billing Information: * Visit Code: * Procedure Codes: * Electronic signature of Valerio PASTRANA-Migration on 02/14/2025 at 06:42 AM [employer] Sign off status: Pending * Provider: Ishan jaime Migration Date: 0 08/23/2023 Generated for Maddy anderson/Martín/Vivek on: 1 04/17/2024 06:42 AM [employer]ER
--- OUTSIDE RECORDS SUMMARY | 2024-05-26 11:30 | XMS_ITS ---
Author Organization [facility] [place] ([address]) Address [address] [place] [address] Care Team Providers Care Road Grader Name Role Phone Sandra Santana MD Primary Care Provider Unav ailable Matilda Coast Unavailable [phone] REASON FOR VISIT XOLAIR SP Follow-up Social History Sex Assigned At : Social History Observation Description Sex Assigned At Female Encounters Encounter Location Date Provider Diagnosis [facility] [address] [place] [address] 05/26/2024 Matilda Coats Plan Of Treatment Next Appt Details Provider Name:Matilda ty, 02/16/2025 09:30:00 AM, [address], [place], [address], Provider Name:Keeley bustillo, 03/22/2025 12:45:00 PM, [address], [place], [address], Progress Notes * Monica FALKDOB:1955 ([age] yo F)Acc No.[id number]:05/26/2024 XOLAIR 1-3 Patient: Monica PINEDA Provider: Bubba Coats MD :1955 A ge:68 Y S ex:Female Date:05/26/2024 Address:[facility] Pcp:Sandra Santana MD Subjective: * Chief Complaints: * 1 . XOLAIR SP Follow-up. * Medical History: Objective: * Vitals: Assessment: Plan: * Treatment: * Billing Information: * Visit Code: * Procedure Codes: * Electronic signature of Olivia Coats MD on 02/14/2025 at 06:43 AM SOIL FIELD TECHNICIAN Sign off status: Pending * Provider: Bubba Coats MD Date: 0 05/26/2024 Generated for Maddy anderson/Martín/Vivek on: 1 04/17/2024 06:43 AM SOIL FIELD TECHNICIAN
[2025-01-31 13:41] VITALS: BMI 36.5
--- NOTE | ~2025-02-14 | XR_ITS ---
EXAM/PROCEDURE: XR fluoroscopy no charge HISTORY: DIAG/PROG LEFT KNEE JT NERVE BLK COMPARISON: None available. TECHNIQUE: Fluoroscopy no charge FLUOROSCOPY TIME: 6 minutes 48.6 seconds DAP: 79.620 [place]orne per square centimeter IMPRESSION: Fluoroscopic images provided for pain service. No radiologist present. See procedure/operative note for complete evaluation. Reviewed, dictated and finalized at location A. OFFICER IMPRESSION: Fluoroscopic images provided for pain service. No radiologist present. See proc edure/operative note for complete evaluation.
--- NOTE | 2025-02-14 06:15 | WPDHPUPDATE1 ---
History and Physical Update Update Date/Time: 02/14/25 06:15 History and Physical has been reviewed, including an updated exam of the patient. There are NO changes in the patient's condition. Risks, benefits, and alternatives have been discussed and questions answered. Patient agrees to proceed with procedure.
--- NOTE | 2025-02-14 06:16 | W.PM.PROC2 ---
Procedure Note - Detailed Date of Procedure 02/14/25 Pre-op Diagnosis Left Knee Pain, OA Post-op Diagnosis Same Procedure Performed Diagnostic Blockade of the Left Superior Medial, Inferior Medial and Superior Lateral Genicular Nerves, Vastus Intermedius nerve under Fluoroscopic Guidance (4 nerves blocked). Surgeon Davin Cruz MD Anesthesia Local Description of Procedure INFORMED CONSENT: Risks, benefits and alternatives to the procedure were discussed in detail with the patient who expressed explicit understanding and consent to proceed. Patient was informed verbally and in written form regarding the risks associated with the procedure including the low risk of serious infection, bleeding/bruising, allergic reaction, nerve injury, paralysis, procedural site pain or discomfort, worsening pain and/or mobility, failure to treat and disfigurement. The patient expressed explicit understanding and consent to proceed. All materials required for the procedure were available prior to procedure start. Site and side was marked prior to procedure and confirmed in the presence of the patient. PROCEDURE IN DETAIL: The patient was brought to the procedural suite and placed in the supine position. Patient was made comfortable with use of pillows under the head/shoulder, knees and ankles. Skin overlying anterior, medial and lateral surface of the knee joint on the left side was prepared broadly with ChloraPrep applicator and draped in a sterile manner. Aseptic technique was used throughout. The intersection between the femoral shaft and the medial femoral condyle, lateral femoral condyle and between the medial tibial plateau and tibial shaft were visualized in the AP view, as well as the line bisecting the femur and perpendicular to the short axis of the joint space 6cm proximal to the superior border of the patella with the knee partially flexed at 120 degrees. Local anesthesia was established by infiltration with approximately 3 mL of 2% lidocaine via a 1-1/2 inch 27-gauge needle at the skin and soft tissues overlying each site. A 25-gauge 3.5 inch quincke spinal needle was advanced until the needle tip contacted periosteum at each location, and was then walked off medially to approximate the position of the Superior and Inferior Medial Genicular nerves or laterally to approximate the position of the Superior Lateral Genicular nerve, and just superficial to femoral periosteum 6cm proximal to the patella to block the Vastus intermedius nerve. Needle depth was verified in the lateral view revealing appropriate needle positioning at each location. 0.5ml of Omnipaque 300 contrast medium was injected at each site confirming appropriate perineural spread of contrast without evidence of intravascular or intra-articular spread. After repeat negative aspiration, 0.5-1.0ml of 2.0% PF Lidocaine was injected at each site to block the respective nerves. Needle was removed completely intact without difficulty. Images were saved and documented in the patient chart. Patient's skin was cleansed and sterile bandage applied. The patient tolerated the procedure well. The patient was transported to the recovery area in stable condition where they were observed for an appropriate amount of time prior to discharge, without evidence of complication. Patient was instructed on the appropriate completion of a pain diary over the next 12-24 hours. The patient was instructed to avoid excessive activity for the next 48 hours, including climbing and frequent use of stairs. Showers only for 48 hours. They were instructed not to drive or operate heavy machinery for 24 hours. They are to monitor for severe headaches, fevers, chills, night sweats, erythema/swelling at the site or any other signs of infection, bleeding/bruising, bowel or bladder changes as well as new pain, weakness or numbness in the upper or lower extremity. Should they notice these changes, they are instructed to call our office immediately or report directly to the nearest Emergency Department if no answer or if after posted office hours. CONTRAST WASTED: 28 mL Omnipaque 300. Complications No immediate complications Condition Stable Disposition Same day [facility] Billing Surgery - Charge Forward: Surgery Billing
--- OUTSIDE RECORDS SUMMARY | 2025-02-14 06:42 | XMS_ITS | Encounter Summary ---
Author Organization [facility] Address [address] [place] [address] Care Team Providers Care Seafood Clerk Name Role Phone Sandra Santana MD Primary Care Provider Encounter Details Date Type Department Care Team (Late Contact Info) Description 01/07/2006 Orders Only [facility] Internal Medicine - [place] [address] [place] [address] Tee Locke MD [address] [facility] [address] [place] [address] Social History Tobacco Use Types Packs/Day Years Used Date Smoking Tobacco: Never Assessed Comments Unknown Sex and Gender Information Value Date Recorded Sex Assigned at Not on file Legal Sex Female 2:43 AM QUALITATIVE FIELD PROJECT MANAGER Gender Identity Not on file Sexual Orientation Not on file documented as of this encounter Plan of Treatment Upcoming Encounters Date Type Department Care Team (Late st Contact Info) Description 05/05/2025 2:15 PM QUALITATIVE FIELD PROJECT MANAGER Office Visit [facility] Sleep Medicine [facility] [address] [address] Robyn Tracey, [facility] [address] [address] documented as of this encounter Visit Diagnoses Not on filedocumented in this encounter Care Teams Seafood Clerk Relationship Specialty Start Date End Date Sandra Santana MD PCP - General Family Practice 05/17/21 documented as of this encounter
--- OUTSIDE RECORDS SUMMARY | 2025-02-14 06:42 | XMS_ITS | Encounter Summary ---
Author Organization [facility] Address [address] [place] [address] Care Team Providers Care Food Management Aide Name Role Phone Sandra Santana MD Primary Care Provider [phone] Encounter Details Date Type Department Care Team (Late st Contact Info) Description 07/10/[address] [facility] Internal Medicine - [place] [address] [place] [address] Tee Locke MD [address] [facility] [address] [place] [address] Social History Tobacco Use Types Packs/Day Years Used Date Smoking Tobacco: Never Assessed Comments Unknown Sex and Gender Information Value Date Recorded Sex Assigned at Not on file Legal Sex Female 2:43 AM FOOD CONCESSION MANAGER Gender Identity Not on file Sexual Orientation Not on file documented as of this encounter Progress Notes * Tee Locke MD - 12/18/2007 3:34 AM CDT TIME:10:00 am PATIENT`S HOME PHONE: PATIENT`S WORK PHONE: PATIENT`S INSURANCE: [employer] PPO WHO TOOK THE CALL: Jamila Stephens A GENERAL INFORMATION PATIENT STATUS: Established Patient. LAST VISIT: 04-30-05 PCP: tan WHO CALLED: Patient called. CURRENT ALLERGY LIST: [facility] NUMBER: [phone] SECTION 1: REQUESTED ACTION ronny 07/10/05 at 10:01 am: MEDICATION REQUEST: MEDICATION REQUEST: Patient requests a refill. MEDICATIONS: ULTRACET ORAL TABLET 37.5-325 MG, 2 Three Times A Day, As Needed, 60 Dispensed, status: CONTINUED, 04/25/2005, Comment: mat hr [id number]. ok to refill? TRIAGE/RN/MEDICAL OFFICE TECHNICIAN RESPONSE: benjamin 07/10/05 at 10:24 am Refill this time only. FINAL ACTION: gene 07/10/05 at 10:34 am Called pharmacy at 07/10/05 at 10:34 am. Electronically Signed by: Sheila Montgomery on Sunday, July 10, 2005 documented in this encounter Plan of Treatment Upcoming Encounters Date Type Department Care Team (Late st Contact Info) Description 05/05/2025 2:15 PM FOOD CONCESSION MANAGER Office Visit [facility] Sleep [facility] [id number] [place] [address] Robyn Tracey, SALES TEACH[facility]CR[facility] [address] [address] documented as of this encounter Visit Diagnoses Not on filedocumented in this encounter Care Teams Food Management Aide Relationship Specialty Start Date End Date Sandra Santana MD PCP - General Family Practice 05/17/21 documented as of this encounter
--- OUTSIDE RECORDS SUMMARY | 2025-02-14 06:42 | XMS_ITS | Encounter Summary ---
Author Organization [facility] Address [address] [place] [address] Care Team Providers Care Technical Solutions Consultant Name Role Phone Sandra Santana MD Primary Care Provider Encounter Details Date Type Department Care Team (Late st Contact Info) Description 01/29/2006 Outpatient Historical [facility] Internal Medicine - [place] [address] [place] [address] Tee Locke MD [address] [facility] [address] [place] [address] Social History Tobacco Use Types Packs/Day Years Used Date Smoking Tobacco: Never Assessed Comments Unknown Sex and Gender Information Value Date Recorded Sex Assigned at Not on file Legal Sex Female 2:43 AM BUDGET COUNSELOR Gender Identity Not on file Sexual Orientation Not on file documented as of this encounter Plan of Treatment Upcoming Encounters Date Type Department Care Team (Late st Contact Info) Description 05/05/2025 2:15 PM BUDGET COUNSELOR Office Visit [facility] Sleep Medicine [facility] [address] [address] Robyn Tracey, [facility] [address] [address] documented as of this encounter Visit Diagnoses Not on filedocumented in this encounter Care Teams Technical Solutions Consultant Relationship Specialty Start Date End Date Sandra Santana MD PCP - General Family Practice 05/17/21 documented as of this encounter
--- OUTSIDE RECORDS SUMMARY | 2025-02-14 06:42 | XMS_ITS | Encounter Summary ---
Author Organization [facility] Address [address] [place] [address] Care Team Providers Care Sales Development Manager Name Role Phone Sandra Santana MD Primary Care Provider Encounter Details Date Type Department Care Team (Late st Contact Info) Description 07/11/1999 Outpatient Historical [facility] Internal Medicine - [facility] [address] [facility] [address] [place] [address] Tee Locke MD [address] [facility] [address] [place] [address] Social History Tobacco Use Types Packs/Day Years Used Date Smoking Tobacco: Never Assessed Comments Unknown Sex and Gender Information Value Date Recorded Sex Assigned at Not on file Legal Sex Female 2:43 AM BORING MILL OPERATOR Gender Identity Not on file Sexual Orientation Not on file documented as of this encounter Plan of Treatment Upcoming Encounters Date Type Department Care Team (Late st Contact Info) Description 05/05/2025 2:15 PM BORING MILL OPERATOR Office Visit [facility] Sleep Medicine [facility] [address] [address] Robyn Tracey, INSTRUCTIONAL MATERIAL DIRECTORWASHINGTON [facility] HOS[facility] [address] [facility] [address] [place] [address] documented as of this encounter Visit Diagnoses Not on filedocumented in this encounter Care Teams Sales Development Manager Relationship Specialty Start Date End Date Sandra Santana MD PCP - General Family Practice 05/17/21 documented as of this encounter
--- OUTSIDE RECORDS SUMMARY | 2025-02-14 06:42 | XMS_ITS | Encounter Summary ---
Author Organization [facility] Address [address] [place] [address] Care Team Providers Care Business English Instructor Name Role Phone Sandra Santana MD Primary Care Provider Encounter Details Date Type Department Care Team (Late Contact Info) Description 01/01/[address] [facility] Internal Medicine - [place] [address] [place] [address] Tee Locke MD [address] [facility] [address] [place] [address] Social History Tobacco Use Types Packs/Day Years Used Date Smoking Tobacco: Never Assessed Comments Unknown Sex and Gender Information Value Date Recorded Sex Assigned at Not on file Legal Sex Female 2:43 AM MINE ANALYST Gender Identity Not on file Sexual Orientation Not on file documented as of this encounter Plan of Treatment Upcoming Encounters Date Type Department Care Team (Late st Contact Info) Description 05/05/2025 2:15 PM MINE ANALYST Office Visit [facility] Sleep Medicine [facility] [address] [address] Robyn Tracey, [facility] [address] [address] documented as of this encounter Visit Diagnoses Not on filedocumented in this encounter Care Teams Business English Instructor Relationship Specialty Start Date End Date Sandra Santana MD PCP - General Family Practice 05/17/21 documented as of this encounter
--- OUTSIDE RECORDS SUMMARY | 2025-02-14 06:42 | XMS_ITS | Encounter Summary ---
Author Organization [facility] Address [address] [place] [address] Care Team Providers Care Fitness Club Manager Name Role Phone Sandra Santana MD Primary Care Provider Encounter Details Date Type Department Care Team (Late st Contact Info) Description 01/29/[address] [facility] Internal Medicine - [place] [address] [place] [address] Tee Locke MD [address] [facility] [address] [place] [address] Social History Tobacco Use Types Packs/Day Years Used Date Smoking Tobacco: Never Assessed Comments Unknown Sex and Gender Information Value Date Recorded Sex Assigned at Not on file Legal Sex Female 2:43 AM HOG COOLER Gender Identity Not on file Sexual Orientation Not on file documented as of this encounter Plan of Treatment Upcoming Encounters Date Type Department Care Team (Late st Contact Info) Description 05/05/2025 2:15 PM HOG COOLER Office Visit [facility] Sleep Medicine [facility] [address] [address] Robyn Tracey, [facility] [address] [address] documented as of this encounter Visit Diagnoses Not on filedocumented in this encounter Care Teams Fitness Club Manager Relationship Specialty Start Date End Date Sandra Santana MD PCP - General Family Practice 05/17/21 documented as of this encounter
--- OUTSIDE RECORDS SUMMARY | 2025-02-14 06:42 | XMS_ITS | Encounter Summary ---
Author Organization [facility] Address [address] [place] [address] Care Team Providers Care Elementary School Band Director Name Role Phone Sandra Santana MD Primary Care Provider [phone] Encounter Details Date Type Department Care Team (Late st Contact Info) Description 04/30/2005 Outpatient Historical [facility] Internal Medicine - [place] [address] [place] [address] Tee Locke MD [address] [facility] [address] [place] [address] Social History Tobacco Use Types Packs/Day Years Used Date Smoking Tobacco: Never Assessed Comments Unknown Sex and Gender Information Value Date Recorded Sex Assigned at Not on file Legal Sex Female 2:43 AM DAIRY PROCESSING EQUIPMENT OPERATOR Gender Identity Not on file Sexual Orientation Not on file documented as of this encounter Last Filed Vital Signs Vital Sign Reading Time Taken Comments Blood Pressure 120/60 04/30/2005 1:15 PM DAIRY PROCESSING EQUIPMENT OPERATOR Pulse 80 04/30/2005 1:15 PM DAIRY PROCESSING EQUIPMENT OPERATOR Temperature - - Respiratory Rate - - Oxygen Saturation - - Inhaled Oxygen Concentration - - Weight 89.8 kg (198 lb) 04/30/2005 1:15 PM DAIRY PROCESSING EQUIPMENT OPERATOR Height - - Body Mass Index - - documented in this encounter Plan of Treatment Upcoming Encounters Date Type Department Care Team (Late st Contact Info) Description 05/05/2025 2:15 PM DAIRY PROCESSING EQUIPMENT OPERATOR Office Visit [facility] Sleep Medicine [address] [place] [address] Robyn Tracey, FINANCIAL SALES PROFESSIONAL[facility] [address] [facility] [address] [place] [address] documented as of this encounter Visit Diagnoses Not on filedocumented in this encounter Care Teams Elementary School Band Director Relationship Specialty Start Date End Date Sandra Santana MD PCP - General Family Practice 05/17/21 documented as of this encounter
--- OUTSIDE RECORDS SUMMARY | 2025-02-14 06:42 | XMS_ITS | Encounter Summary ---
Author Organization [facility] Address [address] [place] [address] Care Team Providers Care Commissions Specialist Name Role Phone Sandra Santana MD Primary Care Provider Encounter Details Date Type Department Care Team (Late Contact Info) Description 12/17/2001 Outpatient Historical [facility] Internal Medicine - [place] [address] [place] [address] Tee Locke MD [address] [facility] [address] [place] [address] Social History Tobacco Use Types Packs/Day Years Used Date Smoking Tobacco: Never Assessed Comments Unknown Sex and Gender Information Value Date Recorded Sex Assigned at Not on file Legal Sex Female 2:43 AM ACTING TEACHER Gender Identity Not on file Sexual Orientation Not on file documented as of this encounter Plan of Treatment Upcoming Encounters Date Type Department Care Team (Late st Contact Info) Description 05/05/2025 2:15 PM ACTING TEACHER Office Visit [facility] Sleep Medicine [facility] [address] [address] Robyn Tracey, [facility] [address] [address] documented as of this encounter Visit Diagnoses Not on filedocumented in this encounter Care Teams Commissions Specialist Relationship Specialty Start Date End Date Sandra Santana MD PCP - General Family Practice 05/17/21 documented as of this encounter
--- OUTSIDE RECORDS SUMMARY | 2025-02-14 06:42 | XMS_ITS | Encounter Summary ---
Author Organization [facility] Address [address] [place] [address] Care Team Providers Care Optician Apprentice Name Role Phone Sandra Santana MD Primary Care Provider Encounter Details Date Type Department Care Team (Late st Contact Info) Description 11/03/2003 Outpatient Historical [facility] Internal Medicine - [place] [address] [place] [address] Tee Locke MD [address] [facility] [address] [place] [address] Social History Tobacco Use Types Packs/Day Years Used Date Smoking Tobacco: Never Assessed Comments Unknown Sex and Gender Information Value Date Recorded Sex Assigned at Not on file Legal Sex Female 2:43 AM DIE STAMPING PRESS OPERATOR Gender Identity Not on file [...] st Contact Info) Description 05/05/2025 2:15 PM DIE STAMPING PRESS OPERATOR Office Visit [facility] Sleep Medicine [place] [address] [address] Alexy Robyn Neeru, [facility] [address] [facility] [address] [place] [address] documented as of this encounter Visit Diagnoses Not on filedocumented in this encounter Care Teams Optician Apprentice Relationship Specialty Start Date End Date Sandra Santana MD PCP - General Family Practice 05/17/21 documented as of this encounter
--- OUTSIDE RECORDS SUMMARY | 2025-02-14 06:42 | XMS_ITS | Encounter Summary ---
Author Organization [facility] Address [address] [place] [address] Care Team Providers Care Wooden Frame Builder Name Role Phone Sandra Santana MD Primary Care Provider Encounter Details Date Type Department Care Team (Late st Contact Info) Description 10/05/2004 Outpatient Historical [facility] Internal Medicine - [place] [address] [place] [address] Tee Locke MD [address] [facility] [address] [place] [address] Social History Tobacco Use Types Packs/Day Years Used Date Smoking Tobacco: Never Assessed Comments Unknown Sex and Gender Information Value Date Recorded Sex Assigned at Not on file Legal Sex Female 2:43 AM INDUSTRIAL RELATIONS COUNSELOR Gender Identity Not on file Sexual [...] st Contact Info) Description 05/05/2025 2:15 PM INDUSTRIAL RELATIONS COUNSELOR Office Visit [facility] Sleep Medicine [place] [address] [address] Alexy Robyn Neeru, CAN FILLING AND CLOSING MACHINE TENDER[facility]BI[facility] [address] [facility] [address] [place] [address] documented as of this encounter Visit Diagnoses Not on filedocumented in this encounter Care Teams Wooden Frame Builder Relationship Specialty Start Date End Date Sandra Santana MD PCP - General Family Practice 05/17/21 documented as of this encounter
--- OUTSIDE RECORDS SUMMARY | 2025-02-14 06:42 | XMS_ITS | Encounter Summary ---
Author Organization [facility] Address [address] [place] [address] Care Team Providers Care Lyft Driver Name Role Phone Sandra Santana MD Primary Care Provider Encounter Details Date Type Department Care Team (Late st Contact Info) Description 04/25/2005 Orders Only [facility] Internal Medicine - [place] [address] [place] [address] Tee Locke MD [address] [facility] [address] [place] [address] Social History Tobacco Use Types Packs/Day Years Used Date Smoking Tobacco: Never Assessed Comments Unknown Sex and Gender Information Value Date Recorded Sex Assigned at Not on file Legal Sex Female 2:43 AM MECHANICAL SPREADER OPERATOR Gender Identity Not on file Sexual Orientation Not on file documented as of this encounter Progress Notes * Tee Locke MD - 12/17/2007 3:04 PM CDT TIME:12:27 pm PATIENT`S HOME PHONE: PATIENT`S WORK PHONE: PATIENT`S INSURANCE: [employer] PPO WHO TOOK THE CALL: Shirlene Riddle [...] st Contact Info) Description 05/05/2025 2:15 PM MECHANICAL SPREADER OPERATOR Office Visit [facility] Sleep Medicine [facility] [phone] [place] [address] Robyn Tracey, [facility] [address] [phone] documented as of this encounter Visit Diagnoses Not on filedocumented in this encounter Care Teams Lyft Driver Relationship Specialty Start Date End Date Sandra Santana MD PCP - General Family Practice 05/17/21 documented as of this encounter
--- OUTSIDE RECORDS SUMMARY | 2025-02-14 06:42 | XMS_ITS | Encounter Summary ---
Author Organization [facility] Address [address] [place] [address] Care Team Providers Care Synthetic Resin Operator Name Role Phone Sandra Santana MD Primary Care Provider Encounter Details Date Type Department Care Team (Late Contact Info) Description 02/19/2005 Outpatient Historical [facility] Internal Medicine [facility] [address] [place] [address] Esteban Auguste MD [address] [facility] [place] [address] Social History Tobacco Use Types Packs/Day Years Used Date Smoking Tobacco: Never Assessed Comments Unknown Sex and Gender Information Value Date Recorded Sex Assigned at Not on file Legal Sex Female 2:43 AM SKEIN WINDING OPERATOR Gender Identity Not on file Sexual Orientation Not on file documented as of this encounter Last Filed Vital Signs Vital Sign Reading Time Taken Comments Blood Pressure 118/74 02/19/2005 10:15 AM SKEIN WINDING OPERATOR Pulse - - Temperature - - Respiratory Rate - - Oxygen Saturation - - Inhaled Oxygen Concentration - - Weight 92.1 kg (203 lb) 02/19/2005 10:15 AM SKEIN WINDING OPERATOR Height - - Body Mass Index - - documented in this encounter Plan of Treatment Upcoming Encounters Date Type Department Care Team (Late st Contact Info) Description 05/05/2025 2:15 PM SKEIN WINDING OPERATOR Office Visit [facility] Sleep Medicine [address] [address] Alexy Robyn Neeru, [place]- [address] [facility] [address] [place] [phone] documented as of this encounter Visit Diagnoses Not on filedocumented in this encounter Care Teams Synthetic Resin Operator Relationship Specialty Start Date End Date Sandra Santana MD PCP - General Family Practice 05/17/21 documented as of this encounter
--- OUTSIDE RECORDS SUMMARY | 2025-02-14 06:42 | XMS_ITS | Encounter Summary ---
Author Organization [facility] Address [address] [place] [address] Care Team Providers Care Crane Follower Name Role Phone Sandra Santana MD Primary Care Provider Encounter Details Date Type Department Care Team (Late st Contact Info) Description 09/02/2005 Orders Only [facility] Internal Medicine - [place] [address] [place] [address] Tee Locke MD [address] [facility] [address] [place] [address] Social History Tobacco Use Types Packs/Day Years Used Date Smoking Tobacco: Never Assessed Comments Unknown Sex and Gender Information Value Date Recorded Sex Assigned at Not on file Legal Sex Female 2:43 AM CRITICAL CARE UNIT MANAGER Gender Identity Not on file Sexual Orientation Not on file documented as of this encounter Progress Notes * Tee Locke MD - 12/18/2007 8:50 AM CDT TIME:02:04 pm PATIENT`S HOME PHONE: PATIENT`S WORK PHONE: PATIENT`S INSURANCE: [employer] PPO WHO TOOK THE CALL: Ari Enamorado A GENERAL INFORMATION PATIENT STATUS: Established Patient. LAST VISIT: 04/30/05 PCP: tan. ALTERNATIVE PHONE NUMBER: [phone] WHO CALLED: Patient called. CURRENT ALLERGY LIST: [facility] NUMBER: [phone] PROBLEMS: SECTION 1: REQUESTED ACTION [facility] 09/02/05 at 02:04 pm: MEDICATION REQUEST: Patient [...] st Contact Info) Description 05/05/2025 2:15 PM CRITICAL CARE UNIT MANAGER Office Visit [facility] Sleep Medicine [facility] [address] [address] Robyn Tracey, [facility] [address] [address] documented as of this encounter Visit Diagnoses Not on filedocumented in this encounter Care Teams Crane Follower Relationship Specialty Start Date End Date Sandra Santana MD PCP - General Family Practice 05/17/21 documented as of this encounter
--- OUTSIDE RECORDS SUMMARY | 2025-02-14 06:43 | XMS_ITS | Patient Health Record ---
Author Organization [facility] [place] ([address]) Address [address] [place] [address] Care Team Providers Care Motor Winder Name Role Phone Sandra Santana MD Primary Care Provider Unav Syed Laniern Unavailable [phone] Allergies Allergen (clinical drug ingredient) Drug/Non Drug Allergy documented on EMR Reaction Allergy Type Onset Date Status atorvastatin Atorvastatin hives Drug Allergy A ctive hydrocodone HYDROcodone Unknown Drug Allergy Act davon Results Component Value Reference Range Notes -CBC With Differential/Plate let Reviewed date:04/11/2024 04:18:30 PM Interpretation:Normal Performing Lab:[facility] [place], [address] [place] [id number], Phone - [phone], Director - PhDRicchileigh anni Notes/Report: WBC 5.0 3.4-10.8 x10E3/uL RBC [...] en Reviewed date:04/11/2024 04:18:08 PM Interpretation:Normal Performing Lab:[address] [id number], Phone - [phone], Director - [facility] Notes/Report: Sedimentation Rate-Westergren 14 0-40 mm/hr -Thyroid Peroxidase (TPO) Ab Reviewed date:04/11/2024 04:17:44 PM Interpretation:Abnormal Performing Lab:[address] [id number], Phone - [phone], Director - [facility] Notes/Report: Thyroid Peroxidase (TPO) Ab 393 0-34 IU/mL -CMP (14) Reviewed date:04/11/2024 04:17:59 PM Interpretation:Normal Performing Lab:[address] [id number], Phone - [phone], Director - [facility] Notes/Report: Glucose 93 70-99 mg/dL BUN [...] Reviewed date:04/11/2024 04:20:20 PM Interpretation:Normal Performing Lab:[facility] [place], [address] [place], [place] [id number], Phone - [phone], Director - Jaime Notes/Report: TSH 2.380 0.450-4.500 uIU/mL -Tryptase ([id number]) Reviewed date:04/11/2024 04:18:15 PM Interpretation:Normal Performing Lab:[facility] [place], [address] [place] [id number], Phone - [phone], Director - Nate Notes/Report: Tryptase 5.2 2.2-13.2 ug/L Reason For Referral No Information Medications Medication SIG (Take, Route, Frequency, Duration) Notes Start Date End Date Status Singulair 10 MG 1 tablet Orally Once a day; Duration: 30 days Active Famotidine 20 MG 1 tablet at bedtime as needed Orally Once a day Active Famotidine 20 MG 1 tablet at bedtime as needed Orally Once a day Not-Taking Auvi-Q 0.3 MG/0.3ML as directed Injectio n; Duration: 30 days Active Levothyroxine Sodium 88 MCG 1 tab(s) orally once a day; Duration: 30 day(s) Active EPINEPHrine 0.3 MG/0.3ML as directed Inj ection as needed for swelling or allergic reaction; Duration: 30 days 01/20/2025 Active Acetaminophen 500 MG 1 capsule as needed Orally every 6 hrs Active EpiPen 2-Judd 0.3 MG/0.3ML as directed In jection PRN; Duration: 1 days 02/02/2025 Active Solifenacin Succinate 10 MG 1 tablet Orally Once a day Active predniSONE 20 MG 3 tablets Orally Onc e a day; Duration: 5 days 01/20/2025 Active Cetirizine HCl 10 MG 1 tablet Orally Twi ce a day; Duration: 30 days Active Immunizations Vaccine Route Administration Date Status Comme nts Hepatitis B (20 and more) Unknown 03/16/2012 Administer ed Portal Information NOC Influenza-Fluzone Unknown 12/30/2018 Refused Hepatitis A Unknown 03/16/2012 Administered Portal Info rmation NOC Tdap Unknown 12/06/2008 Administered Portal Infor mation Influenza Unknown 12/09/2017 Administered Portal Infor mation NOC Fluzone Quadrivalent Unknown 05/27/2018 Refused Social History Tobacco Use: Social History Observation Description Date Details (start date - stop date) Former Smoker NA - NA Sex Assigned At : Social History Observation Description Sex Assigned At Female Tobacco Control (Standard) Question Answer Notes Tobacco use: Former smoker How long has it been since you last smoked? Grea ter than 10 years AUDIT-C (Standard) Question Answer Notes Did you have a drink containing alcohol in the p ast year? No Points 0 Interpretation Negative Problems Problem Type SNOMED Code ICD Code Onset Dates Problem Status W/U Status Risk Notes Problem Idiopathic urticaria (93761672) Idiopathic urticaria (L50.1) Active confirmed Problem Angioneurotic edema (30826370) Angioneurotic edema, initial encounter (T78.3XXA) Active confirmed Problem Chronic allergic conjunctivitis (65786664) Other chronic allergic conjunctivitis (H10.45) Active confirmed Problem Allergic rhinitis caused by pollen (disorder) (60326857) Allergic rhinitis due to pollen (J30.1) Active confirmed Problem Allergic rhinitis (37003014) Other allergic rhinitis (J30.89) Active confirmed Problem Chronic rhinitis (68371063) Chronic rhinitis (J31.0) Active confirmed Problem Uncomplicated mild persistent asthma (883756185) Mild persistent asthma, uncomplicated (J45.30) Active confirmed Problem Uncomplicated moderate persistent asthma (339694026) Moderate persistent asthma, uncomplicated (J45.40) Active confirmed Problem Uncomplicated severe persistent asthma (455536999) Severe persistent asthma, uncomplicated (J45.50) Active confirmed Problem Rosacea (576846501) Rosacea, unspecified (L71.9) Active confirmed Problem Localized edema (1947467) Localized edema (R60.0) Active confirmed Problem Angioneurotic edema (66443673) Angioneurotic edema, subsequent encounter (T78.3XXD) Active confirmed Problem Allergic rhinitis caused by animal hair and dander (591328337513541) Allergic rhinitis due to animal (cat) (dog) hair and dander (J30.81) Active confirmed Problem Allergy status t o narcotic agent (Z88.5) Active confirmed Vital Signs Oximetry 99 % 01/19/2025 Blood pressure diastolic 101 mm Hg 01/19/2025 Height 66 in 01/19/2025 Blood pressure systolic 170 mm Hg 01/19/2025 Weight 226.8 lbs 01/19/2025 BMI 36.6 kg/m2 01/19/2025 Encounters Encounter Location Date Provider Diagnosis [address] [place] [address] [address] 11/09/2024 Matilda Jorge L Idiopathic urticaria L50.1 ; Rosacea, unspecified L71.9 and Allergy status to narcotic agent Z88.[address] [address] 09/07/2024 Matilda Jorge L Idiopathic urticaria L50.1 ; Rosacea, unspecified L71.9 and Allergy status to narcotic agent Z88.[address] [address] 04/27/2024 Matilda Jorge L Idiopathic urticaria L50.1 ; Rosacea, unspecified L71.9 and Allergy status to narcotic agent Z88.[address] [address] 01/19/2025 Matilda Jorge L Idiopathic urticaria L50.1 ; Rosacea, unspecified L71.9 ; Allergy status to narcotic agent Z88.5 and Elevated blood-pressure reading, without diagnosis of hypertension R03.[address] [address] 04/06/2024 Matilda Jorge L Idiopathic urticaria L50.1 ; Rosacea, unspecified L71.9 and Allergy status to narcotic agent Z88.5 [facility] [address] [place] [address] 01/20/2025 Matilda Jorge L [facility] [address] [place] [address] 01/19/2025 Matilda Jorge L [facility] [address] [place] [address] 01/12/2025 Matilda Coats [facility] [address] [place] [address] 01/10/2025 Matilda Coats [facility] [address] [place] [address] 01/06/2025 Matilda Coats [facility] [address] [place] [address] [place] [address], [place] [address] 12/23/2024 Matilda Coats [facility] [address] [place] [address] [place] [address], [place] [address] 07/13/2024 Matilda Jorge L [facility] [address] [place] [address] 04/27/2024 Matildaphi Coats [facility] [address] [place] [address] 04/11/2024 Matildaphi Coats [facility] [address] [place] [address] 02/09/2025 Matilda Coats [facility] [address] [place] [address] 02/02/2025 Matildaphi Coats Assessments Encounter Date Diagnosis (ICD [...] urticaria and received Xolair until 2019. Labs showed normal CBC with differential, CMP, and tryptase. Elevated thyroid peroxidase but known thyroid disease. We discussed starting Xolair because hives are currently uncontrolled with Zyrtec, Famotidine and Singulair. 04/27/2024 Rosacea, unspecified (ICD-10 - L71.9) appears to have 2 separate skin conditions, recommend dermatology evaluation if needed. 09/07/2024 Idiopathic urticaria (ICD-10 - L50.1) Previous history of autoimmune urticaria and received Xolair until 2019. Labs 1-2024 showed normal CBC with differential, CMP, and tryptase. Elevated thyroid peroxidase but known thyroid disease. She would like to wait on Xolair due to insurance coverage. Hives are overall better. Continue Zyrtec, Famotidine and see if we can start decreasing medications with Singulair. 09/07/2024 Rosacea, unspecified (ICD-10 - L71.9) appears to have 2 separate skin conditions, recommend dermatology evaluation if needed. 11/09/2024 Idiopathic urticaria (ICD-10 - L50.1) Previous history of autoimmune urticaria and received Xolair until 2019. Labs 1-2024 showed normal CBC with differential, CMP, and tryptase. Elevated thyroid peroxidase but known thyroid disease. Hives are overall improved. Continue Zyrtec and we discussed stopping famotidine. Call the office if hives flare. 11/09/2024 Rosacea, unspecified (ICD-10 - L71.9) appears to have 2 separate skin conditions, recommend dermatology evaluation if needed. 01/19/2025 Idiopathic urticaria (ICD-10 - L50.1) Previous history of autoimmune urticaria and received Xolair until 2019. Labs 1-2024 showed normal CBC with differential, CMP, and tryptase. Elevated thyroid peroxidase but known thyroid disease. Due to current flare of hives, we decided to start Xolair. Continue Zyrtec 10 mg BID, Pepcid BID and Singulair. Xolair was administered today and tolerated after 30 minutes of observation. Continue to carry AIE at all times due to black box warning for anaphylaxis. Return in 4 weeks for dosing 01/19/2025 Rosacea, unspecified (ICD-10 - L71.9) appears to have 2 separate skin conditions, recommend dermatology evaluation if needed. She was recently prescribed doxycycline by Dermatology. 01/19/2025 Allergy status to narcotic agent (ICD-10 - Z88.5) Monica developed hives with oxycodone and lip swelling with hydrocodone. For now, continue avoidance. Hives occurred with hydrocodone on 2 separate occasions. 11/09/2024 Allergy status to narcotic agent (ICD-10 - Z88.5) Monica developed hives with oxycodone and lip swelling with hydrocodone. For now, continue avoidance. Hives occurred with hydrocodone on 2 separate occasions. 09/07/2024 Allergy status to narcotic agent (ICD-10 - Z88.5) Monica developed hives with oxycodone and lip swelling with hydrocodone. For now, continue avoidance. Hives occurred with hydrocodone on 2 separate occasions. 04/27/2024 Allergy status to narcotic agent (ICD-10 - Z88.5) Monica developed hives with oxycodone and lip swelling with hydrocodone. For now, continue avoidance. Hives occurred with hydrocodone on 2 separate occasions. 04/06/2024 Allergy status to narcotic agent (ICD-10 - Z88.5) Monica developed hives with oxycodone and lip swelling with hydrocodone. For now, continue avoidance. Hives occurred with hydrocodone on 2 separate occasions. 01/19/2025 Elevated blood-pressure reading, without diagnosis of hypertension (ICD-10 - R03.0) BP elevated today and needs f/u with PCP 04/06/2024 Other 09/07/2024 Other 11/09/2024 Other 01/19/2025 Other 04/27/2024 Other Plan Of Treatment Next Appt Details Provider Name:Matilda ty, 02/16/2025 09:30:00 AM, [address], [place], [address], Provider Name:Keeley bustillo, 03/22/2025 12:45:00 PM, [address], [place], [address], Insurance Providers Payer Name Payer Address Payer Phone Subscriber Number Group Number Insured Name Patient Relationship to Insured Coverage Start Date Coverage End Date [employer] [address] [address] [place] [address] [phone] [id number] Monica Kearns Self - patient is the insured 5 Medical (General) History Medical History History ICD Code Rash and other nonspecific skin eruption Idiopathic urticaria Angioneurotic edema, initial encounter Allergy status to narcotic agent status Angioneurotic edema, subsequent encounte r Surgical History Surgery Date(Month/Year) right knee surgery 03/15/2018 orthoscopy on both knees left knee surgery 2021 back surgery 08/10/2024 Hospitalization History Reason Date(Month/Year) right knee surgery 03/15/2018
--- OUTSIDE RECORDS SUMMARY | 2025-02-14 06:43 | XMS_ITS | Clinical Summary ---
Author Organization [facility] Address [address] [place] [address] Care Team Providers Care Information Clerk Cashier Name Role Phone Monica Thacker MD Primary Care Provider [phone] Allergies Active Allergy Reactions Criticality Noted Date [...] on file Legal Sex Female 10:12 AM PRESIDENT COMMERCIAL BANK Gender Identity Not on file Sexual Orientation [...] ACCESS ANTHEM ACCESS ANTHEM ACCESS Care Teams Information Clerk Cashier Relationship Specialty Start Date End Date Monica Thacker MD [address] [place] [id number] PCP - General Family Medicine 10/27/20
--- OUTSIDE RECORDS SUMMARY | 2025-02-14 06:43 | XMS_ITS | Clinical Summary ---
Author Organization [facility] Address [address] [place] [address] Phone Care Team Providers Care Enterprise Account Executive Name Role Phone Sandra Santana MD Primary [...] days. 14 Capsule 1 01/23/2022 11:40 AM NEUROLOGY NURSE 2 Active solifenacin (VESICARE) 10 mg Tablet Take 1 Tablet (10 mg) by mouth daily. 90 Tablet 1 01/23/2022 11:40 AM NEUROLOGY NURSE 2 Active acetaminophen (TYLENOL) 500 mg Capsule Take 500 mg by mouth every 4 hours as needed. 2 Active calcium carbonate-vitam in D3 (CALTRATE 600 + D) 600 mg-20 mcg (800 unit) Tablet Take 1 Tablet by mouth daily with breakfast. Active celecoxib (CeleBREX) 200 mg capsule Take 1 (one) capsule by mouth 2 times daily 60 Capsule 5 01/24/2022 2:16 PM NEUROLOGY NURSE 2 Active nitrofurantoin (MACROBID) 100 mg capsule Take 1 Capsule (100 mg) by mouth every 12 hours for 5 days. Take with a meal or food. 10 Capsule 01/24/2022 2:16 PM NEUROLOGY NURSE 2 Active traMADoL (ULTRAM) 50 mg tablet Take 1-2 tablets by mouth every 6 hours as needed for pain. 42 Tablet 02/15/2022 11:27 AM NEUROLOGY NURSE 2 Active levothyroxine 100 mcg tablet Take 1 Tablet (100 mcg) by mouth daily. 90 Tablet 2 02/25/2022 12:18 PM NEUROLOGY NURSE 2 Active nabumetone (RELAFEN) 750 mg tablet Take 1 Tablet (750 mg) by mouth 2 times daily. 60 Tablet 5 03/08/2022 12:38 PM NEUROLOGY NURSE 2 Active CPAP / BIPAP suppliesIndicat ions:THAO on CPAP CPAP Mask fit to comfort, Refit if needed, All associated CPAP Supplies as needed Length of need: 99 months DME [employer] 1 Each 4 Active Active Problems Patient Care Coordination No te Formatting of this note migh t be different from the original. DME: Provider Plus Mobile Unit [place]- [place] [address] [facility] [address] [place] [address] / Problem Noted Date Diagnosed Date Abnormal cardiovascular stress test 12/10/2021 Overview (12/10/2021): Added automatically from request for surgery [id number] Pre-op evaluation 12/10/2021 Overview (12/10/2021): Added automatically from request for surgery [id number] Severe obesity (BMI 35.0-39.9) with comorbidity 10/18/2019 Obesity (BMI 35.0-39.9 without comorbidity) 07/2 09/2019 THAO on CPAP 12/04/2018 Obesity (BMI 30.0-34.9) [...] Encounters Date Type Department Care Team Description 01/25/2025 External Device Data STL ABSTRACTION Provider, Abstract 12/31/2024 9:59 AM CDT - 12/31/2024 11:59 PM CDT Hospital Encounter [facility] at [address] [place] [address] Sandra Santana MD Discharge Disposition: Home or Self Care 12/29/2024 External Device Data STL ABSTRACTION Provider, Abstract 12/28/2024 External Device Data STL ABSTRACTION Provider, Abstract 11/23/2024 External Device Data STL ABSTRACTION Provider, Abstract from Last 3 Months Immunizations Immunization Administration Dates Next Due (ADACEL/BOOSTRIX)(10 YR UP) TDAP VACCINE, 0.5ML, IM 10/04/2019,12/06/2008 (PFIZER)(12 YR UP) COVID-19 VACCINE - EMERGENCY USE AUTHORIZATION, MRNA, [id number]) 30 MCG/0.3 ML IM SUSP 12/05/2020,04/14/2020,03/24/2020 (SHINGRIX)(50 [...] Smoking Tobacco: Former Cigarettes 0.3 10 1 - 1994 Smokeless Tobacco: Never Tobacco Cessation:Counseling Given: Not Answered Comments:social smoker only Alcohol Use Standard Drinks/Week Comments Yes 0 (1 standard drink = 0.6 oz pur e alcohol) Comments No Sex and Gender Information Value Date Recorded Sex Assigned at Not on file Legal Sex Female 2:43 AM NEUROLOGY NURSE Gender Identity Not on file Sexual [...] st Contact Info) Description 05/05/2025 2:15 PM NEUROLOGY NURSE Office Visit [facility] Sleep Medicine [address] [address] Robyn Tracey, [facility] [address] [address] Health Maintenance Due Date Last Done Comments FIT-DNA Q 3 years 10/12/2000 FIT/FOBT Q 1 year 10/12/2000 Flex Sig/CT Colonography Q 5 years 10/12/2000 PNEUMOCOCCAL VACCINE 50+ YEA RS (1 of 1 - PCV) 10/12/2005 RSV VACCINE (60+ or ) (1 - Risk 50-74 years 1-dose series) 10/12/2005 Pre-Diabetes and Diabetes Screening 10/21/2023 10/20/2020, 09/04/2018, 09/04/2018 INFLUENZA VACCINE (#1) 2024 2, 12/05/2020, 12/10/2019, Additional history exists COVID-19 Vaccine (4 - 2024-2 6 season) 2024 12/05/2020, 04/14/2020, 03/24/2020 OSTEOPOROSIS SCREENING 2025 2020, 2007 BREAST CANCER SCREENING 12/31/2025 01/01/20, 12/30/2023, 12/27/2022, Additional history exists COLORECTAL SCREENING 01/08/2027 01/08/2017 Colorectal Cancer Screening 01/08/2027 DTAP/TDAP/TD VACCINES (3 - T d or Tdap) 10/03/2029 10/04/2019, 12/06/2008, 01/29/2006 ZOSTER VACCINE Completed 05/04/2020, 09/08, 07/05/2016 Medical Devices Implanted Type Area Logistic Specialist Device Identifier Shelf Expiration Date Model / Serial / Lot Cement Depuy1 40grams 3312-040 - [id number] Implanted:Qty : 1 on 03/16/2018 by Chantel Ceja MD at [facility] Right: Knee [employer] 04/09/2020 [id number] / / [id number] Description:[id number] Comp Tib Attn Fb Cmnt Sz5 1506-70-005 - [id number] Implanted:Qty : 1 on 03/16/2018 by Chantel Ceja MD at [facility] Right: Knee [employer] 12/08/2027 [id number] / / [id number] Patella Attune Dome 35mm 1518-20-035 - [id number] Implanted:Qty : 1 on 03/16/2018 by Chantel Ceja MD at [facility] Knee Right: Knee [employer] 11/07/2022 [id number] / / [id number] Comp Fem Attn Ps Cmnt Sz6 1504-00-226 - [id number] Implanted:Qty : 1 on 03/16/2018 by Chantel Ceja MD at [facility] Knee Right: Knee [employer] 10/08/2027 [id number] / / [id number] Ins Attn Fb Cr Sz6 5mm 1516-20-605 - [id number] Implanted:Qty : 1 on 03/16/2018 by Chantel Ceja MD at [facility] Knee Right: Knee [employer] 11/07/2022 [id number] / / [id number] Procedures Procedure Name Priority Date/Time Associated Diagnosis Comments MAMMO 3D CATRACHITO SCREEN BILAT W OR WO CAD Routine 12/31/2024 10:29 AM CDT Visit for screening mammogram HEMOGLOBIN A1C Routine 10/20/2020 9:40 AM CDT Routine medical exam XR DEXA BONE DENSITY AXIAL 1 OR MORE SITES Routine 2020 2:42 PM CDT Menopause Routine medical exam ENDOSCOPY, COLON, SCREENING Routine 01/08/2017 from Last 3 Months or Most Recently Relevant to Health Maintenance Results * MAMMO 3D CATRACHITO SCREEN BILAT W OR WO CAD (12/31/2024 10:29 AM CDT) Anatomical Region Laterality Modality Breast Bilateral Mammography 12/31/2024 10:2 9 AM CDT Impressions 12/31/2024 11:34 AM CDT IMPRESSION: No mammographic evidence of malignancy. RECOMMENDATIONS: Routine screening mammogram in one year. DICTATION LOCATION: [facility] Narrative 12/31/2024 11:34 AM CDT MAMMO 3D CATRACHITO SCREEN BILAT W OR WO CAD DATE: 12/31/2024 10:29 AM HISTORY: Routine screening. TECHNIQUE: Full-field digital craniocaudal and mediolateral oblique projections of both breasts were obtained. Low-dose full-field digital breast tomosynthesis examination was performed with 3D acquisitions. Examination is read in conjunction with computer aided detection. COMPARISON: Mammograms dating back to 2019 BREAST COMPOSITION: There are scattered areas of fibroglandular density. FINDINGS: No suspicious mass, suspicious microcalcifications, or architectural distortion in either breast is identified. Since the prior study, there has been no significant interval change. The computer aided diagnosis detects no significant abnormality. OVERALL FINAL ASSESSMENT: BI-RADS CATEGORY 1: Negative. us Sandra Santana MD MAMMO ORDERABLES Final Resu lt * HEMOGLOBIN A1C (10/20/2020 9:40 AM CDT) HEMOGLOBIN A1C 5.4 <5.7 % of total Hgb [facility] Comment: FASTING:YES FASTING: YES Test [facility]formed at: [facility] [address] [place] [address] Андрей Mijares Vo Blood 10/20/2020 9:40 AM CDT 10/20/2020 9:41 AM CDT Monica Thacker MD CHEMISTRY ORDERABLES Final Result [facility] [address] [place] [address] * XR DEXA BONE DENSITY AXIAL 1 [...] refer to the full report available in [facility] under the PACS Images tab. If a faxed copy is needed, please call [phone]. DICTATION LOCATION: [facility] Procedure Note Javier Antonio MD - 2020 SUMMARY DEXA REPORT DATE: 2020 2:42 PM INDICATION: Arthritis, postmenopausal, thyroid medication. FINDINGS: The patient is considered osteopenic with a lowest T score of -1.1. Fracture risk is moderate. Please refer to the full report available in [facility] under the PACS Images tab. If a faxed copy is needed, please call [phone]. DICTATION LOCATION: [facility] Monica Thacker MD DIAGNOSTIC IMAGING ORDERAB LES [...] (INTERNAL) [facility] [address] Advance Directives For more information, please contact: [phone] Documents on File Type Date Recorded Patient Acid Pumper Expl anation Advance Directive POA 12/07/2021 7:07 AM A dvance Directive POA Advance Directive Living Will 12/07/2021 7:07 AM Advance Directive Living Will * Full Code (Latest Code Status on File) Date Activated Date Inactivated Comments 03/16/2018 12:05 PM 03/18/2018 8:46 PM Care Teams Enterprise Account Executive Relationship Specialty Start Date End Date Sandra Santana MD PCP - General Family Practice 05/17/21
--- OUTSIDE RECORDS SUMMARY | 2025-02-14 06:43 | XMS_ITS | Encounter Summary ---
Author Organization [facility] Address [address] [place] [address] Care Team Providers Care Cutting Machine Tender Helper Name Role Phone Sandra Santana MD Primary Care Provider Encounter Details Date Type Department Care Team (Late st Contact Info) Description 04/28/2006 Orders Only [facility] Internal Medicine - [place] [address] [place] [address] Tee Locke MD [address] [place] [address] Social History Tobacco Use Types Packs/Day Years Used Date Smoking Tobacco: Never Assessed Comments Unknown Sex and Gender Information Value Date Recorded Sex Assigned at Not on file Legal Sex Female 2:43 AM FEATHERER Gender Identity Not on file Sexual Orientation Not on file documented as of this encounter Progress Notes * Tee Locke MD - 07/31/2007 8:02 PM CDT TIME:01:34 pm PATIENT`S HOME PHONE: PATIENT`S WORK PHONE: PATIENT`S INSURANCE: [employer] PPO WHO TOOK THE CALL: Shirlene Riddle R GENERAL INFORMATION PATIENT STATUS: Established Patient. LAST VISIT: 01/29/06 PCP: tan WHO CALLED: Patient called. ALTERNATIVE PHONE NUMBER: CURRENT ALLERGY LIST: [facility] NUMBER: [phone] OTHER INFORMATION: SECTION 1: REQUESTED ACTION hermes 04/28/06 at 01:35 pm: MEDICATION REQUEST: MEDICATION REQUEST: Patient requests a refill. Pt said that she is having some problems with her lower back MEDICATIONS: ULTRACET ORAL TABLET 37.5-325 MG, 2 Three Times A Day, As Needed, 60 Dispensed, status: CONTINUED, 07/10/2005, Comment: vishnu fairbanks 10.34 [phone]. DOCTOR`S RESPONSE: jessica 04/28/06 at 01:50 pm Refill this time only. FINAL ACTION: hayden 04/28/06 at 02:13 pm Called pharmacy at 04/28/06 at 02:13 pm. Electronically Signed by: Lore Cui on Friday, April 28, 2006 documented in this encounter Plan of Treatment Upcoming Encounters Date Type Department Care Team (Late st Contact Info) Description 05/05/2025 2:15 PM FEATHERER Office Visit [facility] Sleep Medicine [facility] [address] [place] [address] Robyn Tracey, [facility] [address] [address] documented as of this encounter Visit Diagnoses Not on filedocumented in this encounter Care Teams Cutting Machine Tender Helper Relationship Specialty Start Date End Date Sandra Santana MD PCP - General Family Practice 05/17/21 documented as of this encounter
--- OUTSIDE RECORDS SUMMARY | 2025-02-14 06:43 | XMS_ITS | Encounter Summary ---
Author Organization [facility] Address [address] [place] [address] Care Team Providers Care Material Handler 1St Shift Name Role Phone Sandra Santana MD Primary Care Provider Encounter Details Date Type Department Care Team (Late st Contact Info) Description 05/15/2007 Orders Only [facility]3] Internal Medicine Medical [facility] [address] [address] Matilda Wilkes ANP NO ADDRESS ON FILE Social History Tobacco Use Types Packs/Day Years Used Date Smoking Tobacco: Never Assessed Comments Unknown Sex and Gender Information Value Date Recorded Sex Assigned at Not on file Legal Sex Female 2:43 AM LEAD SOLUTIONS ARCHITECT Gender Identity Not on file Sexual Orientation [...] will make an appt to see her NEWS CONTENT SPECIALIST this spring and have a mammogramordered at that time. She has never had a base line bone density. She has been having some intermittent CP, but has always considered it part my her GERD. She recently had a friend of a [place] and would like some cardiac testing. Her [...] active issues. She will F/U with her NEWS CONTENT SPECIALIST. Needs medication refilled. No incontinence. 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 LAB ORDERS: Order number: [id number] Test Ordered: CBC (INCLUDES DIFF/PLT) 6399 Order number: [id number] Test Ordered: COMPREHENSIVE METABOLIC PANEL 17593 Order number: [id number] Test Ordered: LIPID PANEL 7600 Order number: [id number] Test Ordered: TSH 899 530.81-GASTROESOPHAGEAL REFLUX (GERD) [...] GENERAL MEDICAL EXAMINATION LAB ORDERS: Order number: [id number] Test Ordered: BONE DENSITY (HIP & SPINE) 786.50-SYMPTOM, PAIN, CHEST NOS LAB ORDERS: Order number: [id number] Test Ordered: STRESS ECHO HEALTH MAINTENANCE: LAST [...] interval for mammogram as recommended by the [place] [employer] and ACOG, diagnosis, treatment, and [...] st Contact Info) Description 05/05/2025 2:15 PM LEAD SOLUTIONS ARCHITECT Office Visit [facility]3] Sleep Medicine [facility] [address] [address] Robyn Tracey, [facility] [address] [address] documented as of this encounter Visit Diagnoses Not on filedocumented in this encounter Care Teams Material Handler 1St Shift Relationship Specialty Start Date End Date Sandra Santana MD PCP - General Family Practice 05/17/21 documented as of this encounter
--- OUTSIDE RECORDS SUMMARY | 2025-02-14 06:43 | XMS_ITS | Encounter Summary ---
Author Organization [facility] Address [address] [place] [address] Care Team Providers Care Radiation Protection Technician Name Role Phone Sandra Santana MD Primary Care Provider Encounter Details Date Type Department Care Team (Late Contact Info) Description 05/15/2007 Outpatient Historical [facility] Internal Medicine Medical [facility] [address] [place] [address]. [address] [address] Chung Esteves MD NO ADDRESS ON FILE Social History Tobacco Use Types Packs/Day Years Used Date Smoking Tobacco: Never Assessed Comments Unknown Sex and Gender Information Value Date Recorded Sex Assigned at Not on file Legal Sex Female 2:43 AM LETTERPRESS SETTER Gender Identity Not on file Sexual Orientation Not on file documented as of this encounter Plan of Treatment Upcoming Encounters Date Type Department Care Team (Late Contact Info) Description 05/05/2025 2:15 PM LETTERPRESS SETTER Office Visit [facility] Sleep Medicine [facility] [address] [address] Robyn Tracey, [facility] [address] [address] documented as of this encounter Visit Diagnoses Not on filedocumented in this encounter Care Teams Radiation Protection Technician Relationship Specialty Start Date End Date Sandra Santana MD PCP - General Family Practice 05/17/21 documented as of this encounter
--- OUTSIDE RECORDS SUMMARY | 2025-02-14 06:43 | XMS_ITS | Encounter Summary ---
Author Organization [facility] Address [address] [place] [address] Care Team Providers Care Vending Machine Refiller Name Role Phone Sandra Santana MD Primary Care Provider [phone] Encounter Details Date Type Department Care Team (Late st Contact Info) Description 03/25/2006 Orders Only [facility] Internal Medicine - [place] [address] [place] [address] Tee Locke MD [address] [facility] [address] [place] [address] Social History Tobacco Use Types Packs/Day Years Used Date Smoking Tobacco: Never Assessed Comments Unknown Sex and Gender Information Value Date Recorded Sex Assigned at Not on file Legal Sex Female 2:43 AM CONSTRUCTION COST ESTIMATOR Gender Identity Not on file Sexual Orientation Not on file documented as of this encounter Progress Notes * Tee Locke MD - 08/04/2007 11:51 AM CDT TIME:01:53 pm PATIENT`S HOME PHONE: PATIENT`S WORK PHONE: PATIENT`S INSURANCE: [employer] PPO WHO TOOK THE CALL: Ayesha Saeed M GENERAL INFORMATION PATIENT STATUS: Established Patient. LAST VISIT: 01/29/06 PCP: tan. ALTERNATIVE PHONE NUMBER: [phone] WHO CALLED: Patient called. CURRENT ALLERGY LIST: [facility] NUMBER: [phone] SECTION 1: pt. [...] st Contact Info) Description 05/05/2025 2:15 PM CONSTRUCTION COST ESTIMATOR Office Visit [facility] Sleep Medicine [facility] [address] [place] [address] Robyn Tracey, [facility] [address] [place] [address] documented as of this encounter Visit Diagnoses Not on filedocumented in this encounter Care Teams Vending Machine Refiller Relationship Specialty Start Date End Date Sandra Santana MD PCP - General Family Practice 05/17/21 documented as of this encounter
--- OUTSIDE RECORDS SUMMARY | 2025-02-14 06:43 | XMS_ITS | Encounter Summary ---
Author Organization [facility] Address [address] [place] [address] Care Team Providers Care Boat Outboard Engine Mechanic Name Role Phone Sandra Santana MD Primary Care Provider Encounter Details Date Type Department Care Team (Late Contact Info) Description 05/15/2007 Outpatient Historical [facility] Internal Medicine Medical [facility] [address] [place] [address]. [address] [address] Matilda Wilkes ANP NO ADDRESS ON FILE Social History Tobacco Use Types Packs/Day Years Used Date Smoking Tobacco: Never Assessed Comments Unknown Sex and Gender Information Value Date Recorded Sex Assigned at Not on file Legal Sex Female 2:43 AM MODEL MAKER FIREARMS Gender Identity Not on file Sexual Orientation Not on file documented as of this encounter Plan of Treatment Upcoming Encounters Date Type Department Care Team (Late Contact Info) Description 05/05/2025 2:15 PM MODEL MAKER FIREARMS Office Visit [facility] Sleep Medicine [facility] [address] [address] Robyn Tracey, [facility] [address] [address] documented as of this encounter Visit Diagnoses Not on filedocumented in this encounter Care Teams Boat Outboard Engine Mechanic Relationship Specialty Start Date End Date Sandra Santana MD PCP - General Family Practice 05/17/21 documented as of this encounter
--- OUTSIDE RECORDS SUMMARY | 2025-02-14 06:43 | XMS_ITS | Clinical Summary ---
Author Organization [facility] Address [address] [place] [address] Care Team Providers Care General Magistrate Name Role Phone Davin Chase MD Unavailable [phone] Alee Thacker MD Primary Care Provider [phone] Source Comments [facility],non-owned Affiliates and Associated Physician Practices is amultiple site organization consisting of ambulatory clinics and hospital sitesin [place], [place], [place] and [place]. This disclosure is being madepursuant to the Care Everywhere program and may not contain all information available regarding this patient. Last updated 17.[facility] Allergies Active Allergy Reactions Criticality Noted [...] on file Legal Sex Female 7:58 AM PRESS OPERATOR AUTOMATIC Gender Identity Not on file Sexual Orientation [...] 10/12/2005 ZOSTER VACCINE (1 of 2) 10/12/2005 MEDICARE AWV CALENDAR YEAR 2024 COVID-19 VACCINE ( season) 2024 12/05/2020, 04/14/2020, 03/24/2020 INFLUENZA VACCINE (#1) 2024 [...] this topic Medical Devices Implanted Type Area Belt And Link Assembly Supervisor Device Identifier Shelf Expiration Date Model / Serial / Lot Cmnt Bone Djo Srg Cblt 40gm Hvisc Strl Implanted:Qty: 1 on 12/19/2021 by Davin Chase MD at [facility] Left: Knee [employer] 09/20/2022 600-15-000 / / [id number] Cmpnt Ptlr Std 28mm 3 Pg Kn Ser A Implanted:Qty: 1 on 12/19/2021 by Davin Chase MD at [facility] Left: Knee [employer] 01/09/2026 [id number] / / [id number] Tray Tib 75mm Kn Cocr I Beam Implanted:Qty: 1 on 12/19/2021 by Davin Chase MD at [facility] Left: Knee [employer] 08/15/2030 [id number] / / [id number] Cmpnt Fem Kn Lt Cr Cmnt Prm Vngrd Intlk Implanted:Qty: 1 on 12/19/2021 by Davin Chase MD at [facility] Left: Knee [employer] 11/13/2031 [id number] / / [id number] Vngrd Arcm Kn Ant Stab Implanted:Qty: 1 on 12/19/2021 by Davin Chase MD at [facility] Left: Knee [employer] 10/04/2026 [id number] / / [id number] Insurance [facility] MEDICARE [facility] MEDICARE ADV Advance Directives Documents on File Type Date Recorded Patient Subacute Nurse Expl anation Adv Directive/Living Will/POA 12/19/2021 * Full Code (Latest Code Status on File) Date Activated Date Inactivated Comments 12/19/2021 2:30 PM 12/20/2021 4:05 PM Care Teams General Magistrate Relationship Specialty Start Date End Date Alee Thacker MD [address] [place] [id number] PCP - General 02/10/22 [place] [address] [place] [address] Surgeon Orthopedic Surgery 06/01/20
--- OUTSIDE RECORDS SUMMARY | 2025-02-14 06:43 | XMS_ITS | Encounter Summary ---
Author Organization [facility] Address [address] [place] [address] Care Team Providers Care Telegraphic Typewriter Repairer Name Role Phone Sandra Santana MD Primary Care Provider Encounter Details Date Type Department Care Team (Late Contact Info) Description 06/10/2007 Orders Only [facility] Internal Medicine Medical [facility] [address] [place] [address]. [address] [address] Matilda Wilkes ANP NO ADDRESS ON FILE Social History Tobacco Use Types Packs/Day Years Used Date Smoking Tobacco: Never Assessed Comments Unknown Sex and Gender Information Value Date Recorded Sex Assigned at Not on file Legal Sex Female 2:43 AM PINMAKER Gender Identity Not on file Sexual Orientation Not on file documented as of this encounter Plan of Treatment Upcoming Encounters Date Type Department Care Team (Late Contact Info) Description 05/05/2025 2:15 PM PINMAKER Office Visit [facility] Sleep Medicine [facility] [address] [address] Robyn Tracey, [facility] [address] [address] documented as of this encounter Visit Diagnoses Not on filedocumented in this encounter Care Teams Telegraphic Typewriter Repairer Relationship Specialty Start Date End Date Sandra Santana MD PCP - General Family Practice 05/17/21 documented as of this encounter
--- OUTSIDE RECORDS SUMMARY | 2025-02-14 06:43 | XMS_ITS | Encounter Summary ---
Author Organization [facility] Address [address] [place] [address] Care Team Providers Care Sales Department Clerk Name Role Phone Sandra Santana MD Primary Care Provider Encounter Details Date Type Department Care Team (Late st Contact Info) Description 01/29/2006 Orders Only [facility] Internal Medicine - [place] [address] [place] [address] Tee Locke MD [address] [facility] [address] [place] [address] Social History Tobacco Use Types Packs/Day Years Used Date Smoking Tobacco: Never Assessed Comments Unknown Sex and Gender Information Value Date Recorded Sex Assigned at Not on file Legal Sex Female 2:43 AM MERCHANDISING CONSULTANT Gender Identity Not on file Sexual Orientation [...] 530.81-GASTROESOPHAGEAL REFLUX (GERD) LAB ORDERS: Order number: [id number] Test Ordered: ENDOSCOPY Order number: [id number] Test Ordered: COLONOSCOPY 724.5-BACK PAIN V70.0-ROUTINE GENERAL MEDICAL EXAMINATION LAB ORDERS: Order number: [id number] Test Ordered: COMPREHENSIVE METABOLIC PANEL W/ GLOMERULAR FILTRATION RATE, ESTIMATED (EGFR) 96169 Order number: [id number] Test Ordered: TSH 899 Order number: [id number] Test Ordered: CBC (INCLUDES DIFF/PLT) 6399 Order number: [id number] Test Ordered: INJ-TETANUS & DIPTHERIA TOXOID 10783 625.4-PREMENSTRUAL SYNDROME (PMS) MEDICATIONS: NEURONTIN ORAL CAPSULE [...] st Contact Info) Description 05/05/2025 2:15 PM MERCHANDISING CONSULTANT Office Visit [facility] Sleep Medicine [facility] [address] [phone] Robyn Tracey, [facility] [address] [facility] [address] [place] [address] documented as of this encounter Visit Diagnoses Not on filedocumented in this encounter Care Teams Sales Department Clerk Relationship Specialty Start Date End Date Sandra Santana MD PCP - General Family Practice 05/17/21 documented as of this encounter
[2025-02-14 07:00] VITALS: BP 169/71; PULSE 48; RESP 18; TEMP 36.6; O2SAT 100; BMI 36.7
[2025-02-14 07:40] VITALS: BP 193/94; PULSE 79; RESP 18; O2SAT 100
[2025-02-14] MEDS: BUPivacaine HCL 0.5% 10 ML AMP (07:43)
[2025-02-14] MEDS: LIDOCAINE 1% PF INJ 5 ML VIAL INFILTRATE (07:44)
[2025-02-14 07:45] VITALS: BP 190/93; PULSE 74; RESP 16; O2SAT 100
[2025-02-14] MEDS: BUPivacaine HCL 0.5% 10 ML AMP INFILTRATE (07:45)
[2025-02-14 07:50] VITALS: BP 173/90; PULSE 66; RESP 18; O2SAT 98
[2025-02-14 07:54] VITALS: BP 167/77; PULSE 56; RESP 18; O2SAT 100
== END 2025-02-14 08:04 | disposition home or self-care (01) ==
PROVIDERS: PCP Family Medicine; Visit Provider Anesthesiology Pain Medicine
PROC: (CPT 64454; principal; 2025-02-14 07:30)
DX: M25.562 Pain in left knee (principal); M17.12 Unilateral primary osteoarthritis, left knee
CPT/HCPCS: 64454; 99199

== ENCOUNTER 2025-03-01 06:18 | Day surgery (SDC) | payer MEDICARE, SELFPAY ==
--- OUTSIDE RECORDS SUMMARY | 2017-11-12 04:29 | XMS_ITS | Continuity of Care Document ---
Author Organization [facility] Address [address] [facility] [address] [place] [address] Phone Care Team Providers Care Trial Court Judge Name Role Phone Qamar Alegria MD Unavailable [...] [facility], [address] [facility] [address], [place], [place], [id number], [place] tel:[phone] [facility] No Information 8 Raji Foote. [address] [place] [address], [address] [place] [address], [id number] , [place]. tel: [phone] Est (Level 3) OFFICE/OUTPATI ENT VISIT [facility], [address] [place] [address], [id number], tel:[phone] [facility] hives (chief complaint) Idiopathic urticaria 7 Gomez Denise. [address] [place] [address], [address] [place] [address], [id number] , [place]. tel: [phone] Referring Provider: Monica Thacker, [address], [place], [address]. tel:[phone] Est (Level 3) OFFICE/OUTPATI ENT VISIT [facility], [address] [place] [address], [id number], tel:[phone] [facility] hives (chief complaint) Idiopathic urticaria 7 Gomez Denise. [address] [place] [address], [address] [place] [address], [id number] , [place]. tel: [phone] Referring Provider: [address], [place], [address]. tel:[phone] Est (Level 3) OFFICE/OUTPATI ENT VISIT [facility], [address] [place] [address], [id number], tel:[phone] [facility] hives (chief complaint) Idiopathic urticaria 7 Gomez Denise. [address] [place] [address], [address] [place] [address], [id number] , [place]. tel: [phone] Referring Provider: [address], [place], [address]. tel:[phone] Consult (Level 4) OFFICE CONSULTATION [facility], [address] [place] [address], [id number], [place] tel:[phone] [facility] hives (chief complaint) Idiopathic urticaria 7 oGmez Walker. [address] [facility], [address], [place], [place], [id number] , [place]. tel: [phone] Referring Provider: Monica Thacker, [address], [place], [address]. tel:[phone] Family History Family Member Type Diagnosis Age At Onset Problem (finding) No family history of Hi ves Mother Problem (finding) Food allergy Problem (finding) No family hist ory of Systemic lupus erythematosus Payers Payer name Insurance type Covered green party ID Authoriza tidorian(s) R CI [id number] Social History Type Description Quantity Date Captured [...] RA or thyroid problems.Social: She works in [employer] at [employer]. She has a bichon. She does smoke. [...] Related to Idiopathic urticaria You likely have head sawyer haydee (more than 6 weeks) idiopathic (unknown [...]
--- OUTSIDE RECORDS SUMMARY | 2024-05-26 11:30 | XMS_ITS ---
Author Organization [facility] [place] ([address]) Address [address] [place] [address] Care Team Providers Care Occupational Health Nurse Manager Name Role Phone Sandra Santana MD Primary Care Provider Unav ailable Matilda Coats Unavailable [phone] REASON FOR VISIT XOLAIR SP Follow-up Social History Sex Assigned At : Social History Observation Description Sex Assigned At Female Encounters Encounter Location Date Provider Diagnosis [facility] [address] [place] [address] 05/26/2024 Matilda Coats Plan Of Treatment Next Appt Details Provider Name:Mary Pereira , 03/16/2025 09:00:00 AM, [email or web address], [place], [address], Provider Name:Keeley bustillo, 03/22/2025 12:45:00 PM, [email or web address], [place], [address], Progress Notes * Monica FALKDOB:1955 ([age] yo F)Acc No.[id number]:05/26/2024 XOLAIR 1-3 Patient: Monica PINEDA Provider: Bubba Coats MD :1955 A ge:68 Y S ex:Female Date:05/26/2024 [facility] Pcp:Sandra Santana MD Subjective: * Chief Complaints: * 1 . XOLAIR SP Follow-up. * Medical History: Objective: * Vitals: Assessment: Plan: * Treatment: * Billing Information: * Visit Code: * Procedure Codes: * Electronic signature of Olivia Coats MD on 03/01/2025 at 06:57 AM CONDENSER SETTER Sign off status: Pending * Provider: Bubba Coats MD Date: 0 05/26/2024 Generated for Maddy anderson/Martín/Annsmitting on: 1 05/02/2024 06:57 AM CONDENSER SETTER
--- NOTE | ~2025-03-01 | XR_ITS ---
XR fluoroscopy no charge Indication: Nerve block left knee TECHNIQUE: Fluoroscopy used during nerve block left knee performed by [Davin Cruz MD] on 03/01/2025. 45 seconds of fluoroscopy with 9 fluoroscopic images captured. FINDINGS: Correlate with procedure note. IMPRESSION: Fluoroscopy used during nerve block left knee. Reviewed, dictated and finalized at location O. RWRITING CONSULTANT
--- OUTSIDE RECORDS SUMMARY | 2025-03-01 06:56 | XMS_ITS | Encounter Summary ---
Author Organization [facility] Address [address] [place] [address] Care Team Providers Care Deportation Examiner Name Role Phone Sandra Santana MD Primary Care Provider Encounter Details Date Type Department Care Team (Late st Contact Info) Description 10/05/2004 Outpatient Historical [facility] Internal Medicine - [place] [address] [place] [address] Tee Locke MD [address] [facility] [address] [place] [address] Social History Tobacco Use Types Packs/Day Years Used Date Smoking Tobacco: Never Assessed Comments Unknown Sex and Gender Information Value Date Recorded Sex Assigned at Not on file Legal Sex Female 2:43 AM SHOWROOM SALES CONSULTANT Gender Identity Not on file Sexual [...] st Contact Info) Description 05/05/2025 2:15 PM SHOWROOM SALES CONSULTANT Office Visit [facility] Sleep Medicine [place] [address] [address] Alexy Robyn Neeru, FUEL TANK SEALER [facility] [address] [facility] [address] [place] [address] documented as of this encounter Visit Diagnoses Not on filedocumented in this encounter Care Teams Deportation Examiner Relationship Specialty Start Date End Date Sandra Santana MD PCP - General Family Practice 05/17/21 documented as of this encounter
--- OUTSIDE RECORDS SUMMARY | 2025-03-01 06:56 | XMS_ITS | Encounter Summary ---
Author Organization [facility] Address [address] [place] [address] Care Team Providers Care Laundrette Owner Name Role Phone Sandra Santana MD Primary Care Provider Encounter Details Date Type Department Care Team (Late Contact Info) Description 05/15/2007 Outpatient Historical [facility] Internal Medicine Medical [facility] [address] [place] [address]. [address] [address] Matilda Wilkes ANP NO ADDRESS ON FILE Social History Tobacco Use Types Packs/Day Years Used Date Smoking Tobacco: Never Assessed Comments Unknown Sex and Gender Information Value Date Recorded Sex Assigned at Not on file Legal Sex Female 2:43 AM MEDICAL RECEPTION SPECIALIST Gender Identity Not on file Sexual Orientation Not on file documented as of this encounter Plan of Treatment Upcoming Encounters Date Type Department Care Team (Late Contact Info) Description 05/05/2025 2:15 PM MEDICAL RECEPTION SPECIALIST Office Visit [facility] Sleep Medicine [facility] [address] [address] Robyn Tracey, [facility] [address] [address] documented as of this encounter Visit Diagnoses Not on filedocumented in this encounter Care Teams Laundrette Owner Relationship Specialty Start Date End Date Sandra Santana MD PCP - General Family Practice 05/17/21 documented as of this encounter
--- OUTSIDE RECORDS SUMMARY | 2025-03-01 06:56 | XMS_ITS | Encounter Summary ---
Author Organization [facility] Address [address] [place] [address] Care Team Providers Care Director Industrial Museum Name Role Phone Sandra Santana MD Primary Care Provider Encounter Details Date Type Department Care Team (Late st Contact Info) Description 03/25/2006 Orders Only [facility] Internal Medicine - [place] [address] [place] [address] Tee Locke MD [address] [facility] [address] [place] [address] Social History Tobacco Use Types Packs/Day Years Used Date Smoking Tobacco: Never Assessed Comments Unknown Sex and Gender Information Value Date Recorded Sex Assigned at Not on file Legal Sex Female 2:43 AM LABOR CONCILIATOR Gender Identity Not on file Sexual Orientation Not on file documented as of this encounter Progress Notes * Tee Locke MD - 08/04/2007 11:51 AM CDT TIME:01:53 pm PATIENT`S HOME PHONE: PATIENT`S WORK PHONE: PATIENT`S INSURANCE: [employer] PPO WHO TOOK THE CALL: Ayesha Saeed M GENERAL INFORMATION PATIENT STATUS: Established Patient. LAST VISIT: 01/29/06 PCP: tan. ALTERNATIVE PHONE NUMBER: [phone] WHO CALLED: Patient called. CURRENT ALLERGY LIST: [facility] NUMBER: [phone] SECTION 1: pt. had [...] st Contact Info) Description 05/05/2025 2:15 PM LABOR CONCILIATOR Office Visit [facility] Sleep Medicine [facility] [address] [place] [address] Robyn Tracey, [facility] [address] [place] [address] documented as of this encounter Visit Diagnoses Not on filedocumented in this encounter Care Teams Director Industrial Museum Relationship Specialty Start Date End Date Sandra Santana MD PCP - General Family Practice 05/17/21 documented as of this encounter
--- OUTSIDE RECORDS SUMMARY | 2025-03-01 06:56 | XMS_ITS | Encounter Summary ---
Author Organization [facility] Address [address] [place] [address] Care Team Providers Care Product Merchandiser Name Role Phone Sandra Santana MD Primary Care Provider Encounter Details Date Type Department Care Team (Late Contact Info) Description 05/15/2007 Outpatient Historical [facility] Internal Medicine Medical [facility] [address] [place] [address]. [address] [address] Chung Esteves MD NO ADDRESS ON FILE Social History Tobacco Use Types Packs/Day Years Used Date Smoking Tobacco: Never Assessed Comments Unknown Sex and Gender Information Value Date Recorded Sex Assigned at Not on file Legal Sex Female 2:43 AM DEDICATED LOCAL TRUCK DRIVER Gender Identity Not on file Sexual Orientation Not on file documented as of this encounter Plan of Treatment Upcoming Encounters Date Type Department Care Team (Late Contact Info) Description 05/05/2025 2:15 PM DEDICATED LOCAL TRUCK DRIVER Office Visit [facility] Sleep Medicine [facility] [address] [address] Robyn Tracey, [facility] [address] [address] documented as of this encounter Visit Diagnoses Not on filedocumented in this encounter Care Teams Product Merchandiser Relationship Specialty Start Date End Date Sandra Santana MD PCP - General Family Practice 05/17/21 documented as of this encounter
--- OUTSIDE RECORDS SUMMARY | 2025-03-01 06:56 | XMS_ITS | Encounter Summary ---
Author Organization [facility] Address [address] [place] [address] Care Team Providers Care Machine Erector Name Role Phone Sandra Santana MD Primary Care Provider Encounter Details Date Type Department Care Team (Late st Contact Info) Description 04/30/2005 Outpatient Historical [facility] Internal Medicine - [place] [address] [place] [address] Tee Locke MD [address] [facility] [address] [place] [address] Social History Tobacco Use Types Packs/Day Years Used Date Smoking Tobacco: Never Assessed Comments Unknown Sex and Gender Information Value Date Recorded Sex Assigned at Not on file Legal Sex Female 2:43 AM MOLD TOOLING TECHNICIAN Gender Identity Not on file Sexual Orientation Not on file documented as of this encounter Last Filed Vital Signs Vital Sign Reading Time Taken Comments Blood Pressure 120/60 04/30/2005 1:15 PM MOLD TOOLING TECHNICIAN Pulse 80 04/30/2005 1:15 PM MOLD TOOLING TECHNICIAN Temperature - - Respiratory Rate - - Oxygen Saturation - - Inhaled Oxygen Concentration - - Weight 89.8 kg (198 lb) 04/30/2005 1:15 PM MOLD TOOLING TECHNICIAN Height - - Body Mass Index - - documented in this encounter Plan of Treatment Upcoming Encounters Date Type Department Care Team (Late st Contact Info) Description 05/05/2025 2:15 PM MOLD TOOLING TECHNICIAN Office Visit [facility] Sleep Medicine [address] [place] [address] Robyn Tracey, [facility] [address] [facility] [address] [place] [address] documented as of this encounter Visit Diagnoses Not on filedocumented in this encounter Care Teams Machine Erector Relationship Specialty Start Date End Date Sandra Santana MD PCP - General Family Practice 05/17/21 documented as of this encounter
--- OUTSIDE RECORDS SUMMARY | 2025-03-01 06:56 | XMS_ITS | Encounter Summary ---
Author Organization [facility] Address [address] [place] [address] Care Team Providers Care Sleeping Car Service Attendant Name Role Phone Sandra Santana MD Primary Care Provider Encounter Details Date Type Department Care Team (Late st Contact Info) Description 01/29/2006 Outpatient Historical [facility] Internal Medicine - [place] [address] [place] [address] Tee Locke MD [address] [facility] [address] [place] [address] Social History Tobacco Use Types Packs/Day Years Used Date Smoking Tobacco: Never Assessed Comments Unknown Sex and Gender Information Value Date Recorded Sex Assigned at Not on file Legal Sex Female 2:43 AM PRIMARY CLINICIAN Gender Identity Not on file Sexual Orientation Not on file documented as of this encounter Plan of Treatment Upcoming Encounters Date Type Department Care Team (Late st Contact Info) Description 05/05/2025 2:15 PM PRIMARY CLINICIAN Office Visit [facility] Sleep Medicine [facility] [address] [address] Robyn Tracey, [facility] [address] [address] documented as of this encounter Visit Diagnoses Not on filedocumented in this encounter Care Teams Sleeping Car Service Attendant Relationship Specialty Start Date End Date Sandra Santana MD PCP - General Family Practice 05/17/21 documented as of this encounter
--- OUTSIDE RECORDS SUMMARY | 2025-03-01 06:56 | XMS_ITS | Encounter Summary ---
Author Organization [facility] Address [address] [place] [address] Care Team Providers Care Rug Shampooer Name Role Phone Sandra Santana MD Primary Care Provider Encounter Details Date Type Department Care Team (Late st Contact Info) Description 05/15/2007 Orders Only [facility] Internal Medicine Medical [place] [facility] [address] [address] Matilda Wilkes ANP NO ADDRESS ON FILE Social History Tobacco Use Types Packs/Day Years Used Date Smoking Tobacco: Never Assessed Comments Unknown Sex and Gender Information Value Date Recorded Sex Assigned at Not on file Legal Sex Female 2:43 AM MANAGER PSYCHIATRY Gender Identity Not on file Sexual Orientation [...] will make an appt to see her BOOK PACKER this spring and have a mammogramordered at that time. She has never had a base line bone density. She has been having some intermittent CP, but has always considered it part my her GERD. She recently had a friend of a [place] and would like some cardiac testing. Her [...] active issues. She will F/U with her BOOK PACKER. Needs medication refilled. No incontinence. 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 LAB ORDERS: Order number: [id number] Test Ordered: CBC (INCLUDES DIFF/PLT) 6399 Order number: [id number] Test Ordered: COMPREHENSIVE METABOLIC PANEL 84879 Order number: [id number] Test Ordered: LIPID PANEL 7600 Order number: [id number] Test Ordered: TSH 899 530.81-GASTROESOPHAGEAL REFLUX (GERD) [...] GENERAL MEDICAL EXAMINATION LAB ORDERS: Order number: [id number] Test Ordered: BONE DENSITY (HIP & SPINE) 786.50-SYMPTOM, PAIN, CHEST NOS LAB ORDERS: Order number: [id number] Test Ordered: STRESS ECHO HEALTH MAINTENANCE: LAST [...] interval for mammogram as recommended by the [place] [employer] and ACOG, diagnosis, treatment, and [...] st Contact Info) Description 05/05/2025 2:15 PM MANAGER PSYCHIATRY Office Visit [facility] Sleep Medicine [facility] [address] [address] Robyn Tracey, RAPID TRANSIT OPER[facility] [address] [address] documented as of this encounter Visit Diagnoses Not on filedocumented in this encounter Care Teams Rug Shampooer Relationship Specialty Start Date End Date Sandra Santana MD PCP - General Family Practice 05/17/21 documented as of this encounter
--- OUTSIDE RECORDS SUMMARY | 2025-03-01 06:56 | XMS_ITS | Encounter Summary ---
Author Organization Address [address] [place] [address] Care Team Providers Care Multimedia Production Assistant Name Role Phone Sandra Santana MD Primary Care Provider Encounter Details Date Type Department Care Team (Late st Contact Info) Description 04/25/2005 Orders Only [facility] Internal Medicine - [place] [address] [place] [address] Tee Locke MD [address] [facility] [address] [place] [address] Social History Tobacco Use Types Packs/Day Years Used Date Smoking Tobacco: Never Assessed Comments Unknown Sex and Gender Information Value Date Recorded Sex Assigned at Not on file Legal Sex Female 2:43 AM FREEZER UNLOADER Gender Identity Not on file Sexual Orientation Not on file documented as of this encounter Progress Notes * Tee Locke MD - 12/17/2007 3:04 PM CDT TIME:12:27 pm PATIENT`S HOME PHONE: PATIENT`S WORK PHONE: PATIENT`S INSURANCE: [employer] PPO WHO TOOK THE CALL: Shirlene Riddle [...] st Contact Info) Description 05/05/2025 2:15 PM FREEZER UNLOADER Office Visit [facility] Sleep Medicine [facility] [address] [place] [phone] Robyn Tracey, [facility] [address] [phone] documented as of this encounter Visit Diagnoses Not on filedocumented in this encounter Care Teams Multimedia Production Assistant Relationship Specialty Start Date End Date Sandra Santana MD PCP - General Family Practice 05/17/21 documented as of this encounter
--- OUTSIDE RECORDS SUMMARY | 2025-03-01 06:56 | XMS_ITS | Encounter Summary ---
Author Organization [facility] Address [address] [place] [address] Care Team Providers Care Scanning Coordinator Name Role Phone Sandra Santana MD Primary Care Provider Encounter Details Date Type Department Care Team (Late st Contact Info) Description 09/02/[address] [facility] Internal Medicine - [place] [address] [place] [address] Tee Locke MD [address] [facility] [address] [place] [address] Social History Tobacco Use Types Packs/Day Years Used Date Smoking Tobacco: Never Assessed Comments Unknown Sex and Gender Information Value Date Recorded Sex Assigned at Not on file Legal Sex Female 2:43 AM WOOD BOATBUILDER Gender Identity Not on file Sexual Orientation Not on file documented as of this encounter Progress Notes * Tee Locke MD - 12/18/2007 8:50 AM CDT TIME:02:04 pm PATIENT`S HOME PHONE: PATIENT`S WORK PHONE: PATIENT`S INSURANCE: [employer] PPO WHO TOOK THE CALL: Ari Enamorado A GENERAL INFORMATION PATIENT STATUS: Established Patient. LAST VISIT: 04/30/05 PCP: tan. ALTERNATIVE PHONE NUMBER: [phone] WHO CALLED: Patient called. CURRENT ALLERGY LIST: [facility] NUMBER: [phone] PROBLEMS: SECTION 1: REQUESTED ACTION [facility] 09/02/05 at 02:04 pm: MEDICATION REQUEST: [...] st Contact Info) Description 05/05/2025 2:15 PM WOOD BOATBUILDER Office Visit [facility] Sleep Medicine [facility] [address] [address] Robyn Tracey, [facility] [address] [address] documented as of this encounter Visit Diagnoses Not on filedocumented in this encounter Care Teams Scanning Coordinator Relationship Specialty Start Date End Date Sandra Santana MD PCP - General Family Practice 05/17/21 documented as of this encounter
--- OUTSIDE RECORDS SUMMARY | 2025-03-01 06:56 | XMS_ITS | Encounter Summary ---
Author Organization [facility] Address [address] [place] [address] Care Team Providers Care Account Resolution Expert Name Role Phone Sandra Santana MD Primary Care Provider [phone] Encounter Details Date Type Department Care Team (Late st Contact Info) Description 07/10/2005 Orders Only [facility] Internal Medicine - [place] [address] [place] [address] Tee Locke MD [address] [facility] [address] [place] [address] Social History Tobacco Use Types Packs/Day Years Used Date Smoking Tobacco: Never Assessed Comments Unknown Sex and Gender Information Value Date Recorded Sex Assigned at Not on file Legal Sex Female 2:43 AM PRODUCT RESPONSIBILITY LIAISON Gender Identity Not on file Sexual Orientation Not on file documented as of this encounter Progress Notes * Tee Locke MD - 12/18/2007 3:34 AM CDT TIME:10:00 am PATIENT`S HOME PHONE: PATIENT`S WORK PHONE: PATIENT`S INSURANCE: [employer] PPO WHO TOOK THE CALL: Jamila Stephens A GENERAL INFORMATION PATIENT STATUS: Established Patient. LAST VISIT: 04-30-05 PCP: tan WHO CALLED: Patient called. CURRENT ALLERGY LIST: [facility] NUMBER: [phone] SECTION 1: REQUESTED ACTION ronny 07/10/05 at 10:01 am: MEDICATION REQUEST: MEDICATION REQUEST: Patient requests a refill. MEDICATIONS: ULTRACET ORAL TABLET 37.5-325 MG, 2 Three Times A Day, As Needed, 60 Dispensed, status: CONTINUED, 04/25/2005, Comment: mat hr [id number]. ok to refill? TRIAGE/RN/BLANKING MACHINE OPERATOR RESPONSE: benjamin 07/10/05 at 10:24 am Refill this time only. FINAL ACTION: gene 07/10/05 at 10:34 am Called pharmacy at 07/10/05 at 10:34 am. Electronically Signed by: Sheila [place] on Sunday, July 10, 2005 documented in this encounter Plan of Treatment Upcoming Encounters Date Type Department Care Team (Late st Contact Info) Description 05/05/2025 2:15 PM PRODUCT RESPONSIBILITY LIAISON Office Visit [facility] Sleep Medicine [facility] [address] [place] [address] Robyn Tracey, IT ENGINEERVETERANS AFF[facility]IRS [facility] [address] [address] documented as of this encounter Visit Diagnoses Not on filedocumented in this encounter Care Teams Account Resolution Expert Relationship Specialty Start Date End Date Sandra Santana MD PCP - General Family Practice 05/17/21 documented as of this encounter
--- OUTSIDE RECORDS SUMMARY | 2025-03-01 06:56 | XMS_ITS | Encounter Summary ---
Author Organization [facility] Address [address] [place] [address] Care Team Providers Care Economic Research Analyst Name Role Phone Sandra Santana MD Primary Care Provider [phone] Encounter Details Date Type Department Care Team (Late Contact Info) Description 01/01/2000 Outpatient Historical [facility] Internal Medicine - [place] [address] [place] [address] Tee Locke MD [address] [facility] [address] [place] [address] Social History Tobacco Use Types Packs/Day Years Used Date Smoking Tobacco: Never Assessed Comments Unknown Sex and Gender Information Value Date Recorded Sex Assigned at Not on file Legal Sex Female 2:43 AM COOKING APPLIANCE REPAIR TECHNICIAN Gender Identity Not on file Sexual Orientation Not on file documented as of this encounter Plan of Treatment Upcoming Encounters Date Type Department Care Team (Late st Contact Info) Description 05/05/2025 2:15 PM COOKING APPLIANCE REPAIR TECHNICIAN Office Visit [facility] Sleep Medicine [facility] [address] [address] Robyn Tracey, [facility] [address] [address] documented as of this encounter Visit Diagnoses Not on filedocumented in this encounter Care Teams Economic Research Analyst Relationship Specialty Start Date End Date Sandra Santana MD PCP - General Family Practice 05/17/21 documented as of this encounter
--- OUTSIDE RECORDS SUMMARY | 2025-03-01 06:56 | XMS_ITS | Encounter Summary ---
Author Organization [facility] Address [address] [place] [address] Care Team Providers Care Environmental Health Specialist Name Role Phone Sandra Santana MD Primary Care Provider Encounter Details Date Type Department Care Team (Late st Contact Info) Description 07/11/1999 Outpatient Historical [facility] Internal Medicine - [facility] [address] [place] [address] Tee Locke MD [address] [facility] [address] [place] [address] Social History Tobacco Use Types Packs/Day Years Used Date Smoking Tobacco: Never Assessed Comments Unknown Sex and Gender Information Value Date Recorded Sex Assigned at Not on file Legal Sex Female 2:43 AM SWIM INSTRUCTOR Gender Identity Not on file Sexual Orientation Not on file documented as of this encounter Plan of Treatment Upcoming Encounters Date Type Department Care Team (Late st Contact Info) Description 05/05/2025 2:15 PM SWIM INSTRUCTOR Office Visit [facility] Sleep Medicine [facility] [address] [address] Robyn Tracey, [facility] [address] [facility] [address] [place] [address] documented as of this encounter Visit Diagnoses Not on filedocumented in this encounter Care Teams Environmental Health Specialist Relationship Specialty Start Date End Date Sandra Santana MD PCP - General Family Practice 05/17/21 documented as of this encounter
--- OUTSIDE RECORDS SUMMARY | 2025-03-01 06:56 | XMS_ITS | Encounter Summary ---
Author Organization [facility] Address [address] [place] [address] Care Team Providers Care Property Supervisor Name Role Phone Sandra Santana MD Primary Care Provider Encounter Details Date Type Department Care Team (Late st Contact Info) Description 01/29/2006 Orders Only [facility]3] Internal Medicine - [place] [address] [place] [address] Tee Locke MD [address] [facility] [address] [place] [address] Social History Tobacco Use Types Packs/Day Years Used Date Smoking Tobacco: Never Assessed Comments Unknown Sex and Gender Information Value Date Recorded Sex Assigned at Not on file Legal Sex Female 2:43 AM QA ANALYST Gender Identity Not on file Sexual [...] 530.81-GASTROESOPHAGEAL REFLUX (GERD) LAB ORDERS: Order number: [id number] Test Ordered: ENDOSCOPY Order number: [id number] Test Ordered: COLONOSCOPY 724.5-BACK PAIN V70.0-ROUTINE GENERAL MEDICAL EXAMINATION LAB ORDERS: Order number: [id number] Test Ordered: COMPREHENSIVE METABOLIC PANEL W/ GLOMERULAR FILTRATION RATE, ESTIMATED (EGFR) 87924 Order number: [id number] Test Ordered: TSH 899 Order number: [id number] Test Ordered: CBC (INCLUDES DIFF/PLT) 6399 Order number: [id number] Test Ordered: INJ-TETANUS & DIPTHERIA TOXOID [id number] 625.4-PREMENSTRUAL SYNDROME (PMS) MEDICATIONS: NEURONTIN ORAL CAPSULE [...] st Contact Info) Description 05/05/2025 2:15 PM QA ANALYST Office Visit [facility]3] Sleep Medicine [facility] [address] [phone] Robyn Tracey, [facility] [address] [facility] [address] [place] [address] documented as of this encounter Visit Diagnoses Not on filedocumented in this encounter Care Teams Property Supervisor Relationship Specialty Start Date End Date Sandra Santana MD PCP - General Family Practice 05/17/21 documented as of this encounter
--- OUTSIDE RECORDS SUMMARY | 2025-03-01 06:56 | XMS_ITS | Encounter Summary ---
Author Organization [facility] Address [address] [place] [address] Care Team Providers Care It Technician Name Role Phone Sandra Santana MD Primary Care Provider Encounter Details Date Type Department Care Team (Late Contact Info) Description 06/10/2007 Orders Only [facility] Internal Medicine [facility] [address] [place] [address]. [address] [address] Matilda Wilkes ANP NO ADDRESS ON FILE Social History Tobacco Use Types Packs/Day Years Used Date Smoking Tobacco: Never Assessed Comments Unknown Sex and Gender Information Value Date Recorded Sex Assigned at Not on file Legal Sex Female 2:43 AM FEEDER CATCHER TOBACCO Gender Identity Not on file Sexual Orientation Not on file documented as of this encounter Plan of Treatment Upcoming Encounters Date Type Department Care Team (Late Contact Info) Description 05/05/2025 2:15 PM FEEDER CATCHER TOBACCO Office Visit [facility] Sleep Medicine [facility] [address] [address] Robyn Tracey, [facility] [address] [address] documented as of this encounter Visit Diagnoses Not on filedocumented in this encounter Care Teams It Technician Relationship Specialty Start Date End Date Sandra Santana MD PCP - General Family Practice 05/17/21 documented as of this encounter
--- OUTSIDE RECORDS SUMMARY | 2025-03-01 06:56 | XMS_ITS | Encounter Summary ---
Author Organization [facility] Address [address] [place] [address] Care Team Providers Care Strawberry Grower Name Role Phone Sandra Santana MD Primary Care Provider Encounter Details Date Type Department Care Team (Late st Contact Info) Description 01/29/2006 Outpatient Historical [facility] Internal Medicine - [place] [address] [place] [address] Tee Locke MD [address] [facility] [address] [place] [address] Social History Tobacco Use Types Packs/Day Years Used Date Smoking Tobacco: Never Assessed Comments Unknown Sex and Gender Information Value Date Recorded Sex Assigned at Not on file Legal Sex Female 2:43 AM MANAGER OF FINANCIAL PLANNING Gender Identity Not on file Sexual Orientation Not on file documented as of this encounter Plan of Treatment Upcoming Encounters Date Type Department Care Team (Late st Contact Info) Description 05/05/2025 2:15 PM MANAGER OF FINANCIAL PLANNING Office Visit [facility] Sleep Medicine [facility] [address] [address] Robyn Tracey, [facility] [address] [address] documented as of this encounter Visit Diagnoses Not on filedocumented in this encounter Care Teams Strawberry Grower Relationship Specialty Start Date End Date Sandra Santana MD PCP - General Family Practice 05/17/21 documented as of this encounter
--- OUTSIDE RECORDS SUMMARY | 2025-03-01 06:56 | XMS_ITS | Encounter Summary ---
Author Organization [facility] Address [address] [place] [address] Care Team Providers Care Diesel Truck Mechanic Name Role Phone Sandra Santana MD Primary Care Provider [phone] Encounter Details Date Type Department Care Team (Late Contact Info) Description 12/17/2001 Outpatient Historical [facility] Internal Medicine - [place] [address] [place] [address] Tee Locke MD [address] [facility] [address] [place] [address] Social History Tobacco Use Types Packs/Day Years Used Date Smoking Tobacco: Never Assessed Comments Unknown Sex and Gender Information Value Date Recorded Sex Assigned at Not on file Legal Sex Female 2:43 AM SORTER UPHOLSTERY PARTS Gender Identity Not on file Sexual Orientation Not on file documented as of this encounter Plan of Treatment Upcoming Encounters Date Type Department Care Team (Late st Contact Info) Description 05/05/2025 2:15 PM SORTER UPHOLSTERY PARTS Office Visit [facility] Sleep Medicine [facility] [address] [address] Robyn Tracey, [facility] [address] [address] documented as of this encounter Visit Diagnoses Not on filedocumented in this encounter Care Teams Diesel Truck Mechanic Relationship Specialty Start Date End Date Sandra Santana MD PCP - General Family Practice 05/17/21 documented as of this encounter
--- OUTSIDE RECORDS SUMMARY | 2025-03-01 06:56 | XMS_ITS | Encounter Summary ---
Author Organization [facility] Address [address] [place] [address] Care Team Providers Care Advisory Application Developer Name Role Phone Sandra Santana MD Primary Care Provider Encounter Details Date Type Department Care Team (Late Contact Info) Description 01/07/2006 Orders Only [facility] Internal Medicine - [place] [address] [place] [address] Tee Locke MD [address] [facility] [address] [place] [address] Social History Tobacco Use Types Packs/Day Years Used Date Smoking Tobacco: Never Assessed Comments Unknown Sex and Gender Information Value Date Recorded Sex Assigned at Not on file Legal Sex Female 2:43 AM PHOTOGRAPHIC EQUIPMENT ASSEMBLER Gender Identity Not on file Sexual Orientation Not on file documented as of this encounter Plan of Treatment Upcoming Encounters Date Type Department Care Team (Late st Contact Info) Description 05/05/2025 2:15 PM PHOTOGRAPHIC EQUIPMENT ASSEMBLER Office Visit [facility] Sleep Medicine [facility] [address] [address] Robyn Tracey, [facility] [address] [address] documented as of this encounter Visit Diagnoses Not on filedocumented in this encounter Care Teams Advisory Application Developer Relationship Specialty Start Date End Date Sandra Santana MD PCP - General Family Practice 05/17/21 documented as of this encounter
--- OUTSIDE RECORDS SUMMARY | 2025-03-01 06:56 | XMS_ITS | Encounter Summary ---
Author Organization [facility] Address [address] [place] [address] Care Team Providers Care Stock Handler Name Role Phone Sandra Santana MD Primary Care Provider Encounter Details Date Type Department Care Team (Late Contact Info) Description 02/19/2005 Outpatient Historical [facility] Internal Medicine [facility] [address] [place] [address] Esteban Auguste MD [address] [facility] [place] [address] Social History Tobacco Use Types Packs/Day Years Used Date Smoking Tobacco: Never Assessed Comments Unknown Sex and Gender Information Value Date Recorded Sex Assigned at Not on file Legal Sex Female 2:43 AM SURGICAL AIDES TEACHER Gender Identity Not on file Sexual Orientation Not on file documented as of this encounter Last Filed Vital Signs Vital Sign Reading Time Taken Comments Blood Pressure 118/74 02/19/2005 10:15 AM SURGICAL AIDES TEACHER Pulse - - Temperature - - Respiratory Rate - - Oxygen Saturation - - Inhaled Oxygen Concentration - - Weight 92.1 kg (203 lb) 02/19/2005 10:15 AM SURGICAL AIDES TEACHER Height - - Body Mass Index - - documented in this encounter Plan of Treatment Upcoming Encounters Date Type Department Care Team (Late st Contact Info) Description 05/05/2025 2:15 PM SURGICAL AIDES TEACHER Office Visit [facility] Sleep Medicine [address] [address] Alexy Robyn Neeru, CRIMINAL ATTORNEY- [address] [facility] [address] [place] [address] documented as of this encounter Visit Diagnoses Not on filedocumented in this encounter Care Teams Stock Handler Relationship Specialty Start Date End Date Sandra Santana MD PCP - General Family Practice 05/17/21 documented as of this encounter
--- OUTSIDE RECORDS SUMMARY | 2025-03-01 06:56 | XMS_ITS | Encounter Summary ---
Author Organization [facility] Address [address] [place] [address] Care Team Providers Care Burlap Spreader Name Role Phone Sandra Santana MD Primary Care Provider [phone] Encounter Details Date Type Department Care Team (Late st Contact Info) Description 04/28/2006 Orders Only [facility] Internal Medicine - [place] [address] [place] [address] Tee Locke MD [address] [facility] [address] [place] [address] Social History Tobacco Use Types Packs/Day Years Used Date Smoking Tobacco: Never Assessed Comments Unknown Sex and Gender Information Value Date Recorded Sex Assigned at Not on file Legal Sex Female 2:43 AM DETECTIVE Gender Identity Not on file Sexual Orientation Not on file documented as of this encounter Progress Notes * Tee Locke MD - 07/31/2007 8:02 PM CDT TIME:01:34 pm PATIENT`S HOME PHONE: PATIENT`S WORK PHONE: PATIENT`S INSURANCE: [employer] PPO WHO TOOK THE CALL: Shirlene Riddle R GENERAL INFORMATION PATIENT STATUS: Established Patient. LAST VISIT: 01/29/06 PCP: tan WHO CALLED: Patient called. ALTERNATIVE PHONE NUMBER: CURRENT ALLERGY LIST: [facility] NUMBER: [phone] OTHER INFORMATION: SECTION 1: REQUESTED ACTION hermes 04/28/06 at 01:35 pm: MEDICATION REQUEST: MEDICATION REQUEST: Patient requests a refill. Pt said that she is having some problems with her lower back MEDICATIONS: ULTRACET ORAL TABLET 37.5-325 MG, 2 Three Times A Day, As Needed, 60 Dispensed, status: CONTINUED, 07/10/2005, Comment: vishnu fairbanks 10.34 [phone]. DOCTOR`S RESPONSE: jessica 04/28/06 at 01:50 pm Refill this time only. FINAL ACTION: hayden 04/28/06 at 02:13 pm Called pharmacy at 04/28/06 at 02:13 pm. Electronically Signed by: Lore Cui on Friday, April 28, 2006 documented in this encounter Plan of Treatment Upcoming Encounters Date Type Department Care Team (Late st Contact Info) Description 05/05/2025 2:15 PM DETECTIVE Office Visit [facility] Sleep Medicine [facility] [address] [place] [address] Robyn Tracey, [facility] [address] [address] documented as of this encounter Visit Diagnoses Not on filedocumented in this encounter Care Teams Burlap Spreader Relationship Specialty Start Date End Date Sandra Santana MD PCP - General Family Practice 05/17/21 documented as of this encounter
--- OUTSIDE RECORDS SUMMARY | 2025-03-01 06:56 | XMS_ITS | Encounter Summary ---
Author Organization [facility] Address [address] [place] [address] Care Team Providers Care Police Chief Deputy Name Role Phone Sandra Santana MD Primary Care Provider [phone] Encounter Details Date Type Department Care Team (Late st Contact Info) Description 11/03/2003 Outpatient Historical [facility] Internal Medicine - [place] [address] [place] [address] Tee Locke MD [address] [facility] [address] [place] [address] Social History Tobacco Use Types Packs/Day Years Used Date Smoking Tobacco: Never Assessed Comments Unknown Sex and Gender Information Value Date Recorded Sex Assigned at Not on file Legal Sex Female 2:43 AM COPIER REPAIR TECHNICIAN Gender Identity Not on file [...] st Contact Info) Description 05/05/2025 2:15 PM COPIER REPAIR TECHNICIAN Office Visit [facility] Sleep Medicine [place] [address] [address] Alexy Robyn Neeru, [facility]ATING SAFETY [facility] [address] [facility] [address] [place] [address] documented as of this encounter Visit Diagnoses Not on filedocumented in this encounter Care Teams Police Chief Deputy Relationship Specialty Start Date End Date Sandra Santana MD PCP - General Family Practice 05/17/21 documented as of this encounter
--- OUTSIDE RECORDS SUMMARY | 2025-03-01 06:57 | XMS_ITS | Clinical Summary ---
Author Organization [facility] Address [address] [place] [address] Care Team Providers Care Antisubmarine Weapons Officer Name Role Phone Davin Chase MD Unavailable [phone] Alee Thacker MD Primary Care Provider Source Comments [facility],non-owned Affiliates and Associated Physician Practices is amultiple site organization consisting of ambulatory clinics and hospital sitesin [place], [place], [place] and [place]. This disclosure is being madepursuant to the Care Everywhere program and may not contain all information available regarding this patient. Last updated 17.[facility] Allergies Active Allergy Reactions [...] on file Legal Sex Female 7:58 AM HEALTHCARE PROF Gender Identity Not on file Sexual Orientation [...] this topic Medical Devices Implanted Type Area Room Server Device Identifier Shelf Expiration Date Model / Serial / Lot Cmnt Bone Djo Srg Cblt 40gm Hvisc Strl Implanted:Qty: 1 on 12/19/2021 by Davin Chase MD at [facility] Left: Knee [employer] 09/20/2022 600-15-000 / / [id number] Cmpnt Ptlr Std 28mm 3 Pg Kn Ser A Implanted:Qty: 1 on 12/19/2021 by Davin Chase MD at [facility] Left: Knee [employer] 01/09/2026 [id number] / / [id number] Tray Tib 75mm Kn Cocr I Beam Implanted:Qty: 1 on 12/19/2021 by Davin Chase MD at [facility] Left: Knee [employer] 08/15/2030 [id number] / / [id number] Cmpnt Fem Kn Lt Cr Cmnt Prm Vngrd Intlk Implanted:Qty: 1 on 12/19/2021 by Davin Chase MD at [facility] Left: Knee [employer] 11/13/2031 [id number] / / [id number] Brng [id number] Vngrd Arcm Kn Ant Stab Implanted:Qty: 1 on 12/19/2021 by Davin Chase MD at [facility] Left: Knee [employer] 10/04/2026 [id number] / / [id number] Insurance [facility] MEDICARE [facility] MEDICARE ADV Advance Directives Documents on File Type Date Recorded Patient Numerical Tool Programmer Expl anation Adv Directive/Living Will/POA 12/19/2021 * Full Code (Latest Code Status on File) Date Activated Date Inactivated Comments 12/19/2021 2:30 PM 12/20/2021 4:05 PM Care Teams Antisubmarine Weapons Officer Relationship Specialty Start Date End Date Alee Thacker MD [address] [place] [id number] PCP - General 02/10/22 [place] [address] [place] [address] Surgeon Orthopedic Surgery 06/01/20
--- OUTSIDE RECORDS SUMMARY | 2025-03-01 06:57 | XMS_ITS | Patient Health Record ---
Author Organization Formerly [facility] [place] ([address]) Address [address] [place] [address] Care Team Providers Care Horseback Riding Instructor Name Role Phone Sandra Santana MD Primary Care Provider Unav Syed Laniern Unavailable [phone] Allergies Allergen (clinical drug ingredient) Drug/Non Drug Allergy documented on EMR Reaction Allergy Type Onset Date Status atorvastatin Atorvastatin hives Drug Allergy A ctive hydrocodone HYDROcodone Unknown Drug Allergy Act davon Results Component Value Reference Range Notes -CBC With Differential/Plate let Reviewed date:04/11/2024 04:18:30 PM Interpretation:Normal Performing Lab:[facility], [address] [place] [id number], Phone - [phone], Director - PhDRicchileigh anni Notes/Report: WBC 5.0 [...] % Immature Grans (Abs) 0.0 0.0-0.1 x10E3/uL -Tryptase (362482) Reviewed date:04/11/2024 04:18:15 PM Interpretation:Normal Performing Lab:[facility] [id number], Phone - [phone], Director - Nate Notes/Report: Tryptase 5.2 2.2-13.2 ug/L -TSH Rfx on Abnormal to Free T4 Reviewed date:04/11/2024 04:20:20 PM Interpretation:Normal Performing Lab:[facility] [id number], Phone - [phone], Director - Jaime Notes/Report: TSH 2.380 0.450-4.500 uIU/mL -CMP (14) Reviewed date:04/11/2024 04:17:59 PM Interpretation:Normal Performing Lab:[facility] [address] [id number], Phone - [phone], Director - Jaime Notes/Report: Glucose 93 70-99 [...] Ab Reviewed date:04/11/2024 04:17:44 PM Interpretation:Abnormal Performing Lab:[facility], [address] [place] [id number], Phone - [phone], Director - Jaime Notes/Report: Thyroid Peroxidase (TPO) Ab 393 0-34 IU/mL -Sedimentation Rate-Westergr en Reviewed date:04/11/2024 04:18:08 PM Interpretation:Normal Performing Lab:[facility], [address] [place] [id number], Phone - [phone], Director - Jaime Notes/Report: Sedimentation Rate-Westergren 14 0-40 mm/hr Reason For Referral No Information Medications Medication SIG (Take, Route, Frequency, Duration) Notes Start Date End Date Status Acetaminophen 500 MG 1 capsule as needed Orally every 6 hrs Active Solifenacin Succinate 10 MG 1 tablet Orally Once a day Active Famotidine 20 MG 1 tablet at bedtime as needed Orally Once a day Active Cetirizine HCl 10 MG 1 tablet Orally Twi ce a day; Duration: 30 days Active EPINEPHrine 0.3 MG/0.3ML as directed Inj ection as needed for swelling or allergic reaction; Duration: 30 days 01/20/2025 Active predniSONE 20 MG 3 tablets Orally Onc e a day; Duration: 5 days 01/20/2025 Active Auvi-Q 0.3 MG/0.3ML as directed Injectio n; Duration: 30 days Active Levothyroxine Sodium 88 MCG 1 tab(s) orally once a day; Duration: 30 day(s) Active Famotidine 20 MG 1 tablet at bedtime as needed Orally Once a day Not-Taking Singulair 10 MG 1 tablet Orally Once a day; Duration: 30 days Active EpiPen 2-Judd 0.3 MG/0.3ML as directed In jection PRN; Duration: 1 days 02/02/2025 Active Immunizations Vaccine Route Administration Date Status [...] W/U Status Risk Notes Problem Idiopathic urticaria (44231012) Idiopathic urticaria (L50.1) Active confirmed Problem Angioneurotic edema (98991150) Angioneurotic edema, initial encounter (T78.3XXA) Active confirmed Problem Chronic allergic conjunctivitis (28612953) Other chronic allergic conjunctivitis (H10.45) Active confirmed Problem Allergic rhinitis caused by pollen (disorder) (65987299) Allergic rhinitis due to pollen (J30.1) Active confirmed Problem Allergic rhinitis (05855326) Other allergic rhinitis (J30.89) Active confirmed Problem Chronic rhinitis (60478060) Chronic rhinitis (J31.0) Active confirmed Problem Uncomplicated mild persistent asthma (707011497) Mild persistent asthma, uncomplicated (J45.30) Active confirmed Problem Uncomplicated moderate persistent asthma (263840881) Moderate persistent asthma, uncomplicated (J45.40) Active confirmed Problem Uncomplicated severe persistent asthma (231249882) Severe persistent asthma, uncomplicated (J45.50) Active confirmed Problem Rosacea (193493019) Rosacea, unspecified (L71.9) Active confirmed Problem Localized edema (8485781) Localized edema (R60.0) Active confirmed Problem Angioneurotic edema (05406086) Angioneurotic edema, subsequent encounter (T78.3XXD) Active confirmed Problem Allergic rhinitis caused by animal hair and dander (117721859132685) Allergic rhinitis due to animal (cat) (dog) hair and dander (J30.81) Active confirmed Problem Allergy status t o narcotic agent (Z88.5) Active confirmed Vital Signs Oximetry 98 % 02/16/2025 Blood pressure diastolic 81 mm Hg 02/16/2025 Height 66 in 02/16/2025 Blood pressure systolic 153 mm Hg 02/16/2025 Weight 227.4 lbs 02/16/2025 BMI 36.7 kg/m2 02/16/2025 Encounters Encounter Location Date Provider Diagnosis [address] [address] 11/09/2024 Matidla Jorge L Idiopathic urticaria L50.1 ; Rosacea, unspecified L71.9 and Allergy status to narcotic agent Z88.[address] [address] 09/07/2024 Matilda Jorge L Idiopathic urticaria L50.1 ; Rosacea, unspecified L71.9 and Allergy status to narcotic agent Z88.[address] [address] 04/27/2024 Matilda Jorge L Idiopathic urticaria L50.1 ; Rosacea, unspecified L71.9 and Allergy status to narcotic agent Z88.[address] [address] 02/16/2025 Matilda Jorge L Idiopathic urticaria L50.1 ; Rosacea, unspecified L71.9 ; Allergy status to narcotic agent Z88.5 and Elevated blood-pressure reading, without diagnosis of hypertension R03.[address] [address] 01/19/2025 Matilda Jorge L Idiopathic urticaria L50.1 ; Rosacea, unspecified L71.9 ; Allergy status to narcotic agent Z88.5 and Elevated blood-pressure reading, without diagnosis of hypertension R03.[address] [address] 04/06/2024 Matilda Jorge L Idiopathic urticaria L50.1 ; Rosacea, unspecified L71.9 and Allergy status to narcotic agent Z88.[address] [place] [address] 01/20/2025 [facility] [address] [place] [address] 01/19/[address] [facility] [address] [place] [address] 01/12/2025 Matilda Coats [facility] [address] [place], [place] [address] [address] [place] [address] 01/10/2025 Matilda Sweeneym [facility] [address] [place], [place] [address] [place] [address] 01/06/2025 Matilda Coats [address] [facility] [address] [place] [address] 12/23/2024 Matilda Coats [address] [facility] [address] [place] [address] 07/13/[address] [facility] [address] [place] [address] 04/27/[address] [facility] [address] [place] [address] 04/11/[address] [facility] [address] [place] [address] 02/09/[address] [facility] [address] [place] [address] 02/02/2025 Matilda Coats Assessments Encounter Date Diagnosis (ICD Code) [...] She was recently prescribed doxycycline by Dermatology. 02/16/2025 Idiopathic urticaria (ICD-10 - L50.1) Previous history of autoimmune urticaria and received Xolair until 2019. Labs 1-2024 showed normal CBC with differential, CMP, and tryptase. Elevated thyroid peroxidase but known thyroid disease. Due to current flare of hives, we decided to start Xolair. Improvement in hives after first dose last month. Continue Zyrtec 10 mg BID, Pepcid BID and Singulair. Xolair was administered today and tolerated after 30 minutes of observation. Continue to carry AIE at all times due to black box warning for anaphylaxis. Return in 4 weeks for dosing. She is getting new insurance for 2025 and will call the office after she receives her new cards. 02/16/2025 Rosacea, unspecified (ICD-10 - L71.9) appears to have 2 separate skin conditions, recommend dermatology evaluation if needed. She was recently prescribed doxycycline by Dermatology. 01/19/2025 Allergy status to narcotic agent (ICD-10 - Z88.5) Monica developed hives with oxycodone and lip swelling with hydrocodone. For now, continue avoidance. Hives occurred with hydrocodone on 2 separate occasions. 02/16/2025 Allergy status to narcotic agent (ICD-10 - [...] occurred with hydrocodone on 2 separate occasions. 02/16/2025 Elevated blood-pressure reading, without diagnosis of hypertension (ICD-10 - R03.0) BP elevated today and needs f/u with PCP 01/19/2025 Elevated blood-pressure reading, without diagnosis of hypertension (ICD-10 - R03.0) BP elevated today and needs f/u with PCP 04/06/2024 Other 09/07/2024 Other 11/09/2024 Other 01/19/2025 Other 04/27/2024 Other 02/16/2025 Other Plan Of Treatment Next Appt Details Provider Name:Mary Pereira , 03/16/2025 09:00:00 AM, [address], [place], [address], Provider Name:Keeley bustillo, 03/22/2025 12:45:00 PM, [address], [place], [address], Insurance Providers Payer Name Payer Address Payer Phone Subscriber Number Group Number Insured Name Patient Relationship to Insured Coverage Start Date Coverage End Date [employer] Medicare [address] [address] [place] [address] [id number] [facility] - patient is the insured Medical [...]
--- OUTSIDE RECORDS SUMMARY | 2025-03-01 06:57 | XMS_ITS | Clinical Summary ---
Author Organization [facility] Address [address] [place] [address] Care Team Providers Care Prosthetic Assistant Name Role Phone Monica Thacker MD Primary Care Provider [phone] Allergies Active Allergy Reactions Criticality Noted Date [...] on file Legal Sex Female 10:12 AM URGENT CARE PHYSICIAN ASSISTANT Gender Identity Not on file [...] ACCESS ANTHEM ACCESS ANTHEM ACCESS Care Teams Prosthetic Assistant Relationship Specialty Start Date End Date Monica Thacker MD [address] [place] [phone] PCP - General Family Medicine 10/27/20
--- OUTSIDE RECORDS SUMMARY | 2025-03-01 06:57 | XMS_ITS | Clinical Summary ---
Author Organization [facility] Address [address] [place] [address] Phone Care Team Providers Care Meteorological Engineer Name Role Phone Sandra Santana MD Primary Care Provider [phone] Allergies Active Allergy Reactions Criticality Noted Date [...] days. 14 Capsule 1 01/23/2022 11:40 AM DESKTOP ADMINISTRATOR 2 Active solifenacin (VESICARE) 10 mg Tablet Take 1 Tablet (10 mg) by mouth daily. 90 Tablet 1 01/23/2022 11:40 AM DESKTOP ADMINISTRATOR 2 Active acetaminophen (TYLENOL) 500 mg Capsule Take 500 mg by mouth every 4 hours as needed. 2 Active calcium carbonate-vitam in D3 (CALTRATE 600 + D) 600 mg-20 mcg (800 unit) Tablet Take 1 Tablet by mouth daily with breakfast. Active celecoxib (CeleBREX) 200 mg capsule Take 1 (one) capsule by mouth 2 times daily 60 Capsule 5 01/24/2022 2:16 PM DESKTOP ADMINISTRATOR 2 Active nitrofurantoin (MACROBID) 100 mg capsule Take 1 Capsule (100 mg) by mouth every 12 hours for 5 days. Take with a meal or food. 10 Capsule 01/24/2022 2:16 PM DESKTOP ADMINISTRATOR 2 Active traMADoL (ULTRAM) 50 mg tablet Take 1-2 tablets by mouth every 6 hours as needed for pain. 42 Tablet 02/15/2022 11:27 AM DESKTOP ADMINISTRATOR 2 Active levothyroxine 100 mcg tablet Take 1 Tablet (100 mcg) by mouth daily. 90 Tablet 2 02/25/2022 12:18 PM DESKTOP ADMINISTRATOR 2 Active nabumetone (RELAFEN) 750 mg tablet Take 1 Tablet (750 mg) by mouth 2 times daily. 60 Tablet 5 03/08/2022 12:38 PM DESKTOP ADMINISTRATOR 2 Active CPAP / BIPAP suppliesIndicat ions:THAO on CPAP CPAP Mask fit to comfort, Refit if needed, All associated CPAP Supplies as needed Length of need: 99 months DME [facility] 1 Each 4 Active Active Problems Patient Care Coordination No te Formatting of this note migh t be different from the original. DME: Provider Plus Category Special[place] [address] [facility] [address] [place] [address] / Problem Noted Date Diagnosed Date Abnormal cardiovascular stress test 12/10/2021 Overview (12/10/2021): Added automatically from request for surgery [id number] Pre-op evaluation 12/10/2021 Overview (12/10/2021): Added automatically from request for surgery [id number] Severe obesity (BMI 35.0-39.9) with comorbidity 10/18/2019 [...] - 12/31/2024 11:59 PM CDT Hospital Encounter [facility] at [address] [place] [address] Sandra Santana MD Discharge Disposition: Home or Self Care 12/29/2024 External Device Data STL ABSTRACTION Provider, Abstract 12/28/2024 External Device Data STL ABSTRACTION Provider, Abstract from Last 3 Months Immunizations Immunization Administration Dates Next Due (ADACEL/BOOSTRIX)(10 YR UP) TDAP VACCINE, 0.5ML, IM 10/04/2019,12/06/2008 (PFIZER)(12 YR UP) COVID-19 VACCINE - EMERGENCY USE AUTHORIZATION, MRNA, [id number]) 30 MCG/0.3 ML IM SUSP 12/05/2020,04/14/2020,03/24/2020 (SHINGRIX)(50 [...] Smoking Tobacco: Former Cigarettes 0.3 10 1 985 - 1994 Smokeless Tobacco: Never Tobacco Cessation:Counseling Given: Not Answered Comments:social smoker only Alcohol Use Standard Drinks/Week Comments Yes 0 (1 standard drink = 0.6 oz pur e alcohol) Comments No Sex and Gender Information Value Date Recorded Sex Assigned at Not on file Legal Sex Female 2:43 AM DESKTOP ADMINISTRATOR Gender Identity Not on file Sexual [...] st Contact Info) Description 05/05/2025 2:15 PM DESKTOP ADMINISTRATOR Office Visit [facility] Sleep Medicine [facility] [address] [place] [address] Robyn Tracey, [facility] [id number] [address] Health Maintenance Due Date Last [...] 12/05/2020, 12/10/2019, Additional history exists COVID-19 Vaccine (2024-2 6 season) 2024 12/05/2020, 04/14/2020, 03/24/2020 OSTEOPOROSIS SCREENING 2025 2020, 2007 BREAST CANCER SCREENING 12/31/2025 01/01/20, 12/30/2023, 12/27/2022, Additional history exists COLORECTAL SCREENING 01/08/2027 01/08/2017 Colorectal Cancer Screening 01/08/2027 DTAP/TDAP/TD VACCINES (3 - T d or Tdap) 10/03/2029 10/04/2019, 12/06/2008, 01/29/2006 ZOSTER VACCINE Completed 05/04/2020, 09/08, 07/05/2016 Medical Devices Implanted Type Area Industrial Engineering Device Identifier Shelf Expiration Date Model / Serial / Lot Cement Depuy1 40grams 3312-040 - [id number] Implanted:Qty : 1 on 03/16/2018 by Chantel Ceja MD at [facility] Right: Knee [employer] 04/09/2020 [id number] / / [id number] Description:[id number] Comp Tib Attn Fb Cmnt Sz5 1506-70-005 - [id number] Implanted:Qty : 1 on 03/16/2018 by Chantel Ceja MD at [facility] Knee Right: Knee [employer] 12/08/2027 [id number] / / [id number] Patella Attune Dome 35mm 1518-20-035 - [id number] Implanted:Qty : 1 on 03/16/2018 by Chantel Ceja MD at [facility] Knee Right: Knee [employer] 11/07/2022 [id number] / / [id number] Comp Fem Attn Ps Cmnt Sz6 1504-00-226 - [id number] Implanted:Qty : 1 on 03/16/2018 by Chantel Ceja MD at [facility] Knee Right: Knee [employer] 10/08/2027 [id number] / / [id number] Ins Attn Fb Cr Sz6 5mm 1516-20-605 - [id number] Implanted:Qty : 1 on 03/16/2018 by Chantel Ceja MD at [facility] Knee Right: Knee [employer] 11/07/2022 [id number] / / [id number] Procedures Procedure Name Priority Date/Time Associated Diagnosis [...] screening mammogram in one year. DICTATION LOCATION: [facility] Narrative 12/31/2024 11:34 AM CDT MAMMO 3D [...] A1C 5.4 <5.7 % of total Hgb [facility] Comment: FASTING:YES FASTING: YES [facility] [address] [place] [address] Андрей Mijares Vo Blood 10/20/2020 9:40 AM CDT 10/20/2020 9:41 AM CDT Monica Thacker MD CHEMISTRY ORDERABLES Final Result [facility] [address] [place] [address] * XR DEXA BONE DENSITY AXIAL 1 [...] refer to the full report available in [facility] under the PACS Images tab. If a faxed copy is needed, please call [phone]. DICTATION LOCATION: [facility] Procedure Note Javier Antonio MD - 2020 SUMMARY DEXA REPORT DATE: 2020 2:42 PM INDICATION: Arthritis, postmenopausal, thyroid medication. FINDINGS: The patient is considered osteopenic with a lowest T score of -1.1. Fracture risk is moderate. Please refer to the full report available in [facility] under the PACS Images tab. If a faxed copy is needed, please call [phone]. DICTATION LOCATION: [facility] Monica Thacker MD DIAGNOSTIC IMAGING ORDERAB LES Final Result * ENDOSCOPY, COLON, SCREENING (01/08/2017) Abstract Provider GI PROCEDURE ORDERABLES Final Result from Last 3 Months or Most Recently Relevant to Health Maintenance Insurance RX MEDIMPACT Member Subscriber Plan / Payer (Ef fective for All Dates) Name:Monica Falk Relation to Subscriber:Self Name:Monica Falk Payer ID:Not on file Group ID:[id number] Type:RX Commercial Address: [address] RX [employer] PLANS (INTERNAL) [facility] [employer] RX [facility] [employer] [facility] [address] Advance Directives For more information, please contact: [phone] Documents on File Type Date Recorded Patient Caisson Worker Expl anation Advance Directive POA 12/07/2021 7:07 AM A dvance Directive POA Advance Directive Living Will 12/07/2021 7:07 AM Advance Directive Living Will * Full Code (Latest Code Status on File) Date Activated Date Inactivated Comments 03/16/2018 12:05 PM 03/18/2018 8:46 PM Care Teams Meteorological Engineer Relationship Specialty Start Date End Date Sandra Santana MD PCP - General Family Practice 05/17/21
[2025-03-01 07:16] VITALS: BP 152/71; PULSE 46; RESP 16; TEMP 36.6; O2SAT 99; BMI 36.8
--- NOTE | 2025-03-01 07:48 | WPDHPUPDATE1 ---
History and Physical Update Update Date/Time: 03/01/25 07:48 History and Physical has been reviewed, including an updated exam of the patient. There are NO changes in the patient's condition. Risks, benefits, and alternatives have been discussed and questions answered. Patient agrees to proceed with procedure.
--- NOTE | 2025-03-01 07:48 | W.PM.PROC2 ---
Procedure Note - Detailed Date of Procedure 03/01/25 Pre-op Diagnosis Left Knee Pain, osteoarthritis left knee Post-op Diagnosis Same Procedure Performed Diagnostic Blockade of the left Superior Medial, Inferior Medial and Superior Lateral Genicular Nerves, Vastus Intermedius nerve under Fluoroscopic Guidance (4 nerves blocked). Surgeon Davin Cruz MD Anesthesia Local Description of Procedure INFORMED CONSENT: Risks, benefits and alternatives to the procedure were discussed in detail with the patient who expressed explicit understanding and consent to proceed. Patient was informed verbally and in written form regarding the risks associated with the procedure including the low risk of serious infection, bleeding/bruising, allergic reaction, nerve injury, paralysis, procedural site pain or discomfort, worsening pain and/or mobility, failure to treat and disfigurement. The patient expressed explicit understanding and consent to proceed. All materials required for the procedure were available prior to procedure start. Site and side was marked prior to procedure and confirmed in the presence of the patient. PROCEDURE IN DETAIL: The patient was brought to the procedural suite and placed in the supine position. Patient was made comfortable with use of pillows under the head/shoulder, knees and ankles. Skin overlying anterior, medial and lateral surface of the knee joint on the left side was prepared broadly with ChloraPrep applicator and draped in a sterile manner. Aseptic technique was used throughout. The intersection between the femoral shaft and the medial femoral condyle, lateral femoral condyle and between the medial tibial plateau and tibial shaft were visualized in the AP view, as well as the line bisecting the femur and perpendicular to the short axis of the joint space 6cm proximal to the superior border of the patella with the knee partially flexed at 120 degrees. Local anesthesia was established by infiltration with approximately 3 mL of 2% lidocaine via a 1-1/2 inch 27-gauge needle at the skin and soft tissues overlying each site. A 25-gauge 3.5 inch quincke spinal needle was advanced until the needle tip contacted periosteum at each location, and was then walked off medially to approximate the position of the Superior and Inferior Medial Genicular nerves or laterally to approximate the position of the Superior Lateral Genicular nerve, and just superficial to femoral periosteum 6cm proximal to the patella to block the Vastus intermedius nerve. Needle depth was verified in the lateral view revealing appropriate needle positioning at each location. 0.5ml of Omnipaque 300 contrast medium was injected at each site confirming appropriate perineural spread of contrast without evidence of intravascular or intra-articular spread. After repeat negative aspiration, 0.5-1.0ml of 2.0% PF lidocaine was injected at each site to block the respective nerves. Needle was removed completely intact without difficulty. Images were saved and documented in the patient chart. Patient's skin was cleansed and sterile bandage applied. The patient tolerated the procedure well. The patient was transported to the recovery area in stable condition where they were observed for an appropriate amount of time prior to discharge, without evidence of complication. Patient was instructed on the appropriate completion of a pain diary over the next 12-24 hours. The patient was instructed to avoid excessive activity for the next 48 hours, including climbing and frequent use of stairs. Showers only for 48 hours. They were instructed not to drive or operate heavy machinery for 24 hours. They are to monitor for severe headaches, fevers, chills, night sweats, erythema/swelling at the site or any other signs of infection, bleeding/bruising, bowel or bladder changes as well as new pain, weakness or numbness in the upper or lower extremity. Should they notice these changes, they are instructed to call our office immediately or report directly to the nearest Emergency Department if no answer or if after posted office hours. CONTRAST WASTED: 28 mL Omnipaque 300. Complications None Condition Stable Disposition Same day [facility] Billing Surgery - Charge Forward: Surgery Billing
[2025-03-01 07:57] VITALS: BP 210/88; PULSE 73; RESP 19; O2SAT 96
[2025-03-01] MEDS: LIDOCAINE 2% PF LOCAL INJ 5 ML VIAL INFILTRATE (08:00)
[2025-03-01] MEDS: LIDOCAINE 1% PF INJ 5 ML VIAL INFILTRATE (08:00)
[2025-03-01 08:01] VITALS: BP 185/84; PULSE 76; RESP 14; O2SAT 99
[2025-03-01 08:06] VITALS: BP 168/80; BP 170/77; PULSE 55; PULSE 69; RESP 12; RESP 17; O2SAT 96; O2SAT 98
[2025-03-01 08:12] VITALS: BP 172/71; PULSE 54; RESP 16; O2SAT 100
== END 2025-03-01 08:22 | disposition home or self-care (01) ==
PROVIDERS: PCP Family Medicine; Visit Provider Anesthesiology Pain Medicine
PROC: (CPT 64454; principal; 2025-03-01 07:50)
DX: M25.562 Pain in left knee (principal); M17.12 Unilateral primary osteoarthritis, left knee
CPT/HCPCS: 64454; 99199

== ENCOUNTER 2025-03-07 13:20 | Outpatient (CLI) | payer MEDICARE, SELFPAY ==
--- OUTSIDE RECORDS SUMMARY | 2024-05-26 11:30 | XMS_ITS ---
Author Organization [facility] [place] ([address]) Address [address] [place] [address] Care Team Providers Care Service Advisor Name Role Phone Sandra Santana MD Primary Care Provider Unav ailable Matilda Coats Unavailable [phone] REASON FOR VISIT XOLAIR SP Follow-up Social History Sex Assigned At : Social History Observation Description Sex Assigned At Female Encounters Encounter Location Date Provider Diagnosis [facility] [address] [place] [address] 05/26/2024 Matilda Coats Plan Of Treatment Next Appt Details Provider Name:Mary Pereira , 03/16/2025 09:00:00 AM, [address], [address], Provider Name:Keeley bustillo, 03/22/2025 12:45:00 PM, [address], [place], [address], Progress Notes * Monica FALKDOB:1955 ([age] yo F)Acc No.[id number]:05/26/2024 XOLAIR 1-3 Patient: Monica PINEDA Provider: Bubba Coats MD :1955 A ge:68 Y S ex:Female Date:05/26/2024 Address:[place] Pcp:Sandra Santana MD Subjective: * Chief Complaints: * 1 . XOLAIR SP Follow-up. * Medical History: Objective: * Vitals: Assessment: Plan: * Treatment: * Billing Information: * Visit Code: * Procedure Codes: * Electronic signature of Olivia Coats MD on 03/07/2025 at 01:34 PM CHIEF NUCLEAR MEDICINE TECHNOLOGIST Sign off status: Pending * Provider: Bubba Coats MD Date: 0 05/26/2024 Generated for Maddy anderson/Martín/Annsmitting on: 1 01:34 PM CHIEF NUCLEAR MEDICINE TECHNOLOGIST
--- NOTE | ~2025-03-07 | DEXA_ITS ---
Bone Density Report Name: ALEE FALK Age: 69 Sex: Female Ethnicity: White Date of : 1955 Indication: postmenopausal; screening for osteoporosis; Referring Provider: YUSUF COLLINS Study: Bone densitometry was performed. Exam Date: March 07, 2025 Accession number: [id number] Bone Density: Region BMD T-score Z-score Classification AP Spine(L1-L4) 1.001 -0.4 1.6 Normal Femoral Neck (Left) 0.662 -1.7 0.1 Osteopenia Total Hip (Left) 0.852 -0.7 0.7 Normal Femoral Neck (Right) 0.793 -0.5 1.3 Normal Total Hip (Right) 0.859 -0.7 0.8 Normal Total Hip Mean 0.855 -0.7 0.8 Normal World Health Organization criteria for BMD impression classify patients as: Normal (T-score at or above -1.0), Osteopenia (T-score between -1.0 and -2.5), or Osteoporosis (T-score at or below -2.5). 10-year Fracture Risk(1): Major Osteoporotic Fracture 9.2% Hip Fracture 1.3% Reported Risk Factors: [place] (), Neck BMD=0.662, BMI=37.0 (1) FRAX(R) Version 3.08. Fracture probability calculated for an untreated patient. Fracture probability may be lower if the patient has received treatment. Clinical Information Provided by Patient: Has used the following medications: Vitamin D, Calcium Patient maximum height was 66 Menopause Age: 54 No regular weight bearing exercise Drinks caffeinated beverages Onset of menses at age 13 Number of children 0 Impression: The patient has low bone mass, based on the Left Femoral Neck T-score. The patient has an estimated ten-year risk of hip fracture of 1.3% and an estimated ten-year risk of major fracture of 9.2%, based on the WHO FRAX algorithm. Discussion: BONE DENSITY IS LOW AT ONE OR MORE SKELETAL SITES. This patient's lowest T-score is low at one or more skeletal sites. It meets the World Health Organization's (WHO) criteria for ?low bone mass? (T-score between -1.0 and -2.5). The patient's 10-year risk of fracture as calculated by FRAX is less than the threshold where pharmacological therapy is recommended by the National Osteoporosis Foundation (NOF). However, all treatment decisions require clinical judgment and consideration of individual patient factors, including patient preferences, comorbidities, previous drug use, risk factors not captured in the FRAX model (e.g., frailty, falls, vitamin D deficiency, increased bone turnover, interval significant decline in bone density) and possible under or overestimation of fracture risk by FRAX. The patient should follow a healthful lifestyle (good nutrition with adequate calcium and vitamin D, and appropriate weight-bearing exercise). Follow-Up: Consider repeating this study in 2 to 3 years to reassess this patient's status, or sooner if there is some new clinical indication. Reported by: JABARI on 03/07/2025 2:03:00 PM. Reviewed, dictated and finalized at location A.
--- OUTSIDE RECORDS SUMMARY | 2025-03-07 13:34 | XMS_ITS | Encounter Summary ---
Author Organization [facility] Address [address] [place] [address] Care Team Providers Care Human Service Worker Name Role Phone Sandra Santana MD Primary Care Provider Encounter Details Date Type Department Care Team (Late Contact Info) Description 12/17/2001 Outpatient Historical [facility] Internal Medicine - [place] [address] [place] [address] Tee Locke MD [address] [facility] [address] [place] [address] Social History Tobacco Use Types Packs/Day Years Used Date Smoking Tobacco: Never Assessed Comments Unknown Sex and Gender Information Value Date Recorded Sex Assigned at Not on file Legal Sex Female 2:43 AM SALAD COUNTER ATTENDANT Gender Identity Not on file Sexual Orientation Not on file documented as of this encounter Plan of Treatment Upcoming Encounters Date Type Department Care Team (Late st Contact Info) Description 05/05/2025 2:15 PM SALAD COUNTER ATTENDANT Office Visit [facility] Sleep Medicine [facility] [address] [address] Robyn Tracey, [facility] [address] [address] documented as of this encounter Visit Diagnoses Not on filedocumented in this encounter Care Teams Human Service Worker Relationship Specialty Start Date End Date Sandra Santana MD PCP - General Family Practice 05/17/21 documented as of this encounter
--- OUTSIDE RECORDS SUMMARY | 2025-03-07 13:34 | XMS_ITS | Encounter Summary ---
Author Organization [facility] Address [address] [place] [address] Care Team Providers Care Chief Minister Name Role Phone Sandra Santana MD Primary Care Provider Encounter Details Date Type Department Care Team (Late Contact Info) Description 01/07/2006 Orders Only [facility] Internal Medicine - [place] [address] [place] [address] Tee Locke MD [address] [facility] [address] [place] [address] Social History Tobacco Use Types Packs/Day Years Used Date Smoking Tobacco: Never Assessed Comments Unknown Sex and Gender Information Value Date Recorded Sex Assigned at Not on file Legal Sex Female 2:43 AM RESPIRATORY THERAPY DIRECTOR Gender Identity Not on file Sexual Orientation Not on file documented as of this encounter Plan of Treatment Upcoming Encounters Date Type Department Care Team (Late st Contact Info) Description 05/05/2025 2:15 PM RESPIRATORY THERAPY DIRECTOR Office Visit [facility] Sleep Medicine [facility] [address] [address] Robyn Tracey, [facility] [address] [address] documented as of this encounter Visit Diagnoses Not on filedocumented in this encounter Care Teams Chief Minister Relationship Specialty Start Date End Date Sandra Santana MD PCP - General Family Practice 05/17/21 documented as of this encounter
--- OUTSIDE RECORDS SUMMARY | 2025-03-07 13:34 | XMS_ITS | Encounter Summary ---
Author Organization [facility] Address [address] [place] [address] Care Team Providers Care Cut Lace Machine Operator Name Role Phone Sandra Santana MD Primary Care Provider [phone] Encounter Details Date Type Department Care Team (Late Contact Info) Description 01/01/2000 Outpatient Historical [facility] Internal Medicine - [place] [address] [place] [address] Tee Locke MD [address] [facility] [address] [place] [address] Social History Tobacco Use Types Packs/Day Years Used Date Smoking Tobacco: Never Assessed Comments Unknown Sex and Gender Information Value Date Recorded Sex Assigned at Not on file Legal Sex Female 2:43 AM CARDIAC CATH LAB RADIOLOGY TECHNOLOGIST Gender Identity Not on file Sexual Orientation Not on file documented as of this encounter Plan of Treatment Upcoming Encounters Date Type Department Care Team (Late st Contact Info) Description 05/05/2025 2:15 PM CARDIAC CATH LAB RADIOLOGY TECHNOLOGIST Office Visit [facility] Sleep Medicine [facility] [address] [address] Robyn Tracey, [facility] [address] [address] documented as of this encounter Visit Diagnoses Not on filedocumented in this encounter Care Teams Cut Lace Machine Operator Relationship Specialty Start Date End Date Sandra Santana MD PCP - General Family Practice 05/17/21 documented as of this encounter
--- OUTSIDE RECORDS SUMMARY | 2025-03-07 13:34 | XMS_ITS | Encounter Summary ---
Author Organization [facility] Address [address] [place] [address] Care Team Providers Care Rod Bending Machine Operator Name Role Phone Sandra Santana MD Primary Care Provider [phone] Encounter Details Date Type Department Care Team (Late st Contact Info) Description 05/15/2007 Orders Only [facility] Internal Medicine [email or web address] [address] [address] Matilda Wilkes ANP NO ADDRESS ON FILE Social History Tobacco Use Types Packs/Day Years Used Date Smoking Tobacco: Never Assessed Comments Unknown Sex and Gender Information Value Date Recorded Sex Assigned at Not on file Legal Sex Female 2:43 AM ELECTROMECHANICAL TECHNICIAN Gender Identity Not on file Sexual [...] will make an appt to see her GRAPHIC ARTS INSTRUCTOR this spring and have a mammogramordered at that time. She has never had a base line bone density. She has been having some intermittent CP, but has always considered it part my her GERD. She recently had a friend of a [place] and would like some cardiac testing. Her [...] active issues. She will F/U with her GRAPHIC ARTS INSTRUCTOR. Needs medication refilled. No incontinence. 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 LAB ORDERS: Order number: [id number] Test Ordered: CBC (INCLUDES DIFF/PLT) 6399 Order number: [id number] Test Ordered: COMPREHENSIVE METABOLIC PANEL 65437 Order number: [id number] Test Ordered: LIPID PANEL 7600 Order number: [id number] Test Ordered: TSH 899 530.81-GASTROESOPHAGEAL REFLUX (GERD) [...] GENERAL MEDICAL EXAMINATION LAB ORDERS: Order number: [id number] Test Ordered: BONE DENSITY (HIP & SPINE) 786.50-SYMPTOM, PAIN, CHEST NOS LAB ORDERS: Order number: [id number] Test Ordered: STRESS ECHO HEALTH MAINTENANCE: LAST [...] interval for mammogram as recommended by the [place] [employer] and ACOG, diagnosis, treatment, and [...] st Contact Info) Description 05/05/2025 2:15 PM ELECTROMECHANICAL TECHNICIAN Office Visit [facility] Sleep Medicine [facility] [address] [address] Robyn Tracey, DESIGN PRINTER [facility] [address] [address] documented as of this encounter Visit Diagnoses Not on filedocumented in this encounter Care Teams Rod Bending Machine Operator Relationship Specialty Start Date End Date Sandra Santana MD PCP - General Family Practice 05/17/21 documented as of this encounter
--- OUTSIDE RECORDS SUMMARY | 2025-03-07 13:34 | XMS_ITS | Encounter Summary ---
Author Organization [facility] Address [address] [place] [address] Care Team Providers Care Tobacco Stripper Hand Name Role Phone Sandra Santana MD Primary Care Provider Encounter Details Date Type Department Care Team (Late Contact Info) Description 02/19/2005 Outpatient Historical [facility] Internal Medicine [facility] [address] [place] [address] Esteban Auguste MD [address] [facility] [place] [place] [address] Social History Tobacco Use Types Packs/Day Years Used Date Smoking Tobacco: Never Assessed Comments Unknown Sex and Gender Information Value Date Recorded Sex Assigned at Not on file Legal Sex Female 2:43 AM RETAIL INTERIOR DESIGNER Gender Identity Not on file Sexual Orientation Not on file documented as of this encounter Last Filed Vital Signs Vital Sign Reading Time Taken Comments Blood Pressure 118/74 02/19/2005 10:15 AM RETAIL INTERIOR DESIGNER Pulse - - Temperature - - Respiratory Rate - - Oxygen Saturation - - Inhaled Oxygen Concentration - - Weight 92.1 kg (203 lb) 02/19/2005 10:15 AM RETAIL INTERIOR DESIGNER Height - - Body Mass Index - - documented in this encounter Plan of Treatment Upcoming Encounters Date Type Department Care Team (Late st Contact Info) Description 05/05/2025 2:15 PM RETAIL INTERIOR DESIGNER Office Visit [facility] Sleep Medicine [address] [address] Alexy Robyn Neeru, INSULATOR TECHNICIAN- [address] [facility] [address] [place] [address] documented as of this encounter Visit Diagnoses Not on filedocumented in this encounter Care Teams Tobacco Stripper Hand Relationship Specialty Start Date End Date Sandra Santana MD PCP - General Family Practice 05/17/21 documented as of this encounter
--- OUTSIDE RECORDS SUMMARY | 2025-03-07 13:34 | XMS_ITS | Encounter Summary ---
Author Organization [facility] Address [address] [place] [address] Care Team Providers Care Security Technician Name Role Phone Sandra Santana MD Primary Care Provider Encounter Details Date Type Department Care Team (Late Contact Info) Description 05/15/2007 Outpatient Historical [facility] Internal Medicine Medical [facility] [address] [place] [address]. [address] [address] Chung Esteves MD NO ADDRESS ON FILE Social History Tobacco Use Types Packs/Day Years Used Date Smoking Tobacco: Never Assessed Comments Unknown Sex and Gender Information Value Date Recorded Sex Assigned at Not on file Legal Sex Female 2:43 AM SPECIAL FORCES COMMUNICATIONS SERGEANT Gender Identity Not on file Sexual Orientation Not on file documented as of this encounter Plan of Treatment Upcoming Encounters Date Type Department Care Team (Late Contact Info) Description 05/05/2025 2:15 PM SPECIAL FORCES COMMUNICATIONS SERGEANT Office Visit [facility] Sleep Medicine [facility] [address] [address] Robyn Tracey, [facility] [address] [address] documented as of this encounter Visit Diagnoses Not on filedocumented in this encounter Care Teams Security Technician Relationship Specialty Start Date End Date Sandra Santana MD PCP - General Family Practice 05/17/21 documented as of this encounter
--- OUTSIDE RECORDS SUMMARY | 2025-03-07 13:34 | XMS_ITS | Encounter Summary ---
Author Organization [facility] Address [address] [place] [address] Care Team Providers Care Supervisor Ticket Sales Name Role Phone Sandra Santana MD Primary Care Provider Encounter Details Date Type Department Care Team (Late st Contact Info) Description 03/25/2006 Orders Only [facility] Internal Medicine - [place] [address] [place] [address] Tee Locke MD [address] [facility] [address] [place] [address] Social History Tobacco Use Types Packs/Day Years Used Date Smoking Tobacco: Never Assessed Comments Unknown Sex and Gender Information Value Date Recorded Sex Assigned at Not on file Legal Sex Female 2:43 AM CRYSTAL GROWER Gender Identity Not on file Sexual Orientation Not on file documented as of this encounter Progress Notes * Tee Locke MD - 08/04/2007 11:51 AM CDT TIME:01:53 pm PATIENT`S HOME PHONE: PATIENT`S WORK PHONE: PATIENT`S INSURANCE: [employer] PPO WHO TOOK THE CALL: Ayesha Saeed M GENERAL INFORMATION PATIENT STATUS: Established Patient. LAST VISIT: 01/29/06 PCP: tan. ALTERNATIVE PHONE NUMBER: [phone] WHO CALLED: Patient called. CURRENT ALLERGY LIST: [facility] NUMBER: [phone] SECTION 1: pt. [...] st Contact Info) Description 05/05/2025 2:15 PM CRYSTAL GROWER Office Visit [facility] Sleep Medicine [facility] [address] [place] [address] Robyn Tracey, [facility] [address] [place] [address] documented as of this encounter Visit Diagnoses Not on filedocumented in this encounter Care Teams Supervisor Ticket Sales Relationship Specialty Start Date End Date Sandra Santana MD PCP - General Family Practice 05/17/21 documented as of this encounter
--- OUTSIDE RECORDS SUMMARY | 2025-03-07 13:34 | XMS_ITS | Encounter Summary ---
Author Organization [facility] Address [address] [place] [address] Care Team Providers Care Ssrs Report Developer Name Role Phone Sandra Santana MD Primary Care Provider Encounter Details Date Type Department Care Team (Late st Contact Info) Description 07/11/1999 Outpatient Historical [facility] Internal Medicine - [facility] [address] [place] [address] Tee Locke MD [address] [facility] [address] [place] [address] Social History Tobacco Use Types Packs/Day Years Used Date Smoking Tobacco: Never Assessed Comments Unknown Sex and Gender Information Value Date Recorded Sex Assigned at Not on file Legal Sex Female 2:43 AM BALL MILL MIXER Gender Identity Not on file Sexual Orientation Not on file documented as of this encounter Plan of Treatment Upcoming Encounters Date Type Department Care Team (Late st Contact Info) Description 05/05/2025 2:15 PM BALL MILL MIXER Office Visit [facility] Sleep Medicine [facility] [address] [address] Robyn Tracey, [facility]CHOLOGY [facility] [address] [facility] [address] [place] [address] documented as of this encounter Visit Diagnoses Not on filedocumented in this encounter Care Teams Ssrs Report Developer Relationship Specialty Start Date End Date Sandra Santana MD PCP - General Family Practice 05/17/21 documented as of this encounter
--- OUTSIDE RECORDS SUMMARY | 2025-03-07 13:34 | XMS_ITS | Encounter Summary ---
Author Organization [facility] Address [address] [place] [address] Care Team Providers Care Inspector Shells Name Role Phone Sandra Santana MD Primary Care Provider Encounter Details Date Type Department Care Team (Late Contact Info) Description 06/10/2007 Orders Only [facility] Internal Medicine Medical [facility] [address] [place] [address]. [address] [address] Matilda Wilkes ANP NO ADDRESS ON FILE Social History Tobacco Use Types Packs/Day Years Used Date Smoking Tobacco: Never Assessed Comments Unknown Sex and Gender Information Value Date Recorded Sex Assigned at Not on file Legal Sex Female 2:43 AM COLLAR POINTER Gender Identity Not on file Sexual Orientation Not on file documented as of this encounter Plan of Treatment Upcoming Encounters Date Type Department Care Team (Late Contact Info) Description 05/05/2025 2:15 PM COLLAR POINTER Office Visit [facility] Sleep Medicine [facility] [address] [address] Robyn Tracey, [facility] [address] [address] documented as of this encounter Visit Diagnoses Not on filedocumented in this encounter Care Teams Inspector Shells Relationship Specialty Start Date End Date Sandra Santana MD PCP - General Family Practice 05/17/21 documented as of this encounter
--- OUTSIDE RECORDS SUMMARY | 2025-03-07 13:34 | XMS_ITS | Encounter Summary ---
Author Organization [facility] Address [address] [place] [address] Care Team Providers Care Mainspring Barrel Assembly Cleaner Name Role Phone Sandra Santana MD Primary Care Provider [phone] Encounter Details Date Type Department Care Team (Late st Contact Info) Description 11/03/2003 Outpatient Historical [facility] Internal Medicine - [place] [address] [place] [address] Tee Locke MD [address] [facility] [address] [place] [address] Social History Tobacco Use Types Packs/Day Years Used Date Smoking Tobacco: Never Assessed Comments Unknown Sex and Gender Information Value Date Recorded Sex Assigned at Not on file Legal Sex Female 2:43 AM EXHIBITIONS AND COLLECTIONS MANAGER Gender Identity Not on file Sexual [...] st Contact Info) Description 05/05/2025 2:15 PM EXHIBITIONS AND COLLECTIONS MANAGER Office Visit [facility] Sleep Medicine [place] [address] [address] Alexy Robyn Neeru, [facility] [address] [facility] [address] [place] [address] documented as of this encounter Visit Diagnoses Not on filedocumented in this encounter Care Teams Mainspring Barrel Assembly Cleaner Relationship Specialty Start Date End Date Sandra Santana MD PCP - General Family Practice 05/17/21 documented as of this encounter
--- OUTSIDE RECORDS SUMMARY | 2025-03-07 13:34 | XMS_ITS | Encounter Summary ---
Author Organization [facility] Address [address] [place] [address] Care Team Providers Care Tattoo Designer Name Role Phone Sandra Santana MD Primary Care Provider Encounter Details Date Type Department Care Team (Late st Contact Info) Description 04/30/2005 Outpatient Historical [facility] Internal Medicine - [place] [address] [place] [address] Tee Locke MD [address] [facility] [address] [place] [address] Social History Tobacco Use Types Packs/Day Years Used Date Smoking Tobacco: Never Assessed Comments Unknown Sex and Gender Information Value Date Recorded Sex Assigned at Not on file Legal Sex Female 2:43 AM WIRE DROPPER Gender Identity Not on file Sexual Orientation Not on file documented as of this encounter Last Filed Vital Signs Vital Sign Reading Time Taken Comments Blood Pressure 120/60 04/30/2005 1:15 PM WIRE DROPPER Pulse 80 04/30/2005 1:15 PM WIRE DROPPER Temperature - - Respiratory Rate - - Oxygen Saturation - - Inhaled Oxygen Concentration - - Weight 89.8 kg (198 lb) 04/30/2005 1:15 PM WIRE DROPPER Height - - Body Mass Index - - documented in this encounter Plan of Treatment Upcoming Encounters Date Type Department Care Team (Late st Contact Info) Description 05/05/2025 2:15 PM WIRE DROPPER Office Visit [facility] Sleep Medicine [address] [place] [address] Robyn Tracey, RETAIL ADVERTISING ACCOUNT [facility] [address] [facility] [place] [address] [place] [address] documented as of this encounter Visit Diagnoses Not on filedocumented in this encounter Care Teams Tattoo Designer Relationship Specialty Start Date End Date Sandra Santana MD PCP - General Family Practice 05/17/21 documented as of this encounter
--- OUTSIDE RECORDS SUMMARY | 2025-03-07 13:34 | XMS_ITS | Encounter Summary ---
Author Organization [facility] Address [address] [place] [address] Care Team Providers Care Weave Room Supervisor Name Role Phone Sandra Santana MD Primary Care Provider Encounter Details Date Type Department Care Team (Late st Contact Info) Description 04/25/2005 Orders Only [facility] Internal Medicine - [place] [address] [place] [address] Tee Locke MD [address] [facility] [address] [place] [address] Social History Tobacco Use Types Packs/Day Years Used Date Smoking Tobacco: Never Assessed Comments Unknown Sex and Gender Information Value Date Recorded Sex Assigned at Not on file Legal Sex Female 2:43 AM COMPUTER SYSTEMS SOFTWARE ENGINEER Gender Identity Not on file Sexual Orientation Not on file documented as of this encounter Progress Notes * Tee Locke MD - 12/17/2007 3:04 PM CDT TIME:12:27 pm PATIENT`S HOME PHONE: PATIENT`S WORK PHONE: PATIENT`S INSURANCE: [employer] PPO WHO TOOK THE CALL: Shirlene Riddle [...] st Contact Info) Description 05/05/2025 2:15 PM COMPUTER SYSTEMS SOFTWARE ENGINEER Office Visit [facility] Sleep Medicine [facility] [address] [place] [phone] Robyn Tracey, [facility] [address] [phone] documented as of this encounter Visit Diagnoses Not on filedocumented in this encounter Care Teams Weave Room Supervisor Relationship Specialty Start Date End Date Sandra Santana MD PCP - General Family Practice 05/17/21 documented as of this encounter
--- OUTSIDE RECORDS SUMMARY | 2025-03-07 13:34 | XMS_ITS | Encounter Summary ---
Author Organization [facility] Address [address] [place] [address] Care Team Providers Care Utility Worker Name Role Phone Sandra Santana MD Primary Care Provider Encounter Details Date Type Department Care Team (Late st Contact Info) Description 01/29/2006 Outpatient Historical [facility] Internal Medicine - [place] [address] [place] [address] Tee Locke MD [address] [facility] [address] [place] [address] Social History Tobacco Use Types Packs/Day Years Used Date Smoking Tobacco: Never Assessed Comments Unknown Sex and Gender Information Value Date Recorded Sex Assigned at Not on file Legal Sex Female 2:43 AM JUICE WEIGHER Gender Identity Not on file Sexual Orientation Not on file documented as of this encounter Plan of Treatment Upcoming Encounters Date Type Department Care Team (Late st Contact Info) Description 05/05/2025 2:15 PM JUICE WEIGHER Office Visit [facility] Sleep Medicine [facility] [address] [address] Robyn Tracey, [facility] [address] [address] documented as of this encounter Visit Diagnoses Not on filedocumented in this encounter Care Teams Utility Worker Relationship Specialty Start Date End Date Sandra Santana MD PCP - General Family Practice 05/17/21 documented as of this encounter
--- OUTSIDE RECORDS SUMMARY | 2025-03-07 13:34 | XMS_ITS | Encounter Summary ---
Author Organization [facility] Address [address] [place] [address] Care Team Providers Care Multi Site Leasing Consultant Name Role Phone Sandra Santana MD Primary Care Provider Encounter Details Date Type Department Care Team (Late st Contact Info) Description 07/10/2005 Orders Only [facility] Internal Medicine - [place] [address] [place] [address] Tee Locke MD [address] [facility] [address] [place] [address] Social History Tobacco Use Types Packs/Day Years Used Date Smoking Tobacco: Never Assessed Comments Unknown Sex and Gender Information Value Date Recorded Sex Assigned at Not on file Legal Sex Female 2:43 AM KELP CUTTER Gender Identity Not on file Sexual Orientation Not on file documented as of this encounter Progress Notes * Tee Locke MD - 12/18/2007 3:34 AM CDT TIME:10:00 am PATIENT`S HOME PHONE: PATIENT`S WORK PHONE: PATIENT`S INSURANCE: [employer] P[employer] WHO TOOK THE CALL: Jamila Stephens A GENERAL INFORMATION PATIENT STATUS: Established Patient. LAST VISIT: 04-30-05 PCP: tan WHO CALLED: Patient called. CURRENT ALLERGY LIST: [facility] NUMBER: [phone] SECTION 1: REQUESTED ACTION ronny 07/10/05 at 10:01 am: MEDICATION REQUEST: MEDICATION REQUEST: Patient requests a refill. MEDICATIONS: ULTRACET ORAL TABLET 37.5-325 MG, 2 Three Times A Day, As Needed, 60 Dispensed, status: CONTINUED, 04/25/2005, Comment: mat hr [phone]. ok to refill? TRIAGE/RN/DRILL SERGEANT RESPONSE: benjamin 07/10/05 at 10:24 am Refill this time only. FINAL ACTION: gene 07/10/05 at 10:34 am Called pharmacy at 07/10/05 at 10:34 am. Electronically Signed by: Sheila Montgomery on Sunday, July 10, 2005 documented in this encounter Plan of Treatment Upcoming Encounters Date Type Department Care Team (Late st Contact Info) Description 05/05/2025 2:15 PM KELP CUTTER Office Visit [facility] Sleep Medicine [facility] [address] [place] [address] Robyn Tracey, [employer] [facility] [address] [address] documented as of this encounter Visit Diagnoses Not on filedocumented in this encounter Care Teams Multi Site Leasing Consultant Relationship Specialty Start Date End Date Sandra Santana MD PCP - General Family Practice 05/17/21 documented as of this encounter
--- OUTSIDE RECORDS SUMMARY | 2025-03-07 13:34 | XMS_ITS | Encounter Summary ---
Author Organization [facility] Address [address] [place] [address] Care Team Providers Care Optical Design Engineer Name Role Phone Sandra Santana MD Primary Care Provider Encounter Details Date Type Department Care Team (Late Contact Info) Description 05/15/2007 Outpatient Historical [facility] Internal Medicine Medical [facility] [address] [place] [address]. [address] [address] Matilda Wilkes ANP NO ADDRESS ON FILE Social History Tobacco Use Types Packs/Day Years Used Date Smoking Tobacco: Never Assessed Comments Unknown Sex and Gender Information Value Date Recorded Sex Assigned at Not on file Legal Sex Female 2:43 AM SAP TECHNICAL ARCHITECT Gender Identity Not on file Sexual Orientation Not on file documented as of this encounter Plan of Treatment Upcoming Encounters Date Type Department Care Team (Late Contact Info) Description 05/05/2025 2:15 PM SAP TECHNICAL ARCHITECT Office Visit [facility] Sleep Medicine [facility] [address] [address] Robyn Tracey, [facility] [address] [address] documented as of this encounter Visit Diagnoses Not on filedocumented in this encounter Care Teams Optical Design Engineer Relationship Specialty Start Date End Date Sandra Santana MD PCP - General Family Practice 05/17/21 documented as of this encounter
--- OUTSIDE RECORDS SUMMARY | 2025-03-07 13:34 | XMS_ITS | Encounter Summary ---
Author Organization [facility] Address [address] [place] [address] Care Team Providers Care Emergency Room Clerk Name Role Phone Sandra Santana MD Primary Care Provider Encounter Details Date Type Department Care Team (Late st Contact Info) Description 10/05/2004 Outpatient Historical [facility] Internal Medicine - [place] [address] [place] [address] Tee Locke MD [address] [facility] [address] [place] [address] Social History Tobacco Use Types Packs/Day Years Used Date Smoking Tobacco: Never Assessed Comments Unknown Sex and Gender Information Value Date Recorded Sex Assigned at Not on file Legal Sex Female 2:43 AM CLIENT RELATION SPECIALIST Gender Identity Not on file Sexual [...] st Contact Info) Description 05/05/2025 2:15 PM CLIENT RELATION SPECIALIST Office Visit [facility] Sleep Medicine [place] [address] [address] Alexy Robyn Neeru, AIR BREAKER [facility] [address] [facility] [address] [place] [address] documented as of this encounter Visit Diagnoses Not on filedocumented in this encounter Care Teams Emergency Room Clerk Relationship Specialty Start Date End Date Sandra Santana MD PCP - General Family Practice 05/17/21 documented as of this encounter
--- OUTSIDE RECORDS SUMMARY | 2025-03-07 13:34 | XMS_ITS | Encounter Summary ---
Author Organization [facility] Address [address] [place] [address] Care Team Providers Care Motion Picture Equipment Supervisor Name Role Phone Sandra Santana MD Primary Care Provider Encounter Details Date Type Department Care Team (Late st Contact Info) Description 01/29/2006 Outpatient Historical [facility] Internal Medicine - [place] [address] [place] [address] Tee Locke MD [address] [facility] [address] [place] [address] Social History Tobacco Use Types Packs/Day Years Used Date Smoking Tobacco: Never Assessed Comments Unknown Sex and Gender Information Value Date Recorded Sex Assigned at Not on file Legal Sex Female 2:43 AM SIGNALS OFFICER Gender Identity Not on file Sexual Orientation Not on file documented as of this encounter Plan of Treatment Upcoming Encounters Date Type Department Care Team (Late st Contact Info) Description 05/05/2025 2:15 PM SIGNALS OFFICER Office Visit [facility] Sleep Medicine [facility] [address] [address] Robyn Tracey, [facility] [address] [address] documented as of this encounter Visit Diagnoses Not on filedocumented in this encounter Care Teams Motion Picture Equipment Supervisor Relationship Specialty Start Date End Date Sandra Santana MD PCP - General Family Practice 05/17/21 documented as of this encounter
--- OUTSIDE RECORDS SUMMARY | 2025-03-07 13:34 | XMS_ITS | Encounter Summary ---
Author Organization [facility] Address [address] [place] [address] Care Team Providers Care Supervisor Computer Operations Name Role Phone Sandra Santana MD Primary Care Provider [phone] Encounter Details Date Type Department Care Team (Late st Contact Info) Description 01/29/2006 Orders Only [facility] Internal Medicine - [place] [address] [place] [address] Tee Locke MD [address] [facility] [address] [place] [address] Social History Tobacco Use Types Packs/Day Years Used Date Smoking Tobacco: Never Assessed Comments Unknown Sex and Gender Information Value Date Recorded Sex Assigned at Not on file Legal Sex Female 2:43 AM DAIRY WORKER Gender Identity Not on file Sexual [...] 530.81-GASTROESOPHAGEAL REFLUX (GERD) LAB ORDERS: Order number: [id number] Test Ordered: ENDOSCOPY Order number: [id number] Test Ordered: COLONOSCOPY 724.5-BACK PAIN V70.0-ROUTINE GENERAL MEDICAL EXAMINATION LAB ORDERS: Order number: [id number] Test Ordered: COMPREHENSIVE METABOLIC PANEL W/ GLOMERULAR FILTRATION RATE, ESTIMATED (EGFR) 20024 Order number: [id number] Test Ordered: TSH 899 Order number: [id number] Test Ordered: CBC (INCLUDES DIFF/PLT) 6399 Order number: [id number] Test Ordered: INJ-TETANUS & DIPTHERIA TOXOID 24348 625.4-PREMENSTRUAL SYNDROME (PMS) MEDICATIONS: NEURONTIN ORAL CAPSULE [...] Contact Info) Description 05/05/2025 2:15 PM DAIRY WORKER Office Visit [facility] Sleep Medicine [facility] [address] [phone] Robyn Tracey, [facility] [address] [facility] [address] [place] [address] documented as of this encounter Visit Diagnoses Not on filedocumented in this encounter Care Teams Supervisor Computer Operations Relationship Specialty Start Date End Date Sandra Santana MD PCP - General Family Practice 05/17/21 documented as of this encounter
--- OUTSIDE RECORDS SUMMARY | 2025-03-07 13:34 | XMS_ITS | Encounter Summary ---
Author Organization [facility] Address [address] [place] [address] Care Team Providers Care Sports Intern Name Role Phone Sandra Santana MD Primary Care Provider Encounter Details Date Type Department Care Team (Late st Contact Info) Description 04/28/2006 Orders Only [facility] Internal Medicine - [place] [address] [place] [address] Tee Locke MD [address] [facility] [address] [place] [address] Social History Tobacco Use Types Packs/Day Years Used Date Smoking Tobacco: Never Assessed Comments Unknown Sex and Gender Information Value Date Recorded Sex Assigned at Not on file Legal Sex Female 2:43 AM CONSULTANT Gender Identity Not on file Sexual Orientation Not on file documented as of this encounter Progress Notes * Tee Locke MD - 07/31/2007 8:02 PM CDT TIME:01:34 pm PATIENT`S HOME PHONE: PATIENT`S WORK PHONE: PATIENT`S INSURANCE: [employer] P[employer] WHO TOOK THE CALL: Shirlene Riddle R GENERAL INFORMATION PATIENT STATUS: Established Patient. LAST VISIT: 01/29/06 PCP: tan WHO CALLED: Patient called. ALTERNATIVE PHONE NUMBER: CURRENT ALLERGY LIST: [facility] NUMBER: [phone] OTHER INFORMATION: SECTION 1: REQUESTED ACTION hermes 04/28/06 at 01:35 pm: MEDICATION REQUEST: MEDICATION REQUEST: Patient requests a refill. Pt said that she is having some problems with her lower back MEDICATIONS: ULTRACET ORAL TABLET 37.5-325 MG, 2 Three Times A Day, As Needed, 60 Dispensed, status: CONTINUED, 07/10/2005, Comment: vishnu fairbanks [phone]. DOCTOR`S RESPONSE: jessica 04/28/06 at 01:50 pm Refill this time only. FINAL ACTION: hayden 04/28/06 at 02:13 pm Called pharmacy at 04/28/06 at 02:13 pm. Electronically Signed by: Lore Cui on Friday, April 28, 2006 documented in this encounter Plan of Treatment Upcoming Encounters Date Type Department Care Team (Late st Contact Info) Description 05/05/2025 2:15 PM CONSULTANT Office Visit [facility] Sleep Medicine [facility] [address] [place] [address] Robyn Tracey, [facility] [address] [address] documented as of this encounter Visit Diagnoses Not on filedocumented in this encounter Care Teams Sports Intern Relationship Specialty Start Date End Date Sandra Santana MD PCP - General Family Practice 05/17/21 documented as of this encounter
--- OUTSIDE RECORDS SUMMARY | 2025-03-07 13:34 | XMS_ITS | Encounter Summary ---
Author Organization [facility] Address [address] [place] [address] Care Team Providers Care Timber Faller Name Role Phone Sandra Santana MD Primary Care Provider Encounter Details Date Type Department Care Team (Late st Contact Info) Description 09/02/2005 Orders Only [facility] Internal Medicine - [place] [address] [place] [address] Tee Locke MD [address] [facility] [address] [place] [address] Social History Tobacco Use Types Packs/Day Years Used Date Smoking Tobacco: Never Assessed Comments Unknown Sex and Gender Information Value Date Recorded Sex Assigned at Not on file Legal Sex Female 2:43 AM SENIOR JAVA SOFTWARE DEVELOPER Gender Identity Not on file Sexual Orientation Not on file documented as of this encounter Progress Notes * Tee Locke MD - 12/18/2007 8:50 AM CDT TIME:02:04 pm PATIENT`S HOME PHONE: PATIENT`S WORK PHONE: PATIENT`S INSURANCE: [employer] PPO WHO TOOK THE CALL: Ari Enamorado A GENERAL INFORMATION PATIENT STATUS: Established Patient. LAST VISIT: 04/30/05 PCP: tan. ALTERNATIVE PHONE NUMBER: [phone] WHO CALLED: Patient called. CURRENT ALLERGY LIST: [facility] NUMBER: [phone] PROBLEMS: SECTION 1: REQUESTED ACTION [facility] 09/02/05 at 02:04 pm: MEDICATION REQUEST: Patient [...] st Contact Info) Description 05/05/2025 2:15 PM SENIOR JAVA SOFTWARE DEVELOPER Office Visit [facility] Sleep Medicine [facility] [address] [address] Robyn Tracey, [facility] [address] [address] documented as of this encounter Visit Diagnoses Not on filedocumented in this encounter Care Teams Timber Faller Relationship Specialty Start Date End Date Sandra Santana MD PCP - General Family Practice 05/17/21 documented as of this encounter
--- OUTSIDE RECORDS SUMMARY | 2025-03-07 13:35 | XMS_ITS | Patient Health Record ---
Author Organization [facility] [place] ([address]) Address [address] [place] [address] Care Team Providers Care Hasher Operator Name Role Phone Sandra Santana MD Primary Care Provider Unav Syed Laniern Unavailable [phone] Allergies Allergen (clinical drug ingredient) Drug/Non Drug Allergy documented on EMR Reaction Allergy Type Onset Date Status atorvastatin Atorvastatin hives Drug Allergy A ctive hydrocodone HYDROcodone Unknown Drug Allergy Act davon Results Component Value Reference Range Notes -CBC With Differential/Plate let Reviewed date:04/11/2024 04:18:30 PM Interpretation:Normal Performing Lab:[facility], [address] [place] [id number], Phone - [phone], Director - PhDRicchileigh anni Notes/Report: WBC 5.0 [...] en Reviewed date:04/11/2024 04:18:08 PM Interpretation:Normal Performing Lab:[address] [id number], Phone - [phone], Director - [facility] Notes/Report: Sedimentation Rate-Westergren 14 0-40 mm/hr -Thyroid Peroxidase (TPO) Ab Reviewed date:04/11/2024 04:17:44 PM Interpretation:Abnormal Performing Lab:[address] [id number], Phone - [phone], Director - [facility] Notes/Report: Thyroid Peroxidase (TPO) Ab 393 0-34 IU/mL -CMP (14) Reviewed date:04/11/2024 04:17:59 PM Interpretation:Normal Performing Lab:[address] [id number], Phone - [phone], Director - [facility] Notes/Report: Glucose 93 70-99 mg/dL BUN 15 [...] Reviewed date:04/11/2024 04:20:20 PM Interpretation:Normal Performing Lab:[facility], [address] [place], [place] [id number], Phone - [phone], Director - Jaime Notes/Report: TSH 2.380 0.450-4.500 uIU/mL -Tryptase ([id number]) Reviewed date:04/11/2024 04:18:15 PM Interpretation:Normal Performing Lab:[facility] [place], [facility] [place], [place] [id number], Phone - [phone], Director - Nate Notes/Report: Tryptase 5.2 2.2-13.2 [...] W/U Status Risk Notes Problem Idiopathic urticaria (59200692) Idiopathic urticaria (L50.1) Active confirmed Problem Angioneurotic edema (15082973) Angioneurotic edema, initial encounter (T78.3XXA) Active confirmed Problem Chronic allergic conjunctivitis (98948426) Other chronic allergic conjunctivitis (H10.45) Active confirmed Problem Allergic rhinitis caused by pollen (disorder) (21967415) Allergic rhinitis due to pollen (J30.1) Active confirmed Problem Allergic rhinitis (65709156) Other allergic rhinitis (J30.89) Active confirmed Problem Chronic rhinitis (51051945) Chronic rhinitis (J31.0) Active confirmed Problem Uncomplicated mild persistent asthma (342383149) Mild persistent asthma, uncomplicated (J45.30) Active confirmed Problem Uncomplicated moderate persistent asthma (844424796) Moderate persistent asthma, uncomplicated (J45.40) Active confirmed Problem Uncomplicated severe persistent asthma (499261408) Severe persistent asthma, uncomplicated (J45.50) Active confirmed Problem Rosacea (655884015) Rosacea, unspecified (L71.9) Active confirmed Problem Localized edema (3319913) Localized edema (R60.0) Active confirmed Problem Angioneurotic edema (39811285) Angioneurotic edema, subsequent encounter (T78.3XXD) Active confirmed Problem Allergic rhinitis caused by animal hair and dander (453363061297932) Allergic rhinitis due to animal (cat) (dog) hair and dander (J30.81) Active confirmed Problem Allergy status t o narcotic agent (Z88.5) Active confirmed Vital Signs Blood pressure diastolic 81 mm Hg 02/16/2025 Oximetry 98 % 02/16/2025 Height 66 in 02/16/2025 Blood pressure systolic 153 mm Hg 02/16/2025 Weight 227.4 lbs 02/16/2025 BMI 36.7 kg/m2 02/16/2025 Encounters Encounter Location Date Provider Diagnosis [address] [facility] [employer] [address] [address] 11/09/2024 Matilda Jorge L Idiopathic urticaria L50.1 ; Rosacea, unspecified L71.9 and Allergy status to narcotic agent Z88.[address] [address] 09/07/2024 Matilda Jorge L Idiopathic urticaria L50.1 ; Rosacea, unspecified L71.9 and Allergy status to narcotic agent Z88.[address] [address] 04/27/2024 Matilda Jorge L Idiopathic urticaria L50.1 ; Rosacea, unspecified L71.9 and Allergy status to narcotic agent Z88.[address] [employer] [address] [address] 02/16/2025 Matilda Jorge L Idiopathic urticaria L50.1 ; Rosacea, unspecified L71.9 ; Allergy status to narcotic agent Z88.5 and Elevated blood-pressure reading, without diagnosis of hypertension R03.[address] [facility] [employer] [address] [address] 01/19/2025 Matilda Jorge L Idiopathic urticaria L50.1 ; Rosacea, unspecified L71.9 ; Allergy status to narcotic agent Z88.5 and Elevated blood-pressure reading, without diagnosis of hypertension R03.0 [address] [address] 04/06/2024 Matilda Jorge L Idiopathic urticaria L50.1 ; Rosacea, unspecified L71.9 and Allergy status to narcotic agent Z88.[address] [place] [address] 01/20/2025 [facility] [address] [place] [address] 01/19/2025 Matilda Coats [facility] [address] [place] [address] 01/12/2025 Matilda Coats [facility] [address] [place], [place] [address] [address] [place] [address] 01/10/2025 Matilda Sweeneym [facility] [address] [place], [place] [address] [place] [address] 01/06/2025 Matilda Coats [address] [facility] [address] [place] [address] 12/23/2024 Matilda Coats [address] [facility] [address] [place] [address] 07/13/2024 Matilda Coats [facility] [address] [place] [address] 04/27/2024 Matilda Coats [facility] [address] [place] [address] 04/11/2024 Matilda Coats [facility] [address] [place] [address] 02/09/2025 Matilda Coats [facility] [address] [place] [address] 02/02/2025 Matilda Coats Assessments Encounter Date Diagnosis [...] skin conditions, current flare on her face 09/07/2024 Idiopathic urticaria (ICD-10 - L50.1) Previous [...] She was recently prescribed doxycycline by Dermatology. 04/27/2024 Idiopathic urticaria (ICD-10 - L50.1) Previous [...] conditions, recommend dermatology evaluation if needed. 11/09/2024 Allergy status to narcotic agent (ICD-10 - Z88.5) Monica developed hives with oxycodone and lip swelling with hydrocodone. For now, continue avoidance. Hives occurred with hydrocodone on 2 separate occasions. 04/27/2024 Allergy status to narcotic agent (ICD-10 - Z88.5) Monica developed hives with oxycodone and lip swelling with hydrocodone. For now, continue avoidance. Hives occurred with hydrocodone on 2 separate occasions. 01/19/2025 Allergy status to narcotic agent (ICD-10 [...] elevated today and needs f/u with PCP 02/16/2025 Elevated blood-pressure reading, without diagnosis of hypertension (ICD-10 - R03.0) BP elevated today and needs f/u with PCP 04/06/2024 Other 09/07/2024 Other 11/09/2024 Other 01/19/2025 Other 04/27/2024 Other 02/16/2025 Other Plan Of Treatment Next Appt Details Provider Name:Mary Pereira , 03/16/2025 09:00:00 AM, [address] [employer], [address], [place], [address], Provider Name:Keeley bustillo, 03/22/2025 12:45:00 PM, [address] [employer], [address], [place], [address], Insurance Providers Payer Name Payer Address Payer Phone Subscriber Number Group Number Insured Name Patient Relationship to Insured Coverage Start Date Coverage End Date [employer] Medicare [address] [address] [place] [address] [id number] [facility] Self - patient is the insured Medical [...]
--- OUTSIDE RECORDS SUMMARY | 2025-03-07 13:35 | XMS_ITS | Clinical Summary ---
Author Organization [facility] Address [address] [place] [address] Phone Care Team Providers Care Plant Engineering Manager Name Role Phone Sandra Santana MD [...] days. 14 Capsule 1 01/23/2022 11:40 AM BEAM DYER 2 Active solifenacin (VESICARE) 10 mg Tablet Take 1 Tablet (10 mg) by mouth daily. 90 Tablet 1 01/23/2022 11:40 AM BEAM DYER 2 Active acetaminophen (TYLENOL) 500 mg Capsule Take 500 mg by mouth every 4 hours as needed. 2 Active calcium carbonate-vitam in D3 (CALTRATE 600 + D) 600 mg-20 mcg (800 unit) Tablet Take 1 Tablet by mouth daily with breakfast. Active celecoxib (CeleBREX) 200 mg capsule Take 1 (one) capsule by mouth 2 times daily 60 Capsule 5 01/24/2022 2:16 PM BEAM DYER 2 Active nitrofurantoin (MACROBID) 100 mg capsule Take 1 Capsule (100 mg) by mouth every 12 hours for 5 days. Take with a meal or food. 10 Capsule 01/24/2022 2:16 PM BEAM DYER 2 Active traMADoL (ULTRAM) 50 mg tablet Take 1-2 tablets by mouth every 6 hours as needed for pain. 42 Tablet 02/15/2022 11:27 AM BEAM DYER 2 Active levothyroxine 100 mcg tablet Take 1 Tablet (100 mcg) by mouth daily. 90 Tablet 2 02/25/2022 12:18 PM BEAM DYER 2 Active nabumetone (RELAFEN) 750 mg tablet Take 1 Tablet (750 mg) by mouth 2 times daily. 60 Tablet 5 03/08/2022 12:38 PM BEAM DYER 2 Active CPAP / BIPAP suppliesIndicat ions:THAO on CPAP CPAP Mask fit to comfort, Refit if needed, All associated CPAP Supplies as needed Length of need: 99 months DME [employer] 1 Each 4 Active Active Problems Patient Care Coordination No te Formatting of this note migh t be different from the original. DME: Provider Plus Material Handling Crew Supervisor- [place] [address] [facility] [address] [place] [address] / Problem Noted Date Diagnosed Date Abnormal cardiovascular stress test 12/10/2021 Overview (12/10/2021): Added automatically from request for surgery [id number] Pre-op evaluation 12/10/2021 Overview (12/10/2021): Added automatically from request for surgery [id number] Severe obesity (BMI 35.0-39.9) with comorbidity 10/18/2019 [...] Encounters Date Type Department Care Team Description 03/01/2025 External Device Data ST[facility] ABSTRACTION Provider, Abstract 01/25/2025 External Device Data [facility] ABSTRACTION Provider, Abstract 12/31/2024 9:59 AM CDT - 12/31/2024 11:59 PM CDT Hospital Encounter [facility] at [address] [place] [address] Sandra Santana MD Discharge Disposition: Home or Self Care 12/29/2024 External Device Data STL ABSTRACTION Provider, Abstract 12/28/2024 External Device Data [facility] ABSTRACTION Provider, Abstract from Last 3 Months Immunizations Immunization Administration Dates Next Due (ADACEL/BOOSTRIX)(10 YR UP) TDAP VACCINE, 0.5ML, IM 10/04/2019,12/06/2008 (PFIZER)(12 YR UP) COVID-19 VACCINE - EMERGENCY USE AUTHORIZATION, MRNA, [id number](PF) 30 MCG/0.3 ML IM SUSP 12/05/2020,04/14/2020,03/24/2020 (SHINGRIX)(50 [...] on file Legal Sex Female 2:43 AM BEAM DYER Gender Identity Not on file Sexual [...] st Contact Info) Description 05/05/2025 2:15 PM BEAM DYER Office Visit [facility] Sleep Medicine [address] [address] Robyn Tracey, FOUNDATION DRILL OPERATOR [facility] [address] [address] Health Maintenance Due Date Last [...] 09/08, 07/05/2016 Medical Devices Implanted Type Area Cardiac Exercise Physiologist Device Identifier Shelf Expiration Date Model / Serial / Lot Cement Depuy1 40grams 3312-040 - [id number] Implanted:Qty : 1 on 03/16/2018 by Chantel Ceja MD at [facility] Right: Knee [employer] 04/09/2020 3312-040 / / [id number] Description:[id number] Comp Tib Attn Fb Cmnt Sz5 1506-70-005 - [id number] Implanted:Qty : 1 on 03/16/2018 by Chantel Ceja MD at [facility] Right: Knee [employer] 12/08/2027 [id number] / / [id number] Patella Attune Dome 35mm 1518-20-035 - [id number] Implanted:Qty : 1 on 03/16/2018 by Chantel Ceja MD at [facility] Knee Right: Knee [employer] 11/07/2022 [id number] / / [id number] Comp Fem Attn Ps Cmnt Sz6 1504-00-226 - [id number] Implanted:Qty : 1 on 03/16/2018 by Chantel Ceja MD at [facility] Knee Right: Knee [employer] 10/08/2027 [id number] / / [id number] Ins Attn Fb Cr Sz6 5mm 1516-20-605 - [id number] Implanted:Qty : 1 on 03/16/2018 by Chantel Ceja MD at [facility] Knee Right: Knee [employer] 11/07/2022 [id number] / / [id number] Procedures Procedure Name Priority Date/Time Associated Diagnosis [...] screening mammogram in one year. DICTATION LOCATION: [facility] Narrative 12/31/2024 11:34 AM CDT MAMMO [...] A1C 5.4 <5.7 % of total Hgb [facility] Comment: FASTING:YES FASTING: YES Test Performed at: [facility] [address] [place] [address] Андрей Mijares Vo Blood 10/20/2020 9:40 AM CDT 10/20/2020 9:41 AM CDT Monica Thacker MD CHEMISTRY ORDERABLES Final Result [facility] [address] [place] [address] * XR DEXA BONE DENSITY AXIAL 1 [...] refer to the full report available in [facility] under the PACS Images tab. If a faxed copy is needed, please call [phone]. DICTATION LOCATION: [facility] Procedure Note Javier Antonio MD - 2020 SUMMARY DEXA REPORT DATE: 2020 2:42 PM INDICATION: Arthritis, postmenopausal, thyroid medication. FINDINGS: The patient is considered osteopenic with a lowest T score of -1.1. Fracture risk is moderate. Please refer to the full report available in [facility] under the PACS Images tab. If a faxed copy is needed, please call [phone]. DICTATION LOCATION: [facility] Monica Thacker MD DIAGNOSTIC IMAGING [...] (INTERNAL) [facility] [address] Advance Directives For more information, please contact: [phone] Documents on File Type Date Recorded Patient Wind Project Manager Expl anation Advance Directive POA 12/07/2021 7:07 AM A dvance Directive POA Advance Directive Living Will 12/07/2021 7:07 AM Advance Directive Living Will * Full Code (Latest Code Status on File) Date Activated Date Inactivated Comments 03/16/2018 12:05 PM 03/18/2018 8:46 PM Care Teams Plant Engineering Manager Relationship Specialty Start Date End Date Sandra Santana MD PCP - General Family Practice 05/17/21
--- OUTSIDE RECORDS SUMMARY | 2025-03-07 13:35 | XMS_ITS | Clinical Summary ---
Author Organization [facility] Address [address] [place] [address] Care Team Providers Care Direct Service Provider Name Role Phone Monica Thacker MD Primary Care Provider [phone] Allergies Active Allergy Reactions Criticality Noted Date [...] on file Legal Sex Female 10:12 AM REDUCING SYSTEM OPERATOR Gender Identity Not on file Sexual [...] ACCESS ANTHEM ACCESS ANTHEM ACCESS Care Teams Direct Service Provider Relationship Specialty Start Date End Date Monica Thacker MD [address] [place] [id number] PCP - General Family Medicine 10/27/20
--- OUTSIDE RECORDS SUMMARY | 2025-03-07 13:35 | XMS_ITS | Clinical Summary ---
Author Organization [facility] Address [address] [place] [address] Care Team Providers Care Sprinkler Installer Name Role Phone Davin Chase MD Unavailable [phone] Alee Thacker MD Primary Care Provider [phone] [facility],non-owned Affiliates and Associated Physician Practices is amultiple site organization consisting of ambulatory clinics and hospital sitesin [place], [place], [place] and [place]. This disclosure is being madepursuant to the Care Everywhere program and may not contain all information available regarding this patient. Last updated 17.[facility] Allergies Active Allergy Reactions Criticality Noted Date [...] on file Legal Sex Female 7:58 AM PARTS CHASER Gender Identity Not on file Sexual Orientation [...] this topic Medical Devices Implanted Type Area Hansard Reporter Device Identifier Shelf Expiration Date Model / Serial / Lot Cmnt Bone Djo Srg Cblt 40gm Hvisc Strl Implanted:Qty: 1 on 12/19/2021 by Davin Chase MD at [facility] Left: Knee [employer] 09/20/2022 [id number] / / [id number] Cmpnt Ptlr Std 28mm 3 Pg Kn Ser A Implanted:Qty: 1 on 12/19/2021 by Davin Chase MD at [facility] Left: Knee [employer] 01/09/2026 [id number] / / [id number] Tray Tib 75mm Kn Cocr I Beam Implanted:Qty: 1 on 12/19/2021 by Davin Chase MD at [facility] Left: Knee [employer] 08/15/2030 [id number] / / [id number] Cmpnt Fem Kn Lt Cr Cmnt Prm Vngrd Intlk Implanted:Qty: 1 on 12/19/2021 by Davin Chase MD at [facility] Left: Knee [employer] 11/13/2031 [id number] / / [id number] Brng [id number] Vngrd Arcm Kn Ant Stab Implanted:Qty: 1 on 12/19/2021 by Davin Chase MD at [facility] Left: Knee [employer] 10/04/2026 [id number] / / [id number] Insurance [facility] MEDIC[facility] ADV Advance Directives Documents on File Type Date Recorded Patient Crisis Therapist Expl anation Adv Directive/Living Will/POA 12/19/2021 * Full Code (Latest Code Status on File) Date Activated Date Inactivated Comments 12/19/2021 2:30 PM 12/20/2021 4:05 PM Care Teams Sprinkler Installer Relationship Specialty Start Date End Date Alee Thacker MD [address] [place] [id number] PCP - General 02/10/22 [place] [address] [place] [address] Surgeon Orthopedic Surgery 06/01/20
== END 2025-03-07 13:21 | disposition home or self-care (01) ==
LOC: ANHFOHIMG 13:21
PROVIDERS: PCP Family Medicine; Visit Provider Student in an Organized Health Care Education/Training Program
DX: Z78.0 Asymptomatic menopausal state (principal); M85.852 Other specified disorders of bone density and structure, left thigh
CPT/HCPCS: 77080